=== PATIENT | female | born 1990 | race African-American/Black ===

== ENCOUNTER → 2020-02-02 | Outpatient (CLI) | payer MEDICAID, OTHER, SELFPAY | LOC: M LABSMTC 13:21 | PROVIDERS: ATTEND Family Medicine | DX: Z03.818 Encounter for observation for suspected exposure to other biological agents ruled out (principal); Z11.59 Encounter for screening for other viral diseases | CPT/HCPCS: C9803; U0003 ==

== ENCOUNTER → 2020-02-27 | Outpatient (CLI) | payer MEDICAID | LOC: M OUTALCOH 08:23 | PROVIDERS: ATTEND Psychiatry & Neurology Addiction Medicine | DX: Z03.89 Encounter for observation for other suspected diseases and conditions ruled out (principal) ==

== ENCOUNTER → 2020-04-11 | Outpatient (CLI) | payer MEDICAID, OTHER | LOC: M OUTALCOH 08:00 | PROVIDERS: ATTEND Psychiatry & Neurology Addiction Medicine | DX: F12.10 Cannabis abuse, uncomplicated (principal) ==

== ENCOUNTER 2020-04-24 10:00 | Outpatient (RCR) | payer MEDICAID, OTHER | END 2020-05-06 | LOC: M OUTALCOH 10:00 | PROVIDERS: ATTEND Psychiatry & Neurology Addiction Medicine | DX: Z03.89 Encounter for observation for other suspected diseases and conditions ruled out (principal); Z72.0 Tobacco use ==

== ENCOUNTER → 2020-07-03 | Outpatient (CLI) | payer OTHER | LOC: M OUTALCOH 10:29 | PROVIDERS: ATTEND Psychiatry & Neurology Addiction Medicine | DX: F10.20 Alcohol dependence, uncomplicated (principal); F12.10 Cannabis abuse, uncomplicated ==

== ENCOUNTER → 2020-08-05 | Outpatient (RCR) | payer OTHER | LOC: M OUTALCOH 07-09 13:20 | PROVIDERS: ATTEND Psychiatry & Neurology Addiction Medicine | DX: F10.20 Alcohol dependence, uncomplicated (principal); F12.10 Cannabis abuse, uncomplicated; Z72.0 Tobacco use ==

== ENCOUNTER 2020-09-03 14:00 | Outpatient (RCR) | payer OTHER | END 2020-09-05 | LOC: M OUTALCOH 14:00 | PROVIDERS: ATTEND Psychiatry & Neurology Addiction Medicine | DX: F10.20 Alcohol dependence, uncomplicated (principal); F12.10 Cannabis abuse, uncomplicated; Z72.0 Tobacco use ==

== ENCOUNTER 2020-10-04 11:00 | Outpatient (RCR) | payer OTHER | END 2020-10-06 | LOC: M OUTALCOH 11:00 | PROVIDERS: ATTEND Psychiatry & Neurology Addiction Medicine | DX: F10.20 Alcohol dependence, uncomplicated (principal); F12.10 Cannabis abuse, uncomplicated; Z72.0 Tobacco use ==

== ENCOUNTER → 2020-10-18 | Outpatient (CLI) | payer OTHER ==
--- NOTE | 2020-10-18 14:12 | REP ---
INDICATION: PAIN. COMPARISON: None. TECHNIQUE: Four views of the right ankle are provided. FINDINGS: Four views of the right ankle demonstrate an obliquely oriented nondisplaced fracture through the distal fibula. Ankle mortise is intact. No distal tibial fracture is appreciated. There is associated anterolateral swelling. The visualized hindfoot bones are intact. IMPRESSION: Obliquely oriented nondisplaced fracture through the distal fibular metaphysis. Associated swelling. <Electronically signed by Santiago Aceves > 10/18/20 [id number]
--- NOTE | 2020-10-18 14:13 | REP ---
INDICATION: PAIN. COMPARISON: None. TECHNIQUE: Four views of the right foot are provided. FINDINGS: Four views of the right foot demonstrate overall normal mineralization.. There is an obliquely oriented fracture through the distal fibula as seen on the ankle radiographs. There is associated swelling. No hindfoot, midfoot, or forefoot fracture is appreciated. There is Achilles calcaneal spurring.. No opaque foreign body noted. IMPRESSION: Obliquely oriented nondisplaced fracture through the distal fibular metaphysis. No additional fracture seen. Small heel spur.. <Electronically signed by Santiago Aceves > 10/18/20 [id number]
== END ==
LOC: M WUC 13:46
PROVIDERS: ATTEND Physician Assistant
DX: S82.431A Displaced oblique fracture of shaft of right fibula, initial encounter for closed fracture (principal); X58.XXXA Exposure to other specified factors, initial encounter; Y92.89 Other specified places as the place of occurrence of the external cause; Y93.89 Activity, other specified; Y99.8 Other external cause status; M77.31 Calcaneal spur, right foot

== ENCOUNTER 2020-10-30 12:00 | Outpatient (RCR) | payer OTHER | END 2020-11-03 | LOC: M OUTALCOH 12:00 | PROVIDERS: ATTEND Psychiatry & Neurology Psychiatry | DX: F10.20 Alcohol dependence, uncomplicated (principal); F12.10 Cannabis abuse, uncomplicated; Z72.0 Tobacco use ==

== ENCOUNTER 2020-11-07 14:20 | Outpatient (RCR) | payer OTHER | END 2020-12-04 | LOC: M OUTALCOH 14:20 | PROVIDERS: ATTEND Psychiatry & Neurology Psychiatry | DX: F10.20 Alcohol dependence, uncomplicated (principal); F12.10 Cannabis abuse, uncomplicated; Z72.0 Tobacco use ==

== ENCOUNTER 2021-01-25 20:13 | Emergency (ER) | payer OTHER ==
[~2021-01-25] VITALS: Ht 185.4 cm; Wt 111.6 kg
[2021-01-25] MEDS ORDERED: ONDANSETRON 4MG/2ML VIAL IV ONE (22:05)
[2021-01-25] MEDS ORDERED: NS 1,000 ML IV ONE (22:05)
[2021-01-25 22:38] LABS: BASO % 0.3 % (0.0-1.0); EOS % 0.5 % (0.0-3.0); HEMATOCRIT 37.7 % (36.0-47.0); HEMOGLOBIN 12.4 g/dl (12.0-15.5); LYMPH # 0.9 10^3/uL (1.5-5.0); LYMPH % 14.3 % (24.0-44.0); MEAN CORPUSCULAR HEMOGLOBIN 32.3 pg (27.0-33.0); MEAN CORPUSCULAR HGB CONC 32.9 g/dl (32.0-36.5); MEAN CORPUSCULAR VOLUME 98.2 fl (80.0-96.0); MONO # 0.5 10^3/uL (0.0-0.8); MONO % 7.4 % (2.0-8.0); NEUTROPHILS # 5.1 10^3/uL (1.5-8.5); NEUTROPHILS % 76.9 % (36.0-66.0); PLATELET COUNT, AUTOMATED 218 10^3/uL (150-450); RED BLOOD COUNT 3.84 10^6/uL (4.00-5.40); WHITE BLOOD COUNT 6.6 10^3/uL (4.0-10.0)
[2021-01-25 23:08] LABS: ALBUMIN 3.7 GM/DL (3.2-5.2); ALT/SGPT 134 U/L (12-78); BILIRUBIN,TOTAL 0.5 MG/DL (0.2-1.0); BLOOD UREA NITROGEN 5 MG/DL (7-18); CALCIUM LEVEL 8.7 MG/DL (8.5-10.1); CARBON DIOXIDE LEVEL 29 MEQ/L (21-32); CHLORIDE LEVEL 102 MEQ/L (98-107); CREATININE FOR GFR 0.88 MG/DL (0.55-1.30); GLOMERULAR FILTRATION RATE > 60.0 (>60); GLUCOSE, FASTING 79 MG/DL (70-100); POTASSIUM SERUM 3.4 MEQ/L (3.5-5.1); SODIUM LEVEL 136 MEQ/L (136-145)
--- NOTE | 2021-01-25 23:57 | REPVR ---
PROCEDURE INFORMATION: Exam: XR Chest Exam date and time: 01/25/2021 10:48 PM Age: 30 years old Clinical indication: Other: Cough TECHNIQUE: Imaging protocol: XR of the chest. Views: 2 views. COMPARISON: No relevant prior studies available. FINDINGS: Lungs: There is an area of density at the right perihilar portion of the lung. This may be the result of overlapping shadows. However, to exclude any possibility of right parahilar mass or pathology recommend CT scan with contrast for further evaluation. Pleural spaces: There is no evidence of pneumothorax or pleural effusion. Heart/Mediastinum: The heart is normal in size. Bones/joints: Unremarkable. IMPRESSION: 10 cm x 6 cm area of density in the right para hilar region. To exclude any possibility of this being a mass or area of consolidated lung recommend CT scan with contrast for further evaluation. It is possible that this is superimposition of shadows or related to residual thymus. Electronically signed by: Dk Winter On 01/25/2021 23:57:02 PM
[2021-01-26] MEDS ORDERED: ISOVUE-370 76% 100ML VIAL As Ordered ONE (00:18)
--- NOTE | 2021-01-26 00:56 | REPVR ---
PROCEDURE INFORMATION: Exam: CT Chest With Contrast; Diagnostic Exam date and time: 01/26/2021 12:30 AM Age: 30 years old Clinical indication: Abnormal findings; Abnormal radiologic exam of lung or chest; Additional info: Right perihilar consolidation on x-ray TECHNIQUE: Imaging protocol: Diagnostic computed tomography of the chest with contrast. 3D rendering (Not supervised by radiologist): MIP and/or 3D reconstructed images were created by the technologist. Radiation optimization: All CT scans at this facility use at least one of these dose optimization techniques: automated exposure control; mA and/or kV adjustment per patient size (includes targeted exams where dose is matched to clinical indication); or iterative reconstruction. Contrast material: ISOVUE 370; Contrast volume: 75 ml; Contrast route: INTRAVENOUS (IV); COMPARISON: CR Chest, 2 view PA, Lat 01/25/2021 10:37 PM FINDINGS: Thyroid: Normal thyroid. Lungs: The lungs appear clear. Pleural spaces: Unremarkable. No pneumothorax. No pleural effusion. Heart: The heart is normal in size and there is no pericardial effusion. Mediastinal space: There is no evidence of anterior mediastinal mass. Pulmonary arteries: There is opacification of the pulmonary arteries with no evidence of pulmonary embolus. Aorta: There is opacification of the aorta which appears intact. Lymph nodes: Unremarkable. No enlarged lymph nodes. Liver: There is severe fatty infiltration of the liver. The heart is normal in size and there is no pericardial effusion. There is a 5 cm area of extreme low density at the left lobe of the liver and falciform ligament probably focal fatty infiltration. However, to exclude any possibility of pathology recommend follow-up CT scan of the liver in 6 months for re-evaluation and to document stability. Stomach and bowel: Surgical clips are noted at this stomach. Bones/joints: Unremarkable. No acute fracture. Soft tissues: There is no evidence of soft tissue abnormality. The density in the right parahilar region on the chest radiograph is consistent with superimposition of shadows and related to the soft tissues. IMPRESSION: 1. The lungs are clear. 2. The density seen on the chest radiograph of the right parahilar region is related to soft tissues and overlapping shadows. 3. There is severe fatty infiltration of the liver. 4. 5 cm area of extreme low density at the junction of the false form ligament in left lobe of the liver is probably focal fatty infiltration. However to exclude pathology recommend follow-up CT scan in 6 months to document stability. Electronically signed by: Dk Winter On 01/26/2021 00:55:32 AM
--- NOTE | 2021-01-26 01:02 | REPVR ---
PROCEDURE INFORMATION: Exam: US Abdomen, Limited; Right Upper Quadrant Exam date and time: 01/26/2021 12:47 AM Age: 30 years old Clinical indication: Abnormal findings; Abnormal lab test; Elevated liver enzymes; Additional info: Vomiting/elevated lfts TECHNIQUE: Imaging protocol: US abdomen. Real time ultrasound with image documentation. Limited exam focused on the right upper quadrant. COMPARISON: No relevant prior studies available. FINDINGS: Liver: There is severe fatty infiltration through the liver. There is moderate hepatomegaly. The area of focal low density at the left lobe of the liver seen on CT is difficult to identify. Gallbladder: Normal gallbladder. Common bile duct: Normal size common bile duct. Pancreas: Pancreas is partially obscured by bowel gas but does not appear enlarged. Right kidney: Normal right kidney measuring 11.4 cm in length by 3.6 cm in thickness. IMPRESSION: Hepatomegaly and severe fatty infiltration of the liver. Electronically signed by: Dk Winter On 01/26/2021 01:02:17 AM
[2021-01-26] MEDS ORDERED: ONDA4TAB6 PO (01:24)
[2021-01-26 01:41] VITALS: BP 135/82
--- NOTE | 2021-01-27 11:03 | ED PDOC ---
Post-Departure Follow-Up ct chest faxed to [facility] for fu Mary Castellon MD January 27, 2021 11:03
== END 2021-01-26 01:42 | disposition home or self-care (01) ==
LOC: M ED 20:13
DX: B34.9 Viral infection, unspecified (principal); K76.0 Fatty (change of) liver, not elsewhere classified; R94.5 Abnormal results of liver function studies; R51.9 Headache, unspecified; J02.9 Acute pharyngitis, unspecified; M79.10 Myalgia, unspecified site; R11.2 Nausea with vomiting, unspecified; R19.7 Diarrhea, unspecified; I10 Essential (primary) hypertension; J45.909 Unspecified asthma, uncomplicated; Z86.73 Personal history of transient ischemic attack (TIA), and cerebral infarction without residual deficits; Z98.84 Bariatric surgery status
CPT/HCPCS: 71046; 71260; 76705; 80053; 84702; 85025; 87798; 87880; 96361; 96374; 99284; J2405; Q9967

== ENCOUNTER 2021-02-21 20:45 | Observation (INO) | payer OTHER ==
[~2021-02-21] VITALS: Ht 185.4 cm; Wt 119.0 kg
[~2021-02-21 20:45] MED LIST: ONDA4TAB6 PO
[2021-02-21 22:21] LABS: BASO % 0.4 % (0.0-1.0); EOS % 0.1 % (0.0-3.0); HEMATOCRIT 38.4 % (36.0-47.0); HEMOGLOBIN 12.7 g/dl (12.0-15.5); LYMPH % 12.2 % (24.0-44.0); MEAN CORPUSCULAR HEMOGLOBIN 32.4 pg (27.0-33.0); MEAN CORPUSCULAR HGB CONC 33.1 g/dl (32.0-36.5); MONO # 1.2 10^3/uL (0.0-0.8); MONO % 14.5 % (2.0-8.0); NEUTROPHILS # 5.8 10^3/uL (1.5-8.5); NEUTROPHILS % 72.3 % (36.0-66.0); PLATELET COUNT, AUTOMATED 188 10^3/uL (150-450); RED BLOOD COUNT 3.92 10^6/uL (4.00-5.40)
[2021-02-21] MEDS ORDERED: ACETAMINOPHEN 500 MG TAB PO ONE (22:25)
[2021-02-21 22:47] LABS: ALBUMIN 3.6 GM/DL (3.2-5.2); BILIRUBIN,DIRECT 0.2 MG/DL (0.0-0.2); BILIRUBIN,TOTAL 0.9 MG/DL (0.2-1.0); TOTAL PROTEIN 8.2 GM/DL (6.4-8.2)
[2021-02-21] MEDS ORDERED: NS 1,000 ML IV ONE (23:00)
[2021-02-22] MEDS ORDERED: ONDANSETRON 4MG/2ML VIAL IV ONE (00:10)
[2021-02-22] MEDS ORDERED: MORPHINE 2 MG/ML 1ML VIAL (J2270) IV ONE ×2 (00:10→03:15)
[2021-02-22] MEDS ORDERED: GASTROGRAFIN SOLUTION 30ML (Q9963) As Ordered ONE (00:22)
[2021-02-22] MEDS: GASTROGRAFIN SOLUTION 30ML (Q9963) PO SCH ×2 (00:34→01:05)
--- NOTE | 2021-02-22 02:07 | REPVR ---
PROCEDURE INFORMATION: Exam: CT Abdomen And Pelvis With Contrast Exam date and time: 02/22/2021 12:09 AM Age: 30 years old Clinical indication: Abdominal pain; Localized; Left upper quadrant (luq); Additional info: Luq pain/ diarrhea/ fever TECHNIQUE: Imaging protocol: Computed tomography of the abdomen and pelvis with contrast. Axial, coronal and sagittal reformatted images were created and reviewed. Radiation optimization: All CT scans at this facility use at least one of these dose optimization techniques: automated exposure control; mA and/or kV adjustment per patient size (includes targeted exams where dose is matched to clinical indication); or iterative reconstruction. Contrast material: ISO; Contrast volume: 100 ml; Contrast route: INTRAVENOUS (IV); Other contrast: Oral, ggraphin, 600; COMPARISON: LIVER US 01/26/2021 12:36 AM FINDINGS: Liver: Mild hepatomegaly. Diffuse hepatic steatosis. Gallbladder and bile ducts: No radiodense gallstones. No biliary ductal dilatation. Pancreas: Unremarkable. Spleen: Unremarkable. Adrenal glands: Normal. No mass. Kidneys and ureters: Left renal cortical mottling/striation with associated perinephric edema. No radiodense calculi. No hydronephrosis. Stomach and bowel: No bowel wall thickening. No obstruction. No pneumatosis. Appendix: Normal. Intraperitoneal space: Small nonspecific free pelvic fluid, likely physiologic. No organized fluid collection. No free air. Vasculature: Unremarkable. No aneurysm. Lymph nodes: No pathologically enlarged lymph nodes. Urinary bladder: Mild circumferential urinary bladder wall thickening. Reproductive: Unremarkable. Bones/joints: No acute osseous abnormality. Soft tissues: Unremarkable. IMPRESSION: 1. Acute left-sided pyelonephritis, as described above. 2. Additional findings, as above. Electronically signed by: Kenroy Hayward On 02/22/2021 02:06:32 AM
[2021-02-22] MEDS ORDERED: METAL LOCK LOOP XX ONE (03:10)
[2021-02-22] MEDS ORDERED: cefTRIAXone SOD 2 GM in D5W MINI-BAG PLUS 50 ML IV ONE (03:45)
[2021-02-22] MEDS ORDERED: MOM 30ML SUSPENSION UDC PO PRN (05:15)
[2021-02-22] MEDS ORDERED: MAALOX 30 ML SUSP *UDC PO PRN (05:15)
--- NOTE | 2021-02-22 05:34 | HPEPDOC ---
[facility] Medical History & Physical Date of Admission Feb 22, 2021 Date of Service: Feb 22, 2021 Attending Physician: HAYDER BEAL MD History and Physical CHIEF COMPLAINT: Left upper quadrant and left flank pain with intractable nausea and vomiting HISTORY OF PRESENT ILLNESS Ms. Jain is a 30-year-old 4, para 2, AB 2 female who presented to the ER with complaints of 2 days of intractable abdominal pain which started in the left upper quadrant and radiated around left flank to left CVA. LMP was 1-2 weeks ago. HCG is negative. She states she has been unable to eat or drink anything without immediately throwing it back up. So complained of a feeling of urinary urgency but was only able to urinate very small amounts. She had a fever, which she states ranged between 101-103 over the last 2 days. She initially stated that eating made the abdominal pain worse. She also complained of some diarrhea which seems to have improved. She related that initially the diarrhea seemed to make the abdominal pain better. The patient has a history of gastric sleeve and had multiple complications after the surgery. She initially lost 200 pounds but states she has gained at least 60 pounds back. On initial evaluation, patient was found to be febrile with a fever of 102, per the ER provider. Lactic acid was normal. White blood cell count was also normal. Assessment elevation of LFTs, which is mild with a history of hepatic steatosis. BUN/creatinine were 6 and 0.8. Labs were otherwise unremarkable. Patient was noted to be hypertensive with blood pressure 179/88. She has a history of hypertension but was taken off blood pressure medicines after her gastric sleeve. She currently does not have a primary care provider but states that she has noticed that her blood pressure has been elevated the last 2 times she presented in the ER. CT scan of the abdomen and pelvis showed left renal cortical remodeling and striation with associated perinephric edema. There were no obvious calculi and no hydronephrosis. Radiology commented this illness, acute left-sided pyelonephritis. UA showed positive blood, positive leukocyte Estrace and 1+ bacteria. Patient was given IV fluids, Zofran, morphine and Rocephin in the ER. PAST MEDICAL HISTORY: 1. Major depressive disorder. 2. Anxiety. 3. Hepatic steatosis. 4. Hypertension, currently on no medications. 5. Asthma as a child. 6. TIA PAST SURGICAL HISTORY: 1. Gastric sleeve. 2. EGD. 3. Tubal 2. 4. 2 SOCIAL HISTORY: Tobacco use:. Patient admits to smoking 1 black and delgado daily. ETOH: She has a history of alcohol abuse but states that now she only drinks socially. Illicit drug use: She does smoke marijuana on occasion. Patient lives with: With family FAMILY HISTORY: . Family history was thoroughly reviewed and found to be noncontributory REVIEW OF SYSTEMS: Complete 10 point review systems is negative except as noted above PHYSICAL EXAMINATION: Patient is seen in the ER, lying on stretcher.. She is alert and oriented x 3. HEENT is WNL. Neck is supple. Lungs are clear to auscultation. Heart regular rate and rhythm without murmur. Abdomen is obese, soft, tender to palpation in the left upper quadrant, left flank with CVA tenderness also noted. Bowel sounds positive. Extremities with good ROM and strength equal bilaterally. No lower extremity edema. Pedal pulses are positive. Skin is warm and dry with no obvious rash or lesion. Neuro: grossly intact. Psych: She is pleasant and cooperative ASSESSMENT AND PLAN: 1. Left pyelonephritis. We'll continue the patient on Rocephin. We'll also continue IV fluids. Will continue when necessary pain medications including morphine until patient is tolerating by mouth. Will also add Pyridium for use as needed. Will adjust antibiotics as needed based on cultures. 2. Intractable nausea and vomiting. Will limit patient's by mouth intake to sips of clear liquids only for now. Will advance diet as nausea and vomiting improves. Add when necessary antiemetics. Continue gentle IV fluids. 3. Hypertension, essential. She is not currently treated with any medications. Will start lisinopril and monitor with routine vital signs. Will adjust medications as needed based on trends. 4. Elevated LFTs secondary to nausea and vomiting. Recheck labs in the morning. 5. DVT prophylaxis. Will add Lovenox. CODE STATUS: CODE STATUS was discussed with the patient desires to be considered full code. She states her mother would act as her surrogate if she were unable to make her decisions. Patient is considered high risk of further deterioration including possible sepsis or septic shock. She is admitted for close observation and further evaluation. Expected to remain at least one midnight. Vital Signs Vital Signs Date Time Temp Pulse Resp B/P (MAP) Pulse Ox O2 Delivery O2 Flow Rate FiO2 02/22/21 04:01 92 20 165/97 (119) 100 Room Air 02/22/21 00:01 98.9 Laboratory Data Labs 24H Laboratory Tests 2 02/21/21 22:10: Immature Granulocyte % (Auto) 0.5, Neutrophils (%) (Auto) 72.3H, Lymphocytes (%) (Auto) 12.2L, Monocytes (%) (Auto) 14.5H, Eosinophils (%) (Auto) 0.1, Basophils (%) (Auto) 0.4, Neutrophils # (Auto) 5.8, Lymphocytes # (Auto) 1.0L, Monocytes # (Auto) 1.2H, Eosinophils # (Auto) 0.0, Basophils # (Auto) 0.0, Nucleated Red Blood Cells % (auto) 0.0, Lactic Acid Level 1.4, Total Bilirubin 0.9, Direct Bilirubin 0.2, Aspartate Amino Transf (AST/SGOT) 56H, Alanine Aminotransferase (ALT/SGPT) 84H, Alkaline Phosphatase 96, Total Protein 8.2, Albumin 3.6, Albumin/Globulin Ratio 0.8L, Lipase 60L 02/21/21 22:18: POC Glucose (Misc Panel) 105, POC Sodium (Misc Panel) 134L, POC Potassium (Misc Panel) 3.7, POC Chloride (Misc Panel) 93L, POC Total CO2 (Misc Panel) 27.0, POC Blood Urea Nitrogen (Misc Panel 6L, POC Ionized Calcium (Misc Panel) 4.1L, POC Creatinine (Misc Panel) 0.8, POC Hematocrit (Misc Panel) 42.0 02/21/21 22:19: POC Beta HCG, Quantitative < 5.0 02/22/21 01:13: Urine Color YELLOW, Urine Appearance CLEAR, Urine pH 7.0, Urine Specific [place] 1.005, Urine Protein NEGATIVE, Urine Glucose (UA) NEGATIVE, Urine Ketones TRACEH, Urine Blood 2+H, Urine Nitrite NEGATIVE, Urine Bilirubin NEGATIVE, Urine Urobilinogen 0.2, Urine Leukocyte Esterase 2+H, Urine WBC (Auto) 4H, Urine RBC (Auto) 1, Urine Hyaline Casts (Auto) 0, Urine Bacteria (Auto) 1+H, Urine Squamous Epithelial Cells 1, Urine Sperm (Auto) CBC/BMP Laboratory Tests 02/21/21 22:10 Microbiology Microbiology 02/22/21 Urine Culture, Received Pending Home Medications No Active Prescriptions or Reported Meds Allergies Coded Allergies: No Known Allergies (Unverified , 01/25/21) A-FIB/CHADSVASC A-FIB History Current/History of A-Fib/PAF?: No MAUDE SOOD Feb 22, 2021 05:34
[2021-02-22] MEDS: NS 1,000 ML IV SCH ×3 (05:36→22:22)
[2021-02-22] MEDS: ONDANSETRON 4MG/2ML VIAL IV PRN ×3 (05:37→20:13)
[2021-02-22] MEDS: PHENAZOPYRIDINE 100 MG TAB PO PRN ×2 (05:38→20:13)
[2021-02-22] MEDS: MORPHINE 2 MG/ML 1ML VIAL (J2270) IV PRN ×5 (05:43→22:20)
[2021-02-22 06:08] LABS: RSV AMPLIFICATION NEGATIVE (NEGATIVE)
[2021-02-22 06:46] VITALS: BP 139/89
[2021-02-22 07:34] LABS: BASO % 0.2 % (0.0-1.0); EOS % 0.4 % (0.0-3.0); HEMOGLOBIN 11.6 g/dl (12.0-15.5); LYMPH # 1.3 10^3/uL (1.5-5.0); LYMPH % 16.5 % (24.0-44.0); MEAN CORPUSCULAR HEMOGLOBIN 32.6 pg (27.0-33.0); MEAN CORPUSCULAR HGB CONC 33.1 g/dl (32.0-36.5); MEAN CORPUSCULAR VOLUME 98.3 fl (80.0-96.0); MONO # 1.2 10^3/uL (0.0-0.8); MONO % 14.7 % (2.0-8.0); NEUTROPHILS # 5.5 10^3/uL (1.5-8.5); NEUTROPHILS % 67.8 % (36.0-66.0); PLATELET COUNT, AUTOMATED 191 10^3/uL (150-450); RED BLOOD COUNT 3.56 10^6/uL (4.00-5.40); WHITE BLOOD COUNT 8.1 10^3/uL (4.0-10.0)
[2021-02-22 08:00] LABS: BLOOD UREA NITROGEN 6 MG/DL (7-18); CALCIUM LEVEL 7.8 MG/DL (8.5-10.1); CARBON DIOXIDE LEVEL 28 MEQ/L (21-32); CHLORIDE LEVEL 100 MEQ/L (98-107); CREATININE FOR GFR 0.77 MG/DL (0.55-1.30); GLOMERULAR FILTRATION RATE > 60.0 (>60); GLUCOSE, FASTING 90 MG/DL (70-100); MAGNESIUM LEVEL 1.3 MG/DL (1.8-2.4); POTASSIUM SERUM 3.2 MEQ/L (3.5-5.1); SODIUM LEVEL 134 MEQ/L (136-145)
[2021-02-22] MEDS: ENOXAPARIN 40MG/0.4ML SYRINGE (J1650 PER 10MG) SC SCH (08:17)
[2021-02-22] MEDS: lisinopriL 5 MG TAB PO SCH (08:18)
[2021-02-22] MEDS ORDERED: POTASSIUM CHLORIDE 10 MEQ SR TABLET PO ONE (09:00)
[2021-02-22] MEDS: MAG SULF 1GM/100ML (MAG RUN) 1 GM in IV 1 EA IV SCH ×3 (09:23→11:51)
--- NOTE | 2021-02-22 10:10 | IPNPDOC ---
Text Note Date of Service The patient was seen on 02/22/21. NOTE Subjective: Patient is a 30-year-old female with a PMHx of HTN, Childhood asthma, Hx of TIA, Hepatic steatosis, Depression / Anxiety, who was presented to the emergency room with 2 day history of intractable abdominal pain occurring in her left upper abdomen/left flank associated with nausea and vomiting. Upon arrival to emergency room, patient is CT scan completed that revealed evidence of left- sided pyelonephritis. Patient was admitted to the hospitalist service for further evaluation and treatment. Patient was seen and examined at the bedside. Currently patient reports that she still experiencing some left upper abdominal pain/left flank pain that has had improvement. Her nausea has subsided. She has not expressed any further episodes of vomiting. Denies any chest pain, shortness of breath or palpitations. Denies any diarrhea. Objective: Vitals (See below) General: Lying in bed, appears comfortable, AAOx3 HEENT: NC, AT CVS: RRR, +S1S2 Lungs: Fair air entry b/l, no wheezing, rales or rhonchi Abdomen: Soft, ND, tenderness noted at the left upper quadrant and left flank Extremities: - Edema, - Calf tenderness Imaging: CT abdomen / pelvis 02/22: 1. Acute left-sided pyelonephritis, as described above. 2. Additional findings, as above. Assessment and plan: Left flank pain - likely 2/2 acute pyelonephritis - A she presented to the ER with complaints of left flank pain associated with nausea and vomiting for the last 2 days - Patient remains hemodynamically stable and afebrile - Physical with left flank tenderness - No leukocytosis, no lactic acidosis - UA abnormal; urine culture pending - c/w Ceftriaxone (Day #1) and gentle IV fluid hydration - c/w symptomatic control with Zofran / Morphine Tractable nausea and vomiting - Will start clear liquid diet; will advance as tolerated Hyponatremia - likely 2/2 hypotonic hypovolemic etiology 2/2 nausea and vomiting - c/w IV fluid hydration Hypokalemia - Will supplement Hypomagnesemia - Will supplement HTN - BP well controlled - c/w Lisinopril; will hold parameters Childhood asthma Hx of TIA Hepatic steatosis - Mild elevation of AST and ALT - Will continue to trend Depression / Anxiety - Currently not on any medications DVT prophylaxis - c/w Lovenox Disposition: - Awaiting clinical improvement VSLeyla I+O VS, Leyla, I+O Laboratory Tests 02/21/21 22:10 02/22/21 07:25 Vital Signs Date Time Temp Pulse Resp B/P (MAP) Pulse Ox O2 Delivery O2 Flow Rate FiO2 02/22/21 08:18 140/91 02/22/21 08:17 17 Room Air 02/22/21 06:46 100.0 108 100 I&O- Last 24 Hours up to 6 AM 02/22/21 06:00 Intake Total 1050 ml Balance 1050 ml BRITTA JOHNSON MD Feb 22, 2021 10:10
[2021-02-22 14:00] VITALS: BP 114/70
[2021-02-22] MEDS ORDERED: MORPHINE 2 MG/ML 1ML VIAL (J2270) IV PRN (14:00)
[2021-02-22] MEDS: ACETAMINOPHEN TAB 650MG DOSE (2X325MG) PO PRN (20:13)
[2021-02-22 22:00] VITALS: BP 110/69
[2021-02-23] MEDS: MORPHINE 2 MG/ML 1ML VIAL (J2270) IV PRN ×2 (02:50→13:22)
[2021-02-23] MEDS: cefTRIAXone SOD 1 GM in D5W MINI-BAG PLUS 50 ML IV SCH (05:10)
[2021-02-23 06:00] VITALS: BP 140/78
[2021-02-23 06:48] LABS: BASO % 0.4 % (0.0-1.0); EOS # 0.1 10^3/uL (0.0-0.5); EOS % 1.6 % (0.0-3.0); HEMATOCRIT 35.7 % (36.0-47.0); HEMOGLOBIN 11.6 g/dl (12.0-15.5); LYMPH # 1.8 10^3/uL (1.5-5.0); MEAN CORPUSCULAR HEMOGLOBIN 32.4 pg (27.0-33.0); MEAN CORPUSCULAR HGB CONC 32.5 g/dl (32.0-36.5); MEAN CORPUSCULAR VOLUME 99.7 fl (80.0-96.0); MONO # 1.3 10^3/uL (0.0-0.8); MONO % 17.3 % (2.0-8.0); NEUTROPHILS # 4.2 10^3/uL (1.5-8.5); NEUTROPHILS % 56.3 % (36.0-66.0); PLATELET COUNT, AUTOMATED 210 10^3/uL (150-450); RED BLOOD COUNT 3.58 10^6/uL (4.00-5.40); WHITE BLOOD COUNT 7.4 10^3/uL (4.0-10.0)
[2021-02-23 07:13] LABS: BLOOD UREA NITROGEN 3 MG/DL (7-18); CALCIUM LEVEL 8.3 MG/DL (8.5-10.1); CARBON DIOXIDE LEVEL 27 MEQ/L (21-32); CHLORIDE LEVEL 105 MEQ/L (98-107); CREATININE FOR GFR 0.71 MG/DL (0.55-1.30); GLOMERULAR FILTRATION RATE > 60.0 (>60); GLUCOSE, FASTING 80 MG/DL (70-100); MAGNESIUM LEVEL 2.2 MG/DL (1.8-2.4); POTASSIUM SERUM 3.5 MEQ/L (3.5-5.1); SODIUM LEVEL 136 MEQ/L (136-145)
[2021-02-23] MEDS: PHENAZOPYRIDINE 100 MG TAB PO PRN ×2 (08:01→17:49)
[2021-02-23] MEDS: ONDANSETRON 4MG/2ML VIAL IV PRN (08:01)
[2021-02-23 08:02] VITALS: BP 128/77
[2021-02-23] MEDS: ENOXAPARIN 40MG/0.4ML SYRINGE (J1650 PER 10MG) SC SCH (08:02)
[2021-02-23] MEDS: lisinopriL 5 MG TAB PO SCH (08:02)
[2021-02-23] MEDS: ACETAMINOPHEN TAB 650MG DOSE (2X325MG) PO PRN ×2 (08:02→20:38)
--- NOTE | 2021-02-23 09:26 | IPNPDOC ---
Text Note Date of Service The patient was seen on 02/23/21. NOTE Subjective: Patient is a 30-year-old female with a PMHx of HTN, Childhood asthma, Hx of TIA, Hepatic steatosis, Depression / Anxiety, who was presented to the emergency room with 2 day history of intractable abdominal pain occurring in her left upper abdomen/left flank associated with nausea and vomiting. Upon arrival to emergency room, patient is CT scan completed that revealed evidence of left- sided pyelonephritis. Patient was admitted to the hospitalist service for further evaluation and treatment. Patient was seen and examined at the bedside. Currently patient notes that their nausea / vomiting has resolved. Denies any CP, SOB, or palpitations. Still reports some left flank pain. Denies any urinary discomfort. Reports some diarrhea yesterday. Objective: Vitals (See below) General: Patient is laying in bed watching a show on her phone, appears comfortable, not in any acute distress, awake and alert, oriented 3 HEENT: Normocephalic, Atraumatic CVS: +S1S2 Lungs: Air entry is fair bilaterally without evidence of wheezing, crackles or rhonchi Abdomen: Remains soft without distention, tenderness in the left flank Extremities: No edema, - Calf tenderness Imaging: CT abdomen / pelvis 02/22: 1. Acute left-sided pyelonephritis, as described above. 2. Additional findings, as above. Assessment and plan: Left flank pain - likely 2/2 acute pyelonephritis - Had presented to the ER with complaints of left flank pain associated with nausea and vomiting for the last 2 days - Hemodynamically stable and afebrile - Physical still reveals left flank tenderness - No leukocytosis, no lactic acidosis - UA abnormal; urine culture remains pending - Will trend CRP - c/w Ceftriaxone (Day #2) and gentle IV fluid hydration - c/w symptomatic control with Zofran / Morphine s/p Intractable nausea and vomiting - c/w Regular diet s/p Hyponatremia - likely 2/2 hypotonic hypovolemic etiology 2/2 nausea and vomiting - c/w IV fluid hydration s/p Hypokalemia s/p Hypomagnesemia HTN - BP well controlled - c/w Lisinopril; will hold parameters Childhood asthma Hx of TIA Hepatic steatosis - Mild elevation of AST and ALT - Will continue to trend; liver profile pending this morning Depression / Anxiety - Currently not on any medications DVT prophylaxis - c/w Lovenox Disposition: - Awaiting clinical improvement VS,Leyla, I+O VS, Leyla, I+O Laboratory Tests 02/23/21 06:38 Vital Signs Date Time Temp Pulse Resp B/P (MAP) Pulse Ox O2 Delivery O2 Flow Rate FiO2 02/23/21 08:02 128/77 02/23/21 06:00 98.5 84 20 97 Room Air I&O- Last 24 Hours up to 6 AM 02/23/21 06:00 Intake Total 3310 ml Output Total 4300 ml Balance -990 ml BRITTA JOHNSON MD Feb 23, 2021 09:25
[2021-02-23 09:42] LABS: ALBUMIN 3.2 GM/DL (3.2-5.2); ALT/SGPT 52 U/L (12-78); BILIRUBIN,DIRECT 0.2 MG/DL (0.0-0.2); BILIRUBIN,TOTAL 0.5 MG/DL (0.2-1.0); TOTAL PROTEIN 7.8 GM/DL (6.4-8.2)
[2021-02-23 09:49] LABS: C REACTIVE PROTEIN QUANTITATIV 17.8 MG/DL (0.00-0.30)
[2021-02-23] MEDS: NS 1,000 ML IV SCH (12:31)
[2021-02-23] MEDS ORDERED: RAMELTEON 8 MG TAB (ROZEREM) PO PRN (17:40)
[2021-02-23] MEDS: PERCOCET 5MG/325MG TAB PO PRN (17:49)
[2021-02-23 21:00] VITALS: BP 106/61
[2021-02-24] MEDS: PERCOCET 5MG/325MG TAB PO PRN ×2 (01:00→08:57)
[2021-02-24] MEDS: PHENAZOPYRIDINE 100 MG TAB PO PRN (05:36)
[2021-02-24] MEDS: cefTRIAXone SOD 1 GM in D5W MINI-BAG PLUS 50 ML IV SCH (05:36)
[2021-02-24] MEDS: ACETAMINOPHEN TAB 650MG DOSE (2X325MG) PO PRN (05:37)
[2021-02-24 06:00] VITALS: BP 113/63
[2021-02-24 06:34] LABS: HEMOGLOBIN 10.9 g/dl (12.0-15.5); MEAN CORPUSCULAR HEMOGLOBIN 32.2 pg (27.0-33.0); MEAN CORPUSCULAR HGB CONC 32.1 g/dl (32.0-36.5); MEAN CORPUSCULAR VOLUME 100.6 fl (80.0-96.0); PLATELET COUNT, AUTOMATED 349 10^3/uL (150-450); RED BLOOD COUNT 3.38 10^6/uL (4.00-5.40)
[2021-02-24 07:02] LABS: BLOOD UREA NITROGEN 5 MG/DL (7-18); CALCIUM LEVEL 8.2 MG/DL (8.5-10.1); CARBON DIOXIDE LEVEL 27 MEQ/L (21-32); CHLORIDE LEVEL 107 MEQ/L (98-107); CREATININE FOR GFR 0.72 MG/DL (0.55-1.30); GLOMERULAR FILTRATION RATE > 60.0 (>60); GLUCOSE, FASTING 85 MG/DL (70-100); MAGNESIUM LEVEL 2.1 MG/DL (1.8-2.4); POTASSIUM SERUM 5.2 MEQ/L (3.5-5.1); SODIUM LEVEL 138 MEQ/L (136-145)
[2021-02-24 07:30] LABS: ATYPICAL LYMPH 6 % (0-5); EOSINOPHILS 4 % (0-3); LYMPHOCYTES 41 % (16-44); MONOCYTES 14 % (0-5); NEUTROPHILS 35 % (28-66)
[2021-02-24 07:32] LABS: PLATELET ESTIMATE NORMAL (NORMAL)
[2021-02-24] MEDS: ENOXAPARIN 40MG/0.4ML SYRINGE (J1650 PER 10MG) SC SCH (08:00)
[2021-02-24 08:14] LABS: BLOOD UREA NITROGEN 4 MG/DL (7-18); CALCIUM LEVEL 8.6 MG/DL (8.5-10.1); CARBON DIOXIDE LEVEL 28 MEQ/L (21-32); CHLORIDE LEVEL 107 MEQ/L (98-107); CREATININE FOR GFR 0.76 MG/DL (0.55-1.30); GLOMERULAR FILTRATION RATE > 60.0 (>60); GLUCOSE, FASTING 98 MG/DL (70-100); POTASSIUM SERUM 4.3 MEQ/L (3.5-5.1); SODIUM LEVEL 140 MEQ/L (136-145)
[2021-02-24] MEDS ORDERED: LEVO750T14 PO (09:47)
[2021-02-24] MEDS ORDERED: OXYC1TAB23 PO (09:47)
--- NOTE | 2021-02-24 11:08 | DS.PDOC ---
Discharge Summary General Date of Admission Feb 21, 2021 at 20:46 Date of Discharge 02/24/2021 Discharge Summary PROCEDURES PERFORMED DURING STAY: [None]. ADMITTING DIAGNOSES / DISCHARGE DIAGNOSES: Left flank pain - likely 2/2 acute pyelonephritis s/p Intractable nausea and vomiting s/p Hyponatremia - likely 2/2 hypotonic hypovolemic etiology 2/2 nausea and vomiting s/p Hypokalemia s/p Hypomagnesemia HTN Childhood asthma Hx of TIA Hepatic steatosis Depression / Anxiety DVT prophylaxis COMPLICATIONS/CHIEF COMPLAINT: Left flank pain / Nausea / Vomiting HISTORY OF PRESENT ILLNESS: Patient is a 30-year-old female with a PMHx of HTN, Childhood asthma, Hx of TIA, Hepatic steatosis, Depression / Anxiety, who was presented to the emergency room with 2 day history of intractable abdominal pain occurring in her left upper abdomen/left flank associated with nausea and vomiting. Upon arrival to emergency room, patient is CT scan completed that revealed evidence of left- sided pyelonephritis. Patient was admitted to the hospitalist service for further evaluation and treatment. Patient was seen and examined at the bedside. Currently, she denies any nausea or vomiting. Has been able to tolerated a full diet. Denies any chest pain, shortness of breath or palpitations. Reports regular bowel movements. Denies any urinary discomfort. Reports some left-sided flank pain, however, has had improvement from admission. HOSPITAL COURSE: Left flank pain - likely 2/2 acute pyelonephritis - Had presented to the ER with complaints of left flank pain associated with nausea and vomiting for the last 2 days - No further fevers noted - No leukocytosis, no lactic acidosis - UA abnormal; Urine culture 02/22: Escherichia coli - CRP improving - Will start Levofloxacin PO for completion of antibiotic course on discharge ; Will discontinue Ceftriaxone (Day #3) - s/p Morphine; will continue with Percocet on discharge - Will have outpatient follow-up with primary care provider within the next 7 days s/p Intractable nausea and vomiting - c/w Regular diet s/p Hyponatremia - likely 2/2 hypotonic hypovolemic etiology 2/2 nausea and vomiting - s/p IV fluid hydration s/p Hypokalemia s/p Hypomagnesemia HTN - BP well controlled; currently not on any medications as an outpatient - Will discontinue Lisinopril Childhood asthma Hx of TIA Hepatic steatosis - AST and ALT have normalized Depression / Anxiety - Currently not on any medications DVT prophylaxis - c/w Lovenox DISCHARGE MEDICATIONS: Please see below. ALLERGIES: Please see below. PHYSICAL EXAMINATION ON DISCHARGE: Vitals (See below) General: Patient is laying in bed, appears comfortable, not in any acute distress, is awake and alert, oriented 3 HEENT: Normocephalic, Atraumatic CVS: +S1S2 Lungs: There appears to be fair air entry bilaterally without evidence of wheezing, crackles or rhonchi Abdomen: Remains soft, nondistended, there still is some left flank tenderness Extremities: Lower extremities without any edema LABORATORY DATA: Please see below. IMAGING: CT abdomen / pelvis 02/22: 1. Acute left-sided pyelonephritis, as described above. 2. Additional findings, as above. ACTIVITY: [As tolerated]. DISCHARGE PLAN: Follow-up with primary care provider within the next 7 days Remain compliant with treatment plan and medications Return to the ER if you experience any problems DISPOSITION: Home DISCHARGE CONDITION: [Stable]. TIME SPENT ON DISCHARGE: 35 minutes. Vital Signs/I&Os Vital Signs Date Time Temp Pulse Resp B/P (MAP) Pulse Ox O2 Delivery O2 Flow Rate FiO2 02/24/21 09:27 17 02/24/21 06:00 98.1 74 113/63 (80) 99 Room Air I&O- Last 24 Hours up to 6 AM 02/24/21 06:00 Intake Total 720 ml Output Total 2000 ml Balance -1280 ml Laboratory Data Labs 24H Laboratory Tests 2 02/24/21 05:47: Neutrophils (%) (Auto) , Nucleated Red Blood Cells % (auto) 0.0, Neutrophils 35, Lymphocytes (Manual) 41, Monocytes (Manual) 14H, Eosinophils (Manual) 4H, Atypical Lymphocytes 6H, Red Blood Cell Morphology NORMAL, Platelet Estimate NORMAL, Anion Gap 4L, Glomerular Filtration Rate > 60.0, Calcium Level 8.2L, Magnesium Level 2.1, C-Reactive Protein, Quantitative 10.60H 02/24/21 07:42: Anion Gap 5L, Glomerular Filtration Rate > 60.0, Calcium Level 8.6 CBC/BMP Laboratory Tests 02/24/21 05:47 02/24/21 07:42 Microbiology Microbiology 02/22/21 Urine Culture - Final, Complete Escherichia Coli Discharge Medications Scheduled levoFLOXacin (levoFLOXacin) 750 Mg Tablet, 750 MG PO DAILY Scheduled PRN Oxycodone HCl/Acetaminophen (Oxycodone-Acetaminophen 5-325) 1 Each Tablet, 1 TAB PO Q8HP PRN for pain Allergies Coded Allergies: No Known Allergies (Unverified , 01/25/21) BRITTA JOHNSON MD Feb 24, 2021 11:08
== END 2021-02-24 13:25 | disposition home or self-care (01) ==
LOC: M ED 20:45 → M ED INP 20:46 → ENRESERV 02-22 06:21 → M MS5PR 02-22 06:46
PROVIDERS: ADMIT Internal Medicine; ATTEND Internal Medicine
DX: N10 Acute pyelonephritis (principal); R82.998 Other abnormal findings in urine; B96.20 Unspecified Escherichia coli [E. coli] as the cause of diseases classified elsewhere; R11.2 Nausea with vomiting, unspecified; R10.9 Unspecified abdominal pain; E87.1 Hypo-osmolality and hyponatremia; E87.6 Hypokalemia; E83.42 Hypomagnesemia; I10 Essential (primary) hypertension; K76.0 Fatty (change of) liver, not elsewhere classified; F32.9 Major depressive disorder, single episode, unspecified; F41.9 Anxiety disorder, unspecified; Z86.73 Personal history of transient ischemic attack (TIA), and cerebral infarction without residual deficits; Z86.718 Personal history of other venous thrombosis and embolism; Z79.2 Long term (current) use of antibiotics; F17.210 Nicotine dependence, cigarettes, uncomplicated
CPT/HCPCS: 36415; 74177; 80047; 80048; 80076; 81001; 83605; 83690; 83735; 84702; 85025; 86140; 87088; 87186; 87631; 96361; 96365; 96366; 96372; 96375; 96376; 99285; J0696; J1650; J2270; J2405; J3475

== ENCOUNTER 2021-06-05 21:13 | Emergency (ER) | payer OTHER ==
[~2021-06-05] VITALS: Ht 185.4 cm; Wt 99.7 kg
[2021-06-05 21:13] VITALS: BP 126/95
[~2021-06-05 21:13] MED LIST changes: +LEVO750T14 PO; +OXYC1TAB23 PO
== END 2021-06-05 21:22 | disposition left against medical advice (07) ==
LOC: M ED 21:13
DX: Z53.21 Procedure and treatment not carried out due to patient leaving prior to being seen by health care provider (principal)

== ENCOUNTER 2021-06-17 13:47 | Observation (INO) | payer OTHER ==
[~2021-06-17] VITALS: Ht 185.4 cm; Wt 27.2 kg
[2021-06-17] MEDS ORDERED: NS 1,000 ML IV ONE (21:20)
[2021-06-17] MEDS ORDERED: ONDANSETRON 4MG/2ML VIAL IV ONE (21:20)
[2021-06-17] MEDS ORDERED: MORPHINE 4 MG/ML 1ML VIAL/SYRINGE (J2270) IV ONE (21:20)
[2021-06-17] MEDS: GASTROGRAFIN SOLUTION 30ML PO SCH ×2 (22:00→22:30)
[2021-06-17] MEDS ORDERED: ONDANSETRON 4 MG ORAL DISINTEGRATING TAB PO ONE (23:10)
[2021-06-17] MEDS ORDERED: ISOVUE-370 76% 100ML VIAL As Ordered ONE (23:16)
[2021-06-17 23:23] LABS: BASO # 0.1 10^3/uL (0.0-0.2); BASO % 1.1 % (0.0-1.0); EOS # 0.1 10^3/uL (0.0-0.5); EOS % 1.1 % (0.0-3.0); HEMATOCRIT 41.5 % (36.0-47.0); HEMOGLOBIN 14.1 g/dl (12.0-15.5); LYMPH # 1.6 10^3/uL (1.5-5.0); LYMPH % 35.3 % (24.0-44.0); MEAN CORPUSCULAR HEMOGLOBIN 34.6 pg (27.0-33.0); MONO # 0.4 10^3/uL (0.0-0.8); NEUTROPHILS # 2.4 10^3/uL (1.5-8.5); NEUTROPHILS % 53.3 % (36.0-66.0); PLATELET COUNT, AUTOMATED 328 10^3/uL (150-450); RED BLOOD COUNT 4.07 10^6/uL (4.00-5.40); WHITE BLOOD COUNT 4.6 10^3/uL (4.0-10.0)
[2021-06-17 23:42] LABS: HCG, SERUM QUALITATIVE NEGATIVE (NEGATIVE)
[2021-06-18 00:21] LABS: ALBUMIN 4.1 GM/DL (3.2-5.2); ALT/SGPT 112 U/L (12-78); BILIRUBIN,DIRECT 0.4 MG/DL (0.0-0.2); BILIRUBIN,TOTAL 1.4 MG/DL (0.2-1.0); BLOOD UREA NITROGEN 8 MG/DL (7-18); CALCIUM LEVEL 9.9 MG/DL (8.5-10.1); CARBON DIOXIDE LEVEL 23 MEQ/L (21-32); CHLORIDE LEVEL 103 MEQ/L (98-107); CREATININE FOR GFR 0.89 MG/DL (0.55-1.30); GLOMERULAR FILTRATION RATE > 60.0 (>60); GLUCOSE, FASTING 85 MG/DL (70-100); LIPASE 89 U/L (73-393); POTASSIUM SERUM 4.2 MEQ/L (3.5-5.1); SODIUM LEVEL 137 MEQ/L (136-145); TOTAL PROTEIN 8.5 GM/DL (6.4-8.2)
[2021-06-18] MEDS ORDERED: MORPHINE 4 MG/ML 1ML VIAL/SYRINGE (J2270) IV ONE (00:40)
[2021-06-18] MEDS ORDERED: ONDANSETRON 4MG/2ML VIAL As Ordered ONE (01:45)
[2021-06-18] MEDS ORDERED: ONDANSETRON 4MG/2ML VIAL IV ONE (01:45)
--- NOTE | 2021-06-18 02:18 | REPVR ---
PROCEDURE INFORMATION: Exam: US Duplex Lower Extremity Veins, Bilateral Exam date and time: 06/18/2021 12:43 AM Age: 30 years old Clinical indication: Pain; Leg, upper and leg, lower; Bilateral; Additional info: Bilat leg pain R/O dvt TECHNIQUE: Imaging protocol: Real-time duplex ultrasound of the extremities with 2-D lr scale, color Doppler flow and spectral waveform analysis with image documentation. Complete exam focused on the bilateral lower extremity veins. COMPARISON: No relevant prior studies available. FINDINGS: Right deep veins: Unremarkable. The common femoral, femoral, and popliteal veins are patent without thrombus. Normal compressibility, augmentation response and Doppler waveforms. The right calf veins were poorly visualized. Right superficial veins: Saphenofemoral junction is patent without thrombus. Left deep veins: Unremarkable. The common femoral, femoral, and popliteal veins are patent without thrombus. Normal compressibility, augmentation response and Doppler waveforms. The left calf veins were poorly visualized. Left superficial veins: Saphenofemoral junction is patent without thrombus. Soft tissues: Unremarkable. IMPRESSION: No deep vein thrombosis in the veins imaged in both lower extremities. Electronically signed by: Boy Hernandez On 06/18/2021 02:17:40 AM
--- NOTE | 2021-06-18 02:18 | REPVR ---
PROCEDURE INFORMATION: Exam: CT Abdomen And Pelvis With Contrast Exam date and time: 06/17/2021 9:17 PM Age: 30 years old Clinical indication: Abdominal pain; Localized; Left upper quadrant (luq); Additional info: Pain greatest in left upper quadrant and left flank. TECHNIQUE: Imaging protocol: Computed tomography of the abdomen and pelvis with contrast. Radiation optimization: All CT scans at this facility use at least one of these dose optimization techniques: automated exposure control; mA and/or kV adjustment per patient size (includes targeted exams where dose is matched to clinical indication); or iterative reconstruction. Contrast material: ISO; Contrast volume: 100 ml; Contrast route: INTRAVENOUS (IV); Other contrast: Oral Gastrografin 600 COMPARISON: CT ABD/PEL W/IV ORAL CONTRAST 02/22/2021 1:24 AM FINDINGS: Lungs: The imaged portions of the lung bases are clear. The lungs were not fully imaged. Heart: No cardiomegaly or pericardial effusion. Liver: There is extensive fatty infiltration of the liver, with increased fatty liver deposition in the left hepatic lobe adjacent to the falciform ligament that is similar in appearance compared to the CT abdomen and pelvis on 02/22/2021. There is a 12 mm focal region of fatty sparing in segment 7 of the right hepatic lobe that is stable compared to the CT abdomen and pelvis on 02/22/2021 (image 20 of the axial series 201). The contour of the liver is smooth. The liver is enlarged and in craniocaudal dimension and at the level of the right midclavicular line, the liver measures 20 cm. Gallbladder and bile ducts: No calcified gallstones are noted. No gallbladder wall thickening, pericholecystic fluid, or pericholecystic inflammatory changes are identified. No dilation of the bile ducts is noted. No calcified stones are seen in the common bile duct. Pancreas: Normal. No dilation of the main pancreatic duct is noted. Spleen: Normal. No splenomegaly is noted. There are punctate calcifications along the capsule of the spleen, which are unchanged compared to the CT abdomen and pelvis on 02/22/2021. Adrenal glands: Normal. No adrenal mass is noted. Kidneys and ureters: The kidneys are normal in appearance. No renal lesion is noted. No stones are noted in the kidneys or ureters. There is no hydronephrosis or hydroureter. There are no wedge-shaped areas of low attenuation in the kidneys to suggest pyelonephritis. There is no renal abscess or perinephric fluid collection. Stomach and bowel: Postoperative changes are noted from a gastric sleeve surgery. The small bowel is unremarkable. There is no evidence for a bowel obstruction, diverticulosis, diverticulitis, perforated viscus, pneumatosis intestinalis, intussusception, or volvulus. The majority of the colon is decompressed, limiting its optimal evaluation. No pericolonic inflammatory fat stranding is noted. Ingested contrast material is present in the stomach, small bowel, and ascending colon. Appendix: Normal. There is no evidence for appendicitis. Intraperitoneal space: No free air. No ascites. No abscess. Retroperitoneal space: Unremarkable. Vasculature: The abdominal aorta is patent, normal in caliber, and there is no dissection. The iliac arteries, common femoral arteries, renal arteries, celiac artery, superior mesenteric artery, and inferior mesenteric artery are patent. The hepatic veins, portal veins, splenic vein, superior mesenteric vein, inferior mesenteric vein, and renal veins are patent. Lymph nodes: No enlarged lymph nodes. Urinary bladder: The distended urinary bladder is normal in appearance. No stones or masses are seen in the bladder. Reproductive: The uterus is retroverted. There is a 1.9 cm dominant follicular cyst in the left ovary. No further imaging is recommended. (Reference: Sae). The right ovary is unremarkable. Bones/joints: There is no fracture or dislocation. No suspicious osteolytic or osteoblastic lesion. There are degenerative changes involving the lower lumbar spine. Soft tissues: There is a tiny fat containing umbilical hernia, which is similar in appearance compared to the prior CT abdomen and pelvis on 02/22/2021. IMPRESSION: 1. No acute findings in the abdomen or pelvis. 2. Enlarged, fatty liver. REFERENCES: Sae et al. Management of Incidental Adnexal Findings on CT and MRI: A White Paper of the ACR Incidental Findings Committee, J Am [employer] Radiol. 2020 Oct;17(2):248-254. Electronically signed by: Boy Hernandez On 06/18/2021 02:17:33 AM
[2021-06-18] MEDS ORDERED: MORPHINE 2 MG/ML 1ML VIAL (J2270) IV ONE (02:50)
--- NOTE | 2021-06-18 04:48 | HPEPDOC ---
[facility] Medical History & Physical Date of Admission Jun 18, 2021 Date of Service: Jun 18, 2021 Other Provider none Attending Physician: HAYDER BEAL MD History and Physical TIME OF SERVICE: 505AM CHIEF COMPLAINT: vomiting HISTORY OF PRESENT ILLNESS: has a hx of frequent UTIs. She was recently started on Levofloxacin for a UTI but was only able to take 2 pills be cause she kept on vomiting; over the last 24H she has vomited so much that she cant keep track of the number of times she vomited. She last urinated about 2 days ago. She also has left upper and mid abdominal pain that are worse w vomiting. REVIEW OF SYSTEMS: 10-point review of systems negative except as listed in HPI PAST MEDICAL/ SURGICAL HISTORY: She has hx of HTN and TIA that occurred prior to her gastric sleeve procedure, childhood Asthma, Fatty liver, C section x 2 for ectopic FAMILY HISTORY: DM, HTN SOCIAL HISTORY: She smokes tobacco, THC ALLERGIES: Please see below. HOME MEDICATIONS: Please see below. PHYSICAL EXAMINATION: Vital Signs Date Time Temp Pulse Resp B/P (MAP) Pulse Ox O2 Delivery O2 Flow Rate FiO2 06/17/21 13:47 97.2 114 17 178/95 (122) 99 Room Air GENERAL APPEARANCE: well-nourished and developed/ NAD HEENT: EOMI / MMM&P / she has an IJ at the left neck CARDIOVASCULAR: RRR/NMRG LUNGS: CTAB on RA ABDOMEN: contour flat INTEGUMENT: + tattoo MUSCULOSKELETAL: NCAT / ARTURO x 4 extremities NEUROLOGICAL: CN 2-12 grossly intact / speech not dysarthric PSYCHIATRIC: A&O x 3 / able to understand and follow all commands LABORATORY DATA: IMAGING: CT abd/pelvis IMPRESSION: 1. No acute findings in the abdomen or pelvis. 2. Enlarged, fatty liver. Vascular US IMPRESSION: No deep vein thrombosis in the veins imaged in both lower extremities. MICROBIOLOGY: Respiratory panel pending ASSESSMENT: is a 30 yr old w a hx of HTN and TIA that occurred prior to her gastric sleeve procedure & Fatty liver who is admitted for management of intractable n/v. PLAN: 1 Intractable nausea & vomiting Plan: admit to medical floor / IV Zofran (f/u EKG to check QTc) / IVF / CLD and advance diet as tolerated 2 UTI Plan: switch to Ceftriaxone IV ( hold levofloxacin can also prolong her QTc) 3 Hx of TIA Plan: resume ASA/ check lipid panel / she will need a PCP referral prior to discharge 4 Uncontrolled HTN Plan: start amlodipine 2.5mg daily 5 Tobacco abuse Plan: smoking cessation education DVT Px w Teds & SCDs Dispo: home after less than 2 midnights stay Home Medications Scheduled Amlodipine Besylate (Amlodipine Besylate) 10 Mg Tablet, 10 MG PO DAILY Aspirin (Aspirin EC) 81 Mg Tablet.dr, 81 MG PO DAILY Scheduled PRN Ondansetron HCl (Ondansetron HCl) 4 Mg Tablet, 1 TAB PO Q4HP PRN for nausea/vomiting Tramadol HCl (Tramadol HCl) 50 Mg Tablet, 1 TAB PO Q6HP PRN for pain Allergies Coded Allergies: No Known Allergies (Unverified , 01/25/21) A-FIB/CHADSVASC A-FIB History Current/History of A-Fib/PAF?: No Current PO Anticoag Therapy: No HAYDER BEAL MD Jun 18, 2021 04:48
[2021-06-18] MEDS ORDERED: ONDANSETRON 4 MG ORAL DISINTEGRATING TAB PO PRN (04:50)
[2021-06-18] MEDS ORDERED: cefTRIAXone SOD 2 GM VIAL (J0696 PER 250MG) IM SCH (05:45)
[2021-06-18] MEDS ORDERED: IBUP1TAB6 PO (06:05)
[2021-06-18] MEDS ORDERED: HOME MED LIST COMPLETE! XX SCH (06:05)
[2021-06-18] MEDS ORDERED: ZOFR4TAB16 PO (06:05)
[2021-06-18] MEDS: cefTRIAXone SOD 2 GM in D5W MINI-BAG PLUS 50 ML IV SCH (06:52)
[2021-06-18 07:22] LABS: HEMATOCRIT 38.3 % (36.0-47.0); HEMOGLOBIN 12.9 g/dl (12.0-15.5); MEAN CORPUSCULAR HEMOGLOBIN 34.5 pg (27.0-33.0); MEAN CORPUSCULAR HGB CONC 33.7 g/dl (32.0-36.5); MEAN CORPUSCULAR VOLUME 102.4 fl (80.0-96.0); PLATELET COUNT, AUTOMATED 309 10^3/uL (150-450); RED BLOOD COUNT 3.74 10^6/uL (4.00-5.40); WHITE BLOOD COUNT 4.9 10^3/uL (4.0-10.0)
[2021-06-18 07:24] LABS: RSV AMPLIFICATION NEGATIVE (NEGATIVE)
[2021-06-18 07:55] LABS: ALBUMIN 3.5 GM/DL (3.2-5.2); ALT/SGPT 96 U/L (12-78); BILIRUBIN,TOTAL 1.1 MG/DL (0.2-1.0); BLOOD UREA NITROGEN 6 MG/DL (7-18); CALCIUM LEVEL 8.6 MG/DL (8.5-10.1); CARBON DIOXIDE LEVEL 27 MEQ/L (21-32); CHLORIDE LEVEL 105 MEQ/L (98-107); GLOMERULAR FILTRATION RATE > 60.0 (>60); GLUCOSE, FASTING 85 MG/DL (70-100); POTASSIUM SERUM 3.7 MEQ/L (3.5-5.1); SODIUM LEVEL 140 MEQ/L (136-145); TOTAL PROTEIN 7.4 GM/DL (6.4-8.2)
[2021-06-18] MEDS: ONDANSETRON 4MG/2ML VIAL IV PRN ×3 (08:07→21:45)
[2021-06-18] MEDS: NS 1,000 ML IV SCH ×2 (08:07→18:23)
[2021-06-18 10:30] VITALS: BP 142/97
[2021-06-18] MEDS: KETOROLAC 30 MG/ML 1ML VIAL IV PRN ×2 (11:14→18:23)
[2021-06-18 14:00] VITALS: BP 146/101
[2021-06-18] MEDS: HEPARIN SOD (PORCINE) 5000UNITS/ML 1ML VIAL/SYRINGE SQ SCH ×2 (14:00→22:00)
[2021-06-18 14:05] VITALS: BP 152/102
[2021-06-18] MEDS ORDERED: amLODIPine 5 MG TAB PO ONE (14:35)
[2021-06-18] MEDS: ASPIRIN 81MG ENTERIC TABLET PO SCH (14:42)
--- NOTE | 2021-06-18 15:03 | ECGEPIP ---
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
--- NOTE | 2021-06-18 16:26 | IPNPDOC ---
Text Note Date of Service The patient was seen on 06/18/21. NOTE SUBJECTIVE: -Complaining of diffuse abdominal pain this morning -Nausea and emesis has improved OBJECTIVE: VITALS: see below GENERAL APPEARANCE: well-nourished and developed/ NAD HEENT: EOMI, MMM CARDIOVASCULAR: RRR, no m/r/g LUNGS: CTAB on RA ABDOMEN: contour flat INTEGUMENT: has tattoos, no erythema, lesions or rashes MUSCULOSKELETAL: NCAT, ARTURO x 4 extremities NEUROLOGICAL: CN 3-12 grossly intact, speech not dysarthric, full strength and tone in all 4 extremities PSYCHIATRIC: A&O x 3 LABORATORY DATA: Reviewed IMAGING: CT abd/pelvis IMPRESSION: 1. No acute findings in the abdomen or pelvis. 2. Enlarged, fatty liver. Vascular US IMPRESSION: No deep vein thrombosis in the veins imaged in both lower extremities. MICROBIOLOGY: Respiratory panel pending ASSESSMENT: 30 yr old W a hx of HTN and TIA that occurred prior to her gastric sleeve procedure & Fatty liver who is admitted for management of intractable n/v i/s/o quinolone abx for recurrent UTI. PLAN: 1 Intractable nausea & vomiting: possibly secondary to PO quinolone therapy for UTI -PRN Zofran -IVF -advance diet as tolerated -CT A/P was without pathology -PRN toradol for severe pain 2 UTI -continue Ceftriaxone IV -held levofloxacin 3 Hx of TIA -resume ASA -f/u lipid panel -She will need a PCP referral prior to discharge 4 Uncontrolled HTN -Increase amlodipine 2.5mg to 5mg 5 Tobacco abuse -smoking cessation education DVT Px w Teds & SCDs, heparin Dispo: home after less than 2 midnights stay VS,Leyla, I+O VS, Leyla, I+O Laboratory Tests 06/17/21 21:26 06/18/21 07:04 Vital Signs Date Time Temp Pulse Resp B/P (MAP) Pulse Ox O2 Delivery O2 Flow Rate FiO2 06/18/21 10:01 70 166/95 (118) 100 Room Air 06/18/21 08:00 18 06/17/21 20:09 98.1 I&O- Last 24 Hours up to 6 AM 06/18/21 06:00 Intake Total 1000 ml Balance 1000 ml SANDEEP DURAN MD Jun 18, 2021 10:50
[2021-06-18 18:00] VITALS: BP 158/104
[2021-06-18] MEDS ORDERED: RAMELTEON 8 MG TAB (ROZEREM) PO PRN (22:00)
[2021-06-18 22:26] VITALS: BP 136/91
[2021-06-19] MEDS: KETOROLAC 30 MG/ML 1ML VIAL IV PRN ×2 (02:26→10:40)
[2021-06-19] MEDS: NS 1,000 ML IV SCH ×2 (02:26→10:40)
[2021-06-19] MEDS: HEPARIN SOD (PORCINE) 5000UNITS/ML 1ML VIAL/SYRINGE SQ SCH (05:15)
[2021-06-19] MEDS: cefTRIAXone SOD 2 GM in D5W MINI-BAG PLUS 50 ML IV SCH (05:41)
[2021-06-19 06:52] VITALS: BP 142/113
[2021-06-19] MEDS ORDERED: ASPI-551 PO (08:35)
[2021-06-19] MEDS ORDERED: ONDA-83 PO (08:35)
[2021-06-19] MEDS ORDERED: AMLO1TAB25 PO (08:35)
[2021-06-19] MEDS: ASPIRIN 81MG ENTERIC TABLET PO SCH (08:53)
[2021-06-19] MEDS: ONDANSETRON 4MG/2ML VIAL IV PRN (08:53)
[2021-06-19 09:00] VITALS: BP 138/90
[2021-06-19] MEDS ORDERED: amLODIPine 5 MG TAB PO SCH (09:00)
[2021-06-19] MEDS ORDERED: TRAM50TA2 PO (12:12)
--- NOTE | 2021-06-19 12:13 | DS.PDOC ---
Discharge Summary General Date of Admission Jun 18, 2021 at 04:41 Date of Discharge 06/19/2021 Attending Physician: SANDEEP DURAN MD Discharge Summary PROCEDURES PERFORMED DURING STAY: None ADMITTING DIAGNOSES: N/V DISCHARGE DIAGNOSES: Abdominal pain with N/V 2/2 PO levaquin intolerance, that she was taking for a recent UTI Completed empiric treatment for outpatient diagnosed UTI Untreated hypertension History of a TIA that occurred prior to her gastric sleeve procedure Childhood Asthma Fatty liver C section x 2 for ectopic Frequent UTIs COMPLICATIONS/CHIEF COMPLAINT: Nausea And Vomiting. HISTORY OF PRESENT ILLNESS: 30 yo W with a history of HTN, untreated, a history of a TIA that occurred prior to her gastric sleeve procedure, childhood Asthma, Fatty liver, C section x 2 for ectopic and frequent UTIs who was recently diagnosed with a UTI in the outpatient setting and prescribed PO Levaquin that she took for 3d and on day 3 she developed profuse N/V and eventual abdominal pain and came into the ED. HOSPITAL COURSE: In the ED, she was noted to be hypertensive, reported to have stopped taking her secondary prevention ASA 81 and did not have a PCP. She was admitted for dehydration, completion of UTI treatment and GI evaluation. CT A/P was unremarkable, UA was bland, though it should be noted that this was day 3 into antibiotic therapy and she was admitted to medicine for management of nausea, dehydration and completed UTI treatment with 2 more days of IV ceftriaxone to complete a 5 day course altogether. Her course was c/b persistent nausea and fear of PO, and she was placed on clears, and later advance to full liquid and eventually regular diet. She is now being discharged home with some PRN odt ondansetron for nausea, new PCP appointment in the resident clinic, and I have strongly counselled her to take the newly prescribed antihypertensive 10mg amlodipine daily and ASA 81 daily. She will need to establish care given her early predispositions with history of TIA in her 20s and consider quitting smoking as well. We discussed her history of estrogen implant contraceptive that she reported to have had removed in 2019, and I recommended that she discuss it with her new PCP consider non-systemic hormonal therapies such as copper IUD instead. DISCHARGE MEDICATIONS: Please see below. ALLERGIES: Please see below. PHYSICAL EXAMINATION ON DISCHARGE: VITAL SIGNS: Please see below. GENERAL APPEARANCE: well-nourished and developed/ NAD HEENT: EOMI, MMM CARDIOVASCULAR: RRR, no m/r/g LUNGS: CTAB on RA ABDOMEN: contour flat, nontender on examination, complaints that her abdominal wall muscles are sore from the recent dry heaving INTEGUMENT: has tattoos, no erythema, lesions or rashes MUSCULOSKELETAL: NCAT, ARTURO x 4 extremities NEUROLOGICAL: CN 3-12 grossly intact, speech not dysarthric, full strength and tone in all 4 extremities PSYCHIATRIC: A&O x 3 LABORATORY DATA: Please see below. IMAGING: CT abd/pelvis IMPRESSION: 1. No acute findings in the abdomen or pelvis. 2. Enlarged, fatty liver. Vascular US IMPRESSION: No deep vein thrombosis in the veins imaged in both lower extremities. PROGNOSIS: Good ACTIVITY: As tolerated DIET: regular DISCHARGE PLAN: Home with amlodipine 10 QD, new PCP appt within 7d, zofran odt PRN for nausea and resumption of ASA 81. DISPOSITION: home DISCHARGE INSTRUCTIONS: Home with amlodipine 10 QD, new PCP appt within 7d, zofran odt PRN for nausea. ITEMS TO FOLLOWUP ON ON OUTPATIENT: PCP follow up DISCHARGE CONDITION: Stable TIME SPENT ON DISCHARGE: 35 minutes. Vital Signs/I&Os Vital Signs Date Time Temp Pulse Resp B/P (MAP) Pulse Ox O2 Delivery O2 Flow Rate FiO2 06/19/21 06:52 97.8 72 18 142/113 (123) 93 Room Air I&O- Last 24 Hours up to 6 AM 06/19/21 06:00 Intake Total 2799 ml Balance 2799 ml Discharge Medications Scheduled Amlodipine Besylate (Amlodipine Besylate) 10 Mg Tablet, 10 MG PO DAILY Aspirin (Aspirin EC) 81 Mg Tablet.dr, 81 MG PO DAILY Scheduled PRN Ondansetron HCl (Ondansetron HCl) 4 Mg Tablet, 1 TAB PO Q4HP PRN for nausea/vomiting Tramadol HCl (Tramadol HCl) 50 Mg Tablet, 1 TAB PO Q6HP PRN for pain Allergies Coded Allergies: No Known Allergies (Unverified , 01/25/21) SANDEEP DURAN MD Jun 19, 2021 08:33
== END 2021-06-19 12:55 | disposition home or self-care (01) ==
LOC: M ED 13:47 → M ED INP 06-18 04:41 → ENRESERV 06-18 09:18 → M MS5PR 06-18 10:25
PROVIDERS: ADMIT Internal Medicine; ATTEND Internal Medicine
DX: R11.2 Nausea with vomiting, unspecified (principal); R10.9 Unspecified abdominal pain; T36.8X5A Adverse effect of other systemic antibiotics, initial encounter; N39.0 Urinary tract infection, site not specified; I10 Essential (primary) hypertension; J45.909 Unspecified asthma, uncomplicated; K76.0 Fatty (change of) liver, not elsewhere classified; Z86.73 Personal history of transient ischemic attack (TIA), and cerebral infarction without residual deficits; Z98.84 Bariatric surgery status; Z87.440 Personal history of urinary (tract) infections; M79.669 Pain in unspecified lower leg; F17.210 Nicotine dependence, cigarettes, uncomplicated; Z79.899 Other long term (current) drug therapy; Z79.82 Long term (current) use of aspirin
CPT/HCPCS: 36415; 74177; 80048; 80053; 80076; 81001; 83690; 84703; 85025; 85027; 87631; 93005; 93041; 93970; 96361; 96365; 96375; 96376; 99285; J0696; J1885; J2270; J2405; Q0162; Q9963; Q9967

== ENCOUNTER → 2021-07-14 | Outpatient (CLI) | payer OTHER ==
[~2021-07-14] MED LIST changes: +AMLO1TAB25 PO; +ASPI-551 PO; +IBUP1TAB6 PO; +ONDA-83 PO; +TRAM50TA2 PO; +ZOFR4TAB16 PO
[2021-07-14 16:59] LABS: RHEUMATOID FACTOR QUANT < 10.0 IU/ML (<15.0)
[2021-07-14 17:09] LABS: TOTAL 25(OH) VITAMIN D 20.2 NG/ML (30.0-100.0)
[2021-07-14 17:10] LABS: FOLATE > 24.0 NG/ML (>5.4); VITAMIN B12 LEVEL 1421 PG/ML (247-911)
== END ==
LOC: M LAB 14:16
PROVIDERS: ATTEND Psychiatry & Neurology Neurology
DX: G62.9 Polyneuropathy, unspecified (principal)

== ENCOUNTER 2021-07-18 16:01 | Inpatient (IN) | payer OTHER ==
[~2021-07-18] VITALS: Ht 185.4 cm; Wt 99.4 kg
--- OUTSIDE RECORDS SUMMARY | 2021-07-18 16:15 | CCD | Continuity of Care Document ---
Author Author Radha FREED Organization Unknown Address [address] [facility] [address] [place] [address] Phone [phone] Care Team Providers Care Alumni Relations Officer Name Role Phone MITUL FREED AUTM [phone] Problems Active Problems Provider Date Essential hypertension JASMIN Serna Onset: 06/07 Abdominal pain JASMIN Serna Onset: 021 Transient cerebral ischemia JASMIN Serna Onset: 06/26/2021 Chronic liver disease JASMIN Serna Onset: 06/26 Chronic urinary tract infection JASMIN Serna On set: 06/26/2021 Social History Type Date Description Comments Sex Unknown ETOH Use Occasionally consumes alcohol Tobacco Use Start: Unknown Light tobacco smoker (10 or fewe r cigarettes/day) Recreational Drug Use Denies Drug Use Smoking Status Reviewed: 06/26/21 Light tobacco smoker (10 or fewer cigarettes/day) Allergies and adverse reactions Description No Known Drug Allergies Medications Active Medications SIG Qnty Indications Ordering Provide r Date Amlodipine Besylate 10mg Tablets 1 by mouth every day 90tafritz Hartman M.D.,[facility] 06/26/[address] 1 by mouth every day 90angely Hartman M.D.,P.C[facility] 06/26/20 Ondansetron HCL 4mg Tablets take one tablet every 4 hours as needed for nausea and vomiting Jim Hartman M.D[facility] 06/26/2021 Tramadol HCL 50mg Tablets take 1 tablet by mouth every 6 hours as needed for pain . do not exceed 4 per 24 hours 120tabs Jim Hartman M.D[facility] 06/26/[address] 1 tabs by mouth every day 30 before meals and 1 at night for the next 30 days 60caps K21.9 Jim Hartman M.D[facility] 06/26/2021 Promethazine HCL 12.5mg Tablets 1 tab by mouth every 6 hours as needed 30tabs R11.2 Jim Hartman M.D. ,P.C[facility] 06/26/2021 Vital Signs Date Vital Result Comment 06/30/2021 11:16am Height 73 inches 6'1" Weight 207.00 lb BMI (Body Mass Index) 27.3 kg/m2 Body Temperature 97.0 F BP Systolic 132 mmHg BP Diastolic 98 mmHg Heart Rate 90 /min O2 % BldC Oximetry 139 % Respiratory Rate 20 /min 06/26/2021 9:55am Height 73 inches 6'1" Weight 200.00 lb BMI (Body Mass Index) 26.4 kg/m2 Body Temperature 98.3 F BP Systolic 144 mmHg BP Diastolic 122 mmHg Heart Rate 110 /min O2 % BldC Oximetry 92 % Respiratory Rate 18 /min Procedures Date Code Description Status 06/30/2021 82485 Office/Outpatient Established Mo d MDM 30-39 Min Completed 06/26/2021 28107 Office/Outpatient New Moderate M DM 45-59 Minutes Completed Encounters Type Date Location Provider Dx Diagnosis Office Visit 06/30/2021 10:00a [facility] JASMIN Kapadia E86.0 Dehydration K21.9 Gastro-esophageal reflux dis ease without esophagitis Z98.84 Bariatric surgery status Office Visit 06/26/2021 9:30a [facility] JASMIN Kapadia I10 Essential (primary) hypertension K21.9 Gastro-esophageal reflux dis ease without esophagitis Z86.73 Prsnl hx of TIA (TIA), and c ereb infrc w/o resid deficits Z98.84 Bariatric surgery status F17.293 Nicotine dependence, other t obacco product, with withdrawal R11.2 Nausea with vomiting, unspec ified K76.0 Fatty (change of) liver, not elsewhere classified Assessments Date Code Description Provider 06/30/2021 E86.0 Dehydration JASMIN Cooper 06/30/2021 K21.9 Gastro-esophageal reflux disease without esophagitis JASMIN Cooper 06/30/2021 Z98.84 Gastric bypass status for obesit y JASMIN Cooper 06/26/2021 I10 Essential (primary) hypertension JASMIN Cooper 06/26/2021 K21.9 Gastro-esophageal reflux disease without esophagitis JASMIN Cooper 06/26/2021 Z86.73 Personal history of transient ischemic attack (TIA), and cerebral infarction without residual deficits JASMIN Cooper 06/26/2021 Z98.84 Gastric bypass status for obesit y JASMIN Cooper 06/26/2021 F17.293 Nicotine dependence, other tobac co product, with withdrawal JASMIN Cooper 06/26/2021 R11.2 Nausea with vomiting, unspecifie d JASMIN Cooper 06/26/2021 K76.0 Fatty (change of) liver, not els ewhere classified JASMIN Cooper Plan of Treatment Future Appointment(s):* 07/07/2021 11:30 am - JASMIN Cooper at [facility] 06/30/2021 - JASMIN Cooper* E86.0 Dehydration* Comments:* Advised that urination once a day indicates she is not hydrating enough. Advised she needs to drink 80 oz of fluid per day. Dehydration is what is leading to her fatigue, Headaches, muscle cramps, and loss of balance. I did educate sister-i n-law that brought her to this visit of this amount of fluid as well. * K21.9 Gastro-esophageal reflux disease without esophagitis* Comments:* Continue PPI * Z98.84 Gastric bypass status for obesity* Comments:* S/P gastric sleeve in 2017. Reviewed that she CANNOT take NSAIDs since this surgery. Recommended multivitamin due to surgery. Next visit may need to do CMP
--- OUTSIDE RECORDS SUMMARY | 2021-07-18 16:15 | CCD | Continuity of Care Document ---
Author Author Radha SILVA PA Organization Unknown Address [address] [place] [address] Phone [phone] Care Team Providers Care Network Operations Analyst Name Role Phone Eileen Dos Santos DANI AUTM [phone] Problems Description No Information Available Social History Type Date Description Comments Sex Unknown Allergies and adverse reactions Description No Information Available Medications Active Medications SIG Qnty Indications Ordering Provide r Date Tramadol HCL 50mg Tablets 1 every 8 hours as needed pain 30tabs Angus Linton MD 021 Immunizations Description No Information Available Vital Signs Date Vital Result Comment 07/09/2021 1:13pm Body Temperature 96.8 F Height 73 inches 6'1" Weight 190.00 lb BMI (Body Mass Index) 25.1 kg/m2 10/21/2020 1:44pm Height 73 inches 6'1" Weight 230.00 lb BMI (Body Mass Index) 30.3 kg/m2 Results Description No Information Available Procedures Date Code Description Status 07/09/2021 42486 Office/Outpatient New Moderate M DM 45-59 Minutes Completed Medical Devices Description No Information Available Encounters Type Date Location Provider Dx Diagnosis Office Visit 07/09/2021 1:00p [place] JASMIN Cramer S82.61xA Disp fx of lateral malleolus of right fibula, init Assessments Date Code Description Provider 07/09/2021 S82.61xA Displaced fracture o f lateral malleolus of right fibula, initial encounter for closed fracture JASMIN Cramer Plan of Treatment Future Appointment(s):* 07/23/2021 9:15 am - JASMIN Cramer at [place] 07/09/2021 - JASMIN Cramer* S82.61xA Displaced fracture of lateral malleolus of right fibula, initial encounter for closed fracture* New Orders: * Walker, Ordered: 07/09/21 * Follow up:* in 2 weeks for right ankle recheck with IID, xrays needed of rt ankle w/gravity stress views Functional Status Description No Information Available Mental Status Description No Information Available Referrals Description No Information Available
--- OUTSIDE RECORDS SUMMARY | 2021-07-18 16:15 | CCD | Continuity of Care Document ---
Author Author Radha FREED Organization Unknown Address [address] [facility] [address] [place] [address] Phone [phone] Care Team Providers Care Hydrocrane Operator Name Role Phone MITUL FREED AUTM [phone] Problems Active Problems Provider Date Essential hypertension [...] /min Procedures Date Code Description Status 06/30/2021 78238 Office/Outpatient Established Mo d MDM 30-39 Min Completed 06/26/2021 99962 Office/Outpatient Established Mo d MDM 30-39 Min Completed 06/26/2021 55816 Office/Outpatient New Moderate M DM 45-59 Minutes Completed Encounters Type Date Location Provider Dx Diagnosis Office Visit 06/30/2021 10:00a [facility] JASMIN Kapadia E86.0 Dehydration K21.9 Gastro-esophageal reflux dis ease without esophagitis Z98.84 Bariatric surgery status Office Visit 06/26/2021 9:30a [facility] JASMIN Kapadia I10 Essential (primary) hypertension K21.9 [...] Cooper 06/26/2021 I10 Essential (primary) hypertension JASMIN Serna 06/26/2021 I10 Essential (primary) hypertension JASMIN Cooper 06/26/2021 K21.9 Gastro-esophageal reflux disease without esophagitis JASMIN Serna 06/26/2021 K21.9 Gastro-esophageal reflux disease without esophagitis JASMIN Cooper 06/26/2021 Z86.73 Personal history of transient ischemic attack (TIA), and cerebral infarction without residual deficits JASMIN Serna 06/26/2021 Z86.73 Personal history of transient ischemic attack (TIA), and cerebral infarction without residual deficits JASMIN Cooper 06/26/2021 Z98.84 Bariatric surgery status JASMIN Manuel 06/26/2021 Z98.84 Gastric bypass status for obesit y JASMIN Cooper 06/26/2021 F17.293 Nicotine dependence, other tobac co product, with withdrawal JASMIN Cooper 06/26/2021 R11.2 Nausea with vomiting, unspecifie d JASMIN Cooper 06/26/2021 K76.0 Fatty (change of) liver, not els ewhere classified JASMIN Cooper Plan of Treatment Future Appointment(s):* 07/07/2021 11:30 am - JASMIN Cooper at [facility] 06/30/2021 - JASMIN Cooper* E86.0 Dehydration* Comments:* [...]
--- OUTSIDE RECORDS SUMMARY | 2021-07-18 16:15 | CCD | Continuity of Care Document ---
Author Radha Cabezas M.D. Organization Unknown Address [address] [place] [address] Phone [phone] Care Team Providers Care Compugraph Operator Name Role Phone Vivien Peacock AUTM [phone] Problems Active Problems Provider Date Malaise and fatigue Gladys Sosa M.D. Onset: 07/14/2021 Skin sensation disturbance Gladys Sosa M.D. Onset: 2020 Abnormal gait Gladys Sosa M.D. Onset: 07/14/2021 Idiopathic progressive polyneuropathy Gladys Sosa M.D. On set: 07/14/2021 Acute transverse myelitis Gladys Sosa M.D. Onset: 021 Social History Type Date Description Comments Sex Unknown Tobacco Use Start: Unknown Patient has never smoked Allergies and adverse reactions Description No Known Drug Allergies Medications Active Medications SIG Qnty Indications Ordering Provide r Date Alprazolam 0.5mg Tablets 1 tab by mouth half an hour before mri scan. may repeat once if needed. 2tabs Gladys Sosa M.D. 07/14/2021 Immunizations Description No Information Available Vital Signs Date Vital Result Comment 07/14/2021 12:42pm BP Systolic 140 mmHg BP Diastolic 100 mmHg Heart Rate 110 /min Respiratory Rate 14 /min Height 73 inches 6'1" Weight 220.00 lb BMI (Body Mass Index) 29.0 kg/m2 [place] Body Weight 184 lb Results Description No Information Available Procedures Date Code Description Status 07/14/2021 94313 Office/Outpatient New High MDM 6 0-74 Minutes Completed 07/14/2021 50666 Nerve Conduction 11-12 Studies C ompleted 07/14/2021 17027 Needle Electromyography Complete , Five Or More Muscles Studied Completed 07/14/2021 00510 Needle Electromyography Complete , Five Or More Muscles Studied Completed Medical Devices Description No Information Available Encounters Type Date Location Provider Dx Diagnosis Office Visit 07/14/2021 12:10p [facility] office [facility] Miguel Franco R53.1 Weakness R20.0 Anesthesia of skin R26.81 Unsteadiness on feet G60.3 Idiopathic progressive neuro clara G37.3 Acute transverse myelitis in demyelinating disease of COSMETICIAN Assessments Date Code Description Provider 07/14/2021 R20.2 Paresthesia of skin Gladys Sosa M.D. 07/14/2021 R53.1 Weakness Gladys Sosa M.D. 07/14/2021 M62.9 Disorder of muscle, unspecified Gladys Sosa M.D. 07/14/2021 R20.0 Anesthesia of skin Celia Franco 07/14/2021 R26.81 Unsteadiness on feet Gladys Sosa M.D. 07/14/2021 G60.3 Idiopathic progressive neuropath y Gladys Sosa M.D. 07/14/2021 G37.3 Acute transverse mye litis in demyelinating disease of central nervous system Gladys Sosa M.D. Plan of Treatment Future Appointment(s):* 07/30/2021 3:45 pm - Gladys Sosa M.D. at [facility] Functional Status Description No Information Available Mental Status Description No Information Available Referrals Description No Information Available
--- OUTSIDE RECORDS SUMMARY | 2021-07-18 16:15 | CCD | Continuity of Care Document ---
Author Author Radha FREED Organization Unknown Address [address] [facility] [address] [place] [address] Phone [phone] Care Team Providers Care Director Clinical Applications Name Role Phone MITUL FREED AUTM [phone] Problems Active Problems Provider Date Essential hypertension [...] /min Procedures Date Code Description Status 06/30/2021 80676 Office/Outpatient Established Mo d MDM 30-39 Min Completed 06/26/2021 48183 Office/Outpatient Established Mo d MDM 30-39 Min Completed 06/26/2021 32224 Office/Outpatient New Moderate M DM 45-59 Minutes Completed Encounters Type Date Location Provider Dx Diagnosis Office Visit 06/30/2021 10:00a [facility] JASMIN Kapadia E86.0 Dehydration K21.9 Gastro-esophageal reflux dis ease without esophagitis Z98.84 Bariatric surgery status Office Visit 06/26/2021 9:30a [facility] JASMIN Kapadia I10 Essential (primary) hypertension K21.9 [...]
--- OUTSIDE RECORDS SUMMARY | 2021-07-18 16:15 | CCD | Continuity of Care Document ---
Author Author Radha SILVA PA Organization Unknown Address [address] [place] [address] Phone [phone] Care Team Providers Care Store Detective Name Role Phone Eileen Dos Santos DANI AUTM [phone] Problems Description No Information Available Social History [...] Available Procedures Date Code Description Status 07/09/2021 78731 Office/Outpatient New Moderate M DM 45-59 Minutes Completed Medical Devices Description No Information Available Encounters Type Date Location Provider Dx Diagnosis Office Visit 07/09/2021 1:00p [place] JASMIN Cramer S82.61xA Disp fx of lateral malleolus of right fibula, init Assessments Date Code Description Provider 07/09/2021 S82.61xA Displaced fracture o f lateral malleolus of right fibula, initial encounter for closed fracture JASMIN Cramer Plan of Treatment Future Appointment(s):* 07/23/2021 9:15 am - JASMIN Cramer at [place] 07/09/2021 - JASMIN Cramer* S82.61xA Displaced fracture [...]
--- OUTSIDE RECORDS SUMMARY | 2021-07-18 16:15 | CCD | Continuity of Care Document ---
Author Radha Cabezas M.D. Organization Unknown Address [address] [place] [address] Phone [phone] Care Team Providers Care Clinic [facility] Name Role Phone Vivien Peacock AUTM [phone] Problems Active Problems Provider Date Malaise and fatigue Gladys Sosa M.D. Onset: 07/14/2021 Skin sensation disturbance Gladys Sosa M.D. Onset: 2020 Abnormal gait Gladys Sosa M.D. Onset: 07/14/2021 Idiopathic progressive polyneuropathy Gladys Sosa M.D. On set: 07/14/2021 Acute transverse myelitis Gladys Sosa M.D. Onset: Social History Type Date Description Comments Sex Unknown Tobacco Use Start: Unknown Patient has never smoked Allergies and adverse reactions Description No Known Drug Allergies Medications Description No Information Available Immunizations Description No Information Available Vital Signs Date Vital Result Comment 07/14/2021 12:42pm BP Systolic 140 mmHg BP Diastolic 100 mmHg Heart Rate 110 /min Respiratory Rate 14 /min Height 73 inches 6'1" Weight 220.00 lb BMI (Body Mass Index) 29.0 kg/m2 [place] Body Weight 184 lb Results Description No Information Available Procedures Date Code Description Status 07/14/2021 53358 Office/Outpatient New High [facility] 6 0-74 Minutes Completed Medical Devices Description No Information Available Encounters Type Date Location Provider Dx Diagnosis Office Visit 07/14/2021 12:10p Main office - [place] Miguel Franco R53.1 Weakness R20.0 Anesthesia of skin R26.81 Unsteadiness on feet G60.3 Idiopathic progressive neuro clara G37.3 Acute transverse myelitis in demyelinating disease of SCABBLER Assessments Date Code Description Provider 07/14/2021 R53.1 Weakness Gladys Sosa M.D. 07/14/2021 R20.0 Anesthesia of skin Celia Franco 07/14/2021 R26.81 Unsteadiness on feet Gladys Sosa M.D. 07/14/2021 G60.3 Idiopathic progressive neuropath y Gladys Sosa M.D. 07/14/2021 G37.3 Acute transverse mye litis in demyelinating disease of central nervous system Gladys Sosa M.D. Plan of Treatment No Information Available Functional Status Description No Information Available Mental Status Description No Information Available Referrals Description No Information Available
--- OUTSIDE RECORDS SUMMARY | 2021-07-18 16:15 | CCD | Continuity of Care Document ---
Author Author Radha FREED Organization Unknown Address [address] [facility] [address] [place] [address] Phone [phone] Care Team Providers Care Manager Field Service Name Role Phone STEVE OMER AUTM Problems Active Problems Provider Date Essential hypertension JASMIN Serna Onset: 06/07 Abdominal pain JASMIN Serna Onset: 021 Transient cerebral ischemia JASMIN Serna Onset: 06/26/2021 Chronic liver disease JASMIN Serna Onset: 06/26 Chronic urinary tract infection JAMSIN Serna On set: 06/26/2021 Social History Type [...] 10mg Tablets 1 by mouth every day 90tabs Jim Hartman M.D.,P.C. 06/26/[address] 1 by mouth every day 90tabs Jim Hartman M.D.,P.C. 06/26/20 Ondansetron HCL 4mg Tablets [...] 06/26/2021 Vital Signs Date Vital Result Comment 06/26/2021 9:55am Height 73 inches 6'1" Weight 200.00 lb BMI (Body Mass Index) 26.4 kg/m2 Body Temperature 98.3 F BP Systolic 144 mmHg BP Diastolic 122 mmHg Heart Rate 110 /min O2 % BldC Oximetry 92 % Respiratory Rate 18 /min Procedures Date Code Description Status 06/26/2021 50496 Office/Outpatient New Moderate M DM 45-59 Minutes Completed Encounters Type Date Location Provider Dx Diagnosis Office Visit 06/26/2021 9:30a [facility] JASMIN Kapadia I10 Essential (primary) hypertension K21.9 Gastro-esophageal reflux dis ease without esophagitis Z86.73 Prsnl hx of TIA (TIA), and c ereb infrc w/o resid deficits Z98.84 Bariatric surgery status F17.293 Nicotine dependence, other t obacco product, with withdrawal R11.2 Nausea with vomiting, unspec ified K76.0 Fatty (change of) liver, not elsewhere classified Assessments Date Code Description Provider 06/26/2021 I10 Essential (primary) hypertension JASMIN Cooper [...] ewhere classified JASMIN Cooper Plan of Treatment 06/26/2021 - JASMIN Cooper* I10 Essential (primary) hypertension* Comments:* Started on amlodipine while admitted. Pt is vomiting while in the office which is suspect is causing elevated BP today. Continue Amlodipine for now and we will revisit HTN next visit. * K21.9 Gastro-esophageal reflux disease without esophagitis* New Medication:* Omeprazole 40 mg - 1 tabs by mouth every day 30 before meals and 1 at night for the next 30 days * Comments:* Reviewed the anatomy of upper GI tract and pathology of disease.Lifestyle recommendations: weight loss, elevate the head of the bed, avoid food 2-3 hrs before bedtimePPI Complications of osteoporosis, C. Diff reviewed.Prolonged GERD will need EGD * Z86.73 Personal history of transient ischemic attack (TIA), and cerebral infarction without residual deficits* Comments:* 2017 vague history of numbness in right leg. Poor historian. States she woke up in the hospital and all that she remembers is that she needed PT regain ambulatory function. Has not taken ASA in greater than 2 years. In the future will need to get established with neurologist. ASA QD continue * Z98.84 Gastric bypass status for obesity* Comments:* S/P gastric sleeve in 2017. No F/U since surgery. States that initially she weight 370 pounds with HTN. Reviewed that she CANNOT take NSAIDs since this surgery. Recommended multivitamin due to surgery. * F17.293 Nicotine dependence, other tobacco product, with withdrawal* Comments: * Has not smoked tobacco since N/V. Advised to continue to abstain from tobacco abuse. Reviewed increased risk of strokes especially with her history of TIA. * R11.2 Nausea with vomiting, unspecified* New Medication:* Promethazine HCL 12.5 mg - 1 tab by mouth every 6 hours as needed * Comments:* Inially presented to [facility] with this complaint. Was admitted for dehydration. Dehydration was So sever Pt needed an IJ placed. Has had limited success with Zofran. Says she has been unable to keep food or fluids down. At this time will trial phenergan. reviewed potential sedative side effects. At this time patient appears to be dehydrated. She has not been able to keep fluids or food down. I have started on antiemetic as well as PPI to help GI upset. Counseled pt as well as sister in law the importance of fluid intake and to monitor urination. Advised to get Gatorade and start clear liquid diet as tolerated. Told not to use NSAIDs as this will exacerbate symptoms, especially S/P gastric bypass. If pt has oliguria advised to go straight to ED. F/U appt on Moday at 10:00 to assess hydration status. Advised to call clinic tomorrow if N/V do not improve with medications. * K76.0 Fatty (change of) liver, not elsewhere classified* Comments:* From CT scan done on 06/17
--- OUTSIDE RECORDS SUMMARY | 2021-07-18 16:15 | CCD | Continuity of Care Document ---
Author Author Radha FREED Organization Unknown Address [address] [facility] [address] [place] [address] Phone [phone] Care Team Providers Care Metal Weather Stripper Name Role Phone MITUL FREED AUTM [phone] Problems Active Problems Provider Date Essential hypertension [...] /min Procedures Date Code Description Status 06/26/2021 91299 Office/Outpatient New Moderate M DM 45-59 Minutes Completed Encounters Type Date Location Provider Dx Diagnosis Office Visit 06/26/2021 9:30a [facility] JASMIN Kapadia I10 Essential (primary) [...] Gastric bypass status for obesit y JASMIN Coopre 06/26/2021 F17.293 Nicotine dependence, other tobac co product, with withdrawal JASMIN Cooper 06/26/2021 R11.2 Nausea with vomiting, unspecifie d JASMIN Cooper 06/26/2021 K76.0 Fatty (change of) liver, not els ewhere classified JASMIN Cooper Plan of Treatment Future Appointment(s):* 07/07/2021 11:30 am - JASMIN Cooper at [facility] 06/26/2021 - JASMIN Cooper* I10 Essential (primary) [...] as needed * Comments:* Inially presented to [facility] with this complaint. Was admitted for dehydration. [...]
--- OUTSIDE RECORDS SUMMARY | 2021-07-18 16:16 | CCD ---
Author Author [facility] Organization [facility] Address Unknown Phone Unavailable Care Team Providers Care Automatic Vulcanizing Operator Name Role Phone NO, PCP Unavailable Unavailable Mustizer, E Vivien PA Unavailable Unavailable Mustizer, E Vivien PA Unavailable Unavailable Mustizer, E Vivien PA Unavailable Unavailable Mustizer, E Vivien PA Unavailable Unavailable Mustizer, E Vivien PA Unavailable Unavailable Mustizer, E Vivien PA Unavailable Unavailable Mustizer, E Vivien PA Unavailable Unavailable Gladys Sosa MD Unavailable Unavailable Gladys Sosa MD Unavailable Unavailable Gladys Sosa MD Unavailable Unavailable Gladys Sosa MD Unavailable Unavailable Gladys Sosa MD Unavailable Unavailable Gladys Sosa MD Unavailable Unavailable Gladys Sosa MD Unavailable Unavailable Gladys Sosa MD Unavailable Unavailable Gladys Sosa MD Unavailable Unavailable Gladys Sosa MD Unavailable Unavailable Gladys Sosa MD Unavailable Unavailable Gladys Sosa MD Unavailable Unavailable Gladys Sosa MD Unavailable Unavailable Gladys Sosa MD Unavailable Unavailable Gladys Sosa MD Unavailable Unavailable Gladys Sosa MD Unavailable Unavailable Gladys Sosa MD Unavailable Unavailable Gladys Sosa MD Unavailable Unavailable Gladys Sosa MD Unavailable Unavailable Gladys Sosa MD Unavailable Unavailable Gladys Ssoa MD Unavailable Unavailable Gladys Sosa MD Unavailable Unavailable Gladys Sosa MD Unavailable Unavailable Gladys Sosa MD Unavailable Unavailable Gladys Sosa MD Unavailable Unavailable Gladys Sosa MD Unavailable Unavailable Gladys Sosa MD Unavailable Unavailable Gladys Sosa MD Unavailable Unavailable Gladys Sosa MD Unavailable Unavailable Gladys Sosa MD Unavailable Unavailable Gladys Sosa MD Unavailable Unavailable Gladys Sosa MD Unavailable Unavailable Gladys Sosa MD Unavailable Unavailable Gladys Sosa MD Unavailable Unavailable Gladys Sosa MD Unavailable Unavailable Gladys Sosa MD Unavailable Unavailable Gladys Sosa MD Unavailable Unavailable Gladys Sosa MD Unavailable Unavailable Gladys Sosa MD Unavailable Unavailable Gladys Sosa MD Unavailable Unavailable Gladys Sosa MD Unavailable Unavailable Gladys Sosa MD Unavailable Unavailable Gladys Sosa MD Unavailable Unavailable Gladys Sosa MD Unavailable Unavailable Gladys Sosa MD Unavailable Unavailable Gladys Sosa MD Unavailable Unavailable Gladys Sosa MD Unavailable Unavailable Gladys Sosa MD Unavailable Unavailable Gladys Sosa MD Unavailable Unavailable Gladys Sosa MD Unavailable Unavailable Gladys Sosa MD Unavailable Unavailable Bolden, Akua Lesia PA Unavailable Unavailable Bolden, Akua Lesia PA Unavailable Unavailable Bolden, Akua Lesia PA Unavailable Unavailable Bolden, Akua Lesia PA Unavailable Unavailable Bolden, Akua Lesia PA Unavailable Unavailable Bolden, Akua Lesia PA Unavailable Unavailable Bolden, Akua Lesia PA Unavailable Unavailable Bolden, Akua Lesia PA Unavailable Unavailable Bolden, Akua Lesia PA Unavailable Unavailable Bolden, Akua Lesia PA Unavailable Unavailable TURRIN, EDGARDO Unavailable Unavailable TURRIN, EDGARDO Unavailable Unavailable TURRIN, EDGARDO Unavailable Unavailable TURRIN, EDGARDO Unavailable Unavailable Rice, M Barratt PA Unavailable Unavailable Rice, M Barratt PA Unavailable Unavailable Rice, M Barratt PA Unavailable Unavailable Rice, M Barratt PA Unavailable Unavailable Rice, M Barratt PA Unavailable Unavailable Rice, M Barratt PA Unavailable Unavailable Rice, M Barratt PA Unavailable Unavailable Rice, M Barratt PA Unavailable Unavailable Rice, M Barratt PA Unavailable Unavailable Rice, M Barratt PA Unavailable Unavailable Rice, M Barratt PA Unavailable Unavailable Rice, M Barratt PA Unavailable Unavailable Rice, M Barratt PA Unavailable Unavailable Rice, M Barratt PA Unavailable Unavailable Rice, M Barratt PA Unavailable Unavailable Rice, M Barratt PA Unavailable Unavailable Rice, M Barratt PA Unavailable Unavailable Rice, M Barratt PA Unavailable Unavailable Rice, M Barratt PA Unavailable Unavailable Rice, M Barratt PA Unavailable Unavailable Rice, M Barratt PA Unavailable Unavailable Rice, M Barratt PA Unavailable Unavailable Rice, M Barratt PA Unavailable Unavailable Rice, M Barratt PA Unavailable Unavailable Rice, M Barratt PA Unavailable Unavailable Rice, M Barratt PA Unavailable Unavailable Rice, M Barratt PA Unavailable Unavailable Rice, M Barratt PA Unavailable Unavailable Rice, M Barratt PA Unavailable Unavailable DRAZEK, I LABMERT PA Unavailable Unavailable DRAZEK, I LAMBERT PA Unavailable Unavailable DRAZEK, I LAMBERT PA Unavailable Unavailable DRAZEK, I LAMBERT PA Unavailable Unavailable DRAZEK, I LAMBERT PA Unavailable Unavailable DRAZEK, I LAMBERT PA Unavailable Unavailable DRAZEK, I LAMBERT PA Unavailable Unavailable DRAZEK, I LAMBERT PA Unavailable Unavailable DRAZEK, I LAMBERT PA Unavailable Unavailable DRAZEK, I LAMBERT PA Unavailable Unavailable DRAZEK, I LAMBERT PA Unavailable Unavailable DRAZEK, I LAMBERT PA Unavailable Unavailable DRAZEK, I LAMBERT PA Unavailable Unavailable DRAZEK, I LAMBERT PA Unavailable Unavailable DRAZEK, I LAMBERT PA Unavailable Unavailable DRAZEK, I LAMBERT PA Unavailable Unavailable DRAZEK, I LAMBERT PA Unavailable Unavailable DRAZEK, I LAMBERT PA Unavailable Unavailable DRAZEK, I LAMBERT PA Unavailable Unavailable DRAZEK, I LAMBERT PA Unavailable Unavailable DRAZEK, I LAMBERT PA Unavailable Unavailable DRAZEK, I LAMBERT PA Unavailable Unavailable DRAZEK, I LAMBERT PA Unavailable Unavailable DRAZEK, I LAMBERT PA Unavailable Unavailable DRAZEK, I LAMBERT PA Unavailable Unavailable DRAZEK, I LAMBERT PA Unavailable Unavailable DRAZEK, I LAMBERT PA Unavailable Unavailable DRAZEK, I LAMBERT PA Unavailable Unavailable DRAZEK, I LAMBERT PA Unavailable Unavailable DRAZEK, I LAMBERT PA Unavailable Unavailable Re-disclosure Warning The records that you are about to access may contain information from federally-assisted alcohol or drug abuse programs. If such information is present, then the following federally mandated warning applies: This information has been disclosed to you from records protected by federal confidentiality rules (42 CFR part 2). The federal rules prohibit you from making any further disclosure of this information unless further disclosure is expressly permitted by the written consent of the person to whom it pertains or as otherwise permitted by 42 CFR part 2. A general authorization for the release of medical or other information is NOT sufficient for this purpose. The Federal rules restrict any use of the information to criminally investigate or prosecute any alcohol or drug abuse patient.The records that you are about to access may contain highly sensitive health information, the redisclosure of which is protected by Article 27-F of the [facility] Public Health law. If you continue you may have access to information: Regarding HIV / AIDS; Provided by facilities licensed or operated by the [facility] Office of Mental Health; or Provided by the [facility] Office for People With Developmental Disabilities. If such information is present, then the following [facility] mandated warning applies: This information has been disclosed to you from confidential records which are protected by state law. State law prohibits you from making any further disclosure of this information without the specific written consent of the person to whom it pertains, or as otherwise permitted by law. Any unauthorized further disclosure in violation of state law may result in a fine or snf sentence or both. A general authorization for the release of medical or other information is NOT sufficient authorization for further disc losure. Encounters Encounter Providers Location Date Indications Data Source(s ) Outpatient Attender: Gladys Sosa MD Main office [facility] 07/18/2021 01:30:00 PM EST [facility] ([facility] ) Outpatient Attender: Gladys Sosa MD Main office - [facility] 07/14/2021 11:10:00 AM EST [facility] ([facility] ) Outpatient Attender: LAMBERT CASTELLANOS Physical Therapy 07/09/2021 0 1:00:00 PM EDT [facility] ([facility] ) Emergency Attender: EDGARDO Torres: PCP NO 07/07/2021 01:22:00 PM EDT - 07/07/2021 05:15:00 PM EDT [facility] Patient discharged. Outpatient Attender: Vivien CASTELLANOS [facility] 10:00:00 AM EDT [facility] ([facility]) Outpatient Attender: Vivien CASTELLANOS [facility] 09:30:00 AM EDT [facility] ([facility]) Emergency Attender: EDGARDO Torres: PCP NO 06/10/2021 02:25:00 AM EDT - 06/10/2021 07:11:00 AM EDT [facility] Patient discharged. Outpatient Attender: Bob CASTELLANOS Physical Therapy 12:00:00 PM EST [facility] ([facility]) Outpatient Attender: Lesia CASTELLANOS Ivon Joe andrew 10/18/2020 12:10:00 PM EST [facility] ([facility]) Medications Medication Brand Name Start Date Product Form Dose Route Admi nistrative Instructions Pharmacy Instructions Status Indications Reaction Description Data Source(s) Alprazolam 0.5 MG Oral Tablet Alprazolam 07/14/2021 12:00:00 AM EST ORAL active [facility] ([facility], ) 50 mg 07/09/2021 12:00:00 AM EDT tablet 30 TAKE ONE TABLET BY MOUTH EVERY 8 HOURS NEEDED FOR PAIN MAXIMUM DAILY DOSE = THREE TABLETS TAKE ONE TABLET BY MOUTH EVERY 8 HOURS NEEDED FOR PAIN MAXIMUM DAILY DOSE = THREE TABLETS SOLD: 07/09/2021 [facility] Omeprazole 40 MG Delayed Release Oral Capsule Omeprazole 06/26/2021 12:00:00 AM EDT ORAL active [facility] ([facility]) Promethazine Hydrochloride 12.5 MG Oral Tablet Promethazine HCL 06/26/2021 12:00:00 AM EDT ORAL active [facility] ([facility]) 12.5 mg 06/26/2021 12:00:00 AM EDT tablet 30 TAKE ONE TABLET BY MOUTH EVERY 6 HOURS NEEDED MAXIMUM DAILY DOSE = 4 TAKE ONE TABLET BY MOUTH EVERY 6 HOURS NEEDED MAXIMUM DAILY DOSE = 4 SOLD: 06/26/2021 [facility] 40 mg 06/26/2021 12:00:00 AM EDT capsule,delayed release (DR/EC) 60 TAKE ONE CAPSULE BY MOUTH TWICE A DAY 30 MINUTES BEFORE BREAKFAST AND AT BEDTIME TAKE ONE CAPSULE BY MOUTH TWICE A DAY 30 MINUTES BEFORE BREAKFAST AND AT BEDTIME SOLD: 06/26/2021 [facility] tramadol hydrochloride 50 MG Oral Tablet Tramadol HCL 06/26/2021 12:00:00 AM EDT ORAL active [facility] ([facility]) Ondansetron 4 MG Oral Tablet Ondansetron HCL 06/26/2021 12:00:00 AM EDT active [facility] ([facility]) Aspirin 81 MG Delayed Release Oral Tablet Aspirin 06/26/2021 1 2:00:00 AM EDT ORAL active [facility] ([facility]) Amlodipine 10 MG Oral Tablet Amlodipine Besylate 06/26/2021 12:00:00 AM EDT ORAL active [facility] ([facility]) 50 mg 06/19/2021 12:00:00 AM EDT tablet 30 TAKE ONE TABLET BY MOUTH EVERY 6 HOURS NEEDED FOR PAIN MAXIMUM DAILY DOSE = 4 TABLETS TAKE ONE TABLET BY MOUTH EVERY 6 HOURS NEEDED FOR PAIN MAXIMUM DAILY DOSE = 4 TABLETS SOLD: 06/19/2021 [facility] 81 mg 06/19/2021 12:00:00 AM EDT tablet,delayed release (DR/EC) 30 TAKE ONE TABLET BY MOUTH EVERY DAY TAKE ONE TABLET BY MOUTH EVERY DAY SOLD: 06/19/2021 [facility] 10 mg 06/19/2021 12:00:00 AM EDT tablet 30 TAKE ONE TABLET BY MOUTH EVERY DAY TAKE ONE TABLET BY MOUTH EVERY DAY SOLD: 06/19/2021 [facility] 100 mg 06/10/2021 12:00:00 AM EDT tablet 15 TAKE ONE TABLET BY MOUTH THREE TIMES A DAY TAKE ONE TABLET BY MOUTH THREE TIMES A DAY SOLD: 06/10/2021 [facility] 500 mg 06/10/2021 12:00:00 AM EDT tablet 20 TAKE ONE TABLET BY MOUTH TWICE A DAY TAKE ONE TABLET BY MOUTH TWICE A DAY SOLD: 06/10/2021 [facility] 600 mg 06/10/2021 12:00:00 AM EDT tablet 28 TAKE ONE TABLET BY MOUTH FOUR TIMES A DAY NEEDED FOR PAIN TAKE ONE TABLET BY MOUTH FOUR TIMES A DA Y NEEDED FOR PAIN SOLD: 06/10/2021 [facility] 4 mg 06/10/2021 12:00:00 AM EDT tablet 16 TAKE ONE TABLET BY MOUTH FOUR TIMES A DAY NEEDED TAKE ONE TABLET BY MOUTH FOUR TIMES A DAY NEEDED SO LD: 06/10/2021 [facility] 5-325 mg 02/24/2021 12:00:00 AM EDT tablet 15 TAKE ONE TABLET BY MOUTH EVERY 8 HOURS NEEDED FOR PAIN MAXIMUM DAILY DOSE = 3 TAKE ONE TABLET BY MOUTH EVERY 8 HOURS NEEDED FOR PAIN MAXIMUM DAILY DOSE = 3 SOLD: 02/24/2021 [facility] 750 mg 02/24/2021 12:00:00 AM EDT tablet 10 TAKE ONE TABLET BY MOUTH EVERY DAY TAKE ONE TABLET BY MOUTH EVERY DAY SOLD: 02/24/2021 [facility] Ondansetron 4 MG Disintegrating Oral Tablet ONDANSETRON 01/26/2021 12:00:00 AM EDT tablet,disintegrating 8 PLACE ONE TABLET BY MOUTH EVERY 6 TO 8 HOURS NEEDED FOR NAUSEA AND VOMITING PLACE ONE TABLET BY MOUTH EVERY 6 TO 8 H OURS NEEDED FOR NAUSEA AND VOMITING SOLD: 02/04/2021 [facility] Trazodone Hydrochloride 100 MG Oral Tablet TRAZODONE HCL 11/19/2020 12:00:00 AM EDT tablet 45 TAKE ONE AND 1/2 HALF TABLETS BY MOUTH IN THE EVENING NEEDED FOR SLEEP TAKE ONE AND 1/2 HALF TABLETS BY MOUTH I N THE EVENING NEEDED FOR SLEEP SOLD: 11/25/2020 [facility] Citalopram 40 MG Oral Tablet CITALOPRAM HYDROBROMIDE 11/19/2020 12:00:00 AM EDT tablet 30 TAKE ONE TABLET BY MOUTH AT BEDT JUAN NEEDED FOR INSOMNIA TAKE ONE TABLET BY MOUTH AT BEDTIME NEEDED FOR INSOMNIA SOLD: 11/25/2020 [facility] Citalopram 20 MG Oral Tablet CITALOPRAM HYDROBROMIDE 10/22/2020 12:00:00 AM EST tablet 30 TAKE ONE TABLET BY MOUTH EVERY D AY TAKE ONE TABLET BY MOUTH EVERY DAY SOLD: 10/24/2020 [facility] 50 mg 10/22/2020 12:00:00 AM EST tablet 30 TAKE ONE TABLET BY MOUTH AT BEDTIME NEEDED FOR SLEEP MAY INCREASE TO 2 TABLETS IF NEEDED TAKE ONE TABLET BY MOUTH AT BEDTIME NEEDED FOR SLEEP MAY INCREASE TO 2 TABLETS IF NEEDED SOLD: 10/24/2020 [facility] 50 mg 10/21/2020 12:00:00 AM EST tablet 21 TAKE ONE TABLET BY MOUTH EVERY 8 HOURS NEEDED FOR PAIN MAXIMUM DAILY DOSE = THREE TABLETS TAKE ONE TABLET BY MOUTH EVERY 8 HOURS NEEDED FOR PAIN MAXIMUM DAILY DOSE = THREE TABLETS SOLD: 10/21/2020 [facility] tramadol hydrochloride 50 MG Oral Tablet Tramadol HCL 10/21/2020 12:00:00 AM EST active [facility] ([facility]) 25 mg 10/18/2020 12:00:00 AM EST tablet extended release 24 hr 30 TAKE ONE TABLET BY MOUTH EVERY DAY TAKE ONE TABLET BY MOUTH EVERY DAY SOLD: 10/18/2020 [facility] 24 HR metoprolol succinate 25 MG Extended Release Oral Tablet Metoprolol Succinate ER 10/18/2020 12:00:00 AM EST ORAL active [facility] ([facility]) No Active Medications 10/18/2020 12:00:00 AM EST completed [facility] ([facility]) Insurance Providers Payer name Policy type / Coverage type Policy ID Covered democrat ID Covered democrat's relationship to pineda Policy Pineda Plan Information [employer] [id number] SP [id number] [facility] ADV - OP [id number] [facility] ADV - OP UNAVAILABLE U NAVAILABLE MEDICAID -O/P EMERGENCY ROOM [id number] [facility] O [id number] [employer] [id number] SP [id number] [place] [id number] SP [id number] SELF PAY ONLY [id number] SP [id number] [facility] UN[facility] SP Problems, Conditions, and Diagnoses Code Display Name Description Problem Type Effective Dates Data Source(s) [id number] Unspecified [address] in unspeci fied non-institutional (private) residence as the place of occurrence of the external cause Unspecified place in unspecified non-institutional (private) residence as the place of occurrence of the external cause Diagnosis 07/07/2021 01:22:00 PM EDT [facility] [id number] Overexertion from prolonged static or awkward postures, initial encounter Overexertion from prolonged static or aw kward postures, initial encounter Diagnosis 07/07/2021 01:22:00 PM EDT [facility] [id number] Nondisplaced fracture of lat eral malleolus of right fibula, initial encounter for closed fracture Nondisplaced fracture of lateral malleol us of right fibula, initial encounter for closed fracture Diagnosis 01:22:00 PM EDT [facility] [id number] Unspecified injury of right ankle, initi al encounter Unspecified injury of right ankle, initial encounter Diagnosis 07/07/2021 01:22:00 PM EDT [facility] Z8673 Personal history of transien t ischemic attack (TIA), and cerebral infarction without residual deficits Personal history of transient ischemic attack (TIA), and cerebral infarction without residual deficits Diagnosis 06/10/2021 02:25:00 AM EDT [facility] D08368 Nicotine dependence, cigarettes, uncompl icated Nicotine dependence, cigarettes, uncomplicated Diagnosis 06/10/2021 02:25:00 AM EDT [facility] I10 Essential (primary) hypertension Essential (primary) h ypertension Diagnosis 06/10/2021 02:25:00 AM EDT [facility] R160 Hepatomegaly, not elsewhere classified H epatomegaly, not elsewhere classified Diagnosis 06/10/2021 02:25:00 AM EDT [facility] K760 Fatty (change of) liver, not elsewhere c lassified Fatty (change of) liver, not elsewhere classified Diagnosis 06/10/2021 02:25:00 AM EDT [facility] N10 Acute pyelonephritis Acute pyelonephritis Diagnosis 06/10/2021 02:25:00 AM EDT [facility] A0811 Acute gastroenteropathy due to [place] a gent Acute gastroenteropathy due to [place] agent Diagnosis 06/10/2021 02:25:00 AM EDT [facility] R197 Diarrhea, unspecified Diarrhea, unspecified Diagnosis 06/10/2021 02:25:00 AM EDT [facility] G61.0 Acute infective polyneuritis Acute infective polyneuri tis Problem 07/18/2021 12:00:00 AM EST [facility] ([facility]) G37.3 Acute transverse myelitis Acute transverse myelitis Pr oblem 07/14/2021 12:00:00 AM EST [facility] ([facility]) 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 Id iopathic progressive polyneuropathy Problem 07/14/2021 12:00:00 AM EST [facility] ([facility]) R26.81 Abnormal gait Abnormal gait Problem 07/14/2021 12:00:00 AM EST [facility] ([facility]) R20.0 Skin sensation disturbance Skin sensation disturbance Problem 07/14/2021 12:00:00 AM EST [facility] ([facility]) R53.1 Malaise and fatigue Malaise and fatigue Problem 1 09/13/2020 12:00:00 AM EST [facility] ([facility] ) [id number] Chronic urinary tract infection Chronic urinary tract infection Problem 06/26/2021 12:00:00 AM EDT [facility] ([facility]) [id number] Chronic liver disease Chronic liver disease Problem 06/26/2021 12:00:00 AM EDT [facility] ([facility]) [id number] Transient cerebral ischemia Transient cerebral ischemi a Problem 06/26/2021 12:00:00 AM EDT [facility] ([facility]) [id number] Abdominal pain Abdominal pain Problem 06/26/2021 12:00: 00 AM EDT [facility] ([facility]) [id number] Essential hypertension Essential hypertension Problem 06/26/2021 12:00:00 AM EDT [facility] ([facility]) Surgeries/Procedures Procedure Description Date Indications Data Source(s) OFFICE OUTPATIENT VISIT 40 MINUTES 07/18/2021 12:00:00 AM EST [facility] ([facility] ) MRI Spine Cervical W/O Contrast, Followed By Contrast 07/17/2021 12:00:00 AM EST [facility] ([facility] ) MRI Spine Cervical W/O Contrast, Followed By Contrast 07/17/2021 12:00:00 AM EST [facility] ([facility] ) MRI Spine Thoracic W/O Contrast, Followed By Contrast 07/17/2021 12:00:00 AM EST [facility] ([facility] ) MRI Spine Thoracic W/O Contrast, Followed By Contrast 07/17/2021 12:00:00 AM EST [facility] ([facility] ) MRI SPINAL CANAL LUMBAR W/O CONTRAST MATERIAL 07/16/20 12:00:00 AM EST [facility] ([facility], ) Needle electromyography, each extremity, with related paraspinal areas, when performed, done with nerve conduction, amplitude and latency/velocity study; complete, five or more muscles studied, innervated by three or more nerves or four or more spinal levels (list separately in addition to the code for primary procedure). 07/14/2021 12:00:00 AM EST [facility] ([facility], ) Needle electromyography, each extremity, with related paraspinal areas, when performed, done with nerve conduction, amplitude and latency/velocity study; complete, five or more muscles studied, innervated by three or more nerves or four or more spinal levels (list separately in addition to the code for primary procedure). 07/14/2021 12:00:00 AM EST [facility] ([facility], ) Nerve Conduction 11-12 Studies 07/14/2021 12:00:00 AM EST [facility] ([facility] ) OFFICE OUTPATIENT NEW 60 MINUTES 07/14/2021 12:00:00 A M EST [facility] ([facility] ) OFFICE OUTPATIENT NEW 45 MINUTES 07/09/2021 12:00:00 A M EDT [facility] ([facility] ) OFFICE OUTPATIENT VISIT 25 MINUTES 06/30/2021 12:00:00 AM EDT [facility] ([facility]) OFFICE OUTPATIENT NEW 45 MINUTES 06/26/2021 12:00:00 A M EDT [facility] ([facility]) OFFICE OUTPATIENT VISIT 25 MINUTES 06/26/2021 12:00:00 AM EDT [facility] ([facility]) FX Lateral Malleolus (Distal Fibula) W/O Manipulation 10/21/2020 12:00:00 AM EST [facility] ([facility] ) RADEX ANKLE COMPLETE MINIMUM 3 VIEWS 10/21/2020 12:00: 00 AM EST [facility] ([facility] ) Results ID Date Data Source [id number] 07/14/2021 02:54:00 PM EST [facility] ([facility] ) Name Value Range Interpretation Code Description Data Juju rce(s) Supporting Document(s) Cobalamin (Vitamin B12) [Mass/volume] in Serum or Plasma 1421 pg/mL 2 47-[address] [facility] ) VITAMIN B12 NORMAL RANGE NORMAL 247 - 911 PG/ML INDETERMINATE 211 - 246 PG/ML DEFICIENT LESS THAN 211 PG/ML Calcidiol [Mass/volume] in Serum or Plasma 20.2 ng/mL 30.0-100.[address] [facility] ([facility] ) Folate [Mass/volume] in Serum or Plasma Laboratory test result [facility] ([facility] ) FOLATE NORMAL RANGE NORMAL GREATER THAN 5.4 NG/ML INDETERMINATE 3.4-5.4 NG/ML DEFICIENT LESS THAN 3.4 NG/ML Erythrocyte sedimentation rate by 2H Westergren method 48 mm/hr 0-2 0 [facility] ([facility] ) Rheumatoid factor [Units/volume] in Serum or Plasma Laboratory test result [facility] ([facility], ) ID Date Data Source [id number] 07/07/2021 01:22:00 PM EDT [facility] 1 OrderSheet [facility] Emergency Department [address] [place] [address] Phone #: ext- [phone] 07/07/2021 13:20 Patient: RADHA MONTALVO Sex: F : 1990 Age: 30yWEIGHT:86.1 kg (S) HEIGHT:73 inches (S) BMI:25.0ALLERGIES: No Known Drug AllergyCHIEF COMPLAINT: Rt, ankle, Rt, footDIAGNOSIS: Fracture of fibulaLAB ORDERSOrder Description Priority Entered Acknowledged InitialedDIAGNOSTIC STUDY ORDERSOrder Description Priority Entered Acknowledged InitialedAnkle Complete STAT 14:21 07/07/2021 Ack'd: 14:21 15:13 Right Cris Lynch Jennifer Putnam, Jennifer Jennifer R.N.(Oxygen?(No)) R.N.; Verbal order R.N. per; David CASTELLANOS Reason for Study: Trauma/InjuryFoot Complete STAT 14:21 07/07/2021 Ack'd: 14:21 15:13 Right Cris Lynch Jennifer Putnam, Jennifer Jennifer R.N.(Oxygen?(No)) R.N.; Verbal order R.N. per; David CASTELLANOS Reason for Study: Foot/Heel InjuryMEDICATION/IV/DRIP/FLUID ORDERSOrder Description Priority Entered Acknowledged InitialedGENERAL ORDERSOrder Description Priority Entered Acknowledged InitialedCrutches 16:54 07/07/2021 17:11 Racheal Anguiano R.N.;Splint (LE) (Right) 16:54 07/07/2021 17:11 Racheal Anguiano(ORTHO BOOT) David CASTELLANOS;[Electronically signed by Racheal Anguiano R.N. (17:15 07/07/2021)][Electronically signed by David Dubois (20:31 07/08/2021)][Electronically locked by Racheal Anguiano R.N. (17:15 07/07/2021)] 2 OrderSheet [facility] Emergency Department [address] [place] [address] Phone #: ext- [phone] 07/07/2021 13:20 Patient: RADHA MONTALVO Sex: F : 1990 Age: 30y Name Value Range Interpretation Code Description Data Juju rce(s) Supporting Document(s) ID Date Data Source [id number] 07/07/2021 01:22:00 PM EDT [facility] 1 Medication Reconciliation Report [facility] Emergency Department [address] [place] [address] Phone #: ext- [phone] 07/07/2021 13:20 Patient: RADHA MONTALVO Sex: F : 1990 Age: 30yWeight: 86.1 kgHeight/Length: 73 in.BMI: 25.0ALLERGIES: No Known Drug AllergyThe patient's Home Medications are listed below:CONTINUE TAKING THE FOLLOWING MEDICATIONS: amLODIPine Besylate Oral 10 mg, daily Aspirin 81 Oral, daily Phenazopyridine HCl Oral 100 mg, 3x a day Promethazine HCl Oral 12.5 mg, q6h, prn Vitamins/Minerals OralThe source(s) of the original Home Medication information:patientThe following Medications were given to the patient in the Emergency Department:None.The following Medications were prescribed to the patient:ibuprofen 800 mg tablet Take 1 tablet three times a day as needed for pain for 15 days -- Dispense 45tablet. Refills: 0. Substitution permitted.Pharmacy - [id number] - [address] [facility] ; [place], [place] [id number]. . -- JASMIN Ventura Name Value Range Interpretation Code Description Data [facility]ju [facility](s) Supporting Document(s) ID Date Data Source [id number] 07/07/2021 01:22:00 PM EDT [place] [address] Medication Administration Record [facility] Emergency Department [address] [place] [address] Phone #: ext- [phone] 07/07/2021 13:20 Patient: RADHA MONTALVO Sex: F : 1990 Age: 30yWeight: 86.1 kgHeight/Length: 73 inBMI: 25ALLERGIES: No Known Drug AllergyDate/Time Medication Administered Medication Ordered Name Value Range Interpretation Code Description Data Juju rce(s) Supporting Document(s) ID Date Data Source [id number] 07/07/2021 01:22:00 PM EDT [place] [address] General Instructions [facility] Emergency Department [address] [place] [address] Phone #: ext- [phone] 07/07/2021 13:20 Patient: RADHA MONTALVO Sex: F : 1990 Age: 30yClosed nondisplaced oblique fracture of the lateral malleolus of the right fibula. No angulated fracture of thefibula.INSTRUCTIONSUse crutches until released. Wear boot orthosis until released. No weight bearing on right leg untilreleased.Warnings: GENERAL WARNINGS: Return or contact your physician immediately if your conditionworsens or changes unexpectedly, if not improving as expected, or if other problems arise. Specificallyreturn if pain.Your Current Medications: Your current home medications have been reviewed.CONTINUE TAKING THE FOLLOWING MEDICATIONS:amLODIPine Besylate Oral : 10 mg daily.Aspirin 81 Oral : daily.Phenazopyridine HCl Oral : 100 mg 3x a day.Promethazine HCl Oral : 12.5 mg q6h, prn.Vitamins/Minerals Oral.Prescription Medications:ibuprofen 800 mg tablet Take 1 tablet three times a day as needed for pain for 15 days -- Dispense 45tablet. Refills: 0. Substitution permitted.Pharmacy - [id number] - [address] [place], [place] [id number]. .Understanding of the discharge instructions verbalized by patient.Follow-up with: [facility], , , [address] [place] [address], ,[place], [address] Follow up tomorrow. Call for an appointment. Reason for referral: evaluation and treatment. Summary ofcare provided to patient. ADDITIONAL INFORMATIONAnkle Fracture, Distal Fibula 2 General Instructions [facility] Emergency Department [address] [place] [address] Phone #: ext- [phone] 07/07/2021 13:20 Patient: RADHA MONTALVO Sex: F : 1990 Age: 30yYou have a fracture, or broken bone, of the end of the fibula bone. The fibula is one of two bones thatsupport the ankle joint.Home care You will be given a splint, cast, or special boot to prevent movement at the injury site. Do not put weight on a splint. It will break. Follow your healthcare provider's advice about when to begin bearing weight on a cast or boot. Keep your leg raised when sitting or lying down. When sleeping, place a pillow under the injured leg. When sitting, support the injured leg so it is above heart level. This is very important during the first 48 hours. Keep the cast or splint completely dry at all times. When bathing, protect the cast or splint with [address] 1 bag outside of the other. Tape each bag with duct tape at the top end or use rubber bands. Water can still leak in even when the foot is covered. So it's best to keep the cast, splint, or boot away from water. If a fiberglass cast or splint gets wet, dry it with a chair and couch maker on a cool setting. Place an ice pack over the injured area for no more than 15 to 20 minutes. Do this every 3 to 6 hours for the first 24 to 48 hours. Continue this 3 to 4 times a day as needed. To make an ice 3 General Instructions [facility] Emergency Department [address] [place] [address] Phone #: ext- [phone] 07/07/2021 13:20 Patient: RADHA MONTALVO Sex: F : 1990 Age: 30y pack, put ice cubes in a plastic bag that seals at the top. Wrap the bag in a clean, thin towel or cloth. Never put ice or an ice pack directly on the skin. The ice pack can be put right on the cast or splint. As the ice melts, be careful that the cast or splint doesn't get wet. You may use [id number] pain medicine to control pain, unless another pain medicine was prescribed. If you have chronic liver or kidney disease or ever had a stomach ulcer or GI bleeding, talk with your provider before using these medicines.Follow-up careFollow up with your healthcare provider in 1 week, or as advised. This is to be sure the bone ishealing properly. If you were given a splint, it may be changed to a cast or boot after the swellinggoes down.If X-rays were taken, you will be told of any new findings that may affect your care.When to seek medical adviceCall your healthcare provider right away if any of these occur: The plaster cast or splint becomes wet or soft The fiberglass cast or splint stays wet for more than 24 hours There is increased tightness or pain under the cast or splint Your toes become swollen, cold, blue, numb, or tingly The cast or splint becomes loose The cast or splint has a bad smell Sore areas develop under the cast or splint The cast or splint develops cracks or breaks [id number] [employer]. [address] [place] [address]. All rights reserved. This information is not intended as asubstitute for professional medical care. Always follow your healthcare professional's instructions.Crutch WalkingCrutch adjustment 4 General Instructions [facility] Emergency Department [address] [place] [address] Phone #: ext- [phone] 07/07/2021 13:20 Patient: RADHA MONTALVO Sex: F : 1990 Age: 30y Make sure the crutches you use are adjusted to fit you. When you stand,there should be room to fit 2 to 3 fingers between the top of the crutch and your armpit. Your elbowshould be slightly bent when holding the hand table inspector. When your arms hang down, the crutch handleshould be at the top of your hip.Crutch walkingPlace the crutches forward about 1 foot in front of you. The crutches should be a little farther apartthan your body. Lean your weight forward as you push down on the hand table inspector. Make sure yourweight is on your hands and your strong leg, not your armpits. Let your body swing forward, landingon the strong leg. Move the crutches forward again. The crutch and your injured leg should movetogether.Going up steps with no handrails(Up with the good leg) With both crutches (under each armpit) on the same step as your feet, push down on the hand table inspector. 5 General Instructions [facility] Emergency Department [address] [place] [address] Phone #: ext- [phone] 07/07/2021 13:20 Patient: RADHA MONTALVO Sex: F : 1990 Age: 30y Balancing with very light pressure on the weak leg, let your hands support your weight. Raise your strong leg onto the next higher step. Transfer all your weight to your strong leg (still bent). Move the crutches up to the next step, next to your strong leg. Keep your weight evenly balanced on the two crutches and your strong leg. Straighten your strong knee as you raise your weak leg up to the next step.Going down steps with no handrails(Down with the bad leg) With both crutches (under each armpit) on the same step as your feet, push down on the hand table inspector. Keep your weight evenly balanced on the two crutches and your strong leg. Bend your strong knee as you lower your wea k leg down to the next step. Let your strong leg support you (still bent) as you move the crutches down next to the weak leg. Transfer your weight to your hands. Balance with very light pressure on your weak leg as you lower your strong leg next to your weak legGoing up steps with handrails(Up with the good leg) Face the stairs, holding the handrail with one hand. Place both crutches under your armpit on the opposite side. Push down on the hand table inspector. Balancing with very light pressure on the weak leg, let your hands support your weight. Raise your strong leg onto the next higher step. Transfer all your weight to your strong leg (still bent) as you move the crutches up (while holding on to the handrail) to the next step next to the strong leg. Keep your weight evenly balanced on the handrail, the crutches (still under the same armpit opposite the handrail), and your strong leg. Straighten your strong knee as you raise the weak leg up to the next step.Going down steps with handrails(Down with the bad leg) Face the stairs, holding the handrail with one hand. Place both crutches under your armpit on 6 General [facility] Emergency Department [address] [place] [address] Phone #: ext- [phone] 07/07/2021 13:20 Patient: RADHA MONTALVO Sex: F : 1990 Age: 30y the opposite side. Push down on the hand table inspector. Balance your weight evenly on the crutches, handrail, and your strong leg. Then bend your strong knee as you lower the weak leg down to the next step. Let the handrail and your strong leg support you (still bent) as you move the crutches down alongside the weak leg. While holding on to the handrail and crutches (under the same armpit on the other side), transfer your weight to your hands, balancing with very light pressure on the weak leg as you lower your strong leg alongside your weak legTip: If you are worried about falling or you feel unsteady, try sitting when going [facility] or [facility]. Sit on the bottom step and keep your injured leg out in front of you. Hold your crutches flatagainst the stairs. Then slide up to the next step on your bottom. Use your free hand and good leg forsupport. Face the same way when going down stairs. [id number] [employer] [address] [place] [address]. All rights reserved. This information is not intended as asubstitute for professional medical care. Always follow your healthcare professional's instructions.[employer] Sp-Walker Boot 7 General Instructions [facility] Emergency Department [address] [place] [address] Phone #: ext- [phone] 07/07/2021 13:20 Patient: RADHA MONTALVO Sex: F : 1990 Age: 30yTraditional splints and casts for the foot and ankle protect the injury by preventing movement at thejoints. However, many injuries heal better and faster if the injured joint can be moved, but beprotected at the same time. This is the reason for using an [employer] Walker boot.This is a short boot that supports and protects to the foot and ankle while allowing you to walk. It haspadded air cells that provide compression and help circulation. It is used for both foot and ankleinjuries--both sprains and minor fractures.Ankle and foot sprains can take 4 to 6 weeks or longer to heal. People with severe injuries or thoseover age 60 may need more time to heal. During that time, you are prone to re-injury by suddenlytwisting your foot or ankle again while the ligaments are still weak.When treating a sprain, the [employer] Walker boot should be worn whenever walking for at least 4weeks, or as long as you continue to have ankle pain.Talk to your healthcare provider for specific advice about the treatment of your condition.Air-Stirrup and SP-Walker are trademarks of [employer]. 8 General Instructions [facility] Emergency Department [address] [place] [address] Phone #: [phone] iqd- [phone] 07/07/2021 13:20 --- Patient: RADHA MONTALVO Sex: F : 1990 Age: 30yFor more information about their products, see www.[employer]. [employer]. [address] [place] [address], [place] [address]. All rights reserved. This information is not intended as asubstitute for professional medical care. Always follow your healthcare professional's instructions. You have been given the following additional information: Ankle Fracture, Distal Fibula Crutch Walking Walker Boot No weight bearing on right leg until released.(Electronically signed by JASMIN Ventura 07/08/2021 20:31) Name Value Range Interpretation Code Description Data Juju rce(s) Supporting Document(s) ID Date Data Source [id number] 07/07/2021 01:22:00 PM EDT [facility] 1 Clinical Report - Nurses [facility] Emergency Department [address] [place] [address] Phone #: ext- [phone] 07/07/2021 13:20 Patient: RADHA MONTALVO Sex: F : 1990 Age: 30yTRIAGEArrived by private vehicle. Historian: patient. Accompanied by (Dropped off by friend).Triage time: late entry - 14:00 07/07/2021. Acuity: LEVEL 4.Chief Complaint: FALL.Alert.Location of injuries: right ankle. Occurred at home. Occurred late entry - 17:00 07/06/2021. ( Pt hasbeen seeing a neurologist in [place] for numbness to BLE; Pt is still going through testing but hasfrequent falls due to the numbness. Pt broke right ankle a few months ago and has had trouble eversince; Pt states yesterday she was putting laundry in the dryer and her leg gave out and twisted her rightankle.). 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 SEPSIS SCREEN NEGATIVE.No suspected or confirmed signs of infection present. --14:22 07/07/21 Lady Lynch R.N.14:08 07/07/21. BP: 147/94. MAP: 111. HR: 123. HR. ED physician notified. RR: 18. O2 saturation: 99%on room air. Temp: 97.6 F (oral). Pain level now: 04/15. --14:22 07/07/21 Lady Lynch R.N.Weight: 86.1 kg stated. Height/Length: 73 inches Per Patient. BMI: 25. --13:59 07/07/21 Lady Lynch R.N.MedicationsVitamins/Minerals Oral. --14:12 07/07/21 Lady Lynch R.N. amLODIPine Besylate Oral 10 mg, daily. --14:13 07/07/21 Lady Lynch R.N. Phenazopyridine HCl Oral 100 mg, 3x a day. --14:13 07/07/21 Lady Lynch R.N. Promethazine HCl Oral 12.5 mg, q6h as needed. --14:13 07/07/21 Lady Lynch R.N. Aspirin 81 Oral, daily. --14:15 07/07/21 Lady Lynch R.N.AllergiesNo Known Drug Allergy. --14:12 07/07/21 Lady Lynch R.N.PROBLEMS:Hypertension.Pyelonephritis.TIA - Transient Ischemic Attack. --14:15 07/07/21 Lady Lynch R.N. 2 Clinical Report - Nurses [facility] Emergency Department [address] [place] [address] Phone #: ext- [phone] 07/07/2021 13:20 Patient: RADHA MONTALVO Sex: F : 1990 Age: 30 yMedication/allergy information source: the patient. --14:22 07/07/21 Lady Lynch R.N.ADDITIONAL SURGERIES:.Dilatation Curettage.Gastric sleeve. --14:15 07/07/21 Lady Lynch R.N.HistoryPAST MEDICAL HX: Tetanus status: up-to-date. Immunizations: up-to-date and (Pt has not hadCOVID-19 vaccine). Last normal menstrual period was 1 week ago.SOCIAL HX: Current every day light tobacco smoker (cigarette)- less than 1/2 a pack per day. Occasionalalcohol use. No drug use. She was offered HIV testing but declined. Patient education was provided.She was offered hepatitis C testing but declined. Patient education was provided. ( COVID screennegative). She has not traveled outside the [place]Infectious disease exposure: No infectious disease exposure. The patient was not exposed to Coronavirus.Patient is not a known carrier of tuberculosis, hepatitis, HIV, MRSA or VRE. Patient is not a known carrierof CRE.SELF HARM ASSESSMENT: Self harm assessment was performed. The patient answered "no" to thequestion(s) "Do you have thoughts of harming or killing yourself?" and "Do you have a plan for harming orkilling yourself?".ABUSE ASSESSMENT: Abuse assessment. The patient had positive responses to the question(s) "Do youfeel safe in your home?". Abuse denied. No suspicion of abuse. No report of abuse.NUTRITIONAL RISK ASSESSMENT: The nutritional risk assessment revealed no deficiencies.FUNCTIONAL ASSESSMENT: Functional assessment: no impairments noted.LEARNING NEEDS ASSESSMENT: The learning needs assessment revealed no barriers.FALL RISK ASSESSMENT: Fall risk assessment completed. Risk factors identified include patient historyof fall. Fall interventions initiated. Patient placed on stretcher. Side rails up x2. Bed in low position. [place]. Patient visible from nurses' station and identified as a fall risk. Call light in reach of patient. Instructednot to get up without assistance. Instructions given to patient including fall prevention information.Verbalizes understanding.SKIN INTEGRITY ASSESSMENT: Skin integrity risk assessment completed. No skin integrity riskidentified. --14:07/07/21 Lady Lynch R.N.InterventionsIdentification band on patient. --14:07/07/21 Lady Lynch R.N.PHYSICAL ASSESSMENT 3 Clinical Report - Nurses [facility] Emergency Department [address] [place] [address] Phone #: ext- [phone] 07/07/2021 13:20 Patient: RADHA MONTALVO Sex: F : 1990 Age: 30y G ENERAL / NEURO / PSYCH: Alert. Oriented X 4. RESPIRATORY: Respirations not labored. Chest nontender. Breath sounds within normal limits. CVS: Normal heart rate and rhythm. Pulses within normal limits. Capillary refill less than 2 seconds. GI / : Abdomen soft and nontender. EXTREMITIES: Right ankle: tenderness and swelling. SKIN: Skin is warm and dry. --15:49 07/07/21 Racheal Anguiano R.N.NURSING PROGRESS NOTESlate entry - 15:03 07/07/21. Patient transported to radiology by wheelchair with mask and director of radiology.--15:13 07/07/21 Lady Lynch R.N. Patient returned from radiology by wheelchair with mask and director of radiology. --15:14 07/07/21 Lady Lynch R.N. Reassessment acuity: LEVEL 4. Rounding: Pain: assessed pain level. Proximity of possessions / care items: call light within easy reach. Set expectations: advised patient of rounding protocol timing and asked if they needed anything else at this time. The patient reports no complaints and she is calm and resting quietly. Overall patient status is the same- she states feels the same. --15:14 07/07/21 Lady Lynch R.N. Reassurance given. Two patient identifiers checked. Call light placed in reach. Side rails up x 2. Bed placed in lowest position. Brakes of bed on. Patient ready for evaluation. --15:50 07/07/21 Racheal Anguiano R.N. 16:30 07/07/21. BP: 139/105. HR: 128. RR: 18. O2 saturation: 100%. --16:31 07/07/21 [facility] [employer] Gayle Immobilizer applied by nurse; (ankle). Patient fit with new crutches. Crutch training performed. --17:12 07/07/21 Racheal Anguiano R.N.DISPOSITION / DISCHARGE 16:56 07/07/21. BP: 137/102. HR: 125. RR: 17. O2 saturation: 100%. Temp: 98.2 F. Pain level now 04/15. --16:57 07/07/21 [facility] [employer] Gayle Condition at departure: improved. No learning barriers present. Discharge instructions provided and reviewed with the patient. Reviewed crutch walking, splint care and rest, ice, compression and elevation instructions. Reviewed referral to an orthopedic surgeon. Patient verbalized understanding. Written instructions provided in Lao. The patient was discharged home and accompanied by family. She left in a wheelchair on crutches and via private vehicle. Patient driving. --17:14 07/07/21 Racheal Anguiano R.N. Departure time: 17:14 07/07/2021. --17:14 07/07/21 Racheal Anguiano R.N. 4 Clinical Report - Nurses [facility] Emergency Department [address] [place] [address] Phone #: ext- [phone] 07/07/2021 13:20 Patient: RADHA MONTALVO Sex: F : 1990 Age: 30yLocked/Released at 07/07/2021 17:15 by Racheal Anguiano R.N. Name Value Range Interpretation Code Description Data Juju rce(s) Supporting Document(s) ID Date Data Source [id number] 07/07/2021 01:22:00 PM EDT [facility] 1 Clinical Report - Physicians/Mid Levels [facility] Emergency Department [address] [place] [address] Phone #: ext- [phone] 07/07/2021 13:20 Patient: RADHA MONTALVO Sex: F : 1990 Age: 30y Time Seen: 15:51 07/07/2021. Arrived- By private vehicle. Historian- patient.HISTORY OF PRESENT ILLNESS Chief Complaint: Injury to the right foot and right ankle. The injury happened yesterday. Occurred at home. ( Pt has been seeing a neurologist in [place] for numbness to BLE; Pt is still going through testing but has frequent falls due to the numbness. Pt broke right ankle a few months ago and has had trouble ever since; Pt states yesterday she was putting laundry in the dryer and her leg gave out and twisted her right ankle.). ( Pt was recently admitted to [facility] for UTI with dehydration).). The patient sustained a twisting injury. Patient is experiencing mild pain. No injury to the head or neck or other injury.REVIEW OF SYSTEMSThe patient complains of pain on weight bearing. She has had swelling,, tingling, and numbness. Nosuspected foreign body or skin laceration.SOCIAL HISTORYLight tobacco smoker (cigarette)- less than 1/2 a pack per day. Occasional alcohol use. No drug use.PHYSICAL EXAMVital Signs: 07/07/2021 14:08 BP: 147/94. MAP: 111. HR: 123. RR: 18. O2 saturation: 99% on room air.Temp: 97.6 F. Pain level now: 04/15. Have been reviewed as abnormal. Hypertensive. Oxygensaturation normal.Appearance: Alert. Oriented X3. No acute distress.Head: Head atraumatic.Eyes: Pupils equal, round and reactive to light. Eyes normal inspection.ENT: Ears normal. Nose normal. Pharynx normal.Neck: Normal inspection.CVS: Normal heart rate and rhythm.Respiratory: No respiratory distress.Abdomen: No visible injury.Back: Normal inspection. No tenderness. ROM normal.Skin: Skin intact. Skin warm and dry.Extremities: Right lateral ankle: mild swelling of the lateral malleolus. Limited ROM secondary to pain.Small joint effusion present. Neurovascular intact distally. No ligamentous laxity present. Extremitiesotherwise negative.Neuro, Vascular and Tendons: Vascular status intact. Sensation intact. Motor intact. Tendon functionintact.Gait: Limping gait. 2 Clinical Report - Physicians/Mid Levels [facility] Emergency Department [address] [place] [address] Phone #: ext- [phone] 07/07/2021 13:20 [id number] Sex[facility] F : 1990 Age: 30y Neuro: Oriented X 3. No motor deficit. No sensory deficit.LABS, X-RAYS, AND EKGRt Ankle X-ray: (subacute vs acute distal fib fx). Views: AP, lateral, mortise and oblique. The X-rayswere interpreted by the radiologist and contemporaneously by me. Interpretation time: 16:46 07/07/2021.PROGRESS AND PROCEDURESCourse of Care: 16:47 Jul 07 2021. Evaluation after observation. (Discussed risks, benefits, options andpt is agreeable with dx and tx plan.). Patient counseled in person regarding the patient's stable condition, test results, diagnosis and need for follow-up. Patient agrees with plan of care. 16:47 Jul 07 2021. Disposition: Discharged home in good and improved condition (16:47 Jul 07 2021).CLINICAL IMPRESSION Closed nondisplaced oblique fracture of the lateral malleolus of the right fibula. No angulated fracture of the fibula.INSTRUCTIONS Use crutches until released. Wear boot orthosis until released. No weight bearing on right leg until released. Warnings: GENERAL WARNINGS: Return or contact your physician immediately if your condition worsens or changes unexpectedly, if not improving as expected, or if other problems arise. Specifically return if pain. Your Current Medications: Your current home medications have been reviewed. CONTINUE TAKING THE FOLLOWING MEDICATIONS: amLODIPine Besylate Oral : 10 mg daily. Aspirin 81 Oral : daily. Phenazopyridine HCl Oral : 100 mg 3x a day. Promethazine HCl Oral : 12.5 mg q6h, prn. Vitamins/Minerals Oral. Prescription Medications: ibuprofen 800 mg tablet Take 1 tablet three times a day as needed for pain for 15 days -- Dispense 45 tablet. Refills: 0. Substitution permitted. Pharmacy - [facility] - [address] [place] [address] [phone]. FaxNumber: [phone]. 3 Clinical Report - Physicians/Mid Levels [facility] Emergency Department [address] [place] [address] Phone #: ext- [phone] 07/07/2021 13:20 Patient: RADHA MONTALVO Sex: F : 1990 Age: 30y Understanding of the discharge instructions verbalized by patient. Follow-up with: [facility], , , [address] [place] [address], [place], [address] Follow up tomorrow. Call for an appointment. Reason for referral: evaluation and treatment. Summary of care provided to patient.(Electronically signed by JASMIN Ventura 07/08/2021 20:31) Name Value Range Interpretation Code Description Data Juju rce(s) Supporting Document(s) ID Date Data Source [id number] 07/08/2021 12:11:00 AM EDT [facility] [address] [place] [address] PHONE: [phone] FAX: [phone] Name .................. : KATIA MALLORY Acct Number.................. : [id number] ROOM. ................. : VT-26 Number ................... : [id number] Stay type ............. : E/R Discharge Date......... ... : 07/07/21 Admit Date ....... .. : 07/07/21 Admit Phys .................... : ROSALBA ANDERSON Date of ....... : 1990 Family Phys ................... : NO PCP Phone .................. : [phone] Age ................................ : 30 Film# .................. .:[id number] Sex ................................. : F Unsigned transcriptions are preliminary reports and do not represent a medical or legal document [place]OT COM[place]TE-3 [place] [id number] COMPLETE:07/07/21 14:21 [id number] Reason(s): Foot/Heel Injury RADIOGRAPHS OF THE RIGHT FOOT 4 VIEWS INDICATION: Foot/heel injury. Fell. No feeling in leg 2 weeks COMPARISON: None. FINDINGS: No acute fracture or dislocation. No focal bone lesion. Visible joint spaces are well preserved. No marginal osteophytes or erosions. No significant soft tissue abnormality. IMPRESSION: Negative study. Separately reported abnormal ankle distal fibular fr acture which may be subacute. Electronically Reviewed and Signed By Nick Nix MD , 07/08/21 00:11, SCB Transcribe Initials: SHANNON , Transcribe Date: 07/07/21 18:06, Dictation Date: Copy for: JATIN GODWIN via fax Copy for: EMERGENCY DEPT via modem Copy for: 710 MED REC DISCHARGED Page 1 of 1 Name Value Range Interpretation Code Description Data Juju rce(s) Supporting Document(s) ID Date Data Source [id number] 07/08/2021 12:11:00 [place] [address] PHONE: [phone] FAX: [phone] Name .................. : KATIA MALLORY Acct Number.................. : [id number] ROOM. ................. : VT-26 Number ................... : [id number] Stay type ............. : E/R Discharge Date......... ... : 07/07/21 Admit Date ... ...... : 07/07/21 Admit Phys .................... : ROSALBA ANDERSON Date of ....... : 1990 Family Phys ................... : NO PCP Phone .................. : [phone] Age ................................ : 30 Film# .................. .:[id number] Sex ................................. : F Unsigned transcriptions are preliminary reports and do not represent a medical or legal document [place] COMPLETE [place] [id number] COMPLETE:07/07/21 14:21 [id number] Reason(s): Trauma/Injury RADIOGRAPHS OF THE RIGHT ANKLE 4 VIEWS INDICATION: Injury/trauma. Per technologist no feeling in leg 2 weeks ago COMPARISON: None. FINDINGS: Lateral soft tissue swelling. Distal fibular fracture. Fracture plane not well delineated. This may be subacute to chronic. No ankle mortise widening. Talar dome intact. IMPRESSION: Lateral soft tissue swelling with dist al fibular fracture of indeterminate acuity probably subacute or chronic. Correlate for injury history and timing. Electronically Reviewed and Signed By Nick Nix MD , 07/08/21 00:11, SCB Transcribe Initials: DZ , Transcribe Date: 07/07/21 18:05, Dictation Date: Copy for: JATIN GODWIN via fax Copy for: EMERGENCY DEPT via [facility] Copy for: 710 MED REC DISCHARGED Page 1 of 1 Name Value Range Interpretation Code Description Data Juju rce(s) Supporting Document(s) ID Date Data Source [id number] 06/18/2021 05:23:00 AM EDT [facility] Name Value Range Interpretation Code Description Data Juju rce(s) Supporting Document(s) SARS coronavirus 2 RNA [Presence] in Res piratory specimen by NORA with probe detection NEGATIVE [facility] This lab was ordered by [facility] a nd reported by [facility]. ID Date Data Source [id number] 06/12/2021 11:06:00 AM EDT [facility] [address] [place] [address] PHONE: [phone] FAX: [phone] Name .................. : KATIA MALLORY Acct Number.................. : [id number] [facility]... : [id number] Stay type ............. : E/R Discharge Date......... ... : 06/10/21 Admit Date ......... : 06/10/21 Admit Phys .................... : ROSALBA ANDERSON Date of ....... : 1990 Family Phys ................... : NO PCP Phone .................. : [phone] Age ................................ : 30 Film# .................. .:[id number] Sex ................................. : F Unsigned transcriptions are preliminary reports and do not represent a medical or legal document CT ABD & PELV W/O ORAL W/O [place] [id number] COMPLETE:06/10/21 04:19 [id number] Reason(s): left flank pain, UA abnormal c/w UTI CT ABDOMEN AND PELVIS WITHOUT IV CONTRAST INDICATION: Left flank pain. Ultrasound consistent with UTI. Hypertension, , gastric sleeve COMPARISON: None IV CONTRAST: None One or more of the following dose reduction techniques were utilized in effectively lowering the radiation dose for this examination: Automated Exposure Control, Adjustment of the mA and/or kV according to patient size, or Iterative reconstruction. FINDINGS: LUNG BASES: No pulmonary nodules or masses. No pleural effusions. LIVER/BILIARY: Hepatomegaly. Craniocaudal liver dimension approximately 25 cm. Severe steatosis. 14 mm lesion in the right dome of the liver. Higher attenuation than steatotic parenchyma not representing simple cyst. Indeterminate etiology. No acute gallbladder abnormality. SPLEEN: Normal. PANCREAS: Normal. ADRENALS: Normal bilaterally. KIDNEYS/: No urolithiasis or hydronephrosis. Collapsed bladder grossly normal. No abnormally enlarged uterine or adnexal structures. BOWEL/GI: No appendicitis, diverticulitis, colitis. No bowel obstruction. No free air. Page 1 of 2 [facility] [address] [place] [address] PHONE: [phone] FAX: [phone] Name .................. : KATIA MALLORY Acct Number.................. : [id number] ROOM. ................. : TR-06 MR Number ................... : [id number] Stay type ............. : E/R Discharge Date......... ... : 06/10/21 Admit Date ......... : 06/10/21 Admit Phys .................... : ROSALBA ANDERSON Date of ....... : 1990 Family Phys ................... : NO PCP Phone .................. : [phone] Age ................................ : 30 Film# .................. .:[id number] Sex ................................. : F Unsigned transcriptions are preliminary reports and do not represent a medical or legal document CT ABD & PELV W/O ORAL W/O [place] [id number] COMPLETE:06/10/21 04:19 [id number] Reason(s): left flank pain, UA abnormal c/w UTI There may be a trace of free pelvic fluid probably physiologic. Gastric sleeve. No abnormal distention. No extraluminal fluid or gas collection along the surgical margin. NODES/RETROPERITONEUM: No adenopathy. No AAA. No retroperitoneal mass or hematoma. SKELETAL: Within normal limits. IMPRESSION: Gastric sleeve surgery. No indication of surgical complication. No acute GI process. No urolithiasis, hydronephrosis, or acute urinary tract process. Mild cystitis might not be detectable on this exam. Small amount of free pelvic fluid probably physiologic. No abnormally enlarged uterine or adnexal structures. Hepatomegaly and severe hepatic steatosis. Indeterminate liver lesion probably solid possibly complex cystic. When clinically appropriate consider ultrasound. This is unlikely to be directly related to patient's symptoms. Electronically Reviewed and Signed By Nick Nix MD , 06/12/21 11:06, SCB Transcribe Initials: SHANNON , Transcribe Date: 06/10/21 09:25, Dictation Date: Copy for: EMERGENCY DEPT via [facility] Copy for: 710 MED REC DISCHARGED Page 2 of 2 Name Value Range Interpretation Code Description Data Juju rce(s) Supporting Document(s) ID Date Data Source [id number] 06/10/2021 02:25:00 AM EDT [facility] 1 OrderSheet [facility] Emergency Department [address] [place] [address] Phone #: ext- [phone] 06/10/2021 02:22 Patient: RADHA MONTALVO Sex: F : 1990 Age: 30yWEIGHT:97.0 kg (M) HEIGHT:73 inches (S) BMI:28.2ALLERGIES: No Known Drug AllergyCHIEF COMPLAINT: vomiting, diarrheaDIAGNOSIS: Pyelonephritis, GastroenteritisLAB ORDERSOrder Description Priority Entered Acknowledged InitialedCBC w Diff STAT 02:48 06/10/2021 03:08 Torchia, Turrin, Edgardo Juhi R.N. M.D.;CMP STAT 02:48 06/10/2021 03:08 Torchia, Turrin, Edgardo Juhi R.N. M.D.;Lipase STAT 02:48 06/10/2021 03:08 Torchia, Turrin, Edgardo Juhi R.N. M.D.;UA Reflex to UA 02:48 06/10/2021 Ack'd: 03:08 03:59 Torchia,Culture Nazariorin, Edgardo Torchia, Juhi R.N. Juhi R.N. M.D.;Lactic Acid STAT 02:48 06/10/2021 03:08 Torchia, Turrin, Edgardo Juhi R.N. M.D.;HCG Serum Qual STAT 02:48 06/10/2021 03:08 Torchia, Nazariorin, Edgardo Juhi R.N. M.D.;Culture, Urine STAT 02:48 06/10/2021 Ack'd: 03:08 03:59 Torchia,(Urine, Clean Turrin, Edgardo Torchia, Juhi R.N. Juhi R.N.Catch) M.Angus;DIAGNOSTIC STUDY ORDERSOrder Description Priority Entered Acknowledged InitialedCT ABD PEL W/O STAT 04:19 06/10/2021 04:20 Natalya,Oral W/O IV Edgardo Flores M.D.;(Oxygen?(No))(IV?(Yes)) Reason for Study: left flank pain, UA abnormal c/w UTI 2 OrderSheet [facility] Emergency Department [address] [place] [address] Phone #: ext- [phone] 06/10/2021 02:22 Patient: RADHA MONTALVO Sex: F : 1990 Age: 30yMEDICATION/IV/DRIP/FLUID ORDERSOrder Description Priority Entered Acknowledged InitialedNS IV 1000 mL 02:49 06/10/2021 03:10 Torchia,Bolus: : Bolus 1000 Turrin, Edgardo Juhi R.N.mL, then 150 mL/hr M.D.;(X1)Zofran 4 mg IVP X 1 02:49 06/10/2021 03:08 Torchia,dose: 4 mg (NOW Turrin, Edgardo Juhi R.N.x1) M.D.;Protonix IV Push 40 02:49 06/10/2021 03:09 Torchia,mg (in 10 mL NS, Turrin, Edgardo Juhi R.N.administer over at M.D.;least 2 minutes,NOW x1)cefTRIAXone 04:18 06/10/2021 04:26 Torchia,(1gm/50ml) IVPB Turrin, Edgardo Juhi R.N.1000 mg with M.D.;Dextrose 50 mlspike bag (D5W) Reason for ordering with alerts: Clinical consideration given -- 04:18 06/10/2021 Rosalba, Edgardo M.D.levoFLOXacin PO 04:18 06/10/2021 04:26 Torchia,500 mg Turrin, Edgardo Juhi R.N. M.D.; Reason for ordering with alerts: Clinical consideration given -- 04:18 06/10/2021 Rosalba Edgardo MiguelD.Toradol 15 mg IVP 05:53 06/10/2021 06:04 Torchia,X1 dose: 15 mg Turrin, Edgardo Juhi R.N.(NOW x1) M.D.;Ofirmev IV 1000 mg 05:53 06/10/2021 Ack'd: 06:05 06:20 Natalya,(NOW x1, Infuse Edgardo Flores Laura R.N. Katelynover 15 minutes) [place];Pyridium PO 200 06:25 06/10/2021 Ack'd: 06:26 06:30 Natalya,mg Rosalba, Anh Mullen M.D.;GENERAL ORDERSOrder Description Priority Entered Acknowledged InitialedNPO 02:48 06/10/2021 03:08 Rosalba Shay Riccardo Laura R.N. M.D.;Saline Lock 02:48 06/10/2021 03:08 Rosalba Shay Riccardo Laura R.N. 3 OrderSheet [facility] Emergency Department [address] [place] [address] Phone #: ext- [phone] 06/10/2021 02:22 Patient: RADHA MONTALVO Sex: F : 1990 Age: 30y M.D.;[Electronically signed by Juhi Shay R.N. (07:11 06/10/2021)][Electronically signed by Edgardo Flores M.D. (09:12 06/11/2021)][Electronically locked by Juhi Shay R.N. (07:11 06/10/2021)] Name Value Range Interpretation Code Description Data Juju rce(s) Supporting Document(s) ID Date Data Source [id number] 06/10/2021 02:25:00 AM EDT [facility] 1 Medication Reconciliation Report [facility] Emergency Department [address] [place] [address] Phone #: ext- [phone] 06/10/2021 02:22 Patient: RADHA MONTALVO Sex: F : 1990 Age: 30yWeight: 97.0 kgHeight/Length: 73 in.BMI: 28.2ALLERGIES: No Known Drug AllergyThe patient's Home Medications are listed below:CONTINUE TAKING THE FOLLOWING MEDICATIONS: Vitamins/Minerals OralThe source(s) of the original Home Medication information:Not obtained.The following Medications were given to the patient in the Emergency Department:Zofran [IVP] IVP 4 mg, administered: 03:08 06/10/2021ROTONIX [IVP] IVP 40 mg, administered: 03:06/10/2021odium Chloride [IV] IV Fluids bolus 0, then 1000 mL/hr, administered: 03:09 06/10/2021evofloxacin [PO] PO 500 mg, administered: 04:26 06/10/2021EFTRIAXONE (1GM/50ML) [IVPB] IVPB bolus 0, then 1 gm 100 mL/hr, administered: 04:26 06/10/2021Toradol [IVP] IVP 15 mg, administered: 06:04 06/10/2021Ofirmev IVPB bolus 0, then 1 gm, administered: 06:20 1Pyridium [PO] PO 200 mg, administered: 06:30 06/10/2021The following Medications were prescribed to the patient:ibuprofen 600 mg tablet Take 1 tablet four times a day as needed for pain for 7 days -- Dispense 28tablet. Refills: 0. Substitution permitted.Pharmacy - [facility] - [address] [facility] ; [place] [address]. . 2 Medication Reconciliation Report [facility] Emergency Department [address] [place] [address] Phone #: ext- [phone] 06/10/2021 02:22 Patient: RADHA MONTALVO Sex: Jeaneth : 1990 Age: 30yCipro 500 mg tablet Take 1 tablet twice a day for 10 days -- Dispense 20 tablet. Refills: 0. Substitutionpermitted.[facility] - [address] [facility] ; [place] [address]. .Pyridium 100 mg tablet Take 1 tablet three times a day for 5 days -- Dispense 15 tablet. Refills: 0.Substitution permitted.[facility] - [address] [facility] ; [place] [address]. FaxNumber: [phone].Zofran 4 mg tablet Take 1 tablet four times a day as needed for 4 days -- Dispense 16 tablet. Refills: 0.Substitution permitted.[facility] - [address] [place] [address]. . -- Edgardo Flores M.D. Name Value Range Interpretation Code Description Data Juju rce(s) Supporting Document(s) ID Date Data Source [id number] 06/10/2021 02:25:00 AM EDT [facility] 1 Medication Administration Record [facility] Emergency Department [address] [place] [address] Phone #: ext- [phone] 06/10/2021 02:22 Patient: RADHA MONTALVO Sex: F : 1990 Age: 30yWeight: 97.0 kgHeight/Length: 73 inBMI: 28.2ALLERGIES: No Known Drug Allergy Date/Time Medication Administered Medication OrderedStart SODIUM CHLORIDE [IV] NS IV 1000 mL Bolus: : Bolus 564306:09 06/10/2021 Dose: IV Fluids mL, then 150 mL/hr (X1)Juhi Shay R.NVirginie Rate: 1000 mL/hr over 1 hour(s)---- Dispensed: 1000 mL bagStop Site: #1 right AC07:02 06/10/2021Juhi Shay R.NVirginieGiven ZOFRAN [IVP] (ONDANSETRON HCL) Zofran 4 mg IVP X 1 dose: 4 mg03:08 06/10/2021 Dose: 4 mg IVP (NOW x1)Juhi Shay R.N. Site: #1 right ACGiven PROTONIX [IVP] (PANTOPRAZOLE Protonix IV Push 40 mg (in 10 mL03:09 06/10/2021 SODIUM) NS, administer over at least 2Juhi Shay, R.N. Dose: 40 mg IVP minutes, NOW x1) Site: #1 right ACStart CEFTRIAXONE (1GM/50ML) [IVPB] cefTRIAXone (1gm/50ml) IVPB04:26 06/10/2021 Dose: 1 gm IVPB 1000 mg with Dextrose 50 ml spikeJuhi Shay R.NVirginie Rate: 100 mL/hr over 30 minute(s) bag (D5W)---- Dispensed: 50 mL bagStop Site: #1 right AC05:00 06/10/2021Anh fowler,Given LEVOFLOXACIN [PO] levoFLOXacin PO 500 mg04:26 06/10/2021 Dose: 500 mg POTorJuhi dahl, R.NVirginieGiven TORADOL [IVP] (KETOROLAC Toradol 15 mg IVP X1 dose: 15 mg06:04 06/10/2021 TROMETHAMINE) (NOW x1)Juhi Shay R.N. Dose: 15 mg IVP Site: #1 right ACStart Ofirmev * Ofirmev IV 1000 mg (NOW x1,06:20 06/10/2021 Dose: 1 gm * IVPB Infuse over 15 minutes)Akiko Hoangn,----Stop06:47 06/10/2021eyshereeAkikon,Given PYRIDIUM [PO] (PHENAZOPYRIDINE Pyridium PO 200 mg06:30 06/10/2021 HCL)Anh Hoang, Dose: 200 mg PO Name Value Range Interpretation Code Description Data Juju rce(s) Supporting Document(s) ID Date Data Source [id number] 06/10/2021 02:25:00 AM EDT [facility] 1 General Instructions [facility] Emergency Department [address] [place] [address] Phone #: ext- [phone] 06/10/2021 02:22 Patient: RADHA MONTALVO Sex: F : 1990 Age: 30y Acute pyelonephritis Subacute norovirus gastroenteritis.INSTRUCTIONS Alternate Tylenol (Acetaminophen) or Motrin (Ibuprofen) for fever, temperature greater than 102 degrees orally. Take according to label instructions. Drink plenty of fluids. Avoid alcohol and NSAIDS. NSAIDS include aspirin, ibuprofen (Advil) and naproxen (Aleve). Avoid fatty, fried/greasy, lactose-containing (such as milk, cheese and ice cream), salty and spicy foods. No alcohol. Do not smoke. (PLEASE GET A LIVER ULTRASOUND IN NEAR FUTURE TO EVALUATE LIVER CYST SEEN ON TODAY'S CAT SCAN). Warnings: Further evaluation is necessary in order to conduct further tests. It is very important to follow up with a healthcare provider. GENERAL WARNINGS: Return or contact your physician immediately if your condition worsens or changes unexpectedly, if not improving as expected, or if other problems arise. SPECIFICALLY, return if you develop pain in the abdomen, pelvis, back or shoulder, fever, vomiting, the inability to keep fluids down, blood in vomitus, blood in diarrhea, fainting or lightheadedness. Your Current Medications: Your current home medications have been reviewed. CONTINUE TAKING THE FOLLOWING MEDICATIONS: Vitamins/Minerals Oral. Prescription Medications: ibuprofen 600 mg tablet Take 1 tablet four times a day as needed for pain for 7 days -- Dispense 28 tablet. Refills: 0. Substitution permitted. [facility] - [address] [facility] ; [place] [address]. . Cipro 500 mg tablet Take 1 tablet twice a day for 10 days -- Dispense 20 tablet. Refills: 0. Substitution permitted. [facility] - [address] [facility] ; [place] [address]. . Pyridium 100 mg tablet Take 1 tablet three times a day for 5 days -- Dispense 15 tablet. Refills: 0. Substitution permitted. [facility] - [address] [place] [address]. Phone: [phone] General Instructions [facility] Emergency Department [address] [place] [address] Phone #: ext- [phone] 06/10/2021 02:22 ------ Patient: RADHA MONTALVO Sex: F : 1990 Age: [id number] .Zofran 4 mg tablet Take 1 tablet four times a day as needed for 4 days -- Dispense 16 tablet. Refills: 0.Substitution permitted.[facility] - [address] [facility] ; [place] [address]. .Follow-up:Return to the emergency department as needed. Follow up with your healthcare provider in three dayseven if well. Call for an appointment. Reason for referral: evaluation and treatment. Summary of careprovided to patient via paper.Understanding of the discharge instructions verbalized by patient. Expected course of illness, dischargeinstructions, activity level, diet, prescriptions x2, follow-up appointment and risks and benefits of treatmentreviewed with patient and understanding verbalized. Agrees to plan of care.Follow-up with: [facility], , , [address], [place], [address] Follow up in three days even if well. Call for an appointment. Reason for referral: evaluation andtreatment. Summary of care provided to patient via paper. ADDITIONAL INFORMATIONViral Gastroenteritis (Adult) 3 General Instructions [facility] Emergency Department [address] [place] [address] Phone #: ext- [phone] 06/10/2021 02:22 Patient: RADHA MONTALVO Sex: F : 1990 Age: 30yGastroenteritis is commonly called the "stomach flu," although it has nothing to do with influenza. It ismost often caused by a virus that affects the stomach and intestinal tract and usually lasts from 2 to 7days. Common viruses causing gastroenteritis include norovirus, rotavirus, and hepatitis A. Non- viralcauses of gastroenteritis include bacteria, parasites, and toxins.The danger from repeated vomiting or diarrhea is dehydration. This is the loss of to o much fluid fromthe body. When this occurs, body fluids must be replaced. Antibiotics don't help with this illnessbecause it is usually viral. Simple home treatment will be helpful.Symptoms of viral gastroenteritis may include: Watery, loose stools Stomach pain or abdominal cramps Fever and chills Nausea and vomiting Loss of bowel control HeadacheHome care 4 General Instructions [facility] Emergency Department [address] [place] [address] Phone #: snz- [phone] 06/10/2021 02:22 Patient: RADHA MONTALVO Sex: F : 1990 Age: 30yGastroenteritis is transmitted by contact with the stool or vomit of an infected person. This can occurfrom person to person or from contact with a contaminated surface.Follow these guidelines when caring for yourself at home: If symptoms are severe, rest at home for the next 24 hours or until you are feeling better. Wash your hands with soap and water or use alcohol- based soft shoe dancer to prevent the spread of infection. Wash your hands after touching anyone who is sick. Wash your hands or use alcohol-based soft shoe dancer after using the toilet and before meals. Clean the toilet after each use.Remember these tips when preparing food: People with diarrhea should not prepare or serve food to others. When preparing foods, wash your hands before and after. Wash your hands after using cutting boards, countertops, knives, or utensils that have been in contact with raw food. Dry your hands with a single use towel. Keep uncooked meats away from cooked and [id number]-mh-[id number] foods.MedicineYou may use acetaminophen or NSAID medicines like ibuprofen or naproxen to control fever unlessanother medicine was given. If you have chronic liver or kidney disease, talk with your healthcareprovider before using these medicines. Also talk with your provider if you've had a stomach ulceror gastrointestinal bleeding. Don't give aspirin to anyone under 18 years of age who is ill with a fever.It may cause severe liver damage. Don't use NSAIDS is you are already taking one for anothercondition (like arthritis) or are on aspirin (such as for heart disease or after a stroke).If medicine for vomiting or diarrhea are prescribed, take these only as directed. Nausea and diarrheamedicines are generally OK unless you have bleeding, fever, or severe abdominal pain.DietFollow these guidelines for food: Water and liquids are important so you don't get dehydrated. Drink a small amount at a time or suck on ice chips if you are vomiting. If you eat, avoid fatty, greasy, spicy, or fried foods. Don't eat dairy if you have diarrhea. This can make diarrhea worse. 5 General Instructions [facility] Emergency Department [address] [place] [address] Phone #: ext- [phone] 06/10/2021 02:22 Patient: RADHA MONTALVO Sex: F : 1990 Age: 30y Avoid tobacco, alcohol, and caffeine which may worsen symptoms.During t he first 24 hours (the first full day), follow the diet below: Beverages. Sports drinks, soft drinks without caffeine, [employer], mineral water (plain or flavored), decaffeinated tea and coffee. If you are very dehydrated, sports drinks aren't a good choice. They have too much sugar and not enough electrolytes. In this case, commercially available products called oral rehydration solutions, are best. Soups. Eat clear broth, consomm, and bouillon. Desserts. Eat gelatin, ice pops, and fruit juice bars.During the next 24 hours (the second day), you may add the following to the above: Hot cereal, plain toast, bread, rolls, and crackers Plain noodles, rice, mashed potatoes, chicken noodle or rice soup Unsweetened canned fruit (avoid pineapple), bananas Limit fat intake to less than 15 grams per day. Do this by avoiding margarine, butter, oils, mayonnaise, sauces, gravies, fried foods, peanut butter, meat, poultry, and fish. Limit fiber and avoid raw or cooked vegetables, fresh fruits (except bananas), and bran cereals. Limit caffeine and chocolate. Don't use spices or seasonings other than salt. Limit dairy products. Avoid alcohol.During the next 24 hours: Gradually resume a normal diet as you feel better and your symptoms improve. If at any time it starts getting worse again, go back to clear liquids until you feel better.Follow-up careFollow up with your healthcare provider, or as advised. Call your provider if you don't get better cfygwk97 hours or if diarrhea lasts more than a week. Also follow up if you are unable to keep down liquidsand get dehydrated. If a stool (diarrhea) sample was taken, call as directed for the results.Call [phone] if any of these occur: 6 General Instructions [facility] Emergency Department [address] [place] [address] Phone #: [phone] 06/10/2021 02:22 Patient: RADHA MONTALVO Sex: F : 1990 Age: 30y Trouble breathing Chest pain Confused Severe drowsiness or trouble awakening Fainting or loss of consciousness Rapid heart rate Seizure Stiff neckWhen to seek medical adviceCall your healthcare provider right away if any of these occur: Abdominal pain that gets worse Continued vomiting (unable to keep liquids down) Frequent diarrhea (more than 5 times a day) Blood in vomit or stool (black or red color) Dark urine, reduced urine output, or extreme thirst Weakness or dizziness Drowsiness Fever of 100.4F (38C) or higher, or as directed by your healthcare provider Raza renae [id number] [employer]. [address] [place] [address]. All rights reserved. This information is not intended as asubstitute for professional medical care. Always follow your healthcare professional's instructions.Kidney Infection (Adult Female) 7 General Instructions [facility] Emergency Department [address] [place], [place] [id number] Phone #: ext- [phone] 06/10/2021 02:22 Patient: RADHA MONTALVO Sex: F : 1990 Age: 30yAn infection in one or both kidneys is called pyelonephritis. It usually happens when bacteria ) get intothe kidney. Rarely it is caused when other germs such as viruses, fungi, or other disease-causingorganisms get into the kidney. The bacteria or other disease-causing organisms can enter thekidneys from the bl adder or blood traveling from other parts of the body. A kidney infection canbecome serious. It can cause severe illness, scarring of the kidneys, or kidney failure if not treatedcorrectly.Common causes for this problem include: Not keeping the genital area clean and dry, which promotes the growth of bacteria Wiping back to front. This drags bacteria from the rectum toward the urinary opening (urethra). Wearing tight pants or underwear. This lets moisture build up in the genital area, which helps bacteria grow. Holding urine in for long periods of time Dehydration Urinary tract infections Blockages of urine draining from the kidney, such as a kidney stoneKidney infections can cause symptoms similar to a bladder infection. Symptoms include: 8 General Instructions [facility] Emergency Department [address] [place] [address] Phone #: ext- [phone] 06/10/2021 02:22 Patient: RADHA MONTALVO Sex: F : 1990 Age: 30y Pain (or burning) when urinating Having to urinate more often than usual Blood in the urine (pink or red) Belly (abdominal) pain or discomfort, usually in the lower abdomen Pain in the side or back Pain above the pubic bone Fever or chills Vomiting Loss of appetiteTreatment is oral antibiotics. More severe cases are treated with intramuscular or IV (intravenous)antibiotics. These are started right away and may be changed once urine culture results show theinfecting organisms. Treatment helps prevent a more serious kidney infection. Symptoms of kidneyinfections can vary based on your age.MedicinesMedicines can help in the treatment of a b ladder infection: Take antibiotics exactly as prescribed and until they are used up, even if you feel better. It's important to finish them to make sure the infection is gone. Unless another medicine was prescribed, you can use [id number] medicines for pain, fever, or discomfort. If you have chronic liver of kidney disease, talk with your healthcare provider before using these medicines. Also talk with your provider if you've ever had a stomach ulcer or digestive bleeding, or are taking blood thinners.Home careThe following are general care guidelines: Stay home from work or school. Rest in bed until your fever breaks and you are feeling better, or as advised by your healthcare provider. Drink lots of fluid unless you must restrict fluids for other medical reasons. This will force the medicine into your urinary system and flush the bacteria out of your body. Ask your healthcare provider how much you should drink. Don't have sex until you have finished all of your medicine and your symptoms are gone. 9 General Instructions [facility] Emergency Department [address] [place] [address] Phone #: ext- [phone] 06/10/2021 02:22 Patient: RADHA MONTALVO Sex: F : 1990 Age: 30y Don't have caffeine, alcohol, or spicy foods. These foods may irritate the kidneys and bladder. Don't take bubble baths. Sensitivity to the chemicals in bubble baths can irritate the urethra. Make sure you wipe from front to back after using the toilet. Wear loose cloths and cotton underwear.PreventionThese self-care steps can help prevent future infections: Drink plenty of fluids to prevent dehydration and flush out the bladder. Do this unless you must restrict fluids for other health reasons, or your healthcare provider told you not to. Correct cleaning after going to the bathroom in important. Make sure you wipe from front to back after using the toilet. Urinate more often. Don't try to hold urine in for a long time. Don't wear tight-fitting pants and underwear. Improve your diet to prevent constipation. Eat more fruits, vegetables, and fiber. Eat less junk and fatty foods. Constipation can make a urinary tract infection more likely. Talk with your healthcare provider if you have trouble with bowel movements. Urinate right after sex to flush out the bladder.Follow-up careFollow up with your healthcare provider, or as advised. Additional testing may be needed to makesure the infection has cleared. Close follow-up and further testing is very important to find the causeand to prevent future infections.If a urine culture was done, you will be contacted if your treatment needs to be changed. If directed,you may call to find out the results.If you had an X-ray, CT scan, or other diagnostic test, you will be notified of any new findings thatmay affect your care.Call [phone] if any of the following occur: Trouble breathing Fainting or loss of consciousness 10 General Instructions [facility] Emergency Department [address] [place] [address] Phone #: ext- [phone] 06/10/2021 02:22 Patient: RADHA MONTALVO Sex: F : 1990 Age: 30y Rapid or very slow heart rate Weakness, dizziness, or fainting Trouble arousing or confusionWhen to seek medical adviceCall your healthcare provider right away if any of these occur: Fever 100.4F (38C) or higher, or as directed by your healthcare provider Not feeling better or symptoms get worse within 1 to 2 days after starting antibiotics Any symptom that continues after 3 days of treatment Increasing pain in the stomach, back, side, or groin area Repeated vomiting Not able to take prescribed medicine due to nausea or another reason Bloody, dark-colored, or foul smelling urine Trouble urinating or decreased urine output No urine for 8 hours, no tears when crying, confusion, sunken eyes, or dry mouth [employer]. [address] [place] [id number]. All rights reserved. This information is not intended as asubstitute for professional medical care. Always follow your healthcare professional's instructions.Fever Control (Adult)A fever is a normal reaction of your body to an illness. The temperature itself usually isn't harmful. Itactually helps your body fight infections. You don't need to treat a fever unless you feel veryuncomfortable.Home careFollow these tips to take care of yourself at home: If you feel warm, check your temperature. Dress in light clothing. This will help you lose extra body heat through your skin. The fever will go up if you wear extra layers or wrap in blankets. Fever causes your body to lose water through evaporation. Drink plenty of fluids. These include water, juice, clear sodas, estrada maxwell, or lemonade. 11 General Instructions [facility] Emergency Department [address] [place] [address] Phone #: ext- [phone] 06/10/2021 02:22 Patient: RADHA MONTALVO Sex: F : 1990 Age: 30yFever medicinesYou can take acetaminophen every 4 to 6 hours if: You feel very uncomfortable Your oral temperature is 100.4F (38C) or higherIf you can't take or keep down oral medicine, ask your pharmacist for acetaminophen suppositories.You don't need a prescription for these.If the fever doesn't get better within 1 hour after you take acetaminophen, take ibuprofen. If thisworks, keep taking the ibuprofen every 6 to 8 hours.If you have chronic liver or kidney disease, talk with your healthcare provider before taking thesemedicines. Also talk with your provider if you ever had a stomach ulcer or GI (gastroi ntestinal)bleeding.If either medicine alone doesn't keep the fever down, you may switch off between the 2 medicinesevery 3 to 4 hours. But do this only if your healthcare provider has told you to. For example, takeibuprofen. Wait 3 hours. Then take acetaminophen. Wait 3 hours. Take ibuprofen, and so on. Followyour provider's instructions exactly.Don't give aspirin to anyone younger than age 19 who is ill with a fever. Aspirin can cause seriousside effects such as liver damage and Jarocho syndrome. Although rare, Jarocho syndrome is a veryserious illness usually found in children younger than age 15. The syndrome is closely linked to theuse of aspirin or aspirin-containing medicine during viral infection.Follow- up careFollow up with your healthcare provider if you don't get better after 48 hours.When to seek medical adviceCall your healthcare provider right away if any of these occur: Fever, as directed by your healthcare provider, or: o Fever of 100.4F (38C) or above lasting for 24 to 48 hours o Fever lasting more than 3 days, even without other symptoms o Fever that happens after visiting a foreign country o Fever that happens within a month after visiting a country with malaria. Malaria is a serious illness. A fever can still be malaria even if you took medicine to prevent it. The medicine does not work in all cases 12 General Instructions [facility] Emergency Department [address] [place] [address] Phone #: ext- [phone] 06/10/2021 02:22 Patient: RADHA MONTALVO Sex: F : 1990 Age: 30y o If you experience unexplained fever and your immune system is compromised such as by immune suppressing drugs, stem cell or organ transplant, HIV/AIDS, or cancer Confusion or trouble thinking Headache or stiff neck Flat, small, purplish red spots on your skin Low blood pressure Fast heart rate Fast (rapid) breathing You are You just had surgery, another medical procedure, or were just discharged from the hospital Use of medicines that suppress the immune system (immunosuppressants). These include steroids like prednisone, cancer medicines, and organ transplant rejection medicines. If you are not sure about whether your medicines suppress your immune system, ask your healthcare provider.Call 911Someone should call 911 if you: Are having trouble breathing or shortness of breath Are unresponsiveImportant reminderCa ll your healthcare provider if you get a fever after visiting a place where infectious diseases arecommon. Many people continuous pickling line pickler helper a cold or other virus while traveling. This usually goes away without aproblem. But, some places have more serious diseases. Fever with certain other symptoms maymean you have a serious illness. Symptoms to watch for include diarrhea, skin rashes, insect bites,and skin boils, or infections. Your provider may ask you: What you did on your trip How long you were there Where you travelled and where you stayed (hotel, [place], tent) What you ate and drank If you were bitten by insects or other bugs 13 General Instructions [facility] Emergency Department [address] [place] [address] Phone #: ext- [phone] 06/10/2021 02:22 Patient: RADHA MONTALVO Sex: F : 1990 Age: 30y If you swam in freshwater If you had sex or got a tattoo or piercing while you were thereCheck the [facility] to get more information about specific infectious diseases in the areas you havetraveled. [phone] [employer] [address] [place] [address]. All rights reserved. This information is not intended as asubstitute for professional medical care. Always follow your healthcare professional's instructions. You have been given the following additional information: Gastroenteritis, Viral (Adult) Pyelonephritis, Female (Adult) Fever Control (Adult)(Electronically signed by Edgardo Flores M.D. 06/11/2021 09:12) Name Value Range Interpretation Code Description Data Juju rce(s) Supporting Document(s) ID Date Data Source [id number] 06/10/2021 02:25:00 AM EDT [facility] 1 Clinical Report - Nurses [facility] Emergency Department [address] [place] [address] Phone #: ext- [phone] 06/10/2021 02:22 Patient: RADHA MONTALVO Sex: F : 1990 Age: 30yTRIAGEArrived by private vehicle. Historian: patient. Accompanied by friend.Acuity: LEVEL 3.Chief Complaint: (LEG and ABD PAIN).Alert. No acute distress.Onset. (3 days). ( Patient arrives c/o leg pain and abdominal pain. Pt states she started to experiencenumbness/tinglying in her bilateral thighs x3 days. Pt reports 2 days ago she started having abdominal painwith n/v/d. Pt reports she had a kidney infection 3 weeks ago and it feels similar to that now. Pt reports shewas put on abx and has finished coarse. Pt reports fever earlier this am, she did not take anything and hasnot checked her temp again today. 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 --02:06/10/21 Juhi Shay R.N.02:06/10/21. BP: 137/109. MAP: 118. HR: 91. RR: 17. O2 saturation: 100% on room air. Temp: 98 F(temporal). Pain level now: 02/13. --02:06/10/21 Juhi Shay R.N.Weight: 97 kg measured. Height/Length: 73 inches Per Patient. BMI: 28.2. --02:06/10/21 Juhi Shay R.N.MedicationsVitamins/Minerals Oral. --02:06/10/21 Juhi Shay R.N.AllergiesNo Known Drug Allergy. --02:06/10/21 Juhi Shay R.N.PROBLEMS:Hypertension. --0206/10/21 Juhi Shay R.N.ADDITIONAL SURGERIES:.Dilatation Curettage.Gastric sleeve. --06/10/21 Juhi Shay R.N.HistoryPAST MEDICAL HX: Immunizations: up-to-date. Last normal menstrual period- May 21 2021.SOCIAL HX: Current every day light tobacco smoker (cigarette)- less than 1/2 a pack per day. Occasionalalcohol use. No drug use. She has not traveled outside the [place] 2 Clinical Report - Nurses [facility] Emergency Department [address] [place] [address] Phone #: ext- [phone] 06/10/2021 02:22 Patient: RADHA MONTALVO Sex: F : 1990 Age: 30y Infectious disease exposure: No infectious disease exposure. The patient was not exposed to Coronavirus. Patient is not a known carrier of tuberculosis, hepatitis, HIV, MRSA or VRE. Patient is not a known carrier of CRE. SELF HARM ASSESSMENT: Self harm assessment was performed. The patient answered "no" to the question(s) "Have you recently felt down, depressed, or hopeless?", "Do you have thoughts of harming or killing yourself?", "Do you have a plan for harming or killing yourself?", "Have you recently had thoughts about harming or killing others?", "Do you have any dangerous items in your possession?", "Have you noticed less interest or pleasure in doing things?", "Are you here because you tried to hurt yourself?" and "Have you ever tried to hurt yourself before today?". ABUSE ASSESSMENT: Abuse assessment. The patient had positive responses to the question(s) "Do you feel safe in your home?", "Are you afraid to go home?", "Has anyone hurt you or threatened to hurt you?", "Are you afraid of your partner?" and "Have children witnessed violence in the home?". Abuse denied. No suspicion of abuse. NUTRITIONAL RISK ASSESSMENT: The nutritional risk assessment revealed no deficiencies. FUNCTIONAL ASSESSMENT: Functional assessment: no impairments noted. LEARNING NEEDS ASSESSMENT: The learning needs assessment revealed no barriers. FALL RISK ASSESSMENT: Fall risk assessment completed. No risk factors identified. SKIN INTEGRITY ASSESSMENT: Skin integrity risk assessment completed. No skin integrity risk identified. --06/10/21 Juhi Shay R.N. Interventions Identification band on patient. To treatment room. --06/10/21 Juhi Shay R.N.PHYSICAL ASSESSMENTAmbulatory to room. Patient gowned.GENERAL / NEURO / PSYCH: Alert. Oriented X 4. Appears in no acute distress.HEENT: Pupils equal, round and reactive to light. No facial asymmetry noted. Mucous membranes arepink.RESPIRATORY: Respirations not labored. Chest nontender. Breath sounds within normal limits.CVS: Normal sinus rhythm noted. Capillary refill less than 2 seconds. Pulses within normal limits.GI / : ( Abdominal pain x2 days with n/v/d.). Abdomen soft and normal bowel sounds. Abdominaltenderness.EXTREMITIES: Limping gait. She has numbness. ( tingling and numbness to bilateral thighs.). She hastingling.SKIN: Skin intact. Skin is warm and dry. Normal skin turgor. --02:34 06/10/21 Juhi Shay R.N.NURSING PROGRESS NOTES 3 Clinical Report - Nurses [facility] Emergency Department [address] [place] [address] Phone #: ext- [phone] 06/10/2021 02:22 Patient: RADHA MONTALVO Sex: F : 1990 Age: 30yPatient gowned. Head of bed elevated. Reassurance given. Two patient identifiers checked. Call lightplaced in reach. Side rails up x 2. Bed placed in lowest position. Brakes of bed on. --02:31 06/10/21Juhi Shay R.N.03:08 06/10/2021 Site #1 started via IV in the right antecubital space with an 22g angiocath, with aseptictechnique; two attempts. Blood drawn: rainbow set. Labeled in the presence of the patient and sent to thelab. Saline lock flushed with 10 mL saline. --03:08 06/10/21 Juhi Shay R.N.03:08 06/10/2021 Zofran (Ondansetron HCl) IVP 4 mg given via site #1. Allergies verified and confirmed 5rights. IV patency established. IV site checked: no pain, redness, or swelling. IV flushed thoroughly pre-and post-medication administration. IVP given by RN. Information reviewed with patient. Verbalizesunderstanding. --03:06/10/21 Juhi Shay R.N.03:09 06/10/2021 PROTONIX (Pantoprazole Sodium) IVP 40 mg given over 2 minute(s) via site #1.Allergies verified and confirmed 5 rights. IV patency established. IV site checked: no pain, redness, orswelling. IV flushed thoroughly pre- and post-medication administration. IVP given by RN. Informationreviewed with patient. Verbalizes understanding. --03:06/10/21 Juhi Shay R.N.03:09 06/10/2021 Started bag #1 1000 mL IV Fluids Sodium Chloride; at 1000 mL/hr over 1 hour(s) via site#1 via IV pump. Allergies verified and confirmed 5 rights. IV patency established. IV site checked: no pain,redness, or swelling. IV flushed thoroughly pre- and post-medication administration. Information reviewedwith patient. Verbalizes understanding. --03:06/10/21 Juhi Shay R.N.04:26 06/10/2021 Levofloxacin PO 500 mg given. Allergies verified and confirmed 5 rights. Informationreviewed with patient. Verbalizes understanding. --04:26 06/10/21 Juhi Shay R.N.04:26 06/10/2021 Started 1 gm of CEFTRIAXONE (1GM/50ML) IVPB in bag #1 50 mL; at 100 mL/hr over30 minute(s) via site #1. via IV pump. Allergies verified and confirmed 5 rights. IV patency established. IVsite checked: no pain, redness, or swelling. IV flushed thoroughly pre- and post-medication administrati on.Information reviewed with patient. Verbalizes understanding. --04:06/10/21 Juhi Shay R.N.Rounding: Pain: assessed pain level. Position: repositioned. Personal care / toileting: denies toiletingneeds. Proximity of possessions / care items: call light within easy reach. Plug ins: assured IV pumpplugged in; checked status of equipment in use; located all cords, tubes, and lines to prevent fall hazard.Set expectations: advised patient of rounding protocol timing and asked if they needed anything else at thistime. The patient is calm, resting quietly and sleeping. Overall patient status- she states feels the same.--05:27 06/10/21 Jhui Shay R.N.05:00 06/10/2021 CEFTRIAXONE (1GM/50ML) IVPB via IV site #1 Discontinued: completed. Total amountinfused: 50 mL. IV patency established. IV site checked: no pain, redness, or swelling. IV flushedthoroughly. --06:30 06/10/21 Anh Hoang06:04 06/10/2021 Toradol (Ketorolac Tromethamine) IVP 15 mg given via site #1. Allergies verified andconfirmed 5 rights. IV patency established. IV site checked: no pain, redness, or swelling. IV flushed 4 Clinical Report - Nurses [facility] Emergency Department [address] [place] [address] Phone #: ext- [phone] 06/10/2021 02:22 Patient: RADHA MONTALVO Sex: F : 1990 Age: 30y thoroughly pre- and post-medication administration. IVP given by RN. Information reviewed with patient. Verbalizes understanding. --06:04 06/10/21 Juhi Shay R.N. ( Patient requesting pain medicine at this time, MD Flores aware. Pt medicated per NOV.). --06:05 06/10/21 Juhi Shay R.N. ( Pt's IV is positional and unable to tolerate IV Ofirmev at this time, attempted for another IV access.). --06:06 06/10/21 Juhi Shay R.N. 06:20 06/10/2021 Ofirmev * IVPB 1 gm --06:20 06/10/21 Anh Hoang 06:21 06/10/2021 Site #2 started via IV in the left antecubital space with an 22g angiocath, with aseptic technique and good blood return; two attempts. Saline lock flushed with saline. --06:21 06/10/21 Anh Hoang 06:28 06/10/21. BP: 128/91. HR: 68. RR: 15. O2 saturation: 99%. Pain level now 6/10. --06:29 06/10/21 Anh Hoang 06:30 06/10/2021 Pyridium (Phenazopyridine HCl) PO 200 mg given. Allergies verified and confirmed 5 rights. Information reviewed with patient including reason for taking this medication, signs of allergic reaction and precautions. Verbalizes understanding. --06:30 06/10/21 Anh Hoang 06:47 06/10/2021 Ofirmev IVPB Discontinued: completed. Total amount infused: 100 mL. IV patency established. IV site checked: no pain, redness, or swelling. IV flushed thoroughly. --06:47 06/10/21 Anh Hoang 07:02 06/10/2021 IV Fluids Sodium Chloride via IV site #1 Discontinued: completed. Total amount infused: 1200 mL. IV patency established. IV site checked: no pain, redness, or swelling. IV flushed thoroughly. --07:02 06/10/21 Juhi Shay R.N.DISPOSITION / DISCHARGE 07:02 06/10/2021 Site #1 removed upon discharge. Bandage applied. --07:02 06/10/21 Juhi Shay R.N. 07:02 06/10/2021 Site #2 removed upon discharge. Bandage applied. --07:02 06/10/21 Juhi Shay R.N. 07:02 06/10/21. BP: 124/87. HR: 69. RR: 16. O2 saturation: 100%. Temp: 98.3 F. Pain level now 11/13. --07:04 06/10/21 Juhi Shay R.N. Condition at departure: stable. No learning barriers present. Discharge instructions provided and reviewed with the patient. Reviewed warnings. Reviewed medication(s) side effects, precautions, dosing and course information. Prescription(s) given to the patient and sent electronically to pharmacy. Medication(s) for home use given to the patient per protocol. Treatments reviewed. Reviewed referral to 5 Clinical Report - Nurses [facility] Emergency Department [address] [place] [address] Phone #: ext- [phone] 06/10/2021 02:22 Patient: RADHA MONTALVO Sex: F : 1990 Age: 30y a primary care physician for followup. Patient verbalized understanding. Written instructions provided in Lao. The patient was discharged by the physician. She was discharged home and accompanied by manager performance. She left ambulatory and via private vehicle. Bonding Supervisor driving. --07:10 06/10/21 Juhi Shay R.N.Locked/Released at 06/10/2021 07:11 by Juhi Shay R.N. Name Value Range Interpretation Code Description Data [facility] Supporting Document(s) ID Date Data Source [id number] 06/10/2021 02:25:00 AM EDT [facility] 1 Clinical Report - Physicians/Mid Levels [facility] Emergency Department [address] [place] [address] Phone #: ext- [phone] 06/10/2021 02:22 Patient: RADHA MONTALVO Sex: F : 1990 Age: 30y Time Seen: 02:36 06/10/2021; initial patient contact. Arrived- By private vehicle. Historian- patient. Disposition decision: 06:58 06/10/2021.HISTORY OF PRESENT ILLNESS Chief Complaint: VOMITING and DIARRHEA. The patient has had moderate, dull left-sided flank pain with nausea and vomiting. No recent travel. She has had severe nausea and moderate, intermittent abdominal pain. The pain is described as located in the LUQ and left side of the abdomen and associated with nausea, vomiting and diarrhea. She has had severe vomiting. The vomiting has occurred several times. No blood-tinged emesis or frankly bloody emesis. She has had mild diarrhea. This has occurred twice. No bloody diarrhea. No black stools, bloody stools, constipation, history of possible bad food exposure or known contact with a sick individual. No change in routine. Has not recently been camping or on antibiotics. This started yesterday and is still present. It has been intermittent. The illness is described as moderate. (also complains of b/l leg pain w above Sx's, c numbness and tingling; pt had pyelonephritis 3 weeks ago and was admitted at [facility], then took AB's; pt reports subjective fever once during the day; pt waited 5 hrs at [facility] WR then went home then came here). Similar symptoms previously. Patient has had similar symptoms once. Recent medical care: The patient was seen recently at another facility in the emergency department. ( 3 weeks ago).REVIEW OF SYSTEMSThe patient has had a subjective fever and mild muscle aches. She has had mild difficulty with urination,with burning and pain during urination, along with frequency. No dark urine, headache, dizziness, sorethroat or cough. No chest pain, difficulty breathing, excessive urination, skin rash or jaundice. No faintingepisodes or blurred vision. She has had mild mid back pain. It has been associated with symptomsrelated to bladder and bowel dysfunction. No sensory loss or motor weakness. All other systems reviewedand are negative.PAST HISTORYSee nurses notes. Problems: TIA - Transient Ischemic Attack. Hyperte nsion. Additional Surgeries: 2 Clinical Report - Physicians/Mid Levels [facility] Emergency Department [address] [place] [address] Phone #: ext- [phone] 06/10/2021 02:22 Patient: RADHA MONTALVO Sex: F : 1990 Age: 30y . Dilatation Curettage. Gastric sleeve. Medications: Vitamins/Minerals Oral. Allergies: No Known Drug Allergy.SOCIAL HISTORYLight tobacco smoker- less than 1/2 a pack per day. Occasional alcohol use. No drug use. No recenttravel.ADDITIONAL NOTESThe nursing notes have been reviewed with agreement regarding the chief complaint, HPI, ROS, PMH andpatient medications and allergies.PHYSICAL EXAMVital Signs: 06/10/2021 02:23 BP: 137/109. MAP: 118. HR: 91. RR: 17. O2 saturation: 100% on room air.Temp: 98 F. Pain level now: 02/13. Have been reviewed. Oxygen saturation normal.Appearance: Alert. Oriented X3. No acute distress.Eyes: Pupils equal, round and reactive to light. Eyes normal inspection.ENT: Nose normal. Pharynx normal.Neck: Normal inspection. Neck supple.CVS: Normal heart rate and rhythm. Heart sounds normal. Pulses normal.Respiratory: No respiratory distress. Painless inspiration. Breath sounds normal.Abdomen: Soft. Moderate tenderness in the left side of the abdomen with guarding present. No reboundtenderness. Bowel sounds normal. No organomegaly. No mass. Femoral pulses equal.Back: Normal inspection. Moderate CVA tenderness on the left.Skin: Skin warm and dry. Normal skin color. No rash. Normal skin turgor.Extremities: Extremities exhibit normal ROM. No lower extremity edema.Neuro: Oriented X 3. No motor deficit. No weakness. No sensory deficit. No sensory deficit.Reflexes normal. Reflex exam: DTRs otherwise normal.LABS, X- RAYS, AND EKGAbdominal CT: see report; basically NAD except for hepatomegaly, severe hepatic steatosis, cystic liverlesion. Study type: abdomen and pelvis. Abdominal CT performed without contrast. The study wasinterpreted by the radiologist. Interpretation time: 06:45 06/10/2021.Laboratory Tests: Laboratory tests have been ordered, with results reviewed and considered in themedical decision making process. CBC w Diff: (LILO: 06/10/2021 03:04) ( MsgRcvd 06/10/2021 03:15) Final results Test Result Flag Units (Reference) CBC W/AUTOMATED DIFF COMPLETE BLOOD COUNT 3 Clinical Report - Physicians/Mid Levels [facility] Emergency Department [address] [place] [address] Phone #: ext- [phone] 06/10/2021 02:22 Patient: RADHA MONTALVO Sex: F : 1990 Age: 30y WBC 3.7 L 10/uL (4.2 - 11.0) RBC 3.66 L 10/uL (4.20 - 5.40) HEMOGLOBIN 13.0 g/dL (12.0 - 16.0) HEMATOCRIT 37.9 % (37.0 - 47.0) MCV 103.6 H fL (81.0 - 101) MCH 35.5 H pg (27.0 - 34.0) MCHC 34.3 g/dL (31.0 - 36.0) RDW 15.7 H % (11.5 - 14.5) PLATELETS 258 10/uL (150 - 450) MPV 10.2 fL (7.4 - 10.4) NEUT 52.5 % (37.0 - 80.0) LYMPH 32.8 % (25.0 - 40.0) MONO 9.1 H % (3.0 - 8.0) EOS 4.0 % (0.0 - 7.0) BASO 1.3 % (0.0 - 2.5) %IG 0.3 H % (0.0 - 0.0) %NRBC 0.0 % (0.0 - 0.0) #NEUT 1.95 L 10/uL (2.00 - 6.90) #LYMPH 1.22 10/uL (0.60 - 3.40) #MONO 0.34 10/uL (0.00 - 0.90) #EOS 0.15 10/uL (0.00 - 0.70) #BASO 0.05 10/uL (0.00 - 0.20) #IG 0.01 10/uL (0.00 - 0.10) #NRBC 0.00 10/uL (0.00 - 0.00) MANUAL DIFF NOT INDICATED RBC MORPH NOT INDICATEDCMP: (LILO: 06/10/2021 03:04) ( MsgRcvd 06/10/2021 03:35) Final results Test Result Flag Units (Reference) COMPREHENSIVE METABOLIC PANEL COMPREHENSIVE METABOLIC PANEL SODIUM 138 mEq/L (134 - 153) POTASSIUM 4.6 mEq/L (3.6 - 5.0) CHLORIDE 97 L mEq/L (98 - 107) CO2 21 L MEQ/L (22 - 30) GLUCOSE 87 MG/DL (70 - 99) BUN 7 MG/DL (7 - 21) CREATININE 0.6 L MG/DL (0.7 - 1.5) BUN/CREAT 12 (8 - 27) TOTAL PROTEIN 8.0 G/DL (6.3 - 8.2) ALBUMIN 4.7 G/DL (3.9 - 5.0) GLOBULIN 3.3 H GM/DL (2.4 - 3.2) A/G RATIO 1.4 (0.8 - 2.0) CALCIUM 9.4 MG/DL (8.4 - 10.2) TOTAL BILI 1.0 MG/DL (0.2 - 1.3) ALKALINE PHOS 66 U/L (38 - 126) SGOT/AST 107 H U/L (5 - 40) SGPT/ALT 67 H U/L (7 - 56) ANION GAP 20.0 H mmol/L (8.0 - 16.0) AGE 30 yrs NON-AA GFR >60 mL/min AFR AMER GFR >60 mL/min Male GFR Interprentation 20-49 yrs >60 mL/min Xzptws37-83 yrs >56 mL/min Normal 60-69 yrs >49 mL/min Normal 70-79yrs>42 mL/min Normal 80 and above >35 mL/min Normal Female GFRInterpretation 20-39 yrs >60 mL/min Normal 40-49 yrs >58 mL/minNormal 50-59 yrs >51 mL/min Normal 60-69 yrs >45 mL/min Qbfgxq78-23 yrs >39 mL/min Normal 80 and above >32 mL/min Normal 4 Clinical Report - Physicians/Mid Levels [facility] Emergency Department [address] [place] [address] Phone #: ext- [phone] 06/10/2021 02:22 Patient: RADHA MONTALVO Sex: F : 1990 Age: 30y Lipase: (LILO: 06/10/2021 03:04) ( MsgRcvd 06/10/2021 03:36) Final results Test Result Flag Units (Reference) LIPASE 22 U/L (13 - 60) UA REFLEX TO UA CULTURE: (LILO: 06/10/2021 03:47) ( MsgRcvd 06/10/2021 04:13) Final results Test Result Flag Units (Reference) UA REFLEX TO UA CULTURE URINALYSIS SOURCE R COLOR Dk Yellow (NORMAL: Yello CLARITY hazy (NORMAL: Clear SPEC GRAVITY 1.015 (1.001 - 1.030 pH 6.5 (5 - 9) GLUCOSE NORM (NORMAL: Negat BILIRUBIN 3 (NORMAL: Negat KETONE 150 A (NORMAL: Negat PROTEIN 30 (NORMAL: Negat NITRITE NEG (NORMAL: Negat BLOOD 25 A (NORMAL: Negat LEUK EST 25 (NORMAL: Negat UROBILINOGEN 8 (less than 1.0 MICROSCOPIC See Below WBC 3 - 5 (NORMAL: NONE RBC 3 - 5 (NORMAL: NONE EPITHELIAL MODERATE A (NORMAL: NONE BACTERIA 1+ SMALL (NORMAL: NONE MUCOUS 2+ A (NORMAL: NONE Lactic Acid: (LILO: 06/10/2021 03:04) ( [facility] Final results Test Result Flag Units (Reference) LACTIC ACID 1.6 MMOL/L (0.2 - 2.2) Beta-HCG, Qual Serum: (LILO: 06/10/2021 03:04) ( [facility] 06/10/2021 03:24) Final results Test Result Flag Units (Reference) HCG SERUM QUAL NEGATIVE (NORMAL: NEGAT HCG SERUM QL REENTER NEGATIVE (NORMAL: NEGAT { KIT LOT # [id number] ){ KIT EXP DATE 09.05.22 ){ PROCEDURAL CONTROL VALID ).PROGRESS AND PROCEDURESCourse of Care: 04:19 06/10/21. workup all in and reviewed; WBC 3700, no shift, AST/ALT 107/67 (pt hasknown fatty liver, no ETOH), lipase lactate nml, UA c/w UTI; will do urine culture, treat UTI w Ceftriaxoneand Levofloxacin, and do CTAP w/o; pt doing much better 06:56 06/10/21. CTAP w/o results in and reviewed, basically NAD except for severe hepatic steatosis and hepatomegaly w complex cystic liver lesion; pt feeling much better, will d/c home w instructions for pyelonephritis and to get outpatient liver US in the future; pt understands and agrees. 5 Clinical Report - Physicians/Mid Levels [facility] Emergency Department [address] [place] [address] Phone #: ext- [phone] 06/10/2021 02:22 Patient: RADHA MONTALVO Sex: F : 1990 Age: 30y Patient counseled in person regarding the patient's stable condition, test results, diagnosis and need for follow-up. Patient agrees with plan of care. Disposition: Condition: good and stable. Discharge decision based on the following: patient's condition is stable; patient's condition is improved; patient is ambulatory; patient is active; patient drinking fluids; patient eating; patient's pain is controlled; patient's exam is improved; minimally abnormal test results; improving condition on repeat evaluation; social support is good; transportation is available; follow-up is available; clinical impression is consistent with outpatient treatment.CLINICAL IMPRESSION Acute pyelonephritis Subacute norovirus gastroenteritis. Hepatic Steatosis/Hepatomegaly, rule out Liver Cyst.INSTRUCTIONS Alternate Tylenol (Acetaminophen) or Motrin (Ibuprofen) for fever, temperature greater than 102 degrees orally. Take according to label instructions. Drink plenty of fluids. Avoid alcohol and NSAIDS. NSAIDS include aspirin, ibuprofen (Advil) and naproxen (Aleve). Avoid fatty, fried/greasy, lactose-containing (such as milk, cheese and ice cream), salty and spicy foods. No alcohol. Do not smoke. (PLEASE GET A LIVER ULTRASOUND IN NEAR FUTURE TO EVALUATE LIVER CYST SEEN ON TODAY'S CAT SCAN). Warnings: Further evaluation is necessary in order to conduct further tests. It is very important to follow up with a healthcare provider. GENERAL WARNINGS: Return or contact your physician immediately if your condition worsens or changes unexpectedly, if not improving as expected, or if other problems arise. SPECIFICALLY, return if you develop pain in the abdomen, pelvis, back or shoulder, fever, vomiting, the inability to keep fluids down, blood in vomitus, blood in diarrhea, fainting or lightheadedness. Your Current Medications: Your current home medications have been reviewed. CONTINUE TAKING THE FOLLOWING MEDICATIONS: Vitamins/Minerals Oral. Prescription Medications: ibuprofen 600 mg tablet Take 1 tablet four times a day as needed for pain for 7 days -- Dispense 28 tablet. Refills: 0. Substitution permitted. [facility]LO[facility] outdoors [address] [facility] ; [place] [address]. . 6 Clinical Report - Physicians/Mid Levels [facility] Emergency Department [address] [place] [address] Phone #: ext- [phone] 06/10/2021 02:22 Patient: RADHA MONTALVO Sex: F : 1990 Age: 30y Cipro 500 mg tablet Take 1 tablet twice a day for 10 days -- Dispense 20 tablet. Refills: 0. Substitution permitted. [facility] outdoors [address] [facility] ; [place] [address]. . Pyridium 100 mg tablet Take 1 tablet three times a day for 5 days -- Dispense 15 tablet. Refills: 0. Substitution permitted. [facility] outdoors [address] [facility] ; [place] [address]. . Zofran 4 mg tablet Take 1 tablet four times a day as needed for 4 days -- Dispense 16 tablet. Refills: 0. Substitution permitted. [facility] M360LO[facility] outdoors [address] [facility] ; [place] [address]. . Follow-up: Return to the emergency department as needed. Follow up with your healthcare provider in three days even if well. Call for an appointment. Reason for referral: evaluation and treatment. Summary of care provided to patient via paper. Understanding of the discharge instructions verbalized by patient. Expected course of illness, discharge instructions, activity level, diet, prescriptions x2, follow-up appointment and risks and benefits of treatment reviewed with patient and understanding verbalized. Agrees to plan of care. Follow-up with: [facility], , , [address] [place] [address], [address] Follow up in three days even if well. Call for an appointment. Reason for referral: evaluation and treatment. Summary of care provided to patient via paper.(Electronically signed by Edgardo Flores M.D. 06/11/2021 09:12) Name Value Range Interpretation Code Description Data Juju rce(s) Supporting Document(s) ID Date Data Source [id number] 06/14/2021 07:15:00 PM EDT [facility] Name Value Range Interpretation Code Description Data Juju rce(s) Supporting Document(s) CULTURE URINE [facility] _CULTURE URINE_$$[id number]$$[id number]$$[id number]$$[id number]$$[id number]$$[id number]$$[id number]$$936694$$[id number]$$ 241672$$068647$$110594$$869425$$751372$$367250$$497809$$212627$$901605$$363164$$ 935068$$971953$$867568$$797717$$489791$$[id number]$$269763$$[id number] -- Continued on next page --Patient: KATIA MALLORY Order: [id number] Page 2Culture: CULTURE URINE Status: Final ==== -- Continued on next page --Patient: KATIA MALLORY Order: [id number] Page 2Culture: CULTURE URINE Status: Prelim =====$$[id number] DATE/TIME: 06/14/2021 11:06Culture: CULTURE URINE Status: FinalUrine Culture,Comprehensive: P1No growth in 36 - 48 hours. Previous result entered on 06/12/2021 12:41 ET No growth after 18-24 hours.P1 Test performed by: [facility] #: [id number] [address] [place] [address] [id number] [facility] [address]Medical Director : Rene Choi MD NPI #:Lab Di maria luz : 06/12/21.1321.XMT.SENT REF 06/14/21.1915.XMT.SENT REF ID Date Data Source [id number] 06/10/2021 04:13:00 AM EDT [facility] Name Value Range Interpretation Code Description Data Juju rce(s) Supporting Document(s) UA REFLEX TO UA CULTURE [facility] URINALYSIS SOURCE R [facility] COLOR Dk Yellow NORMAL: Yellow [facility] CLARITY hazy NORMAL: Clear [facility] Specific gravity of Urine by Test strip 1.015 1.001 - 1.030 [facility] pH 6.5 5 - 9 [facility] Glucose [Mass/volume] in Urine by Test strip NORM NORMAL: Negat [facility] Bilirubin.total [Presence] in Urine by Test strip 3 NORMAL: Negative [facility] Ketones [Presence] in Urine by Test strip 150 NORMAL: Negative A [facility] Protein [Mass/volume] in Urine by Test strip 30 NORMAL: Negat [facility] Nitrite [Presence] in Urine by Test strip NEG NORMAL: Negative [facility] BLOOD 25 NORMAL: Negative A [facility] Leukocyte esterase [Presence] in Urine by Test strip 25 KERRI L: Negative [facility] Urobilinogen [Mass/volume] in Urine by Test strip 8 less nnamdi n 1.0 mg/dL [facility] MICROSCOPIC See Below [facility] ital WBC 3 - 5 NORMAL: NONE SEEN [facility] Erythrocytes [#/volume] in Urine by Test strip 3 - 5 NORMAL: NON E SEEN [facility] EPITHELIAL MODERATE NORMAL: NONE SEEN A [facility] Bacteria [Presence] in Urine sediment by Light microscopy 1+ SMALL NORMAL: NONE SEEN [facility] Mucus [Presence] in Urine sediment by Light microscopy 2+ NOR MAL: NONE SEEN A [facility] ID Date Data Source [id number] 06/10/2021 03:35:00 AM EDT [facility] Name Value Range Interpretation Code Description Data Juju rce(s) Supporting Document(s) Lipase [Enzymatic activity/volume] in Serum or Plasma 22 U/L 13 - 60 [facility] ID Date Data Source [id number] 06/10/2021 03:35:00 AM EDT [facility] Name Value Range Interpretation Code Description Data Juju rce(s) Supporting Document(s) COMPREHENSIVE METABOLIC PANEL [facility] COMPREHENSIVE METABOLIC PANEL Sodium [Moles/volume] in Serum or Plasma 138 mEq/L 134 - 153 [facility] Potassium [Moles/volume] in Serum or Plasma 4.6 mEq/L 3.6 - 5.0 [facility] Chloride [Moles/volume] in Serum or Plasma 97 mEq/L 98 - 107 L [facility] Carbon dioxide, total [Moles/volume] in Serum or Plasma 21 MEQ/L 22 - 30 L [facility] Glucose [Mass/volume] in Serum or Plasma 87 MG/DL 70 - 99 [facility] BUN 7 MG/DL 7 - 21 [facility] Creatinine [Mass/volume] in Serum or Plasma 0.6 MG/DL 0.7 - 1.5 L [facility] BUN/CREAT 12 8 - 27 [facility] Protein [Mass/volume] in Serum or Plasma 8.0 G/DL 6.3 - 8.2 [facility] Albumin [Mass/volume] in Serum or Plasma 4.7 G/DL 3.9 - 5.0 [facility] Globulin [Mass/volume] in Serum by calculation 3.3 GM/DL 2.4 - 3.2 H [facility] A/G RATIO 1.4 0.8 - 2.0 [facility] Calcium [Mass/volume] in Serum or Plasma 9.4 MG/DL 8.4 - 10.2 [facility] Bilirubin.total [Mass/volume] in Serum or Plasma 1.0 MG/DL 0.2 - 1.3 [facility] Alkaline phosphatase [Enzymatic activity/volume] in Serum or Plasma 66 U/L 38 - 126 [facility] Aspartate aminotransferase [Enzymatic activity/volume] in Serum or Plasma 107 U/L 5 - 40 H [facility] Alanine aminotransferase [Enzymatic activity/volume] in Seru m or Plasma 67 U/L 7 - 56 H [facility] Anion gap 3 in Serum or Plasma 20.0 mmol/L 8.0 - 16.0 H [facility] AGE 30 yrs [facility] al NON-AA GFR >60 mL/min [facility] ital AFR AMER GFR >60 mL/min [facility] Male GFR In terprentation 20-49 yrs >60 mL/min Normal 50-59 yrs >56 mL/min Normal 60-69 yrs >49 mL/min Normal 70-79yrs >42 mL/min Normal 80 and above >35 mL/min Normal Female GFR Interpretation 20-39 yrs >60 mL/min Normal 40-49 yrs >58 mL/min Normal 50-59 yrs >51 mL/min Normal 60-69 yrs >45 mL/min Normal 70-79 yrs >39 mL/min Normal 80 and above >32 mL/min Normal ID Date Data Source [id number] 06/10/2021 03:23:00 AM EDT [facility] Name Value Range Interpretation Code Description Data Juju rce(s) Supporting Document(s) HCG SERUM QUAL NEGATIVE NORMAL: NEGATIVE [facility] HCG SERUM QL REENTER NEGATIVE NORMAL: NEGATIVE [facility] { KIT LOT # [id number] ){ KIT EXP DATE 09.05.22 ){ PROCEDURAL CONTROL VALID ) ID Date Data Source [id number] 06/10/2021 03:15:00 AM EDT [facility] Name Value Range Interpretation Code Description Data Juju rce(s) Supporting Document(s) CBC W/AUTOMATED DIFF [facility] COMPLETE BLOOD COUNT Leukocytes [#/volume] in Blood by Automated count 3.7 10^3/uL 4.2 - 1 1.0 L [facility] Erythrocytes [#/volume] in Blood by Automated count 3.66 10^6/uL 4. 20 - 5.40 L [facility] Hemoglobin [Mass/volume] in Blood 13.0 g/dL 12.0 - 16.0 [facility] Hematocrit [Volume Fraction] of Blood by Automated count 37.9 % 3 7.0 - 47.0 [facility] Erythrocyte mean corpuscular volume [Entitic volume] b y Automated count 103.6 fL 81.0 - 101 H [facility] Erythrocyte mean corpuscular hemoglobin [Entitic mass] by Automated count 35.5 pg 27.0 - 34.0 H [facility] Erythrocyte mean corpuscular hemoglobin concentration [Mass/volume] by Automated count 34.3 g/dL 31.0 - 36.0 [facility] Erythrocyte distribution width [Ratio] by Automated count 15.7 % 11.5 - 14.5 H [facility] Platelets [#/volume] in Blood by Automated count 258 10^3/uL 150 - 45 0 [facility] Platelet mean volume [Entitic volume] in Blood by Automated count 10.2 fL 7.4 - 10.4 [facility] Neutrophils/100 leukocytes in Blood by Automated count 52.5 % 37. 0 - 80.0 [facility] Lymphocytes/100 leukocytes in Blood by Manual count 32.8 % 25.0 - 40.0 [facility] Monocytes/100 leukocytes in Blood by Automated count 9.1 % 3.0 - 8.0 H [facility] Eosinophils/100 leukocytes in Blood by Automated count 4.0 % 0.0 - 7.0 [facility] Basophils/100 leukocytes in Blood by Automated count 1.3 % 0.0 - 2.5 [facility] %IG 0.3 % 0.0 - 0.0 H [facility] %NRBC 0.0 % 0.0 - 0.0 [facility] al Neutrophils [#/volume] in Blood by Automated count 1.95 10^3/uL 2.00 - 6.90 L [facility] Lymphocytes [#/volume] in Blood by Automated count 1.22 10^3/uL 0.60 - 3.40 [facility] Monocytes [#/volume] in Blood by Automated count 0.34 10^3/uL 0.00 - 0.90 [facility] Eosinophils [#/volume] in Blood by Automated count 0.15 10^3/uL 0.00 - 0.70 [facility] Basophils [#/volume] in Blood by Automated count 0.05 10^3/uL 0.00 - 0.20 [facility] #IG 0.01 10^3/uL 0.00 - 0.10 [facility] #NRBC 0.00 10^3/uL 0.00 - 0.00 [facility] MANUAL DIFF NOT INDICATED [facility] RBC MORPH NOT INDICATED [facility] spital ID Date Data Source [id number] 06/10/2021 03:15:00 AM EDT [facility] Name Value Range Interpretation Code Description Data Juju rce(s) Supporting Document(s) Lactate [Moles/volume] in Serum or Plasma 1.6 MMOL/L 0.2 - 2.2 [facility] ID Date Data Source [id number] 02/22/2021 05:22:00 AM EDT [facility] Name Value Range Interpretation Code Description Data Juju rce(s) Supporting Document(s) SARS coronavirus 2 RNA [Presence] in Res piratory specimen by NORA with probe detection NEGATIVE [facility] This lab was ordered by [facility] a nd reported by [facility]. ID Date Data Source [id number] 01/25/2021 08:46:00 PM EDT [facility] Name Value Range Interpretation Code Description Data Juju rce(s) Supporting Document(s) SARS-CoV-2 (COVID 19) NEGATIVE - SARS-CoV-2 (COVID19) [facility] This lab was ordered by [facility] a nd reported by [facility]. Procedure Social History No Information Vital Signs ID Date Data Source UNK Name Value Range Interpretation Code Description Data Source(s) Systolic blood pressure 140 mm[Hg] 140 mm[Hg] M EDENT ([facility], ) Body height 73 [in_i] 73 [in_i] MEDENT ([facility], ) 6'1" Body weight 220.00 [lb_av] 220.00 [lb_av] MEDEN T ([facility], ) Respiratory rate 14 /min 14 /min MEDENT ( [facility]) [place] body weight 184 [lb_av] 184 [lb_av] MEDEN T ([facility], ) Body mass index (BMI) [Ratio] 29.0 kg/m2 29.0 k g/m2 [facility] ([facility]) Diastolic blood pressure 100 mm[Hg] 100 mm[Hg] [facility] ([facility]) Heart rate 110 /min 110 /min [facility] ([facility]) Body height 73 [in_i] 73 [in_i] [facility] ([facility] ) 6'1" Body temperature 96.8 [degF] 96.8 [degF] [facility] ([facility] ) Body weight 190.00 [lb_av] 190.00 [lb_av] [facility] T ([facility] ) Body mass index (BMI) [Ratio] 25.1 kg/m2 25.1 k g/m2 [facility] ([facility] ) Body weight 207.00 [lb_av] 207.00 [lb_av] [facility] T ([facility]) Body height 73 [in_i] 73 [in_i] [facility] ([facility]) 6'1" Heart rate 90 /min 90 /min [facility] ([facility]) Oxygen saturation in Arterial blood by Pulse oximetry 139 % 139 % [facility] ([facility]) Body mass index (BMI) [Ratio] 27.3 kg/m2 27.3 k g/m2 [facility] ([facility]) Body temperature 97.0 [degF] 97.0 [degF] [facility] ([facility]) Systolic blood pressure 132 mm[Hg] 132 mm[Hg] M [facility] ([facility]) Diastolic blood pressure 98 mm[Hg] 98 mm[Hg] [facility] ([facility]) Respiratory rate 20 /min 20 /min [facility] ( [facility]) Oxygen saturation in Arterial blood by Pulse oximetry 92 % 92 % [facility] ([facility]) Diastolic blood pressure 122 mm[Hg] 122 mm[Hg] [facility] ([facility]) Heart rate 110 /min 110 /min [facility] ([facility]) Body height 73 [in_i] 73 [in_i] [facility] ([facility]) 6'1" Body weight 200.00 [lb_av] 200.00 [lb_av] [facility] T ([facility]) Body mass index (BMI) [Ratio] 26.4 kg/m2 26.4 k g/m2 [facility] ([facility]) Body temperature 98.3 [degF] 98.3 [degF] [facility] ([facility]) Systolic blood pressure 144 mm[Hg] 144 mm[Hg] M [facility] ([facility]) Respiratory rate 18 /min 18 /min [facility] ( [facility]) Body weight 230.00 [lb_av] 230.00 [lb_av] [facility] T ([facility]) Body height 73 [in_i] 73 [in_i] [facility] ([facility]) 6'1" Body mass index (BMI) [Ratio] 30.3 kg/m2 30.3 k g/m2 [facility] ([facility] ) Oxygen saturation in Arterial blood by Pulse oximetry 98 % 98 % [facility] ([facility]3]) Body temperature 97.8 [degF] 97.8 [degF] [facility] ([facility]) Body weight 215.00 [lb_av] 215.00 [lb_av] [facility] T ([facility]) Body height 73 [in_i] 73 [in_i] [facility] ([facility]) 6'1" Body mass index (BMI) [Ratio] 28.4 kg/m2 28.4 k g/m2 [facility] ([facility]) Systolic blood pressure 150 mm[Hg] 150 mm[Hg] M [facility] ([facility], [facility]) Diastolic blood pressure 109 mm[Hg] 109 mm[Hg] [facility] ([facility]) Heart rate 110 /min 110 /min [facility] ([facility], [facility]) Respiratory rate 16 /min 16 /min [facility] ( [facility])
[2021-07-18] MEDS ORDERED: ALPR0.5T3 (16:49)
[2021-07-18] MEDS ORDERED: PROM12.56 (16:49)
[2021-07-18 18:33] LABS: BASO % 0.6 % (0.0-1.0); EOS # 0.1 10^3/uL (0.0-0.5); EOS % 1.5 % (0.0-3.0); HEMATOCRIT 41.2 % (36.0-47.0); HEMOGLOBIN 13.6 g/dl (12.0-15.5); LYMPH # 2.8 10^3/uL (1.5-5.0); LYMPH % 40.1 % (24.0-44.0); MEAN CORPUSCULAR HEMOGLOBIN 33.6 pg (27.0-33.0); MEAN CORPUSCULAR VOLUME 101.7 fl (80.0-96.0); MONO # 0.5 10^3/uL (0.0-0.8); MONO % 6.6 % (2.0-8.0); NEUTROPHILS # 3.5 10^3/uL (1.5-8.5); NEUTROPHILS % 50.9 % (36.0-66.0); PLATELET COUNT, AUTOMATED 531 10^3/uL (150-450); RED BLOOD COUNT 4.05 10^6/uL (4.00-5.40); WHITE BLOOD COUNT 6.9 10^3/uL (4.0-10.0)
[2021-07-18] MEDS ORDERED: GABAPENTIN 300 MG CAP PO ONE (18:40)
--- OUTSIDE RECORDS SUMMARY | 2021-07-18 18:47 | CCD ---
Author Author [facility] Organization [facility] Address Unknown Phone Unavailable Care Team Providers Care Carpenter'S Helper Name Role Phone NO, PCP Unavailable Unavailable [...] M Barratt PA Unavailable Unavailable DRAZEK, I LAMBERT PA [...] is protected by Article 27-F of the [facility] Public Health law. If you continue you may have access to information: Regarding HIV / AIDS; Provided by facilities licensed or operated by the [facility] Office of Mental Health; or Provided by the [facility] Office for People With Developmental Disabilities. If such information is present, then the following [facility] mandated warning applies: This information has been [...] law may result in a fine or usp sentence or both. A general authorization for the release of medical or other information is NOT sufficient authorization for further disc losure. Encounters Encounter Providers Location Date Indications Data Source(s ) Outpatient Attender: Gladys Sosa MD Main office [facility] 07/18/2021 01:30:00 PM EST [facility] ([facility], ) Outpatient Attender: Gladys Sosa MD Main office - [place] 07/14/2021 11:10:00 AM EST [facility] ([facility], ) Outpatient Attender: LAMBERT CASTELLANOS Physical Therapy 07/09/2021 0 1:00:00 PM EDT [facility] ([facility] ) Emergency Attender: EDGARDO Torres: PCP NO 07/07/2021 01:22:00 PM EDT - 07/07/2021 05:15:00 PM EDT [facility] Patient discharged. Outpatient Attender: Vivien CASTELLANOS [facility] 10:00:00 AM EDT [facility] (Jim Hartman MD) Outpatient Attender: Vivien CASTELLANOS [facility] 09:30:00 AM EDT [facility] (Jim Hartman MD) Emergency Attender: EDGARDO Torres: PCP NO 06/10/2021 02:25:00 AM EDT - 06/10/2021 07:11:00 AM EDT [facility] Patient discharged. Outpatient Attender: Bob CASTELLANOS Physical Therapy 12:00:00 PM EST [facility] ([facility]) Outpatient Attender: Lesia CASTELLANOS Ivon Joe andrew 10/18/2020 12:10:00 PM EST [facility] ([facility]) Medications Medication Brand Name Start Date Product Form Dose Route Admi nistrative Instructions Pharmacy Instructions Status Indications Reaction Description Data Source(s) Alprazolam 0.5 MG Oral Tablet Alprazolam 07/14/2021 12:00:00 AM EST ORAL active [facility] ([facility], ) 50 mg 07/09/2021 12:00:00 AM [...] DOSE = THREE TABLETS SOLD: 10/21/2020 [facility] tramadol hydrochloride 50 MG Oral Tablet Tramadol HCL 10/21/2020 12:00:00 AM EST active [facility] ([facility]) 25 mg 10/18/2020 12:00:00 AM EST tablet extended release 24 hr 30 TAKE ONE TABLET BY MOUTH EVERY DAY TAKE ONE TABLET BY MOUTH EVERY DAY SOLD: 10/18/2020 [facility] 24 HR metoprolol succinate 25 MG Extended Release Oral Tablet Metoprolol Succinate ER 10/18/2020 12:00:00 AM EST ORAL active [facility] ([facility], [facility]) No Active Medications 10/18/2020 12:00:00 AM EST completed [facility] ([facility], [facility]) Insurance Providers Payer name Policy type / Coverage type Policy ID Covered alliance party ID Covered alliance party's relationship to pineda Policy Pineda Plan Information [facility] [id number] SP [id number] [facility] ADV - OP [id number] 18 [id number] [facility] ADV - OP UNAVAILABLE U NAVAILABLE MEDICAID -O/P EMERGENCY ROOM [id number] [facility] O [id number] S [id number] [facility] [id number] SP [id number] [place] [id number] SP [id number] SELF PAY ONLY [id number] SP [id number] Problems, Conditions, and Diagnoses Code Display Name Description Problem Type Effective Dates Data Source(s) N92077 [address] in unspeci fied non-institutional (private) residence as the place of occurrence of the external cause Unspecified place in unspecified non-institutional (private) residence as the place of occurrence of the external cause Diagnosis 07/07/2021 01:22:00 PM EDT [facility] A453PUD Overexertion from prolonged static or awkward postures, initial encounter Overexertion from prolonged static or aw kward postures, initial encounter Diagnosis 07/07/2021 01:22:00 PM EDT [facility] [id number] Nondisplaced fracture of lat eral malleolus of right fibula, initial encounter for closed fracture Nondisplaced fracture of lateral malleol us of right fibula, initial encounter for closed fracture Diagnosis 01:22:00 PM EDT [facility] [id number] Unspecified injury of right ankle, initi al encounter Unspecified injury of right ankle, initial encounter Diagnosis 07/07/2021 01:22:00 PM EDT [facility] Z8673 Personal history of transien t ischemic attack (TIA), and cerebral infarction without residual deficits Personal history of transient ischemic attack (TIA), and cerebral infarction without residual deficits Diagnosis 06/10/2021 02:25:00 AM EDT [facility] R57903 Nicotine dependence, cigarettes, uncompl icated Nicotine dependence, cigarettes, uncomplicated Diagnosis 06/10/2021 02:25:[address] [facility] I10 Essential (primary) hypertension Essential (primary) h ypertension Diagnosis 06/10/2021 02:25:00 AM EDT [facility] R160 Hepatomegaly, not elsewhere classified H epatomegaly, not elsewhere classified Diagnosis 06/10/2021 02:25:00 AM EDT [facility] K760 Fatty (change of) liver, not elsewhere c lassified Fatty (change of) liver, not elsewhere classified Diagnosis 06/10/2021 02:25:00 AM EDT [facility] N10 Acute pyelonephritis Acute pyelonephritis Diagnosis 06/10/2021 02:25:00 AM EDT [facility] A0811 Acute gastroenteropathy due to Mesa a gent Acute gastroenteropathy due to Mesa agent Diagnosis 06/10/2021 02:25:00 AM EDT [facility] R197 Diarrhea, unspecified Diarrhea, unspecified Diagnosis 06/10/2021 02:25:00 AM EDT [facility] G61.0 Acute infective polyneuritis Acute infective polyneuri tis Problem 07/18/2021 12:00:00 AM EST [facility] ([facility]) G37.3 Acute transverse myelitis Acute transverse myelitis Pr oblem 07/14/2021 12:00:00 AM EST [facility] ([facility]) 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 Id iopathic progressive polyneuropathy Problem 07/14/2021 12:00:00 AM EST [facility] ([facility]) R26.81 Abnormal gait Abnormal gait Problem 07/14/2021 12:00:00 AM EST [facility] ([facility]) R20.0 Skin sensation disturbance Skin sensation disturbance Problem 07/14/2021 12:00:00 AM EST [facility] ([facility]) R53.1 Malaise and fatigue Malaise and fatigue Problem 1 09/13/2020 12:00:00 AM EST [facility] ([facility] ) [id number] Chronic urinary tract infection Chronic urinary tract infection Problem 06/26/2021 12:00:00 AM EDT [facility] (Jim Hartman MD) [id number] Chronic liver disease Chronic liver disease Problem 06/26/2021 12:00:00 AM EDT [facility] (Jim Hartman MD) [id number] Transient cerebral ischemia Transient cerebral ischemi a Problem 06/26/2021 12:00:00 AM EDT [facility] (Jim Hartman MD) [id number] Abdominal pain Abdominal pain Problem 06/26/2021 12:00: 00 AM EDT [facility] (Jim Hartman MD) [id number] Essential hypertension Essential hypertension Problem 06/26/2021 12:00:00 AM EDT [facility] (Jim Hartman MD) Surgeries/Procedures Procedure Description Date Indications Data Source(s) OFFICE OUTPATIENT VISIT 40 MINUTES 07/18/2021 12:00:00 AM EST [facility] ([facility] ) MRI Spine Cervical W/O Contrast, Followed By Contrast 07/17/2021 12:00:00 AM EST [facility] ([facility] ) MRI Spine Cervical W/O Contrast, Followed By Contrast 07/17/2021 12:00:00 AM EST [facility] ([facility] ) MRI Spine Thoracic W/O Contrast, Followed By Contrast 07/17/2021 12:00:00 AM EST [facility] ([facility] ) MRI Spine Thoracic W/O Contrast, Followed By Contrast 07/17/2021 12:00:00 AM EST [facility] ([facility] ) MRI SPINAL CANAL LUMBAR W/O CONTRAST MATERIAL 07/16/20 12:00:00 AM EST [facility] ([facility], ) Needle electromyography, each extremity, with related paraspinal areas, when performed, done with nerve conduction, amplitude and latency/velocity study; complete, five or more muscles studied, innervated by three or more nerves or four or more spinal levels (list separately in addition to the code for primary procedure). 07/14/2021 12:00:00 AM EST [facility] ([facility], ) Needle electromyography, each extremity, with related paraspinal areas, when performed, done with nerve conduction, amplitude and latency/velocity study; complete, five or more muscles studied, innervated by three or more nerves or four or more spinal levels (list separately in addition to the code for primary procedure). 07/14/2021 12:00:00 AM EST [facility] ([facility], ) Nerve Conduction 11-12 Studies 07/14/2021 12:00:00 AM EST [facility] ([facility] ) OFFICE OUTPATIENT NEW 60 MINUTES 07/14/2021 12:00:00 A M EST [facility] ([facility] ) OFFICE OUTPATIENT NEW 45 MINUTES 07/09/2021 12:00:00 A M EDT [facility] ([facility] ) OFFICE OUTPATIENT VISIT 25 MINUTES 06/30/2021 12:00:00 AM EDT [facility] (Jim Hartman MD) OFFICE OUTPATIENT NEW 45 MINUTES 06/26/2021 12:00:00 A M EDT [facility] ([facility] MD) OFFICE OUTPATIENT VISIT 25 MINUTES 06/26/2021 12:00:00 AM EDT [facility] ([facility] MD) FX Lateral Malleolus (Distal Fibula) W/O Manipulation 10/21/2020 12:00:00 AM EST [facility] ([facility] ) RADEX ANKLE COMPLETE MINIMUM 3 VIEWS 10/21/2020 12:00: 00 AM EST [facility] ([facility] ) Results ID Date Data Source [id number] 07/14/2021 02:54:00 PM EST [facility] ([facility] ) Name Value Range Interpretation Code Description Data Juju rce(s) Supporting Document(s) Cobalamin (Vitamin B12) [Mass/volume] in Serum or Plasma 1421 pg/mL 2 47-911 [facility] ([facility], ) VITAMIN B12 NORMAL RANGE NORMAL 247 - 911 PG/ML INDETERMINATE 211 - 246 PG/ML DEFICIENT LESS THAN 211 PG/ML Calcidiol [Mass/volume] in Serum or Plasma 20.2 ng/mL 30.0-100.0 [facility] ([facility], ) Folate [Mass/volume] in Serum or Plasma Laboratory test result [facility] ([facility], ) FOLATE NORMAL RANGE NORMAL GREATER THAN 5.4 NG/ML INDETERMINATE 3.4-5.4 NG/ML DEFICIENT LESS THAN 3.4 NG/ML Erythrocyte sedimentation rate by 2H Westergren method 48 mm/hr 0-2 0 [facility] ([facility], ) Rheumatoid factor [Units/volume] in Serum or Plasma Laboratory test result [facility] ([facility], ) ID Date Data Source [id number] 07/07/2021 01:22:00 PM EDT [facility] 1 OrderSheet [facility] Emergency Department [address] [place] [address] Phone #: ext- [phone] 07/07/2021 13:20 Patient: [...] Racheal Anguiano R.N. (17:15 07/07/2021)] 2 OrderSheet [facility] Emergency Department [address] [place] [address] Phone #: ext- [phone] 07/07/2021 13:20 Patient: RADHA MONTALVO Sex: F : 1990 Age: 30y Name Value Range Interpretation Code Description Data Juju rce(s) Supporting Document(s) ID Date Data Source [id number] 07/07/2021 01:22:00 PM EDT [facility] 1 Medication Reconciliation Report [facility] Emergency Department [address] [place] [address] Phone #: ext- [phone] 07/07/2021 13:20 Patient: [...] Dispense 45tablet. Refills: 0. Substitution permitted.Pharmacy - [facility] - [address] [facility] ; [place], [place] [id number]. . -- JASMIN Ventura Name Value Range Interpretation Code Description Data Juju [facility](s) Supporting Document(s) ID Date Data Source [id number] 07/07/2021 01:22:00 PM EDT [place] [address] Medication Administration Record [facility] Emergency Department [address] [place] [address] Phone #: ext- [phone] 07/07/2021 13:20 Patient: RADHA MONTALVO Sex: F : 1990 Age: 30yWeight: 86.1 kgHeight/Length: 73 inBMI: 25ALLERGIES: No Known Drug AllergyDate/Time Medication Administered Medication Ordered Name Value Range Interpretation Code Description Data Juju rce(s) Supporting Document(s) ID Date Data Source [id number] 07/07/2021 01:22:00 PM EDT [place] [address] General Instructions [facility] Emergency Department [address] [place] [address] Phone #: ext- [phone] 07/07/2021 13:20 Patient: RADHA MONTALVO Sex: F [...] Dispense 45tablet. Refills: 0. Substitution permitted.Pharmacy - [id number] - [address] [place], [place] [id number]. .Understanding of the discharge instructions verbalized by patient.Follow-up with: [facility], , , [address] [place] [address], ,[place], [address] Follow up tomorrow. Call for an appointment. Reason for referral: evaluation and treatment. Summary ofcare provided to patient. ADDITIONAL INFORMATIONAnkle Fracture, Distal Fibula 2 General Instructions [facility] Emergency Department [address] [place] [address] Phone #: ext- [phone] 07/07/2021 13:20 Patient: RADHA MONTALVO Sex: F [...] splint gets wet, dry it with a department of sociology chair on a cool setting. Place an ice pack over the injured area for no more than 15 to 20 minutes. Do this every 3 to 6 hours for the first 24 to 48 hours. Continue this 3 to 4 times a day as needed. To make an ice 3 General Instructions [facility] Emergency Department [address] [place] [address] Phone #: ext- [phone] 07/07/2021 13:20 Patient: [...] splint doesn't get wet. You may use [id number]-nwn-[id number] pain medicine to control pain, unless another [...] cast or splint develops cracks or breaks 1725-2040 [employer]. [address] [place] [address]. All rights reserved. This information is not intended as asubstitute for professional medical care. Always follow your healthcare professional's instructions.Crutch WalkingCrutch adjustment 4 General Instructions [facility] Emergency Department [address] [place] [address] Phone #: ext- [phone] 07/07/2021 13:20 Patient: RADHA MONTALVO Sex: F : 1990 Age: 30y Make sure the crutches you use are adjusted to fit you. When you stand,there should be room to fit 2 to 3 fingers between the top of the crutch and your armpit. Your elbowshould be slightly bent when holding the hand glue specialty supervisor. When your arms hang down, the crutch handleshould be at the top of your hip.Crutch walkingPlace the crutches forward about 1 foot in front of you. The crutches should be a little farther apartthan your body. Lean your weight forward as you push down on the hand glue specialty supervisor. Make sure yourweight is on your hands and your strong leg, not your armpits. Let your body swing forward, landingon the strong leg. Move the crutches forward again. The crutch and your injured leg should movetogether.Going up steps with no handrails(Up with the good leg) With both crutches (under each armpit) on the same step as your feet, push down on the hand glue specialty supervisor. 5 General Instructions [facility] Emergency Department [address] [place] [address] Phone #: ext- [phone] 07/07/2021 13:20 Patient: [...] your feet, push down on the hand glue specialty supervisor. Keep your weight evenly balanced on the [...] opposite side. Push down on the hand glue specialty supervisor. Balancing with very light pressure on the [...] crutches under your armpit on 6 General [facility] Emergency Department [address] [place] [address] Phone #: ext- [phone] 07/07/2021 13:20 Patient: RADHA MONTALVO Sex: F : 1990 Age: 30y the opposite side. Push down on the hand glue specialty supervisor. Balance your weight evenly on the crutches, [...] try sitting when going up or [facility]. Sit on the bottom step and keep your injured leg out in front of you. Hold your crutches flatagainst the stairs. Then slide up to the next step on your bottom. Use your free hand and good leg forsupport. Face the same way when going down stairs. 6231-5834 [employer]. [address] [place] [address]. All rights reserved. This information is not intended as asubstitute for professional medical care. Always follow your healthcare professional's instructions.[employer] Sp-Walker Boot 7 General Instructions [facility] Emergency Department [address] [place] [address] Phone #: ext- [phone] 07/07/2021 13:20 Patient: RADHA MONTALVO Sex: F : 1990 Age: 30yTraditional splints and casts for the foot and ankle protect the injury by preventing movement at thejoints. However, many injuries heal better and faster if the injured joint can be moved, but beprotected at the same time. This is the reason for using an [employer] Walker boot.This is a short boot that [...] are still weak.When treating a sprain, the [employer] Walker boot should be worn whenever walking for at least 4weeks, or as long as you continue to have ankle pain.Talk to your healthcare provider for specific advice about the treatment of your condition.Air-Stirrup and SP-Walker are trademarks of [employer]. 8 General Instructions [facility] Emergency Department [address] [place] [address] Phone #: oeq- [phone] 07/07/2021 13:20 --- Patient: RADHA MONTALVO Sex: F : 1990 Age: 30yFor more information about their products, see www.[employer]round. [employer]. [address] [place] [address], [place] [address]. All rights reserved. This information is not [...] rce(s) Supporting Document(s) ID Date Data Source [id number] 07/07/2021 01:22:00 PM EDT [facility] 1 Clinical Report - Nurses [facility] Emergency Department [address] [place] [address] Phone #: ext- [phone] 07/07/2021 13:20 Patient: RADHA MONTALVO Sex: F : 1990 Age: 30yTRIAGEArrived by private vehicle. Historian: patient. Accompanied by (Dropped off by friend).Triage time: late entry - 14:00 07/07/2021. Acuity: LEVEL 4.Chief Complaint: FALL.Alert.Location of injuries: right ankle. Occurred at home. Occurred late entry - 17:00 07/06/2021. ( Pt hasbeen seeing a neurologist in [place] for numbness to BLE; Pt is still going through testing but hasfrequent falls due to the numbness. Pt broke right ankle a few months ago and has had trouble eversince; Pt states yesterday she was putting laundry in the dryer and her leg gave out and twisted her rightankle.). ( Pt was recently admitted to 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 2 Clinical Report - Nurses [facility] Emergency Department [address] [place] [address] Phone #: ext- [phone] 07/07/2021 13:20 Patient: [...] R.N.PHYSICAL ASSESSMENT 3 Clinical Report - Nurses [facility] Emergency Department [address] [place] [address] Phone #: ext- [phone] 07/07/2021 13:20 Patient: [...] to radiology by wheelchair with mask and diet technician registered.--15:13 07/07/21 Lady Lynch R.N. Patient returned from radiology by wheelchair with mask and diet technician registered. --15:14 07/07/21 Lady Lynch R.N. Reassessment acuity: [...] RR: 18. O2 saturation: 100%. --16:31 07/07/21 [facility] [employer] Immobilizer applied by nurse; (ankle). Patient fit with new crutches. Crutch training performed. --17:12 07/07/21 Racheal Anguiano R.N.DISPOSITION / DISCHARGE 16:56 07/07/21. BP: 137/102. HR: 125. RR: 17. O2 saturation: 100%. Temp: 98.2 F. Pain level now 04/15. --16:57 07/07/21 [facility] [employer] Condition at departure: improved. No learning barriers present. Discharge instructions provided and reviewed with the patient. Reviewed crutch walking, splint care and rest, ice, compression and elevation instructions. Reviewed referral to an orthopedic surgeon. Patient verbalized understanding. Written instructions provided in [place]. The patient was discharged home and accompanied by family. She left in a wheelchair on crutches and via private vehicle. Patient driving. --17:14 07/07/21 Racheal Anguiano R.N. Departure time: 17:14 07/07/2021. --17:14 07/07/21 Racheal Anguiano R.N. 4 Clinical Report - Nurses [facility] Emergency Department [address] [place] [address] Phone #: ext- [phone] 07/07/2021 13:20 Patient: RADHA MONTALVO Sex: F : 1990 Age: 30yLocked/Released at 07/07/2021 17:15 by Racheal Anguiano R.N. Name Value Range Interpretation Code Description Data Juju rce(s) Supporting Document(s) ID Date Data Source [id number] 07/07/2021 01:22:00 PM EDT [facility] 1 Clinical Report - Physicians/Mid Levels [facility] Emergency Department [address] [place] [address] Phone #: ext- [phone] 07/07/2021 13:20 Patient: RADHA MONTALVO Sex: F : 1990 Age: 30y Time Seen: 15:51 07/07/2021. Arrived- By private vehicle. Historian- patient.HISTORY OF PRESENT ILLNESS Chief Complaint: Injury to the right foot and right ankle. The injury happened yesterday. Occurred at home. ( Pt has been seeing a neurologist in [place] for numbness to BLE; Pt is still going through testing but has frequent falls due to the numbness. Pt broke right ankle a few months ago and has had trouble ever since; Pt states yesterday she was putting laundry in the dryer and her leg gave out and twisted her right ankle.). ( Pt was recently admitted to [facility] for UTI with dehydration).). The patient [...] gait. 2 Clinical Report - Physicians/Mid Levels [facility] Emergency Department [address] [place] [address] Phone #: ext- [phone] 07/07/2021 13:20 [id number] Sex: F : 1990 Age: 30y Neuro: [...] tablet. Refills: 0. Substitution permitted. Pharmacy - [facility] - [address] [place] [phone]. FaxNumber: [phone]. 3 Clinical Report - Physicians/Mid Levels [facility] Emergency Department [address] [place] [address] Phone #: ext- [phone] 07/07/2021 13:20 Patient: RADHA MONTALVO Sex: F : 1990 Age: 30y Understanding of the discharge instructions verbalized by patient. Follow-up with: [facility], , , [address] [place] [address], [place], [address] Follow up tomorrow. Call for an appointment. Reason for referral: evaluation and treatment. Summary of care provided to patient.(Electronically signed by JASMIN Ventura 07/08/2021 20:31) Name Value Range Interpretation Code Description Data Juju rce(s) Supporting Document(s) ID Date Data Source [id number] 07/08/2021 12:11:00 AM EDT [facility] [address] [place] [address] PHONE: [phone] FAX: [phone] Name .................. : KATIA MALLORY Acct Number.................. : [id number] ROOM. ................. : VT-26 Number ................... : [id number] Stay type ............. : E/R Discharge Date......... ... : 07/07/21 Admit Date ....... .. : 07/07/21 Admit Phys .................... : ROSALBA ANDERSON Date of ....... : 1990 Family Phys ................... : NO PCP Phone .................. : [phone] Age ................................ : 30 Film# .................. .:[id number] Sex ................................. : F Unsigned transcriptions are preliminary reports and do not represent a medical or legal document [place]OT COMPLETE-3 [place] [id number] COMPLETE:07/07/21 14:21 64789 Reason(s): Foot/Heel Injury RADIOGRAPHS OF THE RIGHT [...] rce(s) Supporting Document(s) ID Date Data Source [id number] 07/08/2021 12:11:00 [place] [address] PHONE: [phone] FAX: [phone] Name .................. : KATIA MALLORY Acct Number.................. : [id number] ROOM. ................. : VT-26 Number ................... : [id number] Stay type ............. : E/R Discharge Date......... ... : 07/07/21 Admit Date ... ...... : 07/07/21 Admit Phys .................... : ROSALBA ANDERSON Date of ....... : 1990 Family Phys ................... : NO PCP Phone .................. : [phone] Age ................................ : 30 Film# .................. .:[id number] Sex ................................. : F Unsigned transcriptions are preliminary reports and do not represent a medical or legal document ANKLE COMPLETE RT [id number] COMPLETE:07/07/21 14:21 20616 Reason(s): Trauma/Injury RADIOGRAPHS OF THE RIGHT ANKLE [...] via fax Copy for: [facility] [place]PT [facility] Copy for: 710 MED REC DISCHARGED Page 1 of 1 Name Value Range Interpretation Code Description Data Juju rce(s) Supporting Document(s) ID Date Data Source [id number] 06/18/2021 05:23:00 AM EDT [facility] Name Value Range Interpretation Code Description Data Juju rce(s) Supporting Document(s) SARS coronavirus 2 RNA [Presence] in Res piratory specimen by NORA with probe detection NEGATIVE [facility] This lab was ordered by [facility] a nd reported by [facility]. ID Date Data Source [id number] 06/12/2021 11:06:00 AM EDT [facility] [address] [place] [address] PHONE: [phone] FAX: [phone] Name .................. : KATIA MALLORY Acct Number.................. : [id number] [facility] ................. [facility] Number ................... : [id number] Stay type ............. : E/R Discharge Date......... ... : 06/10/21 Admit Date ......... : 06/10/21 Admit Phys .................... : ROSALBA ANDERSON Date of ....... : 1990 Family Phys ................... : NO PCP Phone .................. : [phone] Age ................................ : 30 Film# .................. .:[id number] Sex ................................. : F Unsigned transcriptions are preliminary reports and do not represent a medical or legal document CT ABD & PELV W/O ORAL W/O IV [id number] COMPLETE:06/10/21 04:19 14191 Reason(s): left flank pain, UA abnormal c/w [...] No free air. Page 1 of 2 [facility] [address] [place] [address] PHONE: [phone] FAX: [phone] Name .................. : KATIA MALLORY Acct Number.................. : [id number] ROOM. ................. : TR-06 MR Number ................... : [id number] Stay type ............. : E/R Discharge Date......... ... : 06/10/21 Admit Date ......... : 06/10/21 Admit Phys .................... : ROSALBA ANEDRSON Date of ....... : 1990 Family Phys ................... : NO PCP Phone .................. : [phone] Age ................................ : 30 Film# .................. .:[id number] Sex ................................. : F Unsigned transcriptions are preliminary reports and do not represent a medical or legal document CT ABD & PELV W/O ORAL W/O IV [id number] COMPLETE:06/10/21 04:19 33299 Reason(s): left flank pain, UA abnormal c/w [...] Dictation Date: Copy for: [facility] [place]PT [facility] Copy for: 710 MED REC DISCHARGED Page 2 of 2 Name Value Range Interpretation Code Description Data Juju rce(s) Supporting Document(s) ID Date Data Source [id number] 06/10/2021 02:25:00 AM EDT [facility] 1 OrderSheet [facility] Emergency Department [address] [place] [address] Phone #: ext- [phone] 06/10/2021 02:22 Patient: [...] pain, UA abnormal c/w UTI 2 OrderSheet [facility] Emergency Department [address] [place] [address] Phone #: ext- [phone] 06/10/2021 02:22 Patient: [...] 06:25 06/10/2021 Ack'd: 06:26 06:30 Natalya,mg Rosalba, Ahn Mullen M.D.;GENERAL ORDERSOrder Description Priority Entered Acknowledged InitialedNPO 02:48 06/10/2021 03:08 Rosalba Shay Riccardo Laura R.N. M.D.;Saline Lock 02:48 06/10/2021 03:08 Rosalba Shay Riccardo Laura R.N. 3 OrderSheet [facility] Emergency Department [address] [place] [address] Phone #: ext- [phone] 06/10/2021 02:22 Patient: RADHA MONTALVO Sex: F : 1990 Age: 30y M.D.;[Electronically signed by Juhi Shay R.N. (07:11 06/10/2021)][Electronically signed by Edgardo Flores M.D. (09:12 06/11/2021)][Electronically locked by Juhi Shay R.N. (07:11 06/10/2021)] Name Value Range Interpretation Code Description Data Juju rce(s) Supporting Document(s) ID Date Data Source [id number] 06/10/2021 02:25:00 AM EDT [facility] 1 Medication Reconciliation Report [facility] Emergency Department [address] [place] [address] Phone #: ext- [phone] 06/10/2021 02:22 Patient: [...] Dispense 28tablet. Refills: 0. Substitution permitted.Pharmacy - [facility] #33 - [address] ; [place] [address]. . 2 Medication Reconciliation Report [facility] Emergency Department [address] [place] [address] Phone #: ext- [phone] 06/10/2021 02:22 Patient: RADHA MONTALVO Sex: Jeaneth : 1990 Age: 30yCipro 500 mg tablet Take 1 tablet twice a day for 10 days -- Dispense 20 tablet. Refills: 0. Substitutionpermitted.[facility] #51 - [address] ; [place] [address]. .Pyridium 100 mg tablet Take 1 tablet three times a day for 5 days -- Dispense 15 tablet. Refills: 0.Substitution permitted.[facility] #57 - [address] ; [place] [address]. FaxNumber: .Zofran 4 mg tablet Take 1 tablet four times a day as needed for 4 days -- Dispense 16 tablet. Refills: 0.Substitution permitted.[facility] #59 - [address] [place] [address]. . -- Edgardo Flores M.D. Name Value Range Interpretation Code Description Data Juju rce(s) Supporting Document(s) ID Date Data Source [id number] 06/10/2021 02:25:00 AM EDT [facility] 1 Medication Administration Record [facility] Emergency Department [address] [place] [address] Phone #: ext- [phone] 06/10/2021 02:22 Patient: RADHA MONTALVO Sex: F : 1990 Age: 30yWeight: 97.0 kgHeight/Length: 73 inBMI: 28.2ALLERGIES: No Known Drug Allergy Date/Time Medication Administered Medication OrderedStart SODIUM CHLORIDE [IV] NS IV 1000 mL Bolus: : Bolus 804345:[id number] 06/10/2021 Dose: IV Fluids mL, then 150 [...] rce(s) Supporting Document(s) ID Date Data Source [id number] 06/10/2021 02:25:00 AM EDT [facility] 1 General Instructions [facility] Emergency Department [address] [place] [address] Phone #: ext- [phone] 06/10/2021 02:22 Patient: [...] Dispense 28 tablet. Refills: 0. Substitution permitted. [facility] #67 - [address] ; [place] [address]. . Cipro 500 mg tablet Take 1 tablet twice a day for 10 days -- Dispense 20 tablet. Refills: 0. Substitution permitted. [facility] #63 - [address] [facility] ; [place] [address]. . Pyridium 100 mg tablet Take 1 tablet three times a day for 5 days -- Dispense 15 tablet. Refills: 0. Substitution permitted. [facility] #03 - [address] [place] [address]. Phone: [phone] General Instructions [facility] Emergency Department [address] [place] [address] Phone #: ext- [phone] 06/10/2021 02:22 ------ Patient: RADHA MONTALVO Sex: F : 1990 Age: [id number] .Zofran 4 mg tablet Take 1 tablet four times a day as needed for 4 days -- Dispense 16 tablet. Refills: 0.Substitution permitted.[facility] #60 - [address] [facility] ; [place] [address]. .Follow-up:Return to the emergency department as needed. [...] Agrees to plan of care.Follow-up with: [facility], , , [address], [place], [address] Follow up in three days even if well. Call for an appointment. Reason for referral: evaluation andtreatment. Summary of care provided to patient via paper. ADDITIONAL INFORMATIONViral Gastroenteritis (Adult) 3 General Instructions [facility] Emergency Department [address] [place] [address] Phone #: ext- [phone] 06/10/2021 02:22 Patient: [...] bowel control HeadacheHome care 4 General Instructions [facility] Emergency Department [address] [place] [address] Phone #: [phone]- [phone] 06/10/2021 02:22 Patient: RADHA MONTALVO Sex: F [...] soap and water or use alcohol- based assembler arranger to prevent the spread of infection. Wash your hands after touching anyone who is sick. Wash your hands or use alcohol-based assembler arranger after using the toilet and before meals. [...] Keep uncooked meats away from cooked and zlgfh-gn-ska foods.MedicineYou may use acetaminophen or NSAID medicines [...] can make diarrhea worse. 5 General Instructions [facility] Emergency Department [address] [place] [address] Phone #: ext- [phone] 06/10/2021 02:22 Patient: [...] your provider if you don't get better btavou10 hours or if diarrhea lasts more than a week. Also follow up if you are unable to keep down liquidsand get dehydrated. If a stool (diarrhea) sample was taken, call as directed for the results.Call [phone] if any of these occur: 6 General Instructions [facility] Emergency Department [address] [place] [address] Phone #: [phone]- [phone] 06/10/2021 02:22 Patient: RADHA MONTALVO Sex: F [...] directed by your healthcare provider Raza renae [phone] [employer]. [address] [place] [address]. All rights reserved. This information is not intended as asubstitute for professional medical care. Always follow your healthcare professional's instructions.Kidney Infection (Adult Female) 7 General Instructions [facility] Emergency Department [address] [place], [place] [address] Phone #: ext- [phone] 06/10/2021 02:22 Patient: [...] bladder infection. Symptoms include: 8 General Instructions [facility] Emergency Department [address] [place] [address] Phone #: ext- [phone] 06/10/2021 02:22 Patient: [...] another medicine was prescribed, you can use zzxq-mzh-lbieyty medicines for pain, fever, or discomfort. If [...] your symptoms are gone. 9 General Instructions [facility] Emergency Department [address] [place] [address] Phone #: ext- [phone] 06/10/2021 02:22 Patient: [...] any new findings thatmay affect your care.Call [phone] if any of the following occur: Trouble breathing Fainting or loss of consciousness 10 General Instructions [facility] Emergency Department [address] [place] [address] Phone #: ext- [phone] 06/10/2021 02:22 Patient: [...] crying, confusion, sunken eyes, or dry mouth [employer]. [address] [place] [address]. All rights reserved. This information is not [...] estrada maxwell, or lemonade. 11 General Instructions [facility] Emergency Department [address] [place] [address] Phone #: ext- [phone] 06/10/2021 02:22 Patient: [...] work in all cases 12 General Instructions [facility] Emergency Department [address] [place] [address] Phone #: ext- [phone] 06/10/2021 02:22 Patient: [...] place where infectious diseases arecommon. Many people pick[employer] a cold or other virus while traveling. [...] you travelled and where you stayed (hotel, [place] [place] [facility], tent) What you ate and drank If you were bitten by insects or other bugs 13 General Instructions [facility] Emergency Department [address] [place] [address] Phone #: ext- [phone] 06/10/2021 02:22 Patient: RADHA MONTALVO Sex: F : 1990 Age: 30y If you swam in freshwater If you had sex or got a tattoo or piercing while you were thereCheck the [facility] to get more information about specific infectious diseases in the areas you havetraveled. [phone] [employer]. [address] [place] [address]. All rights reserved. This information is not intended as asubstitute for professional medical care. Always follow your healthcare professional's instructions. You have been given the following additional information: Gastroenteritis, Viral (Adult) Pyelonephritis, Female (Adult) Fever Control (Adult)(Electronically signed by Edgardo Flores M.D. 06/11/2021 09:12) Name Value Range Interpretation Code Description Data Juju rce(s) Supporting Document(s) ID Date Data Source [id number] 06/10/2021 02:25:00 AM EDT [facility] 1 Clinical Report - Nurses [facility] Emergency Department [address] [place] [address] Phone #: ext- [phone] 06/10/2021 02:22 Patient: [...] vomiting yesterday and 1 episode of diarrhea.).Treatment QUALITY CONTROL MICROBIOLOGIST:None. --02:06/10/21 Juhi Shay R.N.02:06/10/21. BP: 137/109. MAP: [...] the [place] 2 Clinical Report - Nurses [facility] Emergency Department [address] [place] [address] Phone #: ext- [phone] 06/10/2021 02:22 Patient: [...] PROGRESS NOTES 3 Clinical Report - Nurses [facility] Emergency Department [address] [place] [address] Phone #: ext- [phone] 06/10/2021 02:22 Patient: RADHA MONTALVO Sex: F [...] status- she states feels the same.--05:27 06/10/21 Juhi Shay R.N.05:00 06/10/2021 CEFTRIAXONE (1GM/50ML) IVPB via [...] IV flushed 4 Clinical Report - Nurses [facility] Emergency Department [address] [place] [address] Phone #: ext- [phone] 06/10/2021 02:22 Patient: RADHA MONTALVO Sex: F [...] referral to 5 Clinical Report - Nurses [facility] Emergency Department [address] [place] [address] Phone #: ext- [phone] 06/10/2021 02:22 Patient: RADHA MONTALVO Sex: F : 1990 Age: 30y a primary care physician for followup. Patient verbalized understanding. Written instructions provided in [employer] [place]. The patient was discharged by the physician. She was discharged home and accompanied by survey technologist. She left ambulatory and via private vehicle. [employer] driving. --07:10 06/10/21 Juhi Shay R.N.Locked/Released at 06/10/2021 07:11 by Juhi Shay R.N. Name Value Range Interpretation Code Description Data [facility] Supporting Document(s) ID Date Data Source [id number] 06/10/2021 02:25:00 AM EDT [facility] 1 Clinical Report - Physicians/Mid Levels [facility] Emergency Department [address] [place] [address] Phone #: ext- [phone] 06/10/2021 02:22 Patient: [...] 3 weeks ago and was admitted at [facility], then took AB's; pt reports subjective fever once during the day; pt waited 5 hrs at [facility] WR then went home then came [...] Surgeries: 2 Clinical Report - Physicians/Mid Levels [facility] Emergency Department [address] [place] [address] Phone #: ext- [phone] 06/10/2021 02:22 Patient: [...] COUNT 3 Clinical Report - Physicians/Mid Levels [facility] Emergency Department [address] [place] [address] Phone #: ext- [phone] 06/10/2021 02:22 Patient: [...] Male GFR Interprentation 20-49 yrs >60 mL/min Vizwsk96-87 yrs >56 mL/min Normal 60-69 yrs >49 mL/min Normal 70-79yrs>42 mL/min Normal 80 and above >35 mL/min Normal Female GFRInterpretation 20-39 yrs >60 mL/min Normal 40-49 yrs >58 mL/minNormal 50-59 yrs >51 mL/min Normal 60-69 yrs >45 mL/min Qktlsh16-58 yrs >39 mL/min Normal 80 and above >32 mL/min Normal 4 Clinical Report - Physicians/Mid Levels [facility] Emergency Department [address] [place] [address] Phone #: ext- [phone] 06/10/2021 02:22 Patient: [...] NONE Lactic Acid: (LILO: 06/10/2021 03:04) ( [facility] 06/10/2021 03:15) Final results Test Result Flag Units (Reference) LACTIC ACID 1.6 MMOL/L (0.2 - 2.2) Beta-HCG, Qual Serum: (LILO: 06/10/2021 03:04) ( [facility] 06/10/2021 03:24) Final results Test Result Flag Units (Reference) HCG SERUM QUAL NEGATIVE (NORMAL: NEGAT HCG SERUM QL REENTER NEGATIVE (NORMAL: NEGAT { KIT LOT # [id number] ){ KIT EXP DATE 09.05.22 ){ PROCEDURAL [...] agrees. 5 Clinical Report - Physicians/Mid Levels [facility] Emergency Department [address] [place] [address] Phone #: ext- [phone] 06/10/2021 02:22 Patient: [...] Dispense 28 tablet. Refills: 0. Substitution permitted. [facility] #44 - [address] ; [place] [address]. . 6 Clinical Report - Physicians/Mid Levels [facility] Emergency Department [address] [place] [address] Phone #: ext- [phone] 06/10/2021 02:22 Patient: RADHA MONTALVO Sex: F : 1990 Age: 30y Cipro 500 mg tablet Take 1 tablet twice a day for 10 days -- Dispense 20 tablet. Refills: 0. Substitution permitted. [facility] [employer] #14 - [address] ; [place] [address]. . Pyridium 100 mg tablet Take 1 tablet three times a day for 5 days -- Dispense 15 tablet. Refills: 0. Substitution permitted. [facility] [employer] #84 - [address] [facility] ; [place] [address]. . Zofran 4 mg tablet Take 1 tablet four times a day as needed for 4 days -- Dispense 16 tablet. Refills: 0. Substitution permitted. [facility] [employer] #80 - [address] [facility] ; [place] [address]. . Follow-up: Return to the emergency department [...] to plan of care. Follow-up with: [facility], , , [address] [place] [address], [address] Follow up in three days even if well. Call for an appointment. Reason for referral: evaluation and treatment. Summary of care provided to patient via paper.(Electronically signed by Edgardo Flores M.D. 06/11/2021 09:12) Name Value Range Interpretation Code Description Data Juju rce(s) Supporting Document(s) ID Date Data Source [id number] 06/14/2021 07:15:00 PM EDT [facility] Name Value Range Interpretation Code Description Data Juju rce(s) Supporting Document(s) CULTURE URINE [facility] _CULTURE URINE_$$[id number]$$[id number]$$[id number]$$[id number]$$[id number]$$[id number]$$555236$$216827$$153693$$ 791354$$522716$$648179$$920222$$091612$$392662$$648073$$656821$$117407$$629719$$ 951629$$104094$$235427$$165063$$426258$$669637$$[id number]$$[id number] -- Continued on next page --Patient: KATIA MALLORY Order: [id number] Page 2Culture: CULTURE URINE Status: Final ==== -- Continued on next page --Patient: KATIA MALLORY Order: [id number] Page 2Culture: CULTURE URINE Status: Prelim =====$$[id number]$$[id number] DATE/TIME: 06/14/2021 11:06Culture: CULTURE URINE Status: FinalUrine Culture,Comprehensive: P1No growth in 36 - 48 hours. Previous result entered on 06/12/2021 12:41 ET No growth after 18-24 hours.P1 Test performed by: [facility] #: [id number] [address] [place] [address] [id number] [facility] [address]Medical Director : Rene Choi MD NPI #:Lab Di maria luz : 06/12/21.1321.XMT.SENT REF 06/14/21.1915.XMT.SENT REF ID Date Data Source [id number] 06/10/2021 04:13:00 AM EDT [facility] Name Value Range Interpretation Code Description Data Juju rce(s) Supporting Document(s) UA REFLEX TO UA CULTURE [facility] URINALYSIS SOURCE R [facility] Hospit al COLOR Dk Yellow NORMAL: Yellow [facility] CLARITY hazy NORMAL: Clear [facility] Specific gravity of Urine by Test strip 1.015 1.001 - 1.030 [facility] pH 6.5 5 - 9 [facility] Glucose [Mass/volume] in Urine by Test strip NORM NORMAL: Negat [facility] Bilirubin.total [Presence] in Urine by Test strip 3 NORMAL: Negative [facility] Ketones [Presence] in Urine by Test strip 150 NORMAL: Negative A [facility] Protein [Mass/volume] in Urine by Test strip 30 NORMAL: Negat [facility] Nitrite [Presence] in Urine by Test strip NEG NORMAL: Negative [facility] BLOOD 25 NORMAL: Negative A [facility] Leukocyte esterase [Presence] in Urine by Test strip 25 KERRI L: Negative [facility] Urobilinogen [Mass/volume] in Urine by Test strip 8 less nnamdi n 1.0 mg/dL [facility] MICROSCOPIC See Below [facility] ital WBC 3 - 5 NORMAL: NONE SEEN [facility] Erythrocytes [#/volume] in Urine by Test strip 3 - 5 NORMAL: NON E SEEN [facility] EPITHELIAL MODERATE NORMAL: NONE SEEN A [facility] Bacteria [Presence] in Urine sediment by Light microscopy 1+ SMALL NORMAL: NONE SEEN [facility] Mucus [Presence] in Urine sediment by Light microscopy 2+ NOR MAL: NONE SEEN A [facility] ID Date Data Source [id number] 06/10/2021 03:35:00 AM EDT [facility] Name Value Range Interpretation Code Description Data Juju rce(s) Supporting Document(s) Lipase [Enzymatic activity/volume] in Serum or Plasma 22 U/L 13 - 60 [facility] ID Date Data Source [id number] 06/10/2021 03:35:00 AM EDT [facility] Name Value Range Interpretation Code Description Data Juju rce(s) Supporting Document(s) COMPREHENSIVE METABOLIC PANEL [facility] COMPREHENSIVE METABOLIC PANEL Sodium [Moles/volume] in Serum or Plasma 138 mEq/L 134 - 153 [facility] Potassium [Moles/volume] in Serum or Plasma 4.6 mEq/L 3.6 - 5.0 [facility] Chloride [Moles/volume] in Serum or Plasma 97 mEq/L 98 - 107 L [facility] Carbon dioxide, total [Moles/volume] in Serum or Plasma 21 MEQ/L 22 - 30 L [facility] Glucose [Mass/volume] in Serum or Plasma 87 MG/DL 70 - 99 [facility] BUN 7 MG/DL 7 - 21 [facility] Creatinine [Mass/volume] in Serum or Plasma 0.6 MG/DL 0.7 - 1.5 L [facility] BUN/CREAT 12 8 - 27 [facility] Protein [Mass/volume] in Serum or Plasma 8.0 G/DL 6.3 - 8.2 [facility] Albumin [Mass/volume] in Serum or Plasma 4.7 G/DL 3.9 - 5.0 [facility] Globulin [Mass/volume] in Serum by calculation 3.3 GM/DL 2.4 - 3.2 H [facility] A/G RATIO 1.4 0.8 - 2.0 [facility] al Calcium [Mass/volume] in Serum or Plasma 9.4 MG/DL 8.4 - 10.2 [facility] Bilirubin.total [Mass/volume] in Serum or Plasma 1.0 MG/DL 0.2 - 1.3 [facility] Alkaline phosphatase [Enzymatic activity/volume] in Serum or Plasma 66 U/L 38 - 126 [facility] Aspartate aminotransferase [Enzymatic activity/volume] in Serum or Plasma 107 U/L 5 - 40 H [facility] Alanine aminotransferase [Enzymatic activity/volume] in Seru m or Plasma 67 U/L 7 - 56 H [facility] Anion gap 3 in Serum or Plasma 20.0 mmol/L 8.0 - 16.0 H [facility] AGE 30 yrs [facility] al NON-AA GFR >60 mL/min [facility] ital AFR AMER GFR >60 mL/min [facility] sp[facility] Male GFR In terprentation 20-49 [...] >32 mL/min Normal ID Date Data Source [id number] 06/10/2021 03:23:00 AM EDT [facility] Name Value Range Interpretation Code Description Data Juju rce(s) Supporting Document(s) HCG SERUM QUAL NEGATIVE NORMAL: NEGATIVE [facility] HCG SERUM QL REENTER NEGATIVE NORMAL: NEGATIVE [facility] { KIT LOT # [id number] ){ KIT EXP DATE 09.05.22 ){ PROCEDURAL CONTROL VALID ) ID Date Data Source [id number] 06/10/2021 03:15:00 AM EDT [facility] Name Value Range Interpretation Code Description Data Juju rce(s) Supporting Document(s) CBC W/AUTOMATED DIFF [facility] COMPLETE BLOOD COUNT Leukocytes [#/volume] in Blood by Automated count 3.7 10^3/uL 4.2 - 1 1.0 L [facility] Erythrocytes [#/volume] in Blood by Automated count 3.66 10^6/uL 4. 20 - 5.40 L [facility] Hemoglobin [Mass/volume] in Blood 13.0 g/dL 12.0 - 16.0 [facility] Hematocrit [Volume Fraction] of Blood by Automated count 37.9 % 3 7.0 - 47.0 [facility] Erythrocyte mean corpuscular volume [Entitic volume] b y Automated count 103.6 fL 81.0 - 101 H [facility] Erythrocyte mean corpuscular hemoglobin [Entitic mass] by Automated count 35.5 pg 27.0 - 34.0 H [facility] Erythrocyte mean corpuscular hemoglobin concentration [Mass/volume] by Automated count 34.3 g/dL 31.0 - 36.0 [facility] Erythrocyte distribution width [Ratio] by Automated count 15.7 % 11.5 - 14.5 H [facility] Platelets [#/volume] in Blood by Automated count 258 10^3/uL 150 - 45 0 [facility] Platelet mean volume [Entitic volume] in Blood by Automated count 10.2 fL 7.4 - 10.4 [facility] Neutrophils/100 leukocytes in Blood by Automated count 52.5 % 37. 0 - 80.0 [facility] Lymphocytes/100 leukocytes in Blood by Manual count 32.8 % 25.0 - 40.0 [facility] Monocytes/100 leukocytes in Blood by Automated count 9.1 % 3.0 - 8.0 H [facility] Eosinophils/100 leukocytes in Blood by Automated count 4.0 % 0.0 - 7.0 [facility] Basophils/100 leukocytes in Blood by Automated count 1.3 % 0.0 - 2.5 [facility] %IG 0.3 % 0.0 - 0.0 [facility].0 % 0.0 - 0.0 [facility] al Neutrophils [#/volume] in Blood by Automated count 1.95 10^3/uL 2.00 - 6.90 L [facility] Lymphocytes [#/volume] in Blood by Automated count 1.22 10^3/uL 0.60 - 3.40 [facility] Monocytes [#/volume] in Blood by Automated count 0.34 10^3/uL 0.00 - 0.90 [facility] Eosinophils [#/volume] in Blood by Automated count 0.15 10^3/uL 0.00 - 0.70 [facility] Basophils [#/volume] in Blood by Automated count 0.05 10^3/uL 0.00 - 0.20 [facility] #IG 0.01 10^3/uL 0.00 - 0.10 [facility] H ospital #NRBC 0.00 10^3/uL 0.00 - 0.00 [facility] ospital MANUAL DIFF NOT INDICATED [facility] RBC MORPH NOT INDICATED [facility] spital ID Date Data Source [id number] 06/10/2021 03:15:00 AM EDT [facility] Name Value Range Interpretation Code Description Data Juju rce(s) Supporting Document(s) Lactate [Moles/volume] in Serum or Plasma 1.6 MMOL/L 0.2 - 2.2 [facility] ID Date Data Source [id number] 02/22/2021 05:22:00 AM EDT [facility] Name Value Range Interpretation Code Description Data Juju rce(s) Supporting Document(s) SARS coronavirus 2 RNA [Presence] in Res piratory specimen by NORA with probe detection NEGATIVE [facility] This lab was ordered by [facility] a nd reported by [facility]. ID Date Data Source [id number] 01/25/2021 08:46:00 PM EDT [facility] Name Value Range Interpretation Code Description Data Juju rce(s) Supporting Document(s) SARS-CoV-2 (COVID 19) NEGATIVE - SARS-CoV-2 (COVID19) [facility] This lab was ordered by [facility] a nd reported by [facility]. Procedure Social History No Information Vital Signs ID Date Data Source UNK Name Value Range Interpretation Code Description Data Source(s) Systolic blood pressure 140 mm[Hg] 140 mm[Hg] M EDENT ([facility], ) Diastolic blood pressure 100 mm[Hg] 100 mm[Hg] MEDENT ([facility], ) Respiratory rate 14 /min 14 /min [facility] ( [facility], ) Body height 73 [in_i] 73 [in_i] [facility] ([facility], ) 6'1" Body weight 220.00 [lb_av] 220.00 [lb_av] MEDEN T ([facility], ) Body mass index (BMI) [Ratio] 29.0 kg/m2 29.0 k g/m2 MED[facility] ([facility], ) [place] body weight 184 [lb_av] 184 [lb_av] MEDEN T ([facility], ) Heart rate 110 /min 110 /min [facility] ([facility], ) Body height 73 [in_i] 73 [in_i] MEDENT ([facility] ) 6'1" Body temperature 96.8 [degF] 96.8 [degF] [facility] ([facility] ) Body weight 190.00 [lb_av] 190.00 [lb_av] MEDEN T ([facility] ) Body mass index (BMI) [Ratio] 25.1 kg/m2 25.1 k g/m2 MED[facility] ([facility] ) Body weight 207.00 [lb_av] 207.00 [lb_av] MEDEN T (Jim Hartman MD) Body height 73 [in_i] 73 [in_i] MED[facility] (Jim Hartman MD) 6'1" Body mass index (BMI) [Ratio] 27.3 kg/m2 27.3 k g/m2 MED[facility] (Jim Hartman MD) Body temperature 97.0 [degF] 97.0 [degF] [facility] (Jim Hartman MD) Systolic blood pressure 132 mm[Hg] 132 mm[Hg] M EDENT (Jim Hartman MD) Heart rate 90 /min 90 /min MEDENT (Jim Hartman MD) Oxygen saturation in Arterial blood by Pulse oximetry 139 % 139 % [facility] (Jim Hartman MD) Respiratory rate 20 /min 20 /min MEDENT ( Jim Hartman MD) Diastolic blood pressure 98 mm[Hg] 98 mm[Hg] MED[facility] (Jim Hartman MD) Oxygen saturation in Arterial blood by Pulse oximetry 92 % 92 % MED[facility] (Jim Hartman MD) Respiratory rate 18 /min 18 /min MEDENT ( Jim Hartman MD) Body height 73 [in_i] 73 [in_i] MEDENT (Jim Hartman MD) 6'1" Body weight 200.00 [lb_av] 200.00 [lb_av] MEDEN T (Jim Hartman MD) Body mass index (BMI) [Ratio] 26.4 kg/m2 26.4 k g/m2 MEDENT (Jim Hartman MD) Body temperature 98.3 [degF] 98.3 [degF] [facility] (Jim Hartman MD) Systolic blood pressure 144 mm[Hg] 144 mm[Hg] M EDENT (Jim Hartman MD) Diastolic blood pressure 122 mm[Hg] 122 mm[Hg] MED[facility] (Jim Hartman MD) Heart rate 110 /min 110 /min [facility] (Jim Hartman MD) Body weight 230.00 [lb_av] 230.00 [lb_av] MEDEN T ([facility] ) Body height 73 [in_i] 73 [in_i] MEDENT ([facility] ) 6'1" Body mass index (BMI) [Ratio] 30.3 kg/m2 30.3 k g/m2 MEDENT ([facility] ) Systolic blood pressure 150 mm[Hg] 150 mm[Hg] M EDENT ([facility], [facility]) Diastolic blood pressure 109 mm[Hg] 109 mm[Hg] MEDENT ([facility], [facility]) Oxygen saturation in Arterial blood by Pulse oximetry 98 % 98 % MEDENT ([facility], [facility]) Body temperature 97.8 [degF] 97.8 [degF] MEDENT ([facility], [facility]) Heart rate 110 /min 110 /min MEDENT ([facility], [facility]) Body weight 215.00 [lb_av] 215.00 [lb_av] MEDEN T ([facility], [facility]) Body height 73 [in_i] 73 [in_i] MEDENT ([facility], [facility]) 6'1" Respiratory rate 16 /min 16 /min MEDENT ( [facility], [facility]) Body mass index (BMI) [Ratio] 28.4 kg/m2 28.4 k g/m2 MEDENT ([facility], [facility])
[2021-07-18 18:56] LABS: INR 0.88; PROTHROMBIN TIME 12.4 SECONDS (12.7-14.5)
[2021-07-18 18:57] LABS: PARTIAL THROMBOPLASTIN TIME 38.9 SECONDS (25.9-37.0)
--- NOTE | 2021-07-18 19:01 | REPVR ---
PROCEDURE INFORMATION: Exam: CT Head Without Contrast Exam date and time: 07/18/2021 4:58 PM Age: 30 years old Clinical indication: Weakness, extremity; Bilateral; Additional info: Neuro symptoms TECHNIQUE: Imaging protocol: Computed tomography of the head without contrast. Axial and coronal reformatted images were created and reviewed. Radiation optimization: All CT scans at this facility use at least one of these dose optimization techniques: automated exposure control; mA and/or kV adjustment per patient size (includes targeted exams where dose is matched to clinical indication); or iterative reconstruction. COMPARISON: No relevant prior studies available. FINDINGS: Brain: No CT evidence of acute intracranial hemorrhage or acute territorial infarction. No significant mass effect or midline shift. Basal cisterns patent. Cerebral ventricles: Normal in size and configuration. Paranasal sinuses: Unremarkable. No fluid levels. Mastoid air cells: Grossly unremarkable. Bones/joints: No acute osseous abnormality. Soft tissues: Grossly unremarkable. IMPRESSION: No CT evidence of acute intracranial pathology. Electronically signed by: Kenroy Hayward On 07/18/2021 19:01:19 PM
--- NOTE | 2021-07-18 19:01 | REP ---
INDICATION: CVA. COMPARISON: January 25, 2021. TECHNIQUE: Portable upright AP chest radiograph. FINDINGS: The lungs are well inflated and free of infiltrate. Pleural angles are sharp. Heart size is normal. Pulmonary vasculature is not increased. EKG monitoring electrodes overlie the chest. IMPRESSION: No active disease. <Electronically signed by Santiago Aceves > 07/18/21 [id number]
[2021-07-18 19:04] LABS: HCG, SERUM QUALITATIVE NEGATIVE (NEGATIVE)
[2021-07-18 19:08] LABS: BLOOD UREA NITROGEN 11 MG/DL (7-18); CALCIUM LEVEL 10.1 MG/DL (8.5-10.1); CARBON DIOXIDE LEVEL 27 MEQ/L (21-32); CHLORIDE LEVEL 105 MEQ/L (98-107); CREATININE FOR GFR 0.85 MG/DL (0.55-1.30); GLOMERULAR FILTRATION RATE > 60.0 (>60); GLUCOSE, FASTING 95 MG/DL (70-100); POTASSIUM SERUM 4.5 MEQ/L (3.5-5.1); SODIUM LEVEL 138 MEQ/L (136-145)
[2021-07-18 19:15] LABS: ERYTHROCYTE SEDIMENTATION RATE 57 mm/hr (0-20)
[2021-07-18 19:26] LABS: RSV AMPLIFICATION NEGATIVE (NEGATIVE)
[2021-07-18] MEDS: OMEPRAZOLE 20 MG CAP PO SCH (21:00)
[2021-07-18] MEDS ORDERED: AMLO1TAB25 PO (21:07)
[2021-07-18] MEDS ORDERED: ASPI81TA26 PO (21:07)
[2021-07-18] MEDS ORDERED: OMEP-221 PO (21:07)
[2021-07-18] MEDS ORDERED: HOME MED LIST COMPLETE! XX SCH (21:10)
--- NOTE | 2021-07-18 21:40 | HPEPDOC ---
[facility] Medical History & Physical Date of Admission Jul 18, 2021 Date of Service: Jul 18, 2021 Attending Physician: DMITRI FAJARDO MD History and Physical CHIEF COMPLAINT: Bilateral LE weakness HISTORY OF PRESENT ILLNESS: Radha is a 30-year-old female who presents to the ED at her neurologist's request due to worsening bilateral lower extremity weakness. Reports bilateral lower extremity weakness and sensation changes including numbness/tingling/burning is constant and has progressed to her abdomen and left upper extremity. She tells me her symptoms began 1 month ago when she had a kidney infection which required hospitalization, and her PCP attributed her lower extremity weakness to dehydration and deconditioning due to recent infection. Patient reports difficulty with ambulating and uses a walker at baseline. Reports 3 falls and recently breaking her right ankle 2/2 bilateral lower extremity weakness and numbness. Denies hitting her head, LOC. Reports nausea with associated vomiting, constipation, left-sided chest tightness, palpitations, difficulty with deep inhalation. Reports urinary retention, hesitancy, dysuria that she tells me is unresolved since her kidney infection 1 month ago. Denies recent URI, changes in diet, poor oral intake. Denies bleeding/bruises, lightheadedness, changes in vision. Of note, patient has been seen and evaluated by neurology (Dr. Sosa), who suspects Guillain-Cary syndrome. Dr. Sosa sent patient to ED for admission to complete further work-up for GBS. In the ED, patient was found to be tachycardic with HR 138. CBC, CMP, c oagulation WNL. CRP 0.30. EKG NSR with HR 117. CXR, head CT unremarkable, as noted below. Patient received 1 dose of gabapentin. PAST MEDICAL HISTORY: 1. HTN. 2. Fatty liver disease. 3. Asthma 4. History EtOH abuse 5. History TIA 6. Depression/anxiety 7. GERD 8. History of DVT PAST SURGICAL HISTORY: 1. Gastric sleeve surgery. 2. x2. SOCIAL HISTORY: Marital status: Single. Resides in: Home Children: 2 Employment: [employer], prior to weakness Tobacco use: Current smoker, 1 pack/week x5 years ETOH: Former drinker, quit "months ago" Illicit drug use: Denies FAMILY HISTORY: HTN, CAD ALLERGIES: Please see below. REVIEW OF SYSTEMS: CONSTITUTIONAL: Denies fever, chills, changes in appetite, poor oral intake. HEENT: Denies lightheadedness, dysphagia, changes in vision, sore throat, nasal congestion, rhinorrhea, ear pain. CARDIOVASCULAR: Reports left-sided chest tightness, palpitations. Denies (sharp) chest pain. RESPIRATORY: Reports difficulty with deep inhalation. Denies wheezing, cough, pleuritic chest pain. GASTROINTESTINAL: Reports nausea/vomiting, constipation. Denies abdominal pain, diarrhea, hematochezia. GENITOURINARY: Reports urinary retention/hesitancy, dysuria. Denies hematuria. SKIN: Denies bruising/bleeding. MUSCULOSKELETAL: Reports bilateral lower extremity weakness, left upper extremity weakness. Reports right broken ankle 2/2 recent fall. Denies right upper extremity weakness. NEUROLOGICAL: Reports bilateral lower extremity, abdominal, left upper extremity numbness/tingling/burning. Reports significant weakness bilateral lower extremities and left upper extremity. HOME MEDICATIONS: Please see below. PHYSICAL EXAMINATION: VITAL SIGNS: Temperature 98.3, pulse 138, respiratory rate 18, blood pressure 139/88, pulse oximetry 97% on room air. GENERAL APPEARANCE: Alert, awake, sitting up in stretcher, NAD. HEENT: NC/AT, EOMI, anicteric sclera, ears patent, moist mucous membranes, enlarged bilateral tonsils, has her own teeth. CARDIOVASCULAR: Regular rhythm, tachycardia, no MRG. LUNGS: CTA bilaterally, no WRR, no accessory muscles used. ABDOMEN: Soft, nontender, nondistended. No CVA tenderness bilaterally. MUSCULOSKELETAL: Limited ROM lateral lower extremities 2/2 weakness. 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 EXTREMITIES: No edema/cyanosis, 2+ DP/PT pulses palpated bilaterally. NEUROLOGICAL: CN III-XII intact with strength changes as noted in MSK exam. Sensation intact with decreased sensation left lower extremity compared to right lower extremity. PSYCHIATRIC: No depressed/anxious mood. LABORATORY DATA: See below. IMAGING: CXR (07/18) No active disease. Head CT (07/18) No CT evidence of acute intracranial pathology. MICROBIOLOGY: Please see below. 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 Sosa) he will be admitted for further work-up. #Bilateral lower extremity weakness and sensation changes, most likely 2/[address] unremarkable, as noted above MRI brain with and without contrast pending Start IVIG 70g/day x3 days Check folate, thiamine, vitamin B12, MMA, homocysteine Mg2+, vitaminD levels Order LP Patient is hesitant about LP and would like further discussion with her neurologist prior to consent for procedure. Day team may need to consult pickle solution maker (Dr. Dodd) for LP to be performed 07/19 if x-ray unavailable, pending further discussion with patient. PT/OT eval pending Neurology (Dr. Sosa) on consult, appreciate recommendations #Tachycardia, 2/2 possible PE vs anxiety In ED, HR 138. EKG NSR. Duplex ultrasound bilateral LE pending Order troponin If ultrasound positive for DVT, may consider CTA to be performed after brain MRI #Urinary hesitancy and dysuria Order U/A #HTN In ED, BP 139/88 Continue home amlodipine 10 mg daily #History EtOH abuse Patient tells me she quit drinking "months ago" and only drinks occasionally now Order thiamine, folate levels [facility] protocol as precaution #s/p gastric sleeve surgery Patient tells me she takes vitamins at home Order vitamin B12, MMA, homocysteine, vitamin D levels #History of TIA Continue home ASA 81 mg daily #GERD Continue home omeprazole 40 mg twice daily #Depression/anxiety, unmedicated #DVT prophylaxis On Lovenox DIET: Low-salt diet ACTIVITY: Assisted ambulation only, fall risk precautions DISPO: Pending further work-up, expect < 2 midnights CODE STATUS: Full code Vital Signs Vital Signs Date Time Temp Pulse Resp B/P (MAP) Pulse Ox O2 Delivery O2 Flow Rate FiO2 07/18/21 20:16 97.9 114 19 123/65 (84) 100 Room Air Laboratory Data Labs 24H Laboratory Tests 2 07/18/21 18:03: Immature Granulocyte % (Auto) 0.3, Neutrophils (%) (Auto) 50.9, Lymphocytes (%) (Auto) 40.1, Monocytes (%) (Auto) 6.6, Eosinophils (%) (Auto) 1.5, Basophils (%) (Auto) 0.6, Neutrophils # (Auto) 3.5, Lymphocytes # (Auto) 2.8, Monocytes # (Auto) 0.5, Eosinophils # (Auto) 0.1, Basophils # (Auto) 0.0, Nucleated Red Blood Cells % (auto) 0.0, Erythrocyte Sedimentation Rate 57H, Prothrombin Time 12.4, Prothromb Time International Ratio 0.88, Activated Partial Thromboplast Time 38.9H, Anion Gap 6L, Glomerular Filtration Rate > 60.0, Calcium Level 10.1, C-Reactive Protein, Quantitative 0.30, Human Chorionic Gonadotropin, Qual NEGATIVE, Coronavirus (COVID-19)(PCR) NEGATIVE, Influenza Type A (RT-PCR) NEGATIVE, Influenza Type B (RT-PCR) NEGATIVE, Respiratory Syncytial Virus (PCR) NEGATIVE 07/18/21 18:29: POC Beta HCG, Quantitative < 5.0 CBC/BMP Laboratory Tests 07/18/21 18:03 Home Medications Scheduled Amlodipine Besylate (Amlodipine Besylate) 10 Mg Tablet, 10 MG PO DAILY Aspirin (Aspirin EC) 81 Mg Tablet.dr, 81 MG PO DAILY Omeprazole (Omeprazole) 40 Mg Capsule.dr, 40 MG PO BID Allergies Coded Allergies: No Known Allergies (Unverified , 01/25/21) A-FIB/CHADSVASC A-FIB History Current/History of A-Fib/PAF?: No Lady Johnson DO Jul 18, 2021 21:40
[2021-07-18] MEDS ORDERED: traMADol 50 MG TAB PO ONE (21:45)
--- NOTE | 2021-07-18 22:10 | REPVR ---
PROCEDURE INFORMATION: Exam: US Duplex Lower Extremity Veins, Bilateral Exam date and time: 07/18/2021 9:48 PM Age: 30 years old Clinical indication: Pain; Leg, lower; Bilateral; Additional info: R/O dvt TECHNIQUE: Imaging protocol: Real-time duplex ultrasound of the extremities with 2-D lr scale, color Doppler flow and spectral waveform analysis with image documentation. Complete exam focused on the bilateral lower extremity veins. COMPARISON: US Duplex, Ext LOWER veins, bilat 06/18/2021 12:18 AM FINDINGS: Right deep veins: Unremarkable. The common femoral, femoral, popliteal, posterior tibial and peroneal veins are patent without thrombus. Normal Doppler waveforms. Normal compressibility and/or augmentation response. Right superficial veins: Saphenofemoral junction is patent without thrombus. Left deep veins: Unremarkable. The common femoral, femoral, popliteal, posterior tibial and peroneal veins are patent without thrombus. Normal Doppler waveforms. Normal compressibility and/or augmentation response. Left superficial veins: Saphenofemoral junction is patent without thrombus. Soft tissues: Unremarkable. IMPRESSION: No sonographic evidence of deep vein thrombosis. Electronically signed by: Kenroy Hayward On 07/18/2021 22:09:55 PM
--- OUTSIDE RECORDS SUMMARY | 2021-07-18 22:11 | CCD ---
Author Author [facility] Organization [facility] Address Unknown Phone Unavailable Care Team Providers Care Sales Service Executive Name Role Phone NO, PCP Unavailable Unavailable [...] is protected by Article 27-F of the [facility] Public Health law. If you continue you may have access to information: Regarding HIV / AIDS; Provided by facilities licensed or operated by the [facility] Office of Mental Health; or Provided by the [facility] Office for People With Developmental Disabilities. If such information is present, then the following [facility] mandated warning applies: This information has been [...] law may result in a fine or penitentiary sentence or both. A general authorization for the release of medical or other information is NOT sufficient authorization for further disc losure. Encounters Encounter Providers Location Date Indications Data Source(s ) Outpatient Attender: Gladys Sosa MD Main office [facility] 07/18/2021 01:30:00 PM EST [facility] ([facility], ) Outpatient Attender: Gladys Sosa MD Main office - [facility] 07/14/2021 11:10:00 AM EST [facility] ([facility], ) Outpatient Attender: LAMBERT CASTELLANOS Physical Therapy 07/09/2021 0 1:00:00 PM EDT [facility] ([facility] ) Emergency Attender: EDGARDO Torres: PCP NO 07/07/2021 01:22:00 PM EDT - 07/07/2021 05:15:00 PM EDT [facility] Patient discharged. Outpatient Attender: Vivien CASTELLANOS [facility] 10:00:00 AM EDT [facility] ([facility]man [facility]) Outpatient Attender: Vivien CASTELLANOS [facility] 09:30:00 AM EDT [facility] (Jim [facility] MD) Emergency Attender: EDGARDO Torres: PCP NO 06/10/2021 02:25:00 AM EDT - 06/10/2021 07:11:00 AM EDT [facility] Patient discharged. Outpatient Attender: Bob CASTELLANOS Physical Therapy 12:00:00 PM EST [facility] ([facility]) Outpatient Attender: Lesia CASTELLANOS Ivon Joe andrew 10/18/2020 12:10:00 PM EST [facility] ([facility]) Medications Medication Brand Name Start Date Product Form Dose Route Admi nistrative Instructions Pharmacy Instructions Status Indications Reaction Description Data Source(s) Alprazolam 0.5 MG Oral Tablet Alprazolam 07/14/2021 12:00:00 AM EST ORAL active [facility] ([facility], ) 50 mg 07/09/2021 12:00:00 [...] TIMES A DAY NEEDED SO LD: 06/10/2021 [facility] 5-325 mg 02/24/2021 12:00:00 AM EDT [...] DOSE = THREE TABLETS SOLD: 10/21/2020 Cle[facility] tramadol hydrochloride 50 MG Oral Tablet Tramadol HCL 10/21/2020 12:00:00 AM EST active [facility] ([facility]) 25 mg 10/18/2020 12:00:00 AM EST tablet extended release 24 hr 30 TAKE ONE TABLET BY MOUTH EVERY DAY TAKE ONE TABLET BY MOUTH EVERY DAY SOLD: 10/18/2020 [facility] 24 HR metoprolol succinate 25 MG Extended Release Oral Tablet Metoprolol Succinate ER 10/18/2020 12:00:00 AM EST ORAL active [facility] ([facility], [facility]) No Active Medications 10/18/2020 12:00:00 AM EST completed [facility] ([facility], [facility]) Insurance Providers Payer name Policy type / Coverage type Policy ID Covered alliance party ID Covered alliance party's relationship to pineda Policy Pineda Plan Information [facility] [id number] SP [id number] [facility] ADV - OP [id number] [facility] ADV - OP UNAVAILABLE U NAVAILABLE MEDICAID -O/P EMERGENCY ROOM [id number] [facility] O [id number] S [id number] [facility] [id number] SP [id number] EMEDNY [id number] SP [id number] SELF PAY ONLY [id number] SP [id number] [facility] UN[facility]URED FUND SP Problems, Conditions, and Diagnoses Code Display Name Description Problem Type Effective Dates Data Source(s) P82190 [address] in unspeci fied non-institutional (private) residence as the place of occurrence of the external cause Unspecified place in unspecified non-institutional (private) residence as the place of occurrence of the external cause Diagnosis 07/07/2021 01:22:00 PM EDT [facility] [id number] Overexertion from prolonged static or awkward postures, initial encounter Overexertion from prolonged static or aw kward postures, initial encounter Diagnosis 07/07/2021 01:22:00 PM EDT [facility] [id number] Nondisplaced fracture of lat eral malleolus of right fibula, initial encounter for closed fracture Nondisplaced fracture of lateral malleol us of right fibula, initial encounter for closed fracture Diagnosis 01:22:00 PM EDT [facility] [id number] Unspecified injury of right ankle, initi al encounter Unspecified injury of right ankle, initial encounter Diagnosis 07/07/2021 01:22:00 PM EDT [facility] Z8673 Personal history of transien t ischemic attack (TIA), and cerebral infarction without residual deficits Personal history of transient ischemic attack (TIA), and cerebral infarction without residual deficits Diagnosis 06/10/2021 02:25:00 AM EDT [facility] H60616 Nicotine dependence, cigarettes, uncompl icated Nicotine dependence, cigarettes, uncomplicated Diagnosis 06/10/2021 02:25:[address] [facility] I10 Essential (primary) hypertension Essential (primary) h ypertension Diagnosis 06/10/2021 02:25:00 AM EDT [facility] R160 Hepatomegaly, not elsewhere classified H epatomegaly, not elsewhere classified Diagnosis 06/10/2021 02:25:00 AM EDT [facility] K760 Fatty (change of) liver, not elsewhere c lassified Fatty (change of) liver, not elsewhere classified Diagnosis 06/10/2021 02:25:00 AM EDT [facility] N10 Acute pyelonephritis Acute pyelonephritis Diagnosis 06/10/2021 02:25:00 AM EDT [facility] A0811 Acute gastroenteropathy due to Jasper a gent Acute gastroenteropathy due to Jasper agent Diagnosis 06/10/2021 02:25:00 AM EDT [facility] R197 Diarrhea, unspecified Diarrhea, unspecified Diagnosis 06/10/2021 02:25:00 AM EDT [facility] G61.0 Acute infective polyneuritis Acute infective polyneuri tis Problem 07/18/2021 12:00:00 AM EST [facility] ([facility]) G37.3 Acute transverse myelitis Acute transverse myelitis Pr oblem 07/14/2021 12:00:00 AM EST [facility] ([facility]) 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 Id iopathic progressive polyneuropathy Problem 07/14/2021 12:00:00 AM EST [facility] ([facility]) R26.81 Abnormal gait Abnormal gait Problem 07/14/2021 12:00:00 AM EST [facility] ([facility]) R20.0 Skin sensation disturbance Skin sensation disturbance Problem 07/14/2021 12:00:00 AM EST [facility] ([facility]) R53.1 Malaise and fatigue Malaise and fatigue Problem 1 09/13/2020 12:00:00 AM EST [facility] ([facility], ) [id number] Chronic urinary tract infection Chronic urinary tract infection Problem 06/26/2021 12:00:00 AM EDT [facility] ([facility]) [id number] Chronic liver disease Chronic liver disease Problem 06/26/2021 12:00:00 AM EDT [facility] ([facility]) [id number] Transient cerebral ischemia Transient cerebral ischemi a Problem 06/26/2021 12:00:00 AM EDT [facility] ([facility]) [id number] Abdominal pain Abdominal pain Problem 06/26/2021 12:00: 00 AM EDT [facility] ([facility]) [id number] Essential hypertension Essential hypertension Problem 06/26/2021 12:00:00 AM EDT [facility] ([facility]) Surgeries/Procedures Procedure Description Date Indications Data Source(s) OFFICE OUTPATIENT VISIT 40 MINUTES 07/18/2021 12:00:00 AM EST [facility] ([facility] ) MRI Spine Cervical W/O Contrast, Followed By Contrast 07/17/2021 12:00:00 AM EST [facility] ([facility], ) MRI Spine Cervical W/O Contrast, Followed By Contrast 07/17/2021 12:00:00 AM EST [facility] ([facility], ) MRI Spine Thoracic W/O Contrast, Followed By Contrast 07/17/2021 12:00:00 AM EST [facility] ([facility], ) MRI Spine Thoracic W/O Contrast, Followed By Contrast 07/17/2021 12:00:00 AM EST [facility] ([facility] ) MRI SPINAL CANAL LUMBAR W/O CONTRAST MATERIAL 07/16/20 12:00:00 AM EST [facility] ([facility], ) Needle electromyography, each extremity, with related paraspinal areas, when performed, done with nerve conduction, amplitude and latency/velocity study; complete, five or more muscles studied, innervated by three or more nerves or four or more spinal levels (list separately in addition to the code for primary procedure). 07/14/2021 12:00:00 AM EST [facility] ([facility], ) Needle electromyography, each extremity, with related paraspinal areas, when performed, done with nerve conduction, amplitude and latency/velocity study; complete, five or more muscles studied, innervated by three or more nerves or four or more spinal levels (list separately in addition to the code for primary procedure). 07/14/2021 12:00:00 AM EST [facility] ([facility], ) Nerve Conduction 11-12 Studies 07/14/2021 12:00:00 AM EST [facility] ([facility] ) OFFICE OUTPATIENT NEW 60 MINUTES 07/14/2021 12:00:00 A M EST [facility] ([facility] ) OFFICE OUTPATIENT NEW 45 MINUTES 07/09/2021 12:00:00 A M EDT [facility] ([facility] ) OFFICE OUTPATIENT VISIT 25 MINUTES 06/30/2021 12:00:00 AM EDT [facility] ([facility]) OFFICE OUTPATIENT NEW 45 MINUTES 06/26/2021 12:00:00 A M EDT [facility] ([facility]) OFFICE OUTPATIENT VISIT 25 MINUTES 06/26/2021 12:00:00 AM EDT [facility] ([facility]) FX Lateral Malleolus (Distal Fibula) W/O Manipulation 10/21/2020 12:00:00 AM EST [facility] ([facility] ) RADEX ANKLE COMPLETE MINIMUM 3 VIEWS 10/21/2020 12:00: 00 AM EST [facility] ([facility] ) Results ID Date Data Source [id number] 07/14/2021 02:54:00 PM EST [facility] ([facility] ) Name Value Range Interpretation Code Description Data Ujju rce(s) Supporting Document(s) Cobalamin (Vitamin B12) [Mass/volume] in Serum or Plasma 1421 pg/mL 2 47-911 [facility] ([facility], ) VITAMIN B12 NORMAL RANGE NORMAL 247 - 911 PG/ML INDETERMINATE 211 - 246 PG/ML DEFICIENT LESS THAN 211 PG/ML Calcidiol [Mass/volume] in Serum or Plasma 20.2 ng/mL 30.0-100.0 [facility] ([facility], ) Folate [Mass/volume] in Serum or Plasma Laboratory test result [facility] ([facility], ) FOLATE NORMAL RANGE NORMAL GREATER THAN 5.4 NG/ML INDETERMINATE 3.4-5.4 NG/ML DEFICIENT LESS THAN 3.4 NG/ML Erythrocyte sedimentation rate by 2H Westergren method 48 mm/hr 0-2 0 [facility] ([facility], ) Rheumatoid factor [Units/volume] in Serum or Plasma Laboratory test result [facility] ([facility], ) ID Date Data Source [id number] 07/07/2021 01:22:00 PM EDT [facility] 1 OrderSheet [facility] Emergency Department [address] [place] [address] Phone #: ext- [phone] 07/07/2021 13:20 Patient: [...] Racheal Anguiano R.N. (17:15 07/07/2021)] 2 OrderSheet [facility] Emergency Department [address] [place] [address] Phone #: ext- [phone] 07/07/2021 13:20 Patient: RADHA MONTALVO Sex: F : 1990 Age: 30y Name Value Range Interpretation Code Description Data Juju rce(s) Supporting Document(s) ID Date Data Source [id number] 07/07/2021 01:22:00 PM EDT [facility] 1 Medication Reconciliation Report [facility] Emergency Department [address] [place] [address] Phone #: ext- [phone] 07/07/2021 13:20 Patient: [...] Dispense 45tablet. Refills: 0. Substitution permitted.Pharmacy - [facility] [address] [facility] ; [place], [place] [phone]. . -- JASMIN Ventura Name Value Range Interpretation Code Description Data Juju [facility](s) Supporting Document(s) ID Date Data Source [id number] 07/07/2021 01:22:00 PM EDT [place] [address] Medication Administration Record [facility] Emergency Department [address] [place] [address] Phone #: ext- [phone] 07/07/2021 13:20 Patient: RADHA MONTALVO Sex: F : 1990 Age: 30yWeight: 86.1 kgHeight/Length: 73 inBMI: 25ALLERGIES: No Known Drug AllergyDate/Time Medication Administered Medication Ordered Name Value Range Interpretation Code Description Data Juju rce(s) Supporting Document(s) ID Date Data Source [id number] 07/07/2021 01:22:00 PM EDT [place] [address] General Instructions [facility] Emergency Department [address] [place] [address] Phone #: ext- [phone] 07/07/2021 13:20 Patient: RADHA MONTALVO Sex: F [...] Dispense 45tablet. Refills: 0. Substitution permitted.Pharmacy - [facility] [address] [place], [place] [phone]. .Understanding of the discharge instructions verbalized by patient.Follow-up with: [facility], , , [address] [place] [address], ,[place], [address] Follow up tomorrow. Call for an appointment. Reason for referral: evaluation and treatment. Summary ofcare provided to patient. ADDITIONAL INFORMATIONAnkle Fracture, Distal Fibula 2 General Instructions [facility] Emergency Department [address] [place] [address] Phone #: ext- [phone] 07/07/2021 13:20 Patient: RADHA MONTALVO Sex: F [...] splint gets wet, dry it with a hair baler on a cool setting. Place an ice pack over the injured area for no more than 15 to 20 minutes. Do this every 3 to 6 hours for the first 24 to 48 hours. Continue this 3 to 4 times a day as needed. To make an ice 3 General Instructions [facility] Emergency Department [address] [place] [address] Phone #: ext- [phone] 07/07/2021 13:20 Patient: [...] splint doesn't get wet. You may use [id number] pain medicine to control pain, unless another [...] cast or splint develops cracks or breaks 5710-9068 [employer]. [address] [place] [address]. All rights reserved. This information is not intended as asubstitute for professional medical care. Always follow your healthcare professional's instructions.Crutch WalkingCrutch adjustment 4 General Instructions [facility] Emergency Department [address] [place] [address] Phone #: ext- [phone] 07/07/2021 13:20 Patient: RADHA MONTALVO Sex: F : 1990 Age: 30y Make sure the crutches you use are adjusted to fit you. When you stand,there should be room to fit 2 to 3 fingers between the top of the crutch and your armpit. Your elbowshould be slightly bent when holding the hand cinder pit crane operator. When your arms hang down, the crutch handleshould be at the top of your hip.Crutch walkingPlace the crutches forward about 1 foot in front of you. The crutches should be a little farther apartthan your body. Lean your weight forward as you push down on the hand cinder pit crane operator. Make sure yourweight is on your hands and your strong leg, not your armpits. Let your body swing forward, landingon the strong leg. Move the crutches forward again. The crutch and your injured leg should movetogether.Going up steps with no handrails(Up with the good leg) With both crutches (under each armpit) on the same step as your feet, push down on the hand cinder pit crane operator. 5 General Instructions [facility] Emergency Department [address] [place] [address] Phone #: ext- [phone] 07/07/2021 13:20 Patient: [...] your feet, push down on the hand cinder pit crane operator. Keep your weight evenly balanced on the [...] opposite side. Push down on the hand cinder pit crane operator. Balancing with very light pressure on the [...] crutches under your armpit on 6 General [facility] Emergency Department [address] [place] [address] Phone #: ext- [phone] 07/07/2021 13:20 Patient: RADHA MONTALVO Sex: F : 1990 Age: 30y the opposite side. Push down on the hand cinder pit crane operator. Balance your weight evenly on the crutches, [...] try sitting when going up or [facility]. Sit on the bottom step and keep your injured leg out in front of you. Hold your crutches flatagainst the stairs. Then slide up to the next step on your bottom. Use your free hand and good leg forsupport. Face the same way when going down stairs. 8730-1916 [employer]. [address] [place] [address]. All rights reserved. This information is not intended as asubstitute for professional medical care. Always follow your healthcare professional's instructions.A[employer] Sp-Walker Boot 7 General Instructions [facility] Emergency Department [address] [place] [address] Phone #: ext- [phone] 07/07/2021 13:20 Patient: RADHA MONTALVO Sex: F : 1990 Age: 30yTraditional splints and casts for the foot and ankle protect the injury by preventing movement at thejoints. However, many injuries heal better and faster if the injured joint can be moved, but beprotected at the same time. This is the reason for using an Douguocast Walker boot.This is a short boot that [...] are still weak.When treating a sprain, the Keepio Walker boot should be worn whenever walking for at least 4weeks, or as long as you continue to have ankle pain.Talk to your healthcare provider for specific advice about the treatment of your condition.Air-Stirrup and SP-Walker are trademarks of [employer]. 8 General Instructions [facility] Emergency Department [address] [place] [address] Phone #: [phone] ebu- [phone] 07/07/2021 13:20 --- Patient: RADHA MONTALVO Sex: F : 1990 Age: 30yFor more information about their products, see www.[facility]. [employer]. [address] [place] [address], [place] [address]. All rights reserved. This information is not [...] rce(s) Supporting Document(s) ID Date Data Source [id number] 07/07/2021 01:22:00 PM EDT [facility] 1 Clinical Report - Nurses [facility] Emergency Department [address] [place] [address] Phone #: ext- [phone] 07/07/2021 13:20 Patient: RADHA MONTALVO Sex: F : 1990 Age: 30yTRIAGEArrived by private vehicle. Historian: patient. Accompanied by (Dropped off by friend).Triage time: late entry - 14:00 07/07/2021. Acuity: LEVEL 4.Chief Complaint: FALL.Alert.Location of injuries: right ankle. Occurred at home. Occurred late entry - 17:00 07/06/2021. ( Pt hasbeen seeing a neurologist in [place] for numbness to BLE; Pt is still going through testing but hasfrequent falls due to the numbness. Pt broke right ankle a few months ago and has had trouble eversince; Pt states yesterday she was putting laundry in the dryer and her leg gave out and twisted her rightankle.). 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 2 Clinical Report - Nurses [facility] Emergency Department [address] [place] [address] Phone #: ext- [phone] 07/07/2021 13:20 Patient: [...] R.N.PHYSICAL ASSESSMENT 3 Clinical Report - Nurses [facility] Emergency Department [address] [place] [address] Phone #: ext- [phone] 07/07/2021 13:20 Patient: [...] to radiology by wheelchair with mask and medical transcription radiology.--15:13 07/07/21 Lady Lynch R.N. Patient returned from radiology by wheelchair with mask and medical transcription radiology. --15:14 07/07/21 Lady Lynch R.N. Reassessment [...] RR: 18. O2 saturation: 100%. --16:31 07/07/21 [facility] [employer] Gayle Immobilizer applied by nurse; (ankle). Patient fit with new crutches. Crutch training performed. --17:12 07/07/21 Racheal Anguiano R.N.DISPOSITION / DISCHARGE 16:56 07/07/21. BP: 137/102. HR: 125. RR: 17. O2 saturation: 100%. Temp: 98.2 F. Pain level now 04/15. --16:57 07/07/21 [facility] [employer]le Condition at departure: improved. No learning barriers present. Discharge instructions provided and reviewed with the patient. Reviewed crutch walking, splint care and rest, ice, compression and elevation instructions. Reviewed referral to an orthopedic surgeon. Patient verbalized understanding. Written instructions provided in Guyanese. The patient was discharged home and accompanied by family. She left in a wheelchair on crutches and via private vehicle. Patient driving. --17:14 07/07/21 Racheal Anguiano R.N. Departure time: 17:14 07/07/2021. --17:14 07/07/21 Racheal Anguiano R.N. 4 Clinical Report - Nurses [facility] Emergency Department [address] [place] [address] Phone #: ext- [phone] 07/07/2021 13:20 Patient: RADHA MONTALVO Sex: F : 1990 Age: 30yLocked/Released at 07/07/2021 17:15 by Racheal Anguiano R.N. Name Value Range Interpretation Code Description Data Juju rce(s) Supporting Document(s) ID Date Data Source [id number] 07/07/2021 01:22:00 PM EDT [facility] 1 Clinical Report - Physicians/Mid Levels [facility] Emergency Department [address] [place] [address] Phone #: ext- [phone] 07/07/2021 13:20 Patient: RADHA MONTALVO Sex: F : 1990 Age: 30y Time Seen: 15:51 07/07/2021. Arrived- By private vehicle. Historian- patient.HISTORY OF PRESENT ILLNESS Chief Complaint: Injury to the right foot and right ankle. The injury happened yesterday. Occurred at home. ( Pt has been seeing a neurologist in [place] for numbness to BLE; Pt is still going through testing but has frequent falls due to the numbness. Pt broke right ankle a few months ago and has had trouble ever since; Pt states yesterday she was putting laundry in the dryer and her leg gave out and twisted her right ankle.). ( Pt was recently admitted to [facility] for UTI with dehydration).). The patient [...] gait. 2 Clinical Report - Physicians/Mid Levels [facility] Emergency Department [address] [place] [address] Phone #: ext- [phone] 07/07/2021 13:20 [id number] Sex: F : 1990 Age: 30y Neuro: [...] tablet. Refills: 0. Substitution permitted. Pharmacy - [facility] - [address] [place] [phone]. FaxNumber: [phone]. 3 Clinical Report - Physicians/Mid Levels [facility] Emergency Department [address] [place] [address] Phone #: ext- [phone] 07/07/2021 13:20 Patient: RADHA MONTALVO Sex: F : 1990 Age: 30y Understanding of the discharge instructions verbalized by patient. Follow-up with: [facility], , , [address] [place] [address], [place], [address] Follow up tomorrow. Call for an appointment. Reason for referral: evaluation and treatment. Summary of care provided to patient.(Electronically signed by JASMIN Ventura 07/08/2021 20:31) Name Value Range Interpretation Code Description Data Juju rce(s) Supporting Document(s) ID Date Data Source [id number] 07/08/2021 12:11:00 AM EDT [facility] [facility] [address] [place] [address] PHONE: [phone] FAX: [phone] Name .................. : KATIA MALLORY Acct Number.................. : [id number] ROOM. ................. : VT-26 Number ................... : [id number] Stay type ............. : E/R Discharge Date......... ... : 07/07/21 Admit Date ....... .. : 07/07/21 Admit Phys .................... : ROSALBA ANDERSON Date of ....... : 1990 Family Phys ................... : NO PCP Phone .................. : [phone] Age ................................ : 30 Film# .................. .:[id number] Sex ................................. : F Unsigned transcriptions are preliminary reports and do not represent a medical or legal document FOOT COMPLETE-[address] [place] [id number] COMPLETE:07/07/21 14:21 33637 Reason(s): Foot/Heel Injury RADIOGRAPHS OF THE RIGHT [...] rce(s) Supporting Document(s) ID Date Data Source [id number] 07/08/2021 12:11:00 [place] [address] PHONE: [phone] FAX: [phone] Name .................. : KATIA MALLORY Acct Number.................. : [id number] ROOM. ................. : VT-26 Number ................... : [id number] Stay type ............. : E/R Discharge Date......... ... : 07/07/21 Admit Date ... ...... : 07/07/21 Admit Phys .................... : ROSALBA ANDERSON Date of ....... : 1990 Family Phys ................... : NO PCP Phone .................. : [phone] Age ................................ : 30 Film# .................. .:[id number] Sex ................................. : F Unsigned transcriptions are preliminary reports and do not represent a medical or legal document ANKLE COMPLETE RT [id number] COMPLETE:07/07/21 14:21 44042 Reason(s): Trauma/Injury RADIOGRAPHS OF THE RIGHT ANKLE [...] via fax Copy for: EMERGENC[place] DEPT [place] [facility] Copy for: 710 MED REC DISCHARGED Page 1 of 1 Name Value Range Interpretation Code Description Data Juju rce(s) Supporting Document(s) ID Date Data Source [id number] 06/18/2021 05:23:00 AM EDT [facility] Name Value Range Interpretation Code Description Data Juju rce(s) Supporting Document(s) SARS coronavirus 2 RNA [Presence] in Res piratory specimen by NORA with probe detection NEGATIVE [facility] This lab was ordered by [facility] a nd reported by [facility]. ID Date Data Source [id number] 06/12/2021 11:06:00 AM EDT [facility] [address] [address] PHONE: [phone] FAX: [phone] Name .................. : KATIA MALLORY Acct Number.................. : [id number] [facility] ................... : [id number] Stay type ............. : E/R Discharge Date......... ... : 06/10/21 Admit Date ......... : 06/10/21 Admit Phys .................... : ROSALBA ANDERSON Date of ....... : 1990 Family Phys ................... : NO PCP Phone .................. : [phone] Age ................................ : 30 Film# .................. .:[id number] Sex ................................. : F Unsigned transcriptions are preliminary reports and do not represent a medical or legal document CT ABD & PELV W/O ORAL W/O IV [id number] COMPLETE:06/10/21 04:19 55537 Reason(s): left flank pain, UA abnormal c/w [...] No free air. Page [address] [facility] [address] [place] [address] PHONE: [phone] FAX: [phone] Name .................. : KATIA MALLORY Acct Number.................. : [id number] ROOM. ................. : TR-06 MR Number ................... : [id number] Stay type ............. : E/R Discharge Date......... ... : 06/10/21 Admit Date ......... : 06/10/21 Admit Phys .................... : ROSALBA ANDERSON Date of ....... : 1990 Family Phys ................... : NO PCP Phone .................. : [phone] Age ................................ : 30 Film# .................. .:[id number] Sex ................................. : F Unsigned transcriptions are preliminary reports and do not represent a medical or legal document CT ABD & PELV W/O ORAL W/O IV [id number] COMPLETE:06/10/21 04:19 21952 Reason(s): left flank pain, UA abnormal c/w [...] Dictation Date: Copy for: EMERGENCY DEPT [place] [facility] Copy for: 710 MED REC DISCHARGED Page 2 of 2 Name Value Range Interpretation Code Description Data Juju rce(s) Supporting Document(s) ID Date Data Source [id number] 06/10/2021 02:25:00 AM EDT [facility] 1 OrderSheet [facility] Emergency Department [address] [place] [address] Phone #: ext- [phone] 06/10/2021 02:22 Patient: [...] pain, UA abnormal c/w UTI 2 OrderSheet [facility] Emergency Department [address] [place] [address] Phone #: ext- [phone] 06/10/2021 02:22 Patient: [...] Rosalba Shay Riccardo Laura R.N. 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 (07:11 06/10/2021)][Electronically signed by Edgardo Flores M.D. (09:12 06/11/2021)][Electronically locked by Juhi Shay R.N. (07:11 06/10/2021)] Name Value Range Interpretation Code Description Data Juju rce(s) Supporting Document(s) ID Date Data Source [id number] 06/10/2021 02:25:00 AM EDT [facility] 1 Medication Reconciliation Report [facility] Emergency Department [address] [place] [address] Phone #: ext- [phone] 06/10/2021 02:22 Patient: [...] Dispense 28tablet. Refills: 0. Substitution permitted.Pharmacy - [facility] - [address] [facility] ; [place] [address]. . 2 Medication Reconciliation Report [facility] Emergency Department [address] [place] [address] Phone #: ext- [phone] 06/10/2021 02:22 Patient: RADHA MONTALVO Sex: Jeaneth : 1990 Age: 30yCipro 500 mg tablet Take 1 tablet twice a day for 10 days -- Dispense 20 tablet. Refills: 0. Substitutionpermitted.[facility] #[facility] - [address] [facility] ; [place] [address]. .Pyridium 100 mg tablet Take 1 tablet three times a day for 5 days -- Dispense 15 tablet. Refills: 0.Substitution permitted.[facility] #92 - [address] [facility] ; [place] [address]. FaxNumber: [phone].Zofran 4 mg tablet Take 1 tablet four times a day as needed for 4 days -- Dispense 16 tablet. Refills: 0.Substitution permitted.[facility] #34 - [address] [place] [address]. . -- Edgardo Flores M.D. Name Value Range Interpretation Code Description Data Juju rce(s) Supporting Document(s) ID Date Data Source [id number] 06/10/2021 02:25:00 AM EDT [facility] 1 Medication Administration Record [facility] Emergency Department [address] [place] [address] Phone #: ext- [phone] 06/10/2021 02:22 Patient: RADHA MONTALVO Sex: F : 1990 Age: 30yWeight: 97.0 kgHeight/Length: 73 inBMI: 28.2ALLERGIES: No Known Drug Allergy Date/Time Medication Administered Medication OrderedStart SODIUM CHLORIDE [IV] NS IV 1000 mL Bolus: : Bolus 600825:09 06/10/2021 Dose: IV Fluids mL, then 150 [...] rce(s) Supporting Document(s) ID Date Data Source [id number] 06/10/2021 02:25:00 AM EDT [facility] 1 General Instructions [facility] Emergency Department [address] [place] [address] Phone #: ext- [phone] 06/10/2021 02:22 Patient: [...] Dispense 28 tablet. Refills: 0. Substitution permitted. [facility] - [address] [facility] ; [place] [address]. . Cipro 500 mg tablet Take 1 tablet twice a day for 10 days -- Dispense 20 tablet. Refills: 0. Substitution permitted. [facility]80 - [address] [facility] ; [place] [address]. . Pyridium 100 mg tablet Take 1 tablet three times a day for 5 days -- Dispense 15 tablet. Refills: 0. Substitution permitted. [facility]08 - [address] [place] [address]. Phone: [phone] General Instructions [facility] Emergency Department [address] [place] [address] Phone #: ext- [phone] 06/10/2021 02:22 ------ Patient: ARDHA MONTALVO Sex: F : 1990 Age: [id number] .Zofran 4 mg tablet Take 1 tablet four times a day as needed for 4 days -- Dispense 16 tablet. Refills: 0.Substitution permitted.[facility] #55 - [address] [facility] ; [place] [address]. .Follow-up:Return to the emergency department as needed. [...] verbalized. Agrees to plan of care.Follow-up with: [facility], , , [address], [place], [address] Follow up in three days even if well. Call for an appointment. Reason for referral: evaluation andtreatment. Summary of care provided to patient via paper. ADDITIONAL INFORMATIONViral Gastroenteritis (Adult) 3 General Instructions [facility] Emergency Department [address] [place] [address] Phone #: ext- [phone] 06/10/2021 02:22 Patient: [...] bowel control HeadacheHome care 4 General Instructions [facility] Emergency Department [address] [place] [address] Phone #: [phone] ycm- [phone] 06/10/2021 02:22 Patient: RADHA MONTALVO Sex: F [...] soap and water or use alcohol- based mobile application developer to prevent the spread of infection. Wash your hands after touching anyone who is sick. Wash your hands or use alcohol-based mobile application developer after using the toilet and before meals. [...] Keep uncooked meats away from cooked and epqma-fj-lja foods.MedicineYou may use acetaminophen or NSAID medicines [...] can make diarrhea worse. 5 General Instructions [facility] Emergency Department [address] [place] [address] Phone #: ext- [phone] 06/10/2021 02:22 Patient: [...] your provider if you don't get better tfwafh06 hours or if diarrhea lasts more than a week. Also follow up if you are unable to keep down liquidsand get dehydrated. If a stool (diarrhea) sample was taken, call as directed for the results.Call [phone] [phone] if any of these occur: 6 General Instructions [facility] Emergency Department [address] [place] [address] Phone #: rps- [phone] 06/10/2021 02:22 Patient: RADHA MONTALVO Sex: F [...] directed by your healthcare provider Raza renae [phone] [employer]. [address] [place] [address]. All rights reserved. This information is not intended as asubstitute for professional medical care. Always follow your healthcare professional's instructions.Kidney Infection (Adult Female) 7 General Instructions [facility] Emergency Department [address] [place], [place] [address] Phone #: ext- [phone] 06/10/2021 02:22 Patient: [...] bladder infection. Symptoms include: 8 General Instructions [facility] Emergency Department [address] [place] [address] Phone #: ext- [phone] 06/10/2021 02:22 Patient: [...] another medicine was prescribed, you can use cujv-tup-igtlwar medicines for pain, fever, or discomfort. If [...] your symptoms are gone. 9 General Instructions [facility] Emergency Department [address] [place] [address] Phone #: ext- [phone] 06/10/2021 02:22 Patient: [...] any new findings thatmay affect your care.Call [phone] [phone] if any of the following occur: Trouble breathing Fainting or loss of consciousness 10 General Instructions [facility] Emergency Department [address] [place] [address] Phone #: ext- [phone] 06/10/2021 02:22 Patient: [...] crying, confusion, sunken eyes, or dry mouth [employer]. [address] [place] [address]. All rights reserved. This information is not [...] estrada maxwell, or lemonade. 11 General Instructions [facility] Emergency Department [address] [place] [address] Phone #: ext- [phone] 06/10/2021 02:22 Patient: [...] work in all cases 12 General Instructions [facility] Emergency Department [address] [place] [address] Phone #: ext- [phone] 06/10/2021 02:22 Patient: [...] place where infectious diseases arecommon. Many people pick up and delivery driver a cold or other virus while traveling. [...] you travelled and where you stayed (hotel, lone pine house, tent) What you ate and drank If you were bitten by insects or other bugs 13 General Instructions [facility] Emergency Department [address] [place] [address] Phone #: ext- [phone] 06/10/2021 02:22 Patient: RADHA MONTALVO Sex: F : 1990 Age: 30y If you swam in freshwater If you had sex or got a tattoo or piercing while you were thereCheck the [facility] to get more information about specific infectious diseases in the areas you havetraveled. [phone] [employer]. [address] [place] [address]. All rights reserved. This information is not intended as asubstitute for professional medical care. Always follow your healthcare professional's instructions. You have been given the following additional information: Gastroenteritis, Viral (Adult) Pyelonephritis, Female (Adult) Fever Control (Adult)(Electronically signed by Edgardo Flores M.D. 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 --02:06/10/21 Juhi Shay R.N.02:06/10/21. BP: 137/109. MAP: [...] the [place] 2 Clinical Report - Nurses [facility] Emergency Department [address] [place] [address] Phone #: ext- [phone] 06/10/2021 02:22 Patient: [...] PROGRESS NOTES 3 Clinical Report - Nurses [facility] Emergency Department [address] [place] [address] Phone #: ext- [phone] 06/10/2021 02:22 Patient: RADHA MONTALVO Sex: F [...] IV flushed 4 Clinical Report - Nurses [facility] Emergency Department [address] [place] [address] Phone #: ext- [phone] 06/10/2021 02:22 Patient: RADHA MONTALVO Sex: F [...] referral to 5 Clinical Report - Nurses [facility] Emergency Department [address] [place] [address] Phone #: ext- [phone] 06/10/2021 02:22 Patient: RADHA MONTALVO Sex: F : 1990 Age: 30y a primary care physician for followup. Patient verbalized understanding. Written instructions provided in Guyanese. The patient was discharged by the physician. She was discharged home and accompanied by plastic production machine setter. She left ambulatory and via private vehicle. Planogrammer driving. --07:10 06/10/21 Juhi Shay R.N.Locked/Released at 06/10/2021 07:11 by Juhi Shay R.N. Name Value Range Interpretation Code Description Data [facility] Supporting Document(s) ID Date Data Source [id number] 06/10/2021 02:25:00 AM EDT [facility] 1 Clinical Report - Physicians/Mid Levels [facility] Emergency Department [address] [place] [address] Phone #: ext- [phone] 06/10/2021 02:22 Patient: [...] 3 weeks ago and was admitted at [facility], then took AB's; pt reports subjective fever once during the day; pt waited 5 hrs at [facility] WR then went home then came [...] Surgeries: 2 Clinical Report - Physicians/Mid Levels [facility] Emergency Department [address] [place] [address] Phone #: ext- [phone] 06/10/2021 02:22 Patient: [...] COUNT 3 Clinical Report - Physicians/Mid Levels [facility] Emergency Department [address] [place] [address] Phone #: ext- [phone] 06/10/2021 02:22 Patient: [...] Male GFR Interprentation 20-49 yrs >60 mL/min Aixqeb93-53 yrs >56 mL/min Normal 60-69 yrs >49 mL/min Normal 70-79yrs>42 mL/min Normal 80 and above >35 mL/min Normal Female GFRInterpretation 20-39 yrs >60 mL/min Normal 40-49 yrs >58 mL/minNormal 50-59 yrs >51 mL/min Normal 60-69 yrs >45 mL/min Zobcsq77-44 yrs >39 mL/min Normal 80 and above >32 mL/min Normal 4 Clinical Report - Physicians/Mid Levels [facility] Emergency Department [address] [place] [address] Phone #: ext- [phone] 06/10/2021 02:22 Patient: [...] NONE Lactic Acid: (LILO: 06/10/2021 03:04) ( [facility] 06/10/2021 03:15) Final results Test Result Flag Units (Reference) LACTIC ACID 1.6 MMOL/L (0.2 - 2.2) Beta-HCG, Qual Serum: (LILO: 06/10/2021 03:04) ( [facility] 06/10/2021 03:24) Final results Test Result Flag Units (Reference) HCG SERUM QUAL NEGATIVE (NORMAL: NEGAT HCG SERUM QL REENTER NEGATIVE (NORMAL: NEGAT { KIT LOT # [id number] ){ KIT EXP DATE 09.05.22 ){ PROCEDURAL [...] agrees. 5 Clinical Report - Physicians/Mid Levels [facility] Emergency Department [address] [place] [address] Phone #: ext- [phone] 06/10/2021 02:22 Patient: [...] Dispense 28 tablet. Refills: 0. Substitution permitted. [facility] [address] - [address] [facility] ; [place] [address]. . 6 Clinical Report - Physicians/Mid Levels [facility] Emergency Department [address] [place] [address] Phone #: ext- [phone] 06/10/2021 02:22 Patient: RADHA MONTALVO Sex: F : 1990 Age: 30y Cipro 500 mg tablet Take 1 tablet twice a day for 10 days -- Dispense 20 tablet. Refills: 0. Substitution permitted. [facility] #83 - [address] ; [place] [address]. . Pyridium 100 mg tablet Take 1 tablet three times a day for 5 days -- Dispense 15 tablet. Refills: 0. Substitution permitted. [facility] [facility] #79 - [address] [facility] ; [place] [address]. . Zofran 4 mg tablet Take 1 tablet four times a day as needed for 4 days -- Dispense 16 tablet. Refills: 0. Substitution permitted. [facility] #15 - [address] [facility] ; [place] [address]. . Follow-up: Return to the emergency department [...] Agrees to plan of care. Follow-up with: [facility], , , [address] [place] [address], [address] Follow up in three days even if well. Call for an appointment. Reason for referral: evaluation and treatment. Summary of care provided to patient via paper.(Electronically signed by Edgardo Flores M.D. 06/11/2021 09:12) Name Value Range Interpretation Code Description Data Juju rce(s) Supporting Document(s) ID Date Data Source [id number] 06/14/2021 07:15:00 PM EDT [facility] Name Value Range Interpretation Code Description Data Juju rce(s) Supporting Document(s) CULTURE URINE [facility] _CULTURE URINE_$$[id number]$$[id number]$$075855$$[id number]$$760795$$689292$$639828$$468292$$501876$$ 290765$$652194$$279515$$792167$$992576$$456633$$982154$$616308$$086082$$978704$$ 764127$$414375$$118980$$813767$$335803$$410696$$469214$$510258 -- Continued on next page --Patient: KATIA MALLORY Order: [id number] Page 2Culture: CULTURE URINE Status: Final ==== -- Continued on next page --Patient: KATIA MALLORY Order: [id number] Page 2Culture: CULTURE URINE Status: Prelim =====$$[id number]$$[id number] DATE/TIME: 06/14/2021 11:06Culture: CULTURE URINE Status: FinalUrine Culture,Comprehensive: P1No growth in 36 - 48 hours. Previous result entered on 06/12/2021 12:41 ET No growth after 18-24 hours.P1 Test performed by: [facility] #: [id number] [address] [place] [address] [id number] [facility] [address]Medical Director : Rene Choi MD NPI #:Lab Di maria luz : 06/12/21.1321.XMT.SENT REF 06/14/21.1915.XMT.SENT REF ID Date Data Source [id number] 06/10/2021 04:13:00 AM EDT [facility] Name Value Range Interpretation Code Description Data Juju rce(s) Supporting Document(s) UA REFLEX TO UA CULTURE [facility] URINALYSIS SOURCE R [facility] COLOR Dk Yellow NORMAL: Yellow [facility] CLARITY hazy NORMAL: Clear [facility] Specific gravity of Urine by Test strip 1.015 1.001 - 1.030 [facility] pH 6.5 5 [facility] Glucose [Mass/volume] in Urine by Test strip NORM NORMAL: Negat [facility] Bilirubin.total [Presence] in Urine by Test strip 3 NORMAL: Negative [facility] Ketones [Presence] in Urine by Test strip 150 NORMAL: Negative A [facility] Protein [Mass/volume] in Urine by Test strip 30 NORMAL: Negat [facility] Nitrite [Presence] in Urine by Test strip NEG NORMAL: Negative [facility] BLOOD 25 NORMAL: Negative A [facility] Leukocyte esterase [Presence] in Urine by Test strip 25 KERRI L: Negative [facility] Urobilinogen [Mass/volume] in Urine by Test strip 8 less nnamdi n 1.0 mg/dL [facility] MICROSCOPIC See Below [facility] ital WBC 3 - 5 NORMAL: NONE SEEN [facility] Erythrocytes [#/volume] in Urine by Test strip 3 - 5 NORMAL: NON E SEEN [facility] EPITHELIAL MODERATE NORMAL: NONE SEEN A [facility] Bacteria [Presence] in Urine sediment by Light microscopy 1+ SMALL NORMAL: NONE SEEN [facility] Mucus [Presence] in Urine sediment by Light microscopy 2+ NOR MAL: NONE SEEN A [facility] ID Date Data Source [id number] 06/10/2021 03:35:00 AM EDT [facility] Name Value Range Interpretation Code Description Data Juju rce(s) Supporting Document(s) Lipase [Enzymatic activity/volume] in Serum or Plasma 22 U/L 13 - 60 [facility] ID Date Data Source [id number] 06/10/2021 03:35:00 AM EDT [facility] Name Value Range Interpretation Code Description Data Juju rce(s) Supporting Document(s) COMPREHENSIVE METABOLIC PANEL [facility] COMPREHENSIVE METABOLIC PANEL Sodium [Moles/volume] in Serum or Plasma 138 mEq/L 134 - 153 [facility] Potassium [Moles/volume] in Serum or Plasma 4.6 mEq/L 3.6 - 5.0 [facility] Chloride [Moles/volume] in Serum or Plasma 97 mEq/L 98 - 107 L [facility] Carbon dioxide, total [Moles/volume] in Serum or Plasma 21 MEQ/L 22 - 30 L [facility] Glucose [Mass/volume] in Serum or Plasma 87 MG/DL 70 - 99 [facility] BUN 7 MG/DL 7 [facility] Creatinine [Mass/volume] in Serum or Plasma 0.6 MG/DL 0.7 - 1.5 L [facility] BUN/CREAT 12 8 - [facility] Protein [Mass/volume] in Serum or Plasma 8.0 G/DL 6.3 - 8.2 [facility] Albumin [Mass/volume] in Serum or Plasma 4.7 G/DL 3.9 - 5.0 [facility] Globulin [Mass/volume] in Serum by calculation 3.3 GM/DL 2.4 - 3.2 H [facility] A/G RATIO 1.4 0.8 - 2.0 [facility] Calcium [Mass/volume] in Serum or Plasma 9.4 MG/DL 8.4 - 10.2 [facility] Bilirubin.total [Mass/volume] in Serum or Plasma 1.0 MG/DL 0.2 - 1.3 [facility] Alkaline phosphatase [Enzymatic activity/volume] in Serum or Plasma 66 U/L 38 - 126 [facility] Aspartate aminotransferase [Enzymatic activity/volume] in Serum or Plasma 107 U/L 5 - 40 H [facility] Alanine aminotransferase [Enzymatic activity/volume] in Seru m or Plasma 67 U/L 7 - 56 [facility] [facility] Anion gap 3 in Serum or Plasma 20.0 mmol/L 8.0 - 16.0 H [facility] AGE 30 yrs [facility] al NON-AA GFR >60 mL/min [facility] ital AFR AMER GFR >60 mL/min [facility] Ho spital Male GFR In terprentation [...] >32 mL/min Normal ID Date Data Source [id number] 06/10/2021 03:23:00 AM EDT [facility] Name Value Range Interpretation Code Description Data Juju rce(s) Supporting Document(s) HCG SERUM QUAL NEGATIVE NORMAL: NEGATIVE [facility] HCG SERUM QL REENTER NEGATIVE NORMAL: NEGATIVE [facility] { KIT LOT # [id number] ){ KIT EXP DATE 09.05.22 ){ PROCEDURAL CONTROL VALID ) ID Date Data Source [id number] 06/10/2021 03:15:00 AM EDT [facility] Name Value Range Interpretation Code Description Data Juju rce(s) Supporting Document(s) CBC W/AUTOMATED DIFF [facility] COMPLETE BLOOD COUNT Leukocytes [#/volume] in Blood by Automated count 3.7 10^3/uL 4.2 - 1 1.0 L [facility] Erythrocytes [#/volume] in Blood by Automated count 3.66 10^6/uL 4. 20 - 5.40 L [facility] Hemoglobin [Mass/volume] in Blood 13.0 g/dL 12.0 - 16.0 [facility] Hematocrit [Volume Fraction] of Blood by Automated count 37.9 % 3 7.0 - 47.0 [facility] Erythrocyte mean corpuscular volume [Entitic volume] b y Automated count 103.6 fL 81.0 - 101 H [facility] Erythrocyte mean corpuscular hemoglobin [Entitic mass] by Automated count 35.5 pg 27.0 - 34.0 H [facility] Erythrocyte mean corpuscular hemoglobin concentration [Mass/volume] by Automated count 34.3 g/dL 31.0 - 36.0 [facility] Erythrocyte distribution width [Ratio] by Automated count 15.7 % 11.5 - 14.5 H [facility] Platelets [#/volume] in Blood by Automated count 258 10^3/uL 150 - 45 0 [facility] Platelet mean volume [Entitic volume] in Blood by Automated count 10.2 fL 7.4 - 10.4 [facility] Neutrophils/100 leukocytes in Blood by Automated count 52.5 % 37. 0 - 80.0 [facility] Lymphocytes/100 leukocytes in Blood by Manual count 32.8 % 25.0 - 40.0 [facility] Monocytes/100 leukocytes in Blood by Automated count 9.1 % 3.0 - 8.0 H [facility] Eosinophils/100 leukocytes in Blood by Automated count 4.0 % 0.0 - 7.0 [facility] Basophils/100 leukocytes in Blood by Automated count 1.3 % 0.0 - 2.5 [facility] %IG 0.3 % 0.0 - 0.[address] [facility] %NRBC 0.0 % 0.0 - 0.0 [facility] al Neutrophils [#/volume] in Blood by Automated count 1.95 10^3/uL 2.00 - 6.90 L [facility] Lymphocytes [#/volume] in Blood by Automated count 1.22 10^3/uL 0.60 - 3.40 [facility] Monocytes [#/volume] in Blood by Automated count 0.34 10^3/uL 0.00 - 0.90 [facility] Eosinophils [#/volume] in Blood by Automated count 0.15 10^3/uL 0.00 - 0.70 [facility] Basophils [#/volume] in Blood by Automated count 0.05 10^3/uL 0.00 - 0.20 [facility] #IG 0.01 10^3/uL 0.00 - 0.10 [facility] H ospital #NRBC 0.00 10^3/uL 0.00 - 0.00 [facility] ospital MANUAL DIFF NOT INDICATED [facility] RBC MORPH NOT INDICATED [facility] spital ID Date Data Source [id number] 06/10/2021 03:15:00 AM EDT [facility] Name Value Range Interpretation Code Description Data Juju rce(s) Supporting Document(s) Lactate [Moles/volume] in Serum or Plasma 1.6 MMOL/L 0.2 - 2.2 [facility] ID Date Data Source [id number] 02/22/2021 05:22:00 AM EDT [facility] Name Value Range Interpretation Code Description Data Juju rce(s) Supporting Document(s) SARS coronavirus 2 RNA [Presence] in Res piratory specimen by NORA with probe detection NEGATIVE [facility] This lab was ordered by [facility] a nd reported by [facility]. ID Date Data Source [id number] 01/25/2021 08:46:00 PM EDT [facility] Name Value Range Interpretation Code Description Data Juju rce(s) Supporting Document(s) SARS-CoV-2 (COVID 19) NEGATIVE - SARS-CoV-2 (COVID19) [facility] This lab was ordered by [facility] a nd reported by [facility]. Procedure Social History No Information Vital Signs ID Date Data Source UNK Name Value Range Interpretation Code Description Data Source(s) Systolic blood pressure 140 mm[Hg] 140 mm[Hg] M EDENT ([facility], ) Respiratory rate 14 /min 14 /min MEDENT ( [facility], ) Diastolic blood pressure 100 mm[Hg] 100 mm[Hg] [facility] ([facility], ) Body height 73 [in_i] 73 [in_i] MEDENT ([facility], ) 6'1" Body weight 220.00 [lb_av] 220.00 [lb_av] MEDEN T ([facility], ) Body mass index (BMI) [Ratio] 29.0 kg/m2 29.0 k g/m2 MEDENT ([facility]) [place] body weight 184 [lb_av] 184 [lb_av] MEDEN T ([facility]) Heart rate 110 /min 110 /min MEDENT ([facility], ) Body temperature 96.8 [degF] 96.8 [degF] MEDENT ([facility] ) Body height 73 [in_i] 73 [in_i] MEDENT ([facility] ) 6'1" Body weight 190.00 [lb_av] 190.00 [lb_av] MEDEN T ([facility] ) Body mass index (BMI) [Ratio] 25.1 kg/m2 25.1 k g/m2 MEDENT ([facility] ) Body height 73 [in_i] 73 [in_i] MEDENT (Jim Hartman MD) 6'1" Body weight 207.00 [lb_av] 207.00 [lb_av] MEDEN [...] rate 20 /min 20 /min MEDENT ( iJm Hartman MD) Heart rate 90 /min 90 /min MEDENT (Jim Hartman MD) Oxygen saturation in Arterial blood by Pulse oximetry 139 % 139 % MEDENT (Jim Hartman MD) Body height 73 [in_i] 73 [in_i] MEDENT (Jim Hartman MD) 6'1" Body weight 200.00 [lb_av] 200.00 [lb_av] MEDEN T (Jim Hartman MD) Body mass index (BMI) [Ratio] 26.4 kg/m2 26.4 k g/m2 MEDENT (Jim Hartman MD) Body temperature 98.3 [degF] 98.3 [degF] MEDENT (Jim Hartman MD) Systolic blood pressure 144 mm[Hg] 144 mm[Hg] M EDENT (Jim Hartman MD) Oxygen saturation in Arterial blood by Pulse oximetry 92 % 92 % MEDENT (Jim Hartman MD) Respiratory rate 18 /min 18 /min MEDENT ( Jim Hartman MD) Diastolic blood pressure 122 mm[Hg] 122 mm[Hg] MEDENT (Jim Hartman MD) Heart rate 110 /min 110 /min MEDENT (Jim Hartman MD) Body weight 230.00 [lb_av] 230.00 [lb_av] MEDEN T ([facility]) Body height 73 [in_i] 73 [in_i] MEDENT ([facility]) 6'1" Body mass index (BMI) [Ratio] 30.3 kg/m2 30.3 k g/m2 MEDENT ([facility] ) Systolic blood pressure 150 mm[Hg] 150 mm[Hg] M EDENT ([facility] [place], [facility]) Diastolic blood pressure 109 mm[Hg] 109 mm[Hg] MEDENT ([facility], [facility]) Heart rate 110 /min 110 /min MEDENT ([facility], [facility]) Respiratory rate 16 /min 16 /min MEDENT ( [facility] [place], [facility]) Oxygen saturation in Arterial blood by Pulse oximetry 98 % 98 % MEDENT ([facility], [facility]) Body temperature 97.8 [degF] 97.8 [degF] [facility] ([facility], [facility]) Body weight 215.00 [lb_av] 215.00 [lb_av] [facility] ([facility], [facility]) Body height 73 [in_i] 73 [in_i] [facility] ([facility], [facility]) 6'1" Body mass index (BMI) [Ratio] 28.4 kg/m2 28.4 k g/m2 [facility] ([facility])
[2021-07-18] MEDS ORDERED: LORazepam 2 MG/ML VIAL IV ONE (22:15)
[2021-07-18 22:28] LABS: MAGNESIUM LEVEL 2.2 MG/DL (1.8-2.4); TROPONIN I < 0.02 NG/ML (< 0.10)
[2021-07-18] MEDS ORDERED: LORazepam 2 MG/ML VIAL As Ordered ONE (22:30)
[2021-07-18] MEDS ORDERED: PROHANCE 279.3MG/ML 5ML VIAL As Ordered ONE (23:09)
[2021-07-18] MEDS ORDERED: PROHANCE 279.3MG/ML 15ML VIAL As Ordered ONE (23:09)
[2021-07-18 23:34] VITALS: BP 158/108
--- NOTE | 2021-07-18 23:53 | REPVR ---
PROCEDURE INFORMATION: Exam: MR Head Without and With Contrast Exam date and time: 07/18/2021 11:04 PM Age: 30 years old Clinical indication: Weakness, extremity; Bilateral; Additional info: B/l weakness 2/2 gbs TECHNIQUE: Imaging protocol: MR of the head without and with intravenous contrast. Contrast material: PROHANCE; Contrast volume: 18 ml; Contrast route: INTRAVENOUS (IV); COMPARISON: CT Head without contrast 07/18/2021 6:40 PM FINDINGS: Examination is motion limited. Major vascular flow voids at the skull base are preserved. No extra-axial fluid collection. No hydrocephalus. No midline shift or intracranial mass effect. No cerebral edema pathologic white-matter signal. No diffusion restriction. No pathologic intracranial enhancement. Visualized paranasal sinuses and mastoid air cells are clear. IMPRESSION: No acute intracranial abnormality. Electronically signed by: Seymour Holly On 07/18/2021 23:53:26 PM
[2021-07-19] VITALS (13 sets, daily range): BP systolic 135–166; BP diastolic 90–104; PULSE 118
[2021-07-19] MEDS ORDERED: MORPHINE 4 MG/ML 1ML VIAL/SYRINGE (J2270) IV PRN (00:15)
[2021-07-19] MEDS ORDERED: GABAPENTIN 300 MG CAP PO ONE (03:10)
[2021-07-19] MEDS: RAMELTEON 8 MG TAB (ROZEREM) PO PRN ×2 (03:38→20:12)
[2021-07-19 05:58] LABS: BASO % 0.6 % (0.0-1.0); EOS # 0.1 10^3/uL (0.0-0.5); EOS % 2.1 % (0.0-3.0); HEMATOCRIT 33.9 % (36.0-47.0); LYMPH # 2.8 10^3/uL (1.5-5.0); LYMPH % 43.3 % (24.0-44.0); MEAN CORPUSCULAR HEMOGLOBIN 32.8 pg (27.0-33.0); MEAN CORPUSCULAR VOLUME 99.4 fl (80.0-96.0); MONO # 0.6 10^3/uL (0.0-0.8); MONO % 9.5 % (2.0-8.0); NEUTROPHILS # 2.9 10^3/uL (1.5-8.5); NEUTROPHILS % 44.3 % (36.0-66.0); PLATELET COUNT, AUTOMATED 436 10^3/uL (150-450); RED BLOOD COUNT 3.41 10^6/uL (4.00-5.40); WHITE BLOOD COUNT 6.5 10^3/uL (4.0-10.0)
[2021-07-19 06:02] LABS: HEMOGLOBIN 11.2 g/dl (12.0-15.5)
[2021-07-19 06:12] LABS: BLOOD UREA NITROGEN 14 MG/DL (7-18); CALCIUM LEVEL 8.7 MG/DL (8.5-10.1); CARBON DIOXIDE LEVEL 26 MEQ/L (21-32); CHLORIDE LEVEL 109 MEQ/L (98-107); CREATININE FOR GFR 0.82 MG/DL (0.55-1.30); GLOMERULAR FILTRATION RATE > 60.0 (>60); GLUCOSE, FASTING 92 MG/DL (70-100); POTASSIUM SERUM 4.2 MEQ/L (3.5-5.1); SODIUM LEVEL 141 MEQ/L (136-145)
--- NOTE | 2021-07-19 07:11 | ECGEPIP ---
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
[2021-07-19 08:06] LABS: LDH LACTATE DEHYDROGENASE 166 U/L (84-246)
[2021-07-19] MEDS ORDERED: ENOXAPARIN 40MG/0.4ML SYRINGE (J1650 PER 10MG) SC SCH (09:00)
[2021-07-19] MEDS ORDERED: IMMUNE GLOBULIN 10% 0 GM in IV 1 EA IV SCH (09:00)
[2021-07-19] MEDS: ASPIRIN 81MG ENTERIC TABLET PO SCH (10:11)
[2021-07-19] MEDS: OMEPRAZOLE 20 MG CAP PO SCH ×2 (10:11→20:10)
[2021-07-19] MEDS: MORPHINE 2 MG/ML 1ML VIAL (J2270) IV PRN ×2 (10:17→15:37)
[2021-07-19] MEDS: IMMUNE GLOBULIN 10% 10 GM in IV 1 EA IV SCH (10:20)
[2021-07-19] MEDS: IMMUNE GLOBULIN 10% 20 GM in IV 1 EA IV SCH ×2 (10:27→12:10)
[2021-07-19] MEDS: GABAPENTIN 100 MG CAP PO SCH ×3 (11:27→20:10)
[2021-07-19] MEDS: traMADol 50 MG TAB PO PRN ×2 (11:28→18:00)
[2021-07-19] MEDS: IMMUNE GLOBULIN 10% 40 GM in IV 1 EA IV SCH (13:16)
[2021-07-19 14:05] LABS: APPEARANCE, URINE CLEAR (CLEAR); BACTERIA, URINE AUTO 1+ (NEGATIVE); BILIRUBIN, URINE AUTO NEGATIVE (NEGATIVE); BLOOD, URINE BLOOD NEGATIVE (NEGATIVE); COLOR, URINE AMBER (YELLOW); GLUCOSE, URINE (UA) AUTO NEGATIVE (NEGATIVE); KETONE, URINE AUTO NEGATIVE (NEGATIVE); LEUKOCYTE ESTERASE, URINE AUTO NEGATIVE (NEGATIVE); MUCUS, URINE SMALL (NEGATIVE); NITRITE, URINE AUTO POSITIVE (NEGATIVE); PROTEIN, URINE AUTO NEGATIVE (NEGATIVE); RBC, URINE AUTO 0 /HPF (0-3); SQUAMOUS EPITHELIAL CELL UR AU 1 /HPF (0-6); WBC, URINE AUTO 1 /HPF (0-3)
[2021-07-19] MEDS ORDERED: LORazepam 2 MG TAB PO PRN (14:50)
--- NOTE | 2021-07-19 14:54 | IPNPDOC ---
Text Note Date of Service The patient was seen on 07/19/21. NOTE Subjective: Patient continues to complain of tingling of both legs, she reported some chest heaviness. She told me that she has shortness of breath on exertion. I will transfer patient to PCU Objective: GENERAL APPEARANCE: NAD HEENT: no scleral icterus, no JVD, EOMI CARDIOVASCULAR: Tachycardic at rate 110 LUNGS: Diminished lung sounds bilaterally ABDOMEN: soft & not tender w palpation MUSCULOSKELETAL: no cyanosis, no swelling INTEGUMENT: no generalized pallor NEUROLOGICAL: cranial nerve function from 2-12 intact, follows commands, speech not dysarthric Assessment and plan Patient is a 30-year-old female PMH HTN, history of EtOH abuse, history of TIA, s/p gastric sleeve surgery who presents with worsening bilateral lower extremity weakness/numbness/tingling that has now spread to abdomen and left upper extremity, 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 Sosa) Bilateral lower extremity weakness Associated with tingling I talked to neurologist Dr. Sosa he recommended spinal tap on Wednesday Continue treatment with immunoglobulin IV Gabapentin 100 mg 3 times daily PT/OT Tachycardia There is concern for pulmonary emboli given previous history of provoked DVT CTA ordered I will start empiric anticoagulation Doppler ultrasound of lower extremities negative for PE Chest tightness I will repeat EKG and troponin Hypertension Blood pressure under control Continue home meds History of EtOH abuse Patient stated that now she drinks socially. She had in the past history of EtOH abuse CIWA Status post gastric sleeve surgery Follow-up with bariatric surgeon Continue taking multivitamins including iron Status post ankle fracture I will ask orthopedic team to give recommendation for physical therapy #History of TIA Continue home ASA 81 mg daily #GERD Continue home omeprazole 40 mg twice daily #Depression/anxiety, unmedicated #DVT prophylaxis On Lovenox VS,Fishbone, I+O VS, Fishbone, I+O Laboratory Tests 07/18/21 18:03 07/19/21 05:38 Vital Signs Date Time Temp Pulse Resp B/P (MAP) Pulse Ox O2 Delivery O2 Flow Rate FiO2 07/19/21 12:33 18 98 Room Air 07/19/21 10:27 97.1 120 158/90 (112) I&O- Last 24 Hours up to 6 AM 07/19/21 06:00 Intake Total 300 ml Output Total 0 ml Balance 300 ml GWENDOLYN SOFIA DO Jul 19, 2021 14:54
[2021-07-19] MEDS ORDERED: ISOVUE-370 76% 100ML VIAL As Ordered ONE (15:29)
[2021-07-19] MEDS: THIAMINE 100 MG TAB PO SCH ×2 (15:36→20:11)
[2021-07-19] MEDS: MULTIVITAMINS/MINERALS THERAP 1 TAB PO SCH (15:36)
[2021-07-19] MEDS: FOLIC ACID 1 MG TAB PO SCH (15:37)
--- NOTE | 2021-07-19 16:24 | REP ---
INDICATION: pe. COMPARISON: January 26, 2021. TECHNIQUE: Contrast dose: 75 ML of Isovue [address] technique: Helical scanning is acquired and overlapping 1.5 mm and contiguous 3 mm axial images are reformatted. In addition, maximum intensity projection and multiplanar re-formation images are generated in sagittal and coronal imaging projections. FINDINGS: There is good opacification in the pulmonary arterial tree. There is no evidence of vessel cut off or filling defect to suggest pulmonary embolus. Homogeneous opacity is seen in the thoracic aorta. There is no evidence of aneurysm or dissection. There is no evidence of pleural or pericardial effusion. No hilar or mediastinal mass or adenopathy is observed. Lung window settings demonstrate no evidence of infiltrate, atelectasis, or significant pulmonary nodule. Lung ortega are clear. In the upper abdomen, postoperative changes consistent with gastric sleeve the procedure. There is moderate generalized fatty infiltration of the liver. The previously noted low-density area in the left lobe of the liver is again seen unchanged and again felt to be consistent with fatty infiltration. No adrenal lesion is seen on either side. The visualized upper abdominal structures are otherwise unremarkable. On bone window settings, there is no significant bony abnormality. IMPRESSION: No CT evidence of pulmonary embolus. Moderate diffuse fatty infiltration of the liver again noted. Otherwise negative. <Electronically signed by Santiago Aceves > 07/19/21 [id number]
[2021-07-19] MEDS ORDERED: ENOXAPARIN 100MG/1ML SYRINGE (J1650 PER 10MG) SC SCH (18:00)
--- NOTE | 2021-07-19 20:10 | ECGEPIP ---
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
[2021-07-19] MEDS: METOPROLOL TART 25 MG TABLET PO SCH (20:11)
[2021-07-20] VITALS (26 sets, daily range): BP systolic 124–166; BP diastolic 72–100; PULSE 104–112
[2021-07-20] MEDS: traMADol 50 MG TAB PO PRN ×3 (01:03→21:16)
[2021-07-20] MEDS: METOPROLOL TART 25 MG TABLET PO SCH (05:44)
[2021-07-20 06:02] LABS: BASO % 0.5 % (0.0-1.0); EOS # 0.1 10^3/uL (0.0-0.5); EOS % 2.5 % (0.0-3.0); HEMOGLOBIN 11.4 g/dl (12.0-15.5); LYMPH # 1.1 10^3/uL (1.5-5.0); MEAN CORPUSCULAR HEMOGLOBIN 32.9 pg (27.0-33.0); MEAN CORPUSCULAR HGB CONC 32.6 g/dl (32.0-36.5); MEAN CORPUSCULAR VOLUME 100.9 fl (80.0-96.0); MONO # 0.2 10^3/uL (0.0-0.8); MONO % 6.3 % (2.0-8.0); NEUTROPHILS # 2.2 10^3/uL (1.5-8.5); NEUTROPHILS % 59.4 % (36.0-66.0); PLATELET COUNT, AUTOMATED 405 10^3/uL (150-450); RED BLOOD COUNT 3.47 10^6/uL (4.00-5.40); WHITE BLOOD COUNT 3.6 10^3/uL (4.0-10.0)
[2021-07-20 06:24] LABS: BLOOD UREA NITROGEN 11 MG/DL (7-18); CALCIUM LEVEL 8.8 MG/DL (8.5-10.1); CARBON DIOXIDE LEVEL 27 MEQ/L (21-32); CHLORIDE LEVEL 106 MEQ/L (98-107); CREATININE FOR GFR 0.61 MG/DL (0.55-1.30); GLOMERULAR FILTRATION RATE > 60.0 (>60); GLUCOSE, FASTING 88 MG/DL (70-100); POTASSIUM SERUM 4.2 MEQ/L (3.5-5.1); SODIUM LEVEL 138 MEQ/L (136-145)
[2021-07-20] MEDS: ASPIRIN 81MG ENTERIC TABLET PO SCH (09:44)
[2021-07-20] MEDS: OMEPRAZOLE 20 MG CAP PO SCH ×2 (09:44→20:23)
[2021-07-20] MEDS: THIAMINE 100 MG TAB PO SCH ×2 (09:45→20:23)
[2021-07-20] MEDS: MULTIVITAMINS/MINERALS THERAP 1 TAB PO SCH (09:46)
[2021-07-20] MEDS: GABAPENTIN 100 MG CAP PO SCH (09:46)
[2021-07-20] MEDS: FOLIC ACID 1 MG TAB PO SCH (09:46)
[2021-07-20] MEDS: ENOXAPARIN 40MG/0.4ML SYRINGE (J1650 PER 10MG) SC SCH (09:51)
[2021-07-20] MEDS: IMMUNE GLOBULIN 10% 10 GM in IV 1 EA IV SCH (10:05)
--- NOTE | 2021-07-20 10:43 | IPNPDOC ---
Text Note Date of Service The patient was seen on 07/20/21. NOTE Subjective: Patient continues to complain of tingling of both legs, she reported some chest heaviness. No chest pain Objective: GENERAL APPEARANCE: NAD HEENT: no scleral icterus, no JVD, EOMI CARDIOVASCULAR: Tachycardic at rate 110 LUNGS: Diminished lung sounds bilaterally ABDOMEN: soft & not tender w palpation MUSCULOSKELETAL: no cyanosis, no swelling INTEGUMENT: no generalized pallor NEUROLOGICAL: cranial nerve function from 2-12 intact, follows commands, speech not dysarthric Assessment and plan Patient is a 30-year-old female PMH HTN, history of EtOH abuse, history of TIA, s/p gastric sleeve surgery who presents with worsening bilateral lower extremity weakness/numbness/tingling that has now spread to abdomen and left upper extremity, 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 Sosa) Bilateral lower extremity weakness Associated with tingling I talked to neurologist Dr. Sosa he recommended spinal tap on Wednesday Continue treatment with immunoglobulin IV Gabapentin 100 mg 3 times daily PT/OT Tachycardia CTA negative for pulmonary emboli Doppler ultrasound of lower extremities negative for PE Metoprolol 50 mg every 8 hours Chest tightness EKG negative for acute ischemic changes, shows normal sinus rhythm Hypertension Blood pressure under control Continue home meds History of EtOH abuse Patient stated that now she drinks socially. She had in the past history of EtOH abuse CIWA Status post gastric sleeve surgery Follow-up with bariatric surgeon Continue taking multivitamins including iron Status post ankle fracture Patient told me that orthopedic team recommended nonweightbearing #History of TIA Continue home ASA 81 mg daily #GERD Continue home omeprazole 40 mg twice daily #Depression/anxiety, unmedicated #DVT prophylaxis On Lovenox VS,Fishbone, I+O VS, Fishbone, I+O Laboratory Tests 07/20/21 05:15 Vital Signs Date Time Temp Pulse Resp B/P (MAP) Pulse Ox O2 Delivery O2 Flow Rate FiO2 07/20/21 09:53 99.1 107 12 137/99 (112) 100 Room Air I&O- Last 24 Hours up to 6 AM 07/20/21 06:00 Intake Total 1840 ml Output Total 1500 ml Balance 340 ml GWENDOLYN SOFIA DO Jul 20, 2021 10:43
[2021-07-20] MEDS: IMMUNE GLOBULIN 10% 20 GM in IV 1 EA IV SCH (12:46)
[2021-07-20] MEDS: PERCOCET 5MG/325MG TAB PO PRN ×2 (14:26→20:23)
[2021-07-20] MEDS: METOPROLOL TART 50 MG TAB PO SCH ×2 (14:27→21:15)
[2021-07-20] MEDS: IMMUNE GLOBULIN 10% 40 GM in IV 1 EA IV SCH (15:24)
[2021-07-20] MEDS: GABAPENTIN 300 MG CAP PO SCH ×2 (16:30→20:24)
[2021-07-20] MEDS ORDERED: NICOTINE 21MG/24HR 1 EA TRANSDERMAL TD PRN (17:15)
--- NOTE | 2021-07-20 20:03 | CR ---
CONSULTATION DATE: 07/20/2021 REFERRING PHYSICIAN: Luis Alberto Hernandez MD REASON FOR CONSULTATION: Suspected Guillain-[place] syndrome. HISTORY OF PRESENT ILLNESS: Radha Jain is a 30-year-old woman who was admitted at [facility] due to worsening weakness of the legs and altered sensation. The patient stated that her problem started a month ago when she was admitted at [facility] due to urinary tract infection and gastroenteritis. Her weakness was attributed to dehydration and deconditioning at that time. She continued to have difficulty walking and started using a walker. She fell three times and one of her falls resulted in right ankle fracture. She has weakness, numbness of legs more than arms. There was concern for Guillain-[place] syndrome and transverse myelitis on outpatient basis. Her EMG nerve conduction studies revealed sonosensory and motor peripheral neuropathy with denervation in lumbar and sacral myotomes. MRI cervical, thoracic and lumbar spine showed mild degenerative disc disease without spinal cord lesions. She had MRI scan of brain at [facility] and CT scan of head which were unremarkable and were all reviewed. Her vitamin B12 level was normal. ESR was high in the 40s on outpatient basis. Further tests are pending. We sent her to the emergency department for admission for intravenous immunoglobulins, PT, OT and rehabilitation. She continues to wear a boot on the right leg and used a walker. In the hospital, she complains of more tingling in her hands and legs reaching up to her abdomen. She feels pain in her legs. She has been started on gabapentin. She states that she is unable to sleep because of tingling and pain in her legs at night. PAST MEDICAL HISTORY: Hypertension, asthma, history of alcohol abuse, TIA, depression, anxiety, acid reflux, history of travel DVT, gastric sleeve surgery, section. SOCIAL HISTORY: She is single. She has two children. She works at [employer]. She smoked one pack per day for five years. She is a former drinker and quit months ago. She denies illicit drugs. FAMILY HISTORY: Significant for hypertension and coronary artery disease. REVIEW OF SYSTEMS: All systems are reviewed and found to be noncontributory except as mentioned in history of present illness. HOME MEDICATIONS: 1. Aspirin 81 mg p.o. daily. 2. Omeprazole 40 mg p.o. b.i.d. 3. Amlodipine 10 mg p.o. daily. ALLERGIES: None. PHYSICAL EXAMINATION: VITAL SIGNS: Temperature 98.5, pulse 102, respiratory rate 15, blood pressure 134/97, 100% saturation on room air. HEART: Regular rate and rhythm. LUNGS: Clear to auscultation. ABDOMEN: Soft, nontender, nondistended. EXTREMITIES: No pedal edema. MUSCULOSKELETAL: No abnormalities. SKIN: No rash. NEUROLOGICAL: No signs of meningeal irritation. The patient is awake, alert, oriented to place, person and time. Normal speech, comprehension and repetition. Extraocular muscles are intact. No facial weakness. Tongue and uvula are midline. 5/5 strength in both arms except finger extensors where strength is 4+/5. Strength in her bilateral iliopsoas is 4-/5 and bilateral foot extensor is 3+/5 and quadriceps is 5-/5. Deep tendon reflexes are absent throughout. She has decreased cold, pinprick, vibration sensation in her feet. Gait is unsteady. DIAGNOSTIC STUDIES: As summarized above. CTA of chest was normal. Ultrasound of legs was unremarkable for DVT. CBC and metabolic profile were unremarkable except platelet count was 531. ASSESSMENT: 1. 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 2. Numbness, weakness of arms and legs related to above. 3. No evidence of cerebrovascular disease or demyelinating disease of brain or spinal cord. 4. Unsteady gait related to above. PLAN: 1. Intravenous immunoglobulin 70 gm daily for three days intravenously. 2. Neurontin 300 mg p.o. t.i.d. 3. Amitriptyline 100 mg p.o. q.h.s. for insomnia and neuropathic pain at night. 4. Physical, occupational therapy and rehabilitation. 5. Patient declined spinal tap. 6. Follow with our office in 2-4 weeks after hospital discharge. Several labs are pending on outpatient basis which were drawn before she came to [facility]. We should also check vitamin B1 level, serum copper if they were not drawn on outpatient basis earlier this past week.
[2021-07-20] MEDS: AMITRIPTYLINE 10MG TABLET PO SCH (20:24)
[2021-07-21] VITALS (12 sets, daily range): BP systolic 110–162; BP diastolic 65–88
[2021-07-21] MEDS: PERCOCET 5MG/325MG TAB PO PRN ×4 (01:58→22:30)
[2021-07-21] MEDS ORDERED: KETOROLAC 30 MG/ML 1ML VIAL IV ONE (02:50)
[2021-07-21] MEDS ORDERED: METOCLOPRAMIDE INJ 10MG/2ML VIAL (J2765 PER 1) IV ONE (02:50)
[2021-07-21] MEDS ORDERED: diphenhydrAMINE 50MG/ML VIAL (J1200) IV ONE (02:50)
[2021-07-21 05:14] LABS: BASO % 0.7 % (0.0-1.0); EOS % 0.5 % (0.0-3.0); HEMATOCRIT 36.6 % (36.0-47.0); HEMOGLOBIN 11.8 g/dl (12.0-15.5); LYMPH # 1.3 10^3/uL (1.5-5.0); LYMPH % 22.6 % (24.0-44.0); MEAN CORPUSCULAR HEMOGLOBIN 32.6 pg (27.0-33.0); MEAN CORPUSCULAR HGB CONC 32.2 g/dl (32.0-36.5); MEAN CORPUSCULAR VOLUME 101.1 fl (80.0-96.0); MONO # 0.4 10^3/uL (0.0-0.8); MONO % 6.1 % (2.0-8.0); NEUTROPHILS # 4.1 10^3/uL (1.5-8.5); NEUTROPHILS % 69.8 % (36.0-66.0); PLATELET COUNT, AUTOMATED 462 10^3/uL (150-450); RED BLOOD COUNT 3.62 10^6/uL (4.00-5.40); WHITE BLOOD COUNT 5.9 10^3/uL (4.0-10.0)
[2021-07-21 05:25] LABS: BLOOD UREA NITROGEN 11 MG/DL (7-18); CALCIUM LEVEL 9.1 MG/DL (8.5-10.1); CARBON DIOXIDE LEVEL 28 MEQ/L (21-32); CHLORIDE LEVEL 105 MEQ/L (98-107); CREATININE FOR GFR 0.81 MG/DL (0.55-1.30); GLOMERULAR FILTRATION RATE > 60.0 (>60); GLUCOSE, FASTING 103 MG/DL (70-100); POTASSIUM SERUM 4.3 MEQ/L (3.5-5.1); SODIUM LEVEL 136 MEQ/L (136-145)
[2021-07-21] MEDS: METOPROLOL TART 50 MG TAB PO SCH ×3 (05:47→21:20)
--- NOTE | 2021-07-21 08:59 | IPNPDOC ---
Text Note Date of Service The patient was seen on 07/21/21. NOTE Subjective: Patient continues to complain of tingling of both legs, she stated that paresthesia over her legs not getting better. No any shortness of breath or difficulties in swallowing Objective: GENERAL APPEARANCE: NAD HEENT: no scleral icterus, no JVD, EOMI CARDIOVASCULAR: Tachycardic at rate 110 LUNGS: Diminished lung sounds bilaterally ABDOMEN: soft & not tender w palpation MUSCULOSKELETAL: no cyanosis, no swelling INTEGUMENT: no generalized pallor NEUROLOGICAL: cranial nerve function from 2-12 intact, follows commands, speech not dysarthric Assessment and plan Patient is a 30-year-old female PMH HTN, history of EtOH abuse, history of TIA, s/p gastric sleeve surgery who presents with worsening bilateral lower extremity weakness/numbness/tingling that has now spread to abdomen and left upper extremity, 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 Sosa) Bilateral lower extremity weakness/Guillain-Cary syndrome Associated with tingling I talked to neurologist Dr. Sosa he recommended spinal tap on Wednesday. Patient d eclined Continue treatment with immunoglobulin IV for 3 days in total Gabapentin 300 mg 3 times daily PT/OT Tachycardia CTA negative for pulmonary emboli Doppler ultrasound of lower extremities negative for PE Metoprolol 50 mg every 8 hours Improved Chest tightness EKG negative for acute ischemic changes, shows normal sinus rhythm Hypertension I increased the dose of lisinopril to 20 mg daily Continue home meds History of EtOH abuse Patient stated that now she drinks socially. She had in the past history of EtOH abuse CIWA Status post gastric sleeve surgery Follow-up with bariatric surgeon Continue taking multivitamins including iron Status post ankle fracture Patient told me that orthopedic team recommended nonweightbearing #History of TIA Continue home ASA 81 mg daily #GERD Continue home omeprazole 40 mg twice daily #Depression/anxiety, unmedicated #DVT prophylaxis On Lovenox VS,Fishbone, I+O VS, Fishbone, I+O Laboratory Tests 07/21/21 04:39 Vital Signs Date Time Temp Pulse Resp B/P (MAP) Pulse Ox O2 Delivery O2 Flow Rate FiO2 07/21/21 08:00 99.0 100 18 139/74 (95) 99 Room Air I&O- Last 24 Hours up to 6 AM 11/15/21 05:59 Intake Total 1750 ml Output Total 150 ml Balance 1600 ml GWENDOLYN SOFIA DO Jul 21, 2021 08:59
[2021-07-21] MEDS: IMMUNE GLOBULIN 10% 10 GM in IV 1 EA IV SCH (09:14)
[2021-07-21] MEDS: OMEPRAZOLE 20 MG CAP PO SCH ×2 (09:20→21:17)
[2021-07-21] MEDS: ENOXAPARIN 40MG/0.4ML SYRINGE (J1650 PER 10MG) SC SCH (09:20)
[2021-07-21] MEDS: MULTIVITAMINS/MINERALS THERAP 1 TAB PO SCH (09:21)
[2021-07-21] MEDS: FOLIC ACID 1 MG TAB PO SCH (09:21)
[2021-07-21] MEDS: THIAMINE 100 MG TAB PO SCH ×2 (09:21→21:17)
[2021-07-21] MEDS: GABAPENTIN 300 MG CAP PO SCH ×3 (09:21→21:16)
[2021-07-21] MEDS: ASPIRIN 81MG ENTERIC TABLET PO SCH (09:21)
[2021-07-21 11:09] LABS: TOTAL 25(OH) VITAMIN D 19.4 NG/ML (30.0-100.0); VITAMIN B12 LEVEL 1818 PG/ML
[2021-07-21 11:11] LABS: FOLATE > 24.0 NG/ML
[2021-07-21] MEDS: IMMUNE GLOBULIN 10% 20 GM in IV 1 EA IV SCH (11:42)
[2021-07-21] MEDS: traMADol 50 MG TAB PO PRN ×2 (12:59→18:48)
[2021-07-21] MEDS: IMMUNE GLOBULIN 10% 40 GM in IV 1 EA IV SCH (14:15)
[2021-07-21] MEDS: AMITRIPTYLINE 10MG TABLET PO SCH (21:16)
[2021-07-21] MEDS: RAMELTEON 8 MG TAB (ROZEREM) PO PRN (21:17)
[2021-07-22] MEDS: traMADol 50 MG TAB PO PRN ×3 (01:50→15:04)
[2021-07-22 04:00] VITALS: BP 131/78
[2021-07-22] MEDS: PERCOCET 5MG/325MG TAB PO PRN ×3 (04:48→18:08)
[2021-07-22] MEDS: METOPROLOL TART 50 MG TAB PO SCH ×3 (06:04→22:56)
[2021-07-22 06:05] LABS: BLOOD UREA NITROGEN 16 MG/DL (7-18); CALCIUM LEVEL 8.5 MG/DL (8.5-10.1); CARBON DIOXIDE LEVEL 26 MEQ/L (21-32); CHLORIDE LEVEL 108 MEQ/L (98-107); CREATININE FOR GFR 0.67 MG/DL (0.55-1.30); GLOMERULAR FILTRATION RATE > 60.0 (>60); GLUCOSE, FASTING 96 MG/DL (70-100); POTASSIUM SERUM 3.8 MEQ/L (3.5-5.1); SODIUM LEVEL 139 MEQ/L (136-145)
[2021-07-22 06:16] LABS: BASO % 0.6 % (0.0-1.0); EOS # 0.1 10^3/uL (0.0-0.5); EOS % 1.7 % (0.0-3.0); HEMATOCRIT 33.7 % (36.0-47.0); HEMOGLOBIN 11.1 g/dl (12.0-15.5); LYMPH # 1.6 10^3/uL (1.5-5.0); LYMPH % 46.8 % (24.0-44.0); MEAN CORPUSCULAR HEMOGLOBIN 33.3 pg (27.0-33.0); MEAN CORPUSCULAR HGB CONC 32.9 g/dl (32.0-36.5); MEAN CORPUSCULAR VOLUME 101.2 fl (80.0-96.0); MONO # 0.5 10^3/uL (0.0-0.8); MONO % 15.6 % (2.0-8.0); NEUTROPHILS # 1.2 10^3/uL (1.5-8.5); PLATELET COUNT, AUTOMATED 393 10^3/uL (150-450); RED BLOOD COUNT 3.33 10^6/uL (4.00-5.40); WHITE BLOOD COUNT 3.5 10^3/uL (4.0-10.0)
[2021-07-22 07:39] VITALS: BP 130/89
[2021-07-22] MEDS: FOLIC ACID 1 MG TAB PO SCH (08:30)
[2021-07-22] MEDS: ASPIRIN 81MG ENTERIC TABLET PO SCH (08:30)
[2021-07-22] MEDS: MULTIVITAMINS/MINERALS THERAP 1 TAB PO SCH (08:30)
[2021-07-22] MEDS: GABAPENTIN 300 MG CAP PO SCH ×3 (08:30→22:54)
[2021-07-22] MEDS: OMEPRAZOLE 20 MG CAP PO SCH ×2 (08:30→22:54)
[2021-07-22] MEDS: ENOXAPARIN 40MG/0.4ML SYRINGE (J1650 PER 10MG) SC SCH (08:31)
[2021-07-22 16:00] VITALS: BP 132/91
--- NOTE | 2021-07-22 18:11 | REP ---
INDICATION: right ankle pain. COMPARISON: Right ankle, 10/18/2020 TECHNIQUE: Four views of the right ankle were obtained. FINDINGS: There is a partially healed oblique fracture of the lateral malleolus. There was an acute lateral malleolar fracture on the prior exam. IMPRESSION: Partially healed fracture of the lateral malleolus. Acute component not excluded. <Electronically signed by Micky Rae > 07/22/21 0590
--- NOTE | 2021-07-22 18:50 | IPNPDOC ---
Text Note Date of Service The patient was seen on 07/22/21. NOTE Subjective: 30-year-old female presented with complaints of lower extremity weakness, paresthesias, and decreased sensation in her lower extremity as well as her abdominal wall. She was admitted for treatment of possible Guillain-Cary syndrome. Today, she continues to complain of lower extremity weakness and paresthesias as well as decreased sensation over her abdominal wall. She denied chest pain, shortness of breath, dysphagia, abdominal pain, nausea, vomiting, problems with urination and bowel movements. Review of systems: 10 point review of system was negative except for what is noted in the HPI Physical exam: General: Lying in bed, no acute distress Head/Neck/Throat: Trachea midline, mucous membranes moist Eyes: Sclera anicteric, no erythema or discharge appreciated bilaterally Thorax: Normal respiratory effort on room air, lungs clear to auscultation bila terally, no wheezes/rales/rhonchi Cardiovascular: Normal rate, regular rhythm, normal S1, S2; no S3, S4, rubs/gallops/murmurs Abdomen: Bowel sounds present, soft/nontender/nondistended Genitourinary: No CVA tenderness, no Zaldivar in place Musculoskeletal: Moving all extremities, no edema Skin: Warm, dry Neurologic: Cranial nerves II to XII intact. She is able to follow commands and move all extremities. Labs: See below Imaging: Please see imaging section Assessment/plan: 30-year-old female with past medical history of hypertension, history of alcohol abuse, TIA, status post gastric sleeve surgery presented to the emergency room department with complaints of bilateral lower extremity weakness/paresthesias as well as decreased sensation over the abdominal wall. Today she reports no upper extremity symptoms. 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 #Guillain-Cary syndrome -Reached out to Dr. Sosa about patient's concern of ongoing symptoms. She is status post IV immunoglobulin; plan to continue with gabapentin 300 mg 3 times daily. Her amitriptyline will be increased from 10 to 20 mg. She was also encouraged to continue working with PT/OT. She was explained that the resolution of her symptoms will take time and there was a possibility of long-term deficits #Sinus tachycardia -CT is negative for pulmonary embolism, and lower extremity Doppler ultrasound negative for DVT. This is improved. #Chest tightness -This is resolved. EKG showed no signs of acute ST/T wave changes. Troponin trend was negative #Hypertension -Continue with lisinopril 20 mg daily. Metoprolol 50 mg every 8 hours #Alcohol abuse -Continue with [facility]WA protocol #Status post gastric sleeve surgery -Encouraged to maintain regular follow-up with her bariatric surgeon. Continue with multivitamins as well as iron. #Status post right ankle fracture -She had a boot on the time of admission. Repeat x-ray shows healing fracture. #TIA -Continue with aspirin 81 mg daily #GERD -Continue with omeprazole 40 mg daily #Depression/anxiety -Was not on any mood stabilizers #DVT prophylaxis -Continue with Lovenox Disposition: ARU screen in place, pending insurance review. VS,Fishbone, I+O VS, Fishbone, I+O Laboratory Tests 07/22/21 05:24 Vital Signs Date Time Temp Pulse Resp B/P (MAP) Pulse Ox O2 Delivery O2 Flow Rate FiO2 07/22/21 18:08 16 98 Room Air 07/22/21 16:00 98.5 90 132/91 (105) I&O- Last 24 Hours up to 6 AM 07/22/21 06:00 Intake Total 3400 ml Output Total 2725 ml Balance 675 ml TOPHER ROMAN M.D. Jul 22, 2021 18:49
[2021-07-22 20:00] VITALS: BP 139/85
[2021-07-22] MEDS: AMITRIPTYLINE 10MG TABLET PO SCH (22:54)
[2021-07-22] MEDS: RAMELTEON 8 MG TAB (ROZEREM) PO PRN (23:03)
[2021-07-23] MEDS: PERCOCET 5MG/325MG TAB PO PRN ×4 (03:05→22:40)
[2021-07-23 04:00] VITALS: BP 135/81
[2021-07-23 05:10] LABS: BASO % 0.8 % (0.0-1.0); EOS # 0.1 10^3/uL (0.0-0.5); EOS % 1.4 % (0.0-3.0); HEMATOCRIT 36.2 % (36.0-47.0); HEMOGLOBIN 11.8 g/dl (12.0-15.5); LYMPH # 1.8 10^3/uL (1.5-5.0); LYMPH % 50.4 % (24.0-44.0); MEAN CORPUSCULAR HEMOGLOBIN 32.8 pg (27.0-33.0); MEAN CORPUSCULAR HGB CONC 32.6 g/dl (32.0-36.5); MEAN CORPUSCULAR VOLUME 100.6 fl (80.0-96.0); MONO # 0.4 10^3/uL (0.0-0.8); MONO % 11.6 % (2.0-8.0); NEUTROPHILS # 1.3 10^3/uL (1.5-8.5); NEUTROPHILS % 35.5 % (36.0-66.0); PLATELET COUNT, AUTOMATED 417 10^3/uL (150-450); WHITE BLOOD COUNT 3.6 10^3/uL (4.0-10.0)
[2021-07-23 05:22] LABS: BLOOD UREA NITROGEN 12 MG/DL (7-18); CALCIUM LEVEL 8.7 MG/DL (8.5-10.1); CARBON DIOXIDE LEVEL 27 MEQ/L (21-32); CHLORIDE LEVEL 106 MEQ/L (98-107); CREATININE FOR GFR 0.64 MG/DL (0.55-1.30); GLOMERULAR FILTRATION RATE > 60.0 (>60); GLUCOSE, FASTING 93 MG/DL (70-100); POTASSIUM SERUM 4.1 MEQ/L (3.5-5.1); SODIUM LEVEL 136 MEQ/L (136-145)
[2021-07-23] MEDS: traMADol 50 MG TAB PO PRN ×3 (06:40→20:24)
[2021-07-23] MEDS: METOPROLOL TART 50 MG TAB PO SCH ×3 (06:40→22:41)
[2021-07-23] MEDS: ASPIRIN 81MG ENTERIC TABLET PO SCH (08:36)
[2021-07-23] MEDS: OMEPRAZOLE 20 MG CAP PO SCH ×2 (08:37→20:24)
[2021-07-23] MEDS: GABAPENTIN 300 MG CAP PO SCH ×2 (08:40→16:04)
[2021-07-23] MEDS: FOLIC ACID 1 MG TAB PO SCH (08:40)
[2021-07-23] MEDS: MULTIVITAMINS/MINERALS THERAP 1 TAB PO SCH (08:40)
[2021-07-23] MEDS: ENOXAPARIN 40MG/0.4ML SYRINGE (J1650 PER 10MG) SC SCH (08:41)
[2021-07-23 08:42] VITALS: BP 141/93
[2021-07-23 12:22] VITALS: BP 127/60
[2021-07-23 14:37] VITALS: BP 119/71
[2021-07-23 17:09] VITALS: BP 138/81
--- NOTE | 2021-07-23 17:41 | IPNPDOC ---
Text Note Date of Service The patient was seen on 07/23/21. NOTE Subjective: 30-year-old female presented with complaints of lower extremity weakness, paresthesias, and decreased sensation in her lower extremity as well as her abdominal wall. She was admitted for treatment of possible Guillain-Cary syndrome. Today, continues to complain of lower extremity paresthesias. She was explained that after talking to the neurologist there may be residual deficits. Otherwise, she had no new complaints. Review of systems: 10 point review of system was negative except for what is noted in the HPI Physical exam: General: Lying in bed, no acute distress Head/Neck/Throat: Trachea midline, mucous membranes moist Eyes: Sclera anicteric, no erythema or discharge appreciated bilaterally Thorax: Normal respiratory effort on room air, lungs clear to auscultation bilaterally, no wheezes/rales/rhonchi Cardiovascular: Normal rate, regular rhythm, normal S1, S2; no S3, S4, rubs/gallops/murmurs Abdomen: Bowel sounds present, soft/nontender/nondistended Genitourinary: No CVA tenderness, no Zaldivar in place Musculoskeletal: Moving all extremities, no edema Skin: Warm, dry Neurologic: Cranial nerves II to XII intact. She is able to follow commands and move all extremities. Labs: See below Imaging: Please see imaging section Assessment/plan: 30-year-old female with past medical history of hypertension, history of alcohol abuse, TIA, status post gastric sleeve surgery presented to the emergency room department with complaints of bilateral lower extremity weakness/paresthesias as well as decreased sensation over the abdominal wall. Today she reports no upper extremity symptoms. 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 #Guillain-Cary syndrome -Status post IV immunoglobulin; increase gabapentin 400 mg 3 times daily. Continue with amitriptyline 20 mg daily She was also encouraged to continue working with PT/OT. She was explained that the resolution of her symptoms will take time and there was a possibility of long-term deficits #Sinus tachycardia -CT is negative for pulmonary embolism, and lower extremity Doppler ultrasound negative for DVT. This is improved. #Chest tightness -This is resolved. EKG showed no signs of acute ST/T wave changes. Troponin trend was negative #Hypertension -Continue with lisinopril 20 mg daily. Metoprolol 50 mg every 8 hours #Alcohol abuse -Continue with CIWA protocol #Status post gastric sleeve surgery -Encouraged to maintain regular follow-up with her bariatric surgeon. Continue with multivitamins as well as iron. #Status post right ankle fracture -She had a boot on the time of admission. Repeat x-ray shows healing fracture. Continue with recommended weightbearing status as per her primary orthopedic. #TIA -Continue with aspirin 81 mg daily #GERD -Continue with omeprazole 40 mg daily #Depression/anxiety -Was not on any mood stabilizers #DVT prophylaxis -Continue with Lovenox Disposition: ARU screen in place, pending insurance review. VS,Fishbone, I+O VS, Fishbone, I+O Laboratory Tests 07/23/21 04:34 Vital Signs Date Time Temp Pulse Resp B/P (MAP) Pulse Ox O2 Delivery O2 Flow Rate FiO2 07/23/21 16:05 20 Room Air 07/23/21 14:41 104 119/71 07/23/21 14:37 98.1 98 I&O- Last 24 Hours up to 6 AM 07/23/21 06:00 Intake Total 2190 ml Output Total 2150 ml Balance 40 ml TOPHER ROMAN M.D. Jul 23, 2021 17:41
[2021-07-23] MEDS: GABAPENTIN 400MG CAP PO SCH (20:23)
[2021-07-23] MEDS: AMITRIPTYLINE 10MG TABLET PO SCH (20:24)
[2021-07-23 22:00] VITALS: BP 136/86
[2021-07-23] MEDS: RAMELTEON 8 MG TAB (ROZEREM) PO PRN (22:40)
[2021-07-24] MEDS: traMADol 50 MG TAB PO PRN ×3 (03:55→22:22)
[2021-07-24] MEDS: PERCOCET 5MG/325MG TAB PO PRN ×3 (05:33→18:32)
[2021-07-24] MEDS: METOPROLOL TART 50 MG TAB PO SCH ×3 (05:34→21:55)
[2021-07-24 08:07] VITALS: BP 123/64
[2021-07-24 08:28] LABS: BASO # 0.1 10^3/uL (0.0-0.2); BASO % 1.1 % (0.0-1.0); EOS # 0.1 10^3/uL (0.0-0.5); EOS % 1.1 % (0.0-3.0); HEMATOCRIT 36.5 % (36.0-47.0); HEMOGLOBIN 11.8 g/dl (12.0-15.5); LYMPH # 2.3 10^3/uL (1.5-5.0); LYMPH % 53.6 % (24.0-44.0); MEAN CORPUSCULAR HGB CONC 32.3 g/dl (32.0-36.5); MONO # 0.4 10^3/uL (0.0-0.8); MONO % 8.5 % (2.0-8.0); NEUTROPHILS # 1.5 10^3/uL (1.5-8.5); NEUTROPHILS % 35.5 % (36.0-66.0); PLATELET COUNT, AUTOMATED 465 10^3/uL (150-450); RED BLOOD COUNT 3.58 10^6/uL (4.00-5.40); WHITE BLOOD COUNT 4.4 10^3/uL (4.0-10.0)
[2021-07-24] MEDS: MULTIVITAMINS/MINERALS THERAP 1 TAB PO SCH (08:54)
[2021-07-24] MEDS: GABAPENTIN 400MG CAP PO SCH ×3 (08:54→21:55)
[2021-07-24] MEDS: ASPIRIN 81MG ENTERIC TABLET PO SCH (08:54)
[2021-07-24] MEDS: FOLIC ACID 1 MG TAB PO SCH (08:54)
[2021-07-24] MEDS: OMEPRAZOLE 20 MG CAP PO SCH ×2 (08:54→21:55)
[2021-07-24] MEDS: ENOXAPARIN 40MG/0.4ML SYRINGE (J1650 PER 10MG) SC SCH (08:54)
[2021-07-24 08:57] LABS: BLOOD UREA NITROGEN 14 MG/DL (7-18); CALCIUM LEVEL 8.9 MG/DL (8.5-10.1); CARBON DIOXIDE LEVEL 27 MEQ/L (21-32); CHLORIDE LEVEL 103 MEQ/L (98-107); CREATININE FOR GFR 0.71 MG/DL (0.55-1.30); GLOMERULAR FILTRATION RATE > 60.0 (>60); GLUCOSE, FASTING 114 MG/DL (70-100); POTASSIUM SERUM 4.1 MEQ/L (3.5-5.1); SODIUM LEVEL 136 MEQ/L (136-145)
[2021-07-24 14:00] VITALS: BP 136/90
--- NOTE | 2021-07-24 16:04 | IPNPDOC ---
Text Note Date of Service The patient was seen on 07/24/21. NOTE 30-year-old female with past medical history of hypertension, history of alcohol abuse, TIA, status post gastric sleeve surgery presented to the emergency room department with complaints of bilateral lower extremity weakness/paresthesias as well as decreased sensation over the abdominal wall. Today she reports no upper extremity symptoms. 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 #Guillain-Cary syndrome -Status post IV immunoglobulin; c/w gabapentin 400 mg 3 times daily. Continue with amitriptyline 20 mg daily She was also encouraged to continue working with PT/OT. She was explained that the resolution of her symptoms will take time and there was a possibility of long-term deficits #Sinus tachycardia -CT is negative for pulmonary embolism, and lower extremity Doppler ultrasound negative for DVT. This is improved. #Chest tightness -This is resolved. EKG showed no signs of acute ST/T wave changes. Troponin trend was negative #Hypertension -Continue with lisinopril 20 mg daily. Metoprolol 50 mg every 8 hours #Alcohol abuse -Continue with [facility]WA protocol #Status post gastric sleeve surgery -Encouraged to maintain regular follow-up with her bariatric surgeon. Continue with multivitamins as well as iron. #Status post right ankle fracture -She had a boot on the time of admission. Repeat x-ray shows healing fracture. Continue with recommended weightbearing status as per her primary orthopedic. #TIA -Continue with aspirin 81 mg daily #GERD -Continue with omeprazole 40 mg daily #Depression/anxiety -Was not on any mood stabilizers #DVT prophylaxis -Continue with Lovenox Disposition: ARU screen in place, pending insurance review VS,Leyla, I+O VS, Fishbone, I+O Laboratory Tests 07/24/21 07:43 Vital Signs Date Time Temp Pulse Resp B/P (MAP) Pulse Ox O2 Delivery O2 Flow Rate FiO2 07/24/21 14:00 97.9 18 99 136/90 (105) Room Air 07/24/21 08:07 100 I&O- Last 24 Hours up to 6 AM 07/24/21 06:00 Intake Total 1560 ml Output Total 550 ml Balance 1010 ml TOPHER ROMAN M.D. Jul 24, 2021 16:04
[2021-07-24] MEDS: AMITRIPTYLINE 10MG TABLET PO SCH (21:55)
[2021-07-24] MEDS: RAMELTEON 8 MG TAB (ROZEREM) PO PRN (21:55)
[2021-07-24 22:00] VITALS: BP 127/66
[2021-07-25] MEDS: PERCOCET 5MG/325MG TAB PO PRN ×4 (02:56→22:18)
[2021-07-25 06:00] VITALS: BP 132/88
[2021-07-25] MEDS: METOPROLOL TART 50 MG TAB PO SCH ×3 (06:01→22:17)
[2021-07-25] MEDS: traMADol 50 MG TAB PO PRN ×3 (06:02→18:04)
[2021-07-25 08:20] LABS: HEMATOCRIT 34.4 % (36.0-47.0); HEMOGLOBIN 11.4 g/dl (12.0-15.5); MEAN CORPUSCULAR HEMOGLOBIN 33.4 pg (27.0-33.0); MEAN CORPUSCULAR HGB CONC 33.1 g/dl (32.0-36.5); MEAN CORPUSCULAR VOLUME 100.9 fl (80.0-96.0); PLATELET COUNT, AUTOMATED 417 10^3/uL (150-450); RED BLOOD COUNT 3.41 10^6/uL (4.00-5.40); WHITE BLOOD COUNT 4.1 10^3/uL (4.0-10.0)
[2021-07-25 08:44] LABS: BLOOD UREA NITROGEN 15 MG/DL (7-18); CALCIUM LEVEL 8.8 MG/DL (8.5-10.1); CARBON DIOXIDE LEVEL 30 MEQ/L (21-32); CHLORIDE LEVEL 105 MEQ/L (98-107); GLOMERULAR FILTRATION RATE > 60.0 (>60); GLUCOSE, FASTING 107 MG/DL (70-100); POTASSIUM SERUM 3.9 MEQ/L (3.5-5.1); SODIUM LEVEL 138 MEQ/L (136-145)
[2021-07-25 08:56] LABS: ANISOCYTOSIS 1+; ATYPICAL LYMPH 5 % (0-5); BASOPHILS 1 % (0-1); EOSINOPHILS 1 % (0-3); LYMPHOCYTES 60 % (16-44); MONOCYTES 6 % (0-5); NEUTROPHILS 27 % (28-66); PLATELET ESTIMATE INCREASED (NORMAL)
[2021-07-25] MEDS: FOLIC ACID 1 MG TAB PO SCH (09:10)
[2021-07-25] MEDS: MULTIVITAMINS/MINERALS THERAP 1 TAB PO SCH (09:11)
[2021-07-25] MEDS: ASPIRIN 81MG ENTERIC TABLET PO SCH (09:11)
[2021-07-25] MEDS: OMEPRAZOLE 20 MG CAP PO SCH ×2 (09:11→20:04)
[2021-07-25] MEDS: GABAPENTIN 400MG CAP PO SCH ×3 (09:11→20:04)
[2021-07-25] MEDS: GABAPENTIN 100 MG CAP PO SCH ×3 (09:11→20:04)
[2021-07-25] MEDS: ENOXAPARIN 40MG/0.4ML SYRINGE (J1650 PER 10MG) SC SCH (09:12)
[2021-07-25 14:00] VITALS: BP 147/79
[2021-07-25] MEDS: AMITRIPTYLINE 10MG TABLET PO SCH (20:04)
--- NOTE | 2021-07-25 20:12 | IPNPDOC ---
Text Note Date of Service The patient was seen on 07/25/21. NOTE Subjective: 30-year-old female presented with complaints of lower extremity weakness, paresthesias, and decreased sensation in her lower extremity as well as her abdominal wall. She was admitted for treatment of possible Guillain-Cary syndrome. She continues to have persistent paresthesias in her lower extremities. Otherwise had no new complaints. Review of systems: 10 point review of system was negative except for what is noted in the HPI Physical exam: General: Lying in bed, no acute distress Head/Neck/Throat: Trachea midline, mucous membranes moist Eyes: Sclera anicteric, no erythema or discharge appreciated bilaterally Thorax: Normal respiratory effort on room air, lungs clear to auscultation bilaterally, no wheezes/rales/rhonchi Cardiovascular: Normal rate, regular rhythm, normal S1, S2; no S3, S4, rubs/gallops/murmurs Abdomen: Bowel sounds present, soft/nontender/nondistended Genitourinary: No CVA tenderness, no Zaldivar in place Musculoskeletal: Moving all extremities, no edema Skin: Warm, dry Neurologic: Cranial nerves II to XII intact. She is able to follow commands and move all extremities. 30-year-old female with past medical history of hypertension, history of alcohol abuse, TIA, status post gastric sleeve surgery presented to the emergency room department with complaints of bilateral lower extremity weakness/paresthesias as well as decreased sensation over the abdominal wall. Today she reports no upper extremity symptoms. 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 #Guillain-Cary syndrome -Status post IV immunoglobulin; c/w gabapentin 400 mg 3 times daily. Spoke to neurology regarding pt's ongoing symptoms today, and recommendations to increase amitriptyline 50 mg daily were made. She was also encouraged to continue working with PT/OT. She was explained that the resolution of her symptoms will take time and there was a possibility of long-term deficits #Sinus tachycardia -CT is negative for pulmonary embolism, and lower extremity Doppler ultrasound negative for DVT. This is improved. #Chest tightness -This is resolved. EKG showed no signs of acute ST/T wave changes. Troponin trend was negative #Hypertension -Continue with lisinopril 20 mg daily. Metoprolol 50 mg every 8 hours #Alcohol abuse -Continue with [facility] protocol #Status post gastric sleeve surgery -Encouraged to maintain regular follow-up with her bariatric surgeon. Continue with multivitamins as well as iron. #Status post right ankle fracture -She had a boot on the time of admission. Repeat x-ray shows healing fracture. Continue with recommended weightbearing status as per her primary orthopedic. #TIA -Continue with aspirin 81 mg daily #GERD -Continue with omeprazole 40 mg daily #Depression/anxiety -Was not on any mood stabilizers #DVT prophylaxis -Continue with Lovenox Disposition: ARU screen in place, pending insurance review VS,[place]bone, I+O VS, Fishbone, I+O Laboratory Tests 07/25/21 07:44 Vital Signs Date Time Temp Pulse Resp B/P (MAP) Pulse Ox O2 Delivery O2 Flow Rate FiO2 07/25/21 18:34 16 Room Air 07/25/21 15:10 95 139/91 07/25/21 14:00 97.5 100 I&O- Last 24 Hours up to 6 AM 07/25/21 06:00 Intake Total 960 ml Balance 960 ml TOPHER ROMAN M.D. Jul 25, 2021 20:12
[2021-07-25] MEDS ORDERED: AMITRIPTYLINE 10MG TABLET PO ONE (21:00)
[2021-07-25 21:43] VITALS: BP 129/72
[2021-07-26] MEDS: traMADol 50 MG TAB PO PRN ×3 (02:20→18:53)
[2021-07-26] MEDS: PERCOCET 5MG/325MG TAB PO PRN ×3 (04:23→16:10)
[2021-07-26 06:00] VITALS: BP 127/79
[2021-07-26] MEDS: METOPROLOL TART 50 MG TAB PO SCH ×3 (06:18→21:36)
[2021-07-26] MEDS: ENOXAPARIN 40MG/0.4ML SYRINGE (J1650 PER 10MG) SC SCH (09:40)
[2021-07-26] MEDS: ASPIRIN 81MG ENTERIC TABLET PO SCH (09:40)
[2021-07-26] MEDS: GABAPENTIN 400MG CAP PO SCH ×3 (09:41→21:35)
[2021-07-26] MEDS: OMEPRAZOLE 20 MG CAP PO SCH ×2 (09:41→21:35)
[2021-07-26] MEDS: FOLIC ACID 1 MG TAB PO SCH (09:41)
[2021-07-26] MEDS: GABAPENTIN 100 MG CAP PO SCH ×3 (09:41→21:35)
[2021-07-26] MEDS: MULTIVITAMINS/MINERALS THERAP 1 TAB PO SCH (09:41)
--- NOTE | 2021-07-26 12:27 | IPNPDOC ---
Text Note Date of Service The patient was seen on 07/26/21. NOTE Subjective: 30-year-old female presented with complaints of lower extremity weakness, paresthesias, and decreased sensation in her lower extremity as well as her abdominal wall. She was admitted for treatment of possible Guillain-Cary syndrome. She continues to complain of paresthesias in her lower extremities. Review of systems: 10 point review of system was negative except for what is noted in the HPI Physical exam: General: Lying in bed, no acute distress Head/Neck/Throat: Trachea midline, mucous membranes moist Eyes: Sclera anicteric, no erythema or discharge appreciated bilaterally Thorax: Normal respiratory effort on room air, lungs clear to auscultation bilaterally, no wheezes/rales/rhonchi Cardiovascular: Normal rate, regular rhythm, normal S1, S2; no S3, S4, rubs/gallops/murmurs Abdomen: Bowel sounds present, soft/nontender/nondistended Genitourinary: No CVA tenderness, no Zaldivar in place Musculoskeletal: Moving all extremities, no edema Skin: Warm, dry Neurologic: Cranial nerves II to XII intact. She is able to follow commands and move all extremities. 30-year-old female with past medical history of hypertension, history of alcohol abuse, TIA, status post gastric sleeve surgery presented to the emergency room department with complaints of bilateral lower extremity weakness/paresthesias as well as decreased sensation over the abdominal wall. Today she reports no upper extremity symptoms. 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 #Guillain-Cary syndrome -Status post IV immunoglobulin; c/w gabapentin 400 mg 3 times daily. Spoke to neurology regarding pt's ongoing symptoms on 07/25, and recommendations to increase amitriptyline 50 mg daily were made. She was also encouraged to continue working with PT/OT. She was explained that the resolution of her symptoms will take time and there was a possibility of long-term deficits #Sinus tachycardia -CT is negative for pulmonary embolism, and lower extremity Doppler ultrasound negative for DVT. This is improved. #Chest tightness -This is resolved. EKG showed no signs of acute ST/T wave changes. Troponin trend was negative #Hypertension -Continue with amlodipine, lisinopril 20 mg daily. Metoprolol 50 mg every 8 hours #Alcohol abuse -Continue with [facility] protocol #Status post gastric sleeve surgery -Encouraged to maintain regular follow-up with her bariatric surgeon. Continue with multivitamins as well as iron. #Status post right ankle fracture -She had a boot on the time of admission. Repeat x-ray shows healing fracture. Continue with recommended weightbearing status as per her primary orthopedic. #TIA -Continue with aspirin 81 mg daily #GERD -Continue with omeprazole 40 mg daily #Depression/anxiety -Was not on any mood stabilizers #DVT prophylaxis -Continue with Lovenox Disposition: ARU screen in place, pending beds VS,Fishbone, I+O VS, Fishbone, I+O Vital Signs Date Time Temp Pulse Resp B/P (MAP) Pulse Ox O2 Delivery O2 Flow Rate FiO2 07/26/21 11:20 14 07/26/21 09:41 105 134/94 07/26/21 06:00 97.5 100 Room Air I&O- Last 24 Hours up to 6 AM 07/26/21 06:00 Intake Total 1180 ml Output Total 0 ml Balance 1180 ml TOPHER ROMAN M.D. Jul 26, 2021 12:27
[2021-07-26 14:00] VITALS: BP 116/72
[2021-07-26] MEDS ORDERED: AMITRIPTYLINE 50 MG TAB PO SCH (21:00)
[2021-07-26] MEDS: RAMELTEON 8 MG TAB (ROZEREM) PO PRN (21:47)
[2021-07-26 22:00] VITALS: BP 129/89
[2021-07-27 02:30] VITALS: BP 135/89
[2021-07-27] MEDS: PERCOCET 5MG/325MG TAB PO PRN ×4 (03:00→23:03)
[2021-07-27] MEDS: traMADol 50 MG TAB PO PRN ×2 (05:57→21:21)
[2021-07-27] MEDS: METOPROLOL TART 50 MG TAB PO SCH ×3 (05:58→21:20)
[2021-07-27 06:00] VITALS: BP 136/88
[2021-07-27] MEDS: ENOXAPARIN 40MG/0.4ML SYRINGE (J1650 PER 10MG) SC SCH (09:39)
[2021-07-27] MEDS: GABAPENTIN 100 MG CAP PO SCH (09:40)
[2021-07-27] MEDS: OMEPRAZOLE 20 MG CAP PO SCH ×2 (09:40→21:19)
[2021-07-27] MEDS: GABAPENTIN 400MG CAP PO SCH ×3 (09:40→21:19)
[2021-07-27] MEDS: MULTIVITAMINS/MINERALS THERAP 1 TAB PO SCH (09:40)
[2021-07-27] MEDS: FOLIC ACID 1 MG TAB PO SCH (09:40)
[2021-07-27] MEDS: ASPIRIN 81MG ENTERIC TABLET PO SCH (09:42)
--- NOTE | 2021-07-27 09:50 | IPNPDOC ---
Text Note Date of Service The patient was seen on 07/27/21. NOTE Subjective: 30-year-old female presented with complaints of lower extremity weakness, paresthesias, and decreased sensation in her lower extremity as well as her abdominal wall. She was admitted for treatment of possible Guillain-Cary syndrome. She continues to complain of paresthesias as well as numbness in her lower extremities. She was explained again that there is a chance that this may be permanent. She is encouraged to continue working with physical therapy. Review of systems: 10 point review of system was negative except for what is noted in the HPI Physical exam: General: Lying in bed, no acute distress Head/Neck/Throat: Trachea midline, mucous membranes moist Eyes: Sclera anicteric, no erythema or discharge appreciated bilaterally Thorax: Normal respiratory effort on room air, lungs clear to auscultation bilaterally, no wheezes/rales/rhonchi Cardiovascular: Normal rate, regular rhythm, normal S1, S2; no S3, S4, rubs/gallops/murmurs Abdomen: Bowel sounds present, soft/nontender/nondistended Genitourinary: No CVA tenderness, no Zaldivar in place Musculoskeletal: Moving all extremities, no edema Skin: Warm, dry Neurologic: Cranial nerves II to XII intact. She is able to follow commands and move all extremities. 30-year-old female with past medical history of hypertension, history of alcohol abuse, TIA, status post gastric sleeve surgery presented to the emergency room department with complaints of bilateral lower extremity weakness/paresthesias as well as decreased sensation over the abdominal wall. Today she reports no upper extremity symptoms. 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 #Guillain-Cary syndrome -Status post IV immunoglobulin; c/w gabapentin 400 mg 3 times daily. Spoke to neurology regarding pt's ongoing symptoms on 07/25, and recommendations to increase amitriptyline 50 mg daily were made. She was also encouraged to continue working with PT/OT. She was explained that the resolution of her symptoms will take time and there was a possibility of l ana-term deficits #Sinus tachycardia -CT is negative for pulmonary embolism, and lower extremity Doppler ultrasound negative for DVT. This is improved. #Chest tightness -This has resolved. EKG showed no signs of acute ST/T wave changes. Troponin trend was negative #Hypertension -Continue with amlodipine, lisinopril 20 mg daily. Metoprolol 50 mg every 8 hours #Alcohol abuse -Continue with [facility] protocol #Status post gastric sleeve surgery -Encouraged to maintain regular follow-up with her bariatric surgeon. Continue with multivitamins as well as iron. #Status post right ankle fracture -She had a boot on the time of admission. Repeat x-ray shows healing fracture. Continue with recommended weightbearing status as per her primary orthopedic. #TIA -Continue with aspirin 81 mg daily #GERD -Continue with omeprazole 40 mg daily #Depression/anxiety -Was not on any mood stabilizers #DVT prophylaxis -Continue with Lovenox Disposition: ARU screen in place, pending beds VS,Fishbone, I+O VS, Fishbone, I+O Vital Signs Date Time Temp Pulse Resp B/P (MAP) Pulse Ox O2 Delivery O2 Flow Rate FiO2 07/27/21 09:42 18 Room Air 07/27/21 09:40 137/88 07/27/21 09:40 112 07/27/21 06:00 97.3 100 I&O- Last 24 Hours up to 6 AM 07/27/21 06:00 Intake Total 1520 ml Output Total 0 ml Balance 1520 ml TOPHER ROMAN M.D. Jul 27, 2021 09:50
[2021-07-27] MEDS ORDERED: LISI20TA33 PO (12:38)
[2021-07-27] MEDS ORDERED: LOPR1TAB6 PO (12:38)
[2021-07-27] MEDS ORDERED: AMIT50TA PO (12:38)
[2021-07-27] MEDS ORDERED: GABA-283 PO (12:38)
[2021-07-27] MEDS ORDERED: FOLI1TAB11 PO (12:38)
[2021-07-27] MEDS ORDERED: THIA100T7 PO (12:54)
[2021-07-27 14:20] VITALS: BP 131/88
[2021-07-27] MEDS: KETOROLAC 30 MG/ML 1ML VIAL IV PRN ×2 (14:22→23:02)
[2021-07-27] MEDS ORDERED: AMITRIPTYLINE 50 MG TAB PO SCH (21:00)
[2021-07-27] MEDS: RAMELTEON 8 MG TAB (ROZEREM) PO PRN (21:20)
[2021-07-27 22:00] VITALS: BP 128/86
[2021-07-28] MEDS: PERCOCET 5MG/325MG TAB PO PRN ×2 (05:56→15:00)
[2021-07-28] MEDS: METOPROLOL TART 50 MG TAB PO SCH ×2 (05:57→15:01)
[2021-07-28 06:00] VITALS: BP 130/84
[2021-07-28 06:24] LABS: HEMATOCRIT 34.3 % (36.0-47.0); HEMOGLOBIN 11.2 g/dl (12.0-15.5); MEAN CORPUSCULAR HEMOGLOBIN 33.2 pg (27.0-33.0); MEAN CORPUSCULAR HGB CONC 32.7 g/dl (32.0-36.5); MEAN CORPUSCULAR VOLUME 101.8 fl (80.0-96.0); PLATELET COUNT, AUTOMATED 365 10^3/uL (150-450); RED BLOOD COUNT 3.37 10^6/uL (4.00-5.40); WHITE BLOOD COUNT 3.4 10^3/uL (4.0-10.0)
[2021-07-28 06:48] LABS: ALBUMIN 2.8 GM/DL (3.2-5.2); ALT/SGPT 33 U/L (12-78); BILIRUBIN,TOTAL 0.2 MG/DL (0.2-1.0); BLOOD UREA NITROGEN 18 MG/DL (7-18); CALCIUM LEVEL 9.1 MG/DL (8.5-10.1); CARBON DIOXIDE LEVEL 32 MEQ/L (21-32); CHLORIDE LEVEL 105 MEQ/L (98-107); CREATININE FOR GFR 0.76 MG/DL (0.55-1.30); GLOMERULAR FILTRATION RATE > 60.0 (>60); GLUCOSE, FASTING 87 MG/DL (70-100); MAGNESIUM LEVEL 2.1 MG/DL (1.8-2.4); PHOSPHORUS LEVEL 5.6 MG/DL (2.5-4.9); POTASSIUM SERUM 4.6 MEQ/L (3.5-5.1); SODIUM LEVEL 140 MEQ/L (136-145); TOTAL PROTEIN 7.8 GM/DL (6.4-8.2)
[2021-07-28] MEDS: ENOXAPARIN 40MG/0.4ML SYRINGE (J1650 PER 10MG) SC SCH (09:27)
[2021-07-28] MEDS: ASPIRIN 81MG ENTERIC TABLET PO SCH (09:30)
[2021-07-28] MEDS: FOLIC ACID 1 MG TAB PO SCH (09:30)
[2021-07-28] MEDS: traMADol 50 MG TAB PO PRN ×2 (09:31→17:02)
[2021-07-28] MEDS: MULTIVITAMINS/MINERALS THERAP 1 TAB PO SCH (09:31)
[2021-07-28] MEDS: GABAPENTIN 400MG CAP PO SCH ×2 (09:31→15:01)
[2021-07-28] MEDS: OMEPRAZOLE 20 MG CAP PO SCH (09:32)
[2021-07-28] MEDS ORDERED: AMIT100TA PO (11:30)
--- NOTE | 2021-07-28 11:34 | DS.PDOC ---
Discharge Summary General Date of Admission Jul 18, 2021 at 21:19 Date of Discharge 07/28/21 Discharge Summary DISCHARGE DIAGNOSES: 1. Guillain-Cary syndrome 2. Hypertension COMPLICATIONS/CHIEF COMPLAINT: Guillain-[place] Syndrome,Intractable Pain. HOSPITAL COURSE: Ms. Jain, is a 30-year-old female with a past medical history of hypertension, fatty liver disease, asthma, alcohol abuse, TIA, depre ssion/anxiety, GERD, and DVT presented to the emergency department with worsening bilateral lower extremity weakness. Patient began to experience his symptoms approximately 1 month ago. There was concerns for Guillain-Cary syndrome and transverse myelitis on outpatient basis therefore neurology wanted further evaluation. As per neurology her EMG nerve conduction studies revealed sensory and motor peripheral neuropathy with denervation in the lumbar and sacral myotomes. MRI of the cervical, thoracic, lumbar spine showed mild degenerative disc disease without spinal cord lesions. MRI of the brain and CT scan of the head were unremarkable. Due to concerns of Chiari syndrome, she received IV immunoglobulin. During hospitalization reported having paresthesias in her hands that had resolved following immunoglobulins. However, numbness as well as paresthesias persisted in the lower extremities. She was explained this may be not completely resolved for some time, and may also lead to permanent symptoms. She worked with physical and occupational therapy, and is now being transferred to acute rehab unit. She is being discharged on Neurontin 400 mg 3 times daily amitriptyline 100 mg nightly for insomnia and neuropathic pain at night. She will need to follow-up with me in 2 weeks of discharge for labs before she came to [facility]. Her antihypertensive medications were adjusted. In addition to her amlodipine she will need to take metoprolol as well as lisinopril. Of note, she had a right ankle fracture prior to admission. She will need to maintain her orthopedic appointments. She can ambulate with Rolling Walker and R Boot for all OOB activity. DISCHARGE MEDICATIONS: Please see below. ALLERGIES: Please see below. PHYSICAL EXAMINATION ON DISCHARGE: VITAL SIGNS: Please see below. General: Lying in bed, no acute distress Head/Neck/Throat: Trachea midline, mucous membranes moist Eyes: Sclera anicteric, no erythema or discharge appreciated bilaterally Thorax: Normal respiratory effort on room air, lungs clear to auscultation bilaterally, no wheezes/rales/rhonchi Cardiovascular: Normal rate, regular rhythm, normal S1, S2; no S3, S4, pedal pulses palpable Abdomen: Bowel sounds present, soft/nontender/nondistended Genitourinary: No CVA tenderness, no Zaldivar in place Musculoskeletal: Moving all extremities, no edema Skin: Warm, dry Neurologic: Cranial nerves II to XII intact. She is able to follow commands and move all extremities. LABORATORY DATA: Please see below. IMAGING: CT Head without contrast FINDINGS: Brain: No CT evidence of acute intracranial hemorrhage or acute territorial infarction. No significant mass effect or midline shift. Basal cisterns patent. Cerebral ventricles: Normal in size and configuration. Paranasal sinuses: Unremarkable. No fluid levels. Mastoid air cells: Grossly unremarkable. Bones/joints: No acute osseous abnormality. Soft tissues: Grossly unremarkable. IMPRESSION: No CT evidence of acute intracranial pathology MRI-Brain W/O FOLL BY WITH FINDINGS: Examination is motion limited. Major vascular flow voids at the skull base are preserved. No extra-axial fluid collection. No hydrocephalus. No midline shift or intracranial mass effect. No cerebral edema pathologic white-matter signal. No diffusion restriction. No pathologic intracranial enhancement. Visualized paranasal sinuses and mastoid air cells are clear. IMPRESSION: No acute intracranial abnormality. Duplex, Ext LOWER veins, bilat FINDINGS: Right deep veins: Unremarkable. The common femoral, femoral, popliteal, posterior tibial and peroneal veins are patent without thrombus. Normal Doppler waveforms. Normal compressibility and/or augmentation response. Right superficial veins: Saphenofemoral junction is patent without thrombus. Left deep veins: Unremarkable. The common femoral, femoral, popliteal, posterior tibial and peroneal veins are patent without thrombus. Normal Doppler waveforms. Normal compressibility and/or augmentation response. Left superficial veins: Saphenofemoral junction is patent without thrombus. Soft tissues: Unremarkable. IMPRESSION: No sonographic evidence of deep vein thrombosis. CT ANGIO CHEST FINDINGS: There is good opacification in the pulmonary arterial tree. There is no evidence of vessel cut off or filling defect to suggest pulmonary embolus. Homogeneous opacity is seen in the thoracic aorta. There is no evidence of aneurysm or dissection. There is no evidence of pleural or pericardial effusion. No hilar or mediastinal mass or adenopathy is observed. Lung window settings demonstrate no evidence of infiltrate, atelectasis, or significant pulmonary nodule. Lung ortega are clear. In the upper abdomen, postoperative changes consistent with gastric sleeve the procedure. There is moderate generalized fatty infiltration of the liver. The previously noted low-density area in the left lobe of the liver is again seen unchanged and again felt to be consistent with fatty infiltration. No adrenal lesion is seen on either side. The visualized upper abdominal structures are otherwise unremarkable. On bone window settings, there is no significant bony abnormality. IMPRESSION: No CT evidence of pulmonary embolus. Moderate diffuse fatty infiltration of the liver again noted. Otherwise negative. Ankle, complete RIGHT FINDINGS: There is a partially healed oblique fracture of the lateral malleolus. There was an acute lateral malleolar fracture on the prior exam. IMPRESSION: Partially healed fracture of the lateral malleolus. Acute component not excluded. PROGNOSIS: Fair ACTIVITY: As tolerated DIET: Regular DISPOSITION: ARU DISCHARGE INSTRUCTIONS: 1. Follow-up with neurology upon discharge in 10 to 14 days DISCHARGE CONDITION: stable TIME SPENT ON DISCHARGE: 30 minutes. Vital Signs/I&Os Vital Signs Date Time Temp Pulse Resp B/P (MAP) Pulse Ox O2 Delivery O2 Flow Rate FiO2 07/28/21 09:31 18 Room Air 07/28/21 09:00 97/64 07/28/21 09:00 100 07/28/21 06:00 97.2 100 I&O- Last 24 Hours up to 6 AM 07/28/21 06:00 Intake Total 960 ml Output Total 0 ml Balance 960 ml Laboratory Data Labs 24H Laboratory Tests 2 07/28/21 06:05: Nucleated Red Blood Cells % (auto) 0.0, Anion Gap 3L, Glomerular Filtration Rate > 60.0, Calcium Level 9.1, Phosphorus Level 5.6H, Magnesium Level 2.1, Total Bilirubin 0.2, Aspartate Amino Transf (AST/SGOT) 23, Alanine Aminotransferase (ALT/SGPT) 33, Alkaline Phosphatase 45, Total Protein 7.8, Albumin 2.8L, Albumin/Globulin Ratio 0.6L CBC/BMP Laboratory Tests 07/28/21 06:05 Discharge Medications Scheduled Amitriptyline HCl (Amitriptyline HCl) 100 Mg Tablet, 100 MG PO QPM Amlodipine Besylate (Amlodipine Besylate) 10 Mg Tablet, 10 MG PO DAILY, (Reported) Aspirin (Aspirin EC) 81 Mg Tablet.dr, 81 MG PO DAILY, (Reported) Folic Acid (Folic Acid) 1 Mg Tablet, 1 MG PO DAILY Gabapentin (Gabapentin) 400 Mg Capsule, 400 MG PO TID Lisinopril (Lisinopril) 20 Mg Tablet, 20 MG PO DAILY Metoprolol Tartrate (Lopressor) 50 Mg Tablet, 50 MG PO Q8H Omeprazole (Omeprazole) 40 Mg Capsule.dr, 40 MG PO BID, (Reported) Thiamine HCl (Thiamine HCl) 100 Mg Tablet, 1 TAB PO DAILY Allergies Coded Allergies: No Known Allergies (Unverified , 01/25/21) TOPHER ROMAN M.D. Jul 28, 2021 11:34
[2021-07-28 14:00] VITALS: BP 126/78
[2021-07-28 15:01] VITALS: BP 126/78
[2021-07-29 15:09] LABS: HOMOCYST(E)INE SERUM 9.8 umol/L (0.0-14.5); VITAMIN B1 LEVEL WHOLE BLOOD 62.2 nmol/L (66.5-200.0)
== END 2021-07-28 17:15 | DRG 49 ==
LOC: M ED 16:01 → M ED INP 21:19 → M MSPAV 23:34 → M PCU 07-19 16:05 → M MSPAV 07-23 18:34 → M MS5PR 07-27 02:20
PROVIDERS: ADMIT Family Medicine; ATTEND Internal Medicine
DX: G61.0 Guillain-Barre syndrome (principal); I10 Essential (primary) hypertension; K76.0 Fatty (change of) liver, not elsewhere classified; J45.909 Unspecified asthma, uncomplicated; F10.10 Alcohol abuse, uncomplicated; Z86.73 Personal history of transient ischemic attack (TIA), and cerebral infarction without residual deficits; F41.9 Anxiety disorder, unspecified; F32.A Depression, unspecified; K21.9 Gastro-esophageal reflux disease without esophagitis; Z86.718 Personal history of other venous thrombosis and embolism; Z98.84 Bariatric surgery status; F17.210 Nicotine dependence, cigarettes, uncomplicated; R00.0 Tachycardia, unspecified; Z20.822 Contact with and (suspected) exposure to COVID-19; Z79.899 Other long term (current) drug therapy; R07.89 Other chest pain; S82.64XA Nondisplaced fracture of lateral malleolus of right fibula, initial encounter for closed fracture; X58.XXXA Exposure to other specified factors, initial encounter; Y92.9 Unspecified place or not applicable

== ENCOUNTER 2021-07-28 10:41 | Inpatient (IN) | payer OTHER ==
[~2021-07-28] VITALS: Ht 185.4 cm; Wt 99.4 kg
[~2021-07-28 10:41] MED LIST changes: +ALPR0.5T3; +AMIT50TA PO; +ASPI81TA26 PO; +FOLI1TAB11 PO; +GABA-283 PO; +LISI20TA33 PO; +LOPR1TAB6 PO; +OMEP-221 PO; +PROM12.56; +THIA100T7 PO
[2021-07-28] MEDS ORDERED: RAMELTEON 8 MG TAB (ROZEREM) PO PRN (11:00)
[2021-07-28] MEDS ORDERED: AMIT100TA PO (11:30)
--- NOTE | 2021-07-28 14:01 | HPEPDOC ---
Willow Machine Operator Note DATE OF ADMISSION: 07-28-21 DATE OF SERVICE: 07-28-21 TIME OF ADMISSION: Please refer to physician's admission order. 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 There was a concern for possible PE given her tachycardia and hx of DVT, but Dopplers were negative for DVT and CTA negative for PE. SHe continued to have episodes of chest tightness with tachycardia and was started on a beta-reed. She has difficulty with neuropathic pain in her feet and legs and was started on Elavil. She had mobility and ADL impairments below her baseline and deemed medically appropriate REVIEW OF SYSTEMS: The following is a completed review of systems and has been reviewed. Review of systems otherwise unremarkable. PAIN: Patient self reports burning feet pain EYES: No recent vision changes EARS, NOSE, & THROAT: No throat pain, or dysphagia, or rhinorrhea CARDIOVASCULAR: intermittent chest pressure PULMONARY: Denies shortness of breath GASTROINTESTINAL: Denies constipation/diarrhea GENITOURINARY: denies dysuria MUSCULOSKELETAL: LE weakness NEUROLOGICAL:+GBS with LE weakness and paresthesia HEMATOLOGICAL:denies easy bruising SKIN:denies rash PSYCHIATRIC: Unremarkable All other review of systems found to be negative. PAST MEDICAL HISTORY: as per HPI PAST SURGICAL HISTORY: Gastric sleeve surgery, x2 ALLERGIES: Please see below. MEDICATIONS: Please see below. FAMILY HISTORY: Cardiac SOCIAL HISTORY: Daily smoker, former ETOH, denies illicit drugs DIET: low sodium PHYSICAL EXAMINATION: VITAL SIGNS: Please see below. GENERAL: Pleasant and cooperative. No acute distress. HEENT: PERRL. Extraocular movements intact. Clear conjunctiva CARDIOVASCULAR: mild tachycardia, regular rhythm. No murmurs, rubs, or gallops LUNGS: Clear to auscultation bilaterally. No wheezes. No rhonchi ABDOMEN: Soft, nontender, nondistended. Positive bowel sounds. Normal active bowel sounds NEUROLOGICAL: Alert and oriented times three. Cranial nerves II through XII grossly intact. Sensation diminished to light touch bilat LE up to mid-thighs, palms of hand 0+ reflex bilat patella negative babinksi/clonus EXTREMITIES: 5-\5 strength bilateral upper extremities. Bilat LE 3+/5 LABORATORY DATA: Please see below. IMAGING:Imaging documentation personally reviewed by record FUNCTIONAL STATUS: Premorbid: Independent with all activities of daily life as well as mobility On Admission:Contact guard for functional transfers, ambulation, dressing, min assist for bathing GOALS: Mod-I for functional transfers, bed mobility, ambulation community distances, dressing, toileting, bathing ASSESSMENT:30-year-old F with past medical history of TIA, HTN, DVT who presents status post Guillain-[place] Syndrome with difficulty walking PLAN: 1. Rehab- PT/OT advance mobility and ADLs, strengthen/stretch/maintain ROM all 4 limbs 2. Neuro- recent dx of Guillain-[place] Syndrome s/p IVG cont therapy for strengthening -neuropathic pain- cont gabapentin and elavil - hx of TIA cont ASA -ETOH use disroder- cont thiamine and folic acid, f/u on B1, B12 and MMA levels 3. CArdiac- hx of HTN cont BP meds -sinus tachycardia cont beta-reed -intermittent chest pressure- cardiac and PE work-up on inpatient negative -medicine consulted to assist in overall management 4. Resp- monitor for infection, patient has hx of asthma 5. DVT ppx- cont lovenox, hx of DVT, recent dopplers negative for DVT 6. Pain- oxycodone, tylenol, neuro-pain meds as above 7. Ortho-recent right ankle fracture WBAT with CAM boot f/u [facility] orthopedics 8. Dispo- TBD POST ADMISSION PHYSICIAN EVALUATION: Medical and functional status: Description of medical status, medical assessment: As above. Rehabilitation diagnosis and current and prior cold morbid medical conditions as above. Risk of complications and plans to mitigate them as above. Description of functional status current status is as above. Prior status as above. Status compared to preadmission: There are no clinically significant differences between the patient's current status and the information described on the preadmission screening document. Treatment plan anticipated: Treatment plan is as described above. Required disciplines including physical therapy, occupational therapy, others as noted above. Intensity of services: 3 hours a day, 6 days a week. Special considerations: There are no specific special or safety considerations that would likely preclude immediate implementation of an intensive rehabilitation program or subsequently influence the plan of care ATTESTATION: Considering all the information above, it is my best judgment that this patient requires intensive rehabilitation therapy as described above and an inpatient hospital environment due to the complexity of nursing, medical, and rehabilitation needs required by the patient. Furthermore, this patient can reasonably be expected to participate in an benefit from an inpatient rehabilitation stay with an interdisciplinary team approach to the delivery of rehabilitation care under the direction and supervision of rehabilitation physician. PROGNOSIS: good ESTIMATED LENGTH OF STAY:12-14 days. PROJECTED DISCHARGE DESTINATION: Home with family support and any durable medical equipment required to increase functional safety and mobility. TIME SPENT COUNSELING AND COORDINATING INITIAL CARE: Greater than 70 minutes. Vital Signs Vital Signs Date Time Temp Pulse Resp B/P (MAP) Pulse Ox O2 Delivery O2 Flow Rate FiO2 07/28/21 17:25 97.3 111 18 123/66 (85) 98 Room Air Home Medications Scheduled Amitriptyline HCl (Amitriptyline HCl) 100 Mg Tablet, 100 MG PO QPM Amlodipine Besylate (Amlodipine Besylate) 10 Mg Tablet, 10 MG PO DAILY, (Reported) Aspirin (Aspirin EC) 81 Mg Tablet.dr, 81 MG PO DAILY, (Reported) Folic Acid (Folic Acid) 1 Mg Tablet, 1 MG PO DAILY Gabapentin (Gabapentin) 400 Mg Capsule, 400 MG PO TID Lisinopril (Lisinopril) 20 Mg Tablet, 20 MG PO DAILY Metoprolol Tartrate (Lopressor) 50 Mg Tablet, 50 MG PO Q8H Omeprazole (Omeprazole) 40 Mg Capsule.dr, 40 MG PO BID, (Reported) Thiamine HCl (Thiamine HCl) 100 Mg Tablet, 1 TAB PO DAILY Allergies Coded Allergies: No Known Allergies (Unverified , 01/25/21) A-FIB/CHADSVASC A-FIB History Current/History of A-Fib/PAF?: No Current PO Anticoag Therapy: No BATSHEVA WOOD MD Jul 28, 2021 14:01
[2021-07-28 17:25] VITALS: BP 123/66
--- OUTSIDE RECORDS SUMMARY | 2021-07-28 17:59 | CCD | Continuity of Care Document ---
Author Radha Cabezas M.D. Organization Unknown Address [address] [place] [id number] Phone [phone] Care Team Providers Care Durable Medical Equipment Repairer Name Role Phone Vivien Peacock AUTM [phone] Problems Active Problems Provider Date Malaise and fatigue Gladys Sosa M.D. Onset: 07/14/2021 Skin sensation disturbance Gladys Sosa M.D. Onset: 2020 Abnormal gait Gladys Sosa M.D. Onset: 07/14/2021 Idiopathic progressive polyneuropathy Gladys Sosa M.D. On set: 07/14/2021 Acute transverse myelitis Gladys Sosa M.D. Onset: Acute infective polyneuritis Gladys Sosa M.D. Onset: 07/07 Social History Type Date Description Comments Sex [...] lb BMI (Body Mass Index) 29.0 kg/m2 [place] Body Weight 184 lb Results Test Acquired Date Facility Test Result H/L Range Note Laboratory test finding 07/14/2021 [facility] Vitamin B12 Level 1421 pg/mL High 247-911 1 Folate > 24.0 NG/ML Normal >5.4 2 Total 25(Oh) Vitamin D 20.2 NG/ML Low 30.0-100.0 Rheumatoid Factor Quant < 10.0 IU/mL Normal <15.0 Erythrocyte Sedimentation Rate 48 mm/hr High 0-20 1 VITAMIN B12 NORMAL RANGE NORMAL 247 - 911 PG/ML INDETERMINATE 211 - 246 PG/ML DEFICIENT LESS THAN 211 PG/ML 2 FOLATE NORMAL RANGE NORMAL GREATER THAN 5.4 NG/ML INDETERMINATE 3.4-5.4 NG/ML DEFICIENT LESS THAN 3.4 NG/ML Procedures Date Code Description Status 07/18/2021 38852 Office/Outpatient Established Hi MDM 40-54 Min Completed 07/17/2021 37294 MRI Spine Thoracic W/O Contrast, Followed By Contrast Completed 07/17/2021 55008 MRI Spine Cervical W/O Contrast, Followed By Contrast Completed 07/16/2021 93798 MRI Spine Lumbar W/O Contrast Co mpleted 07/14/2021 38908 Office/Outpatient New High MDM 6 0-74 Minutes Completed 07/14/2021 78204 Nerve Conduction 11-12 Studies C ompleted 07/14/2021 58450 Needle Electromyography Complete , Five Or More Muscles Studied Completed 07/14/2021 99551 Needle Electromyography Complete , Five Or More Muscles Studied Completed Medical Devices Description No Information Available Encounters Type Date Location Provider Dx Diagnosis Office Visit 07/18/2021 2:30p Main office - [place] Miguel Franco G61.0 Guillain-[place] syndrome G60.3 Idiopathic progressive neuro clara R26.81 Unsteadiness on feet R53.1 Weakness R20.0 Anesthesia of skin Office Visit 07/14/2021 12:10p [place] Mensah R53.1 Weakness R20.0 Anesthesia of skin R26.81 Unsteadiness on feet G60.3 Idiopathic progressive neuro clara G37.3 Acute transverse myelitis in demyelinating disease of 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 07/18/2021 G60.3 Idiopathic progressive neuropath y Gladys Sosa M.D. 07/18/2021 R26.81 Unsteadiness on feet Gladys Sosa M.D. 07/18/2021 R53.1 Weakness Gladys Sosa M.D. 07/18/2021 R20.0 Anesthesia of skin Celia Franco 07/17/2021 R53.1 Weakness MRI 07/17/2021 R20.0 Anesthesia of skin MRI 07/17/2021 G37.3 Acute transverse mye litis in demyelinating disease of central nervous system MRI 07/16/2021 R53.1 Weakness MRI 07/16/2021 R20.0 Anesthesia of skin MRI 07/16/2021 R26.81 Unsteadiness on feet MRI 07/14/2021 R20.2 Paresthesia of skin Gladys Sosa [...] 3:45 pm - Gladys Sosa M.D. at Main office - [place] Functional Status Description No Information Available Mental Status Description No Information Available Referrals Description No Information Available
--- OUTSIDE RECORDS SUMMARY | 2021-07-28 17:59 | CCD | Continuity of Care Document ---
Author Author Radha CHRISTENSEN Organization Unknown Address [address] [place] [address] Phone [phone] Care Team Providers Care Studio Model Name Role Phone Vivien Peacock AUTM [phone] Problems Active Problems Provider Date Malaise and [...] lb BMI (Body Mass Index) 29.0 kg/m2 [place] Body Weight 184 lb Results Test Acquired Date Facility Test Result H/L Range Note Laboratory test finding 07/14/2021 [facility] Vitamin B12 Level 1421 pg/mL High 247-911 [...] NG/ML Procedures Date Code Description Status 07/18/2021 79755 Office/Outpatient Established [facility] MDM 40-54 Min Completed 07/17/2021 64470 MRI Spine Thoracic W/O Contrast, Followed By Contrast Completed 07/17/2021 70270 MRI Spine Thoracic W/O Contrast, Followed By Contrast Completed 07/17/2021 49535 MRI Spine Cervical W/O Contrast, Followed By Contrast Completed 07/17/2021 01268 MRI Spine Cervical W/O Contrast, Followed By Contrast Completed 07/16/2021 43851 MRI Spine Lumbar W/O Contrast Co mpleted 07/14/2021 78252 Office/Outpatient New High MDM 6 0-74 Minutes Completed 07/14/2021 24614 Nerve Conduction 11-12 Studies C ompleted 07/14/2021 90702 Needle Electromyography Complete , Five Or More Muscles Studied Completed 07/14/2021 49139 Needle Electromyography Complete , Five Or More Muscles Studied Completed Medical Devices Description No Information Available Encounters Type Date Location Provider Dx Diagnosis Office Visit 07/18/2021 2:30p [place] Mensah G61.0 Guillain-[place] syndrome G60.3 Idiopathic progressive neuro clara R26.81 Unsteadiness on feet R53.1 Weakness R20.0 Anesthesia of skin Office Visit 07/14/2021 12:10p [place] Mensah R53.1 Weakness R20.0 Anesthesia of skin R26.81 Unsteadiness on feet G60.3 Idiopathic progressive neuro clara G37.3 Acute transverse myelitis in demyelinating disease of 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 07/18/2021 G60.3 Idiopathic progressive neuropath y Gladys Sosa M.D. 07/18/2021 R26.81 Unsteadiness on feet Gladys Sosa M.D. 07/18/2021 R53.1 Weakness Gladys Sosa M.D. 07/18/2021 R20.0 Anesthesia of skin Celia Franco 07/17/2021 R53.1 Weakness Lila Bah 07/17/2021 R53.1 Weakness MRI 07/17/2021 R20.0 Anesthesia of skin Vivian Sinclair M.D. 07/17/2021 R20.0 Anesthesia of skin MRI 07/17/2021 G37.3 Acute transverse mye litis in demyelinating disease of central nervous system Vivian Sinclair M.D. 07/17/2021 G37.3 Acute transverse mye litis in [...] 07/14/2021 G60.3 Idiopathic progressive neuropath y Gladys Soas M.D. 07/14/2021 G37.3 Acute transverse mye litis in demyelinating disease of central nervous system Gladys Sosa M.D. Plan of Treatment Future Appointment(s):* 07/30/2021 3:45 pm - Gladys Sosa M.D. at Main office - [place] Functional Status Description No Information Available Mental Status Description No Information Available Referrals Refer to Dr Reason for Referral Status Appt Date Gladys Sosa M.D. Created [facility] [address] [place] [phone]
--- OUTSIDE RECORDS SUMMARY | 2021-07-28 17:59 | CCD | Continuity of Care Document ---
Author Author Radha CHRISTENSEN Organization Unknown Address [address] [place] [address] Phone [phone] Care Team Providers Care Test Bore Helper Name Role Phone Vivien Peacock AUTM [phone] Problems Active Problems Provider Date Malaise and [...] lb BMI (Body Mass Index) 29.0 kg/m2 [place] Body Weight 184 lb Results Test Acquired [...] NG/ML Procedures Date Code Description Status 07/18/2021 26033 Office/Outpatient Established [facility] MDM 40-54 Min Completed 07/17/2021 75100 MRI Spine Thoracic W/O Contrast, Followed By Contrast Completed 07/17/2021 26951 MRI Spine Thoracic W/O Contrast, Followed By Contrast Completed 07/17/2021 34022 MRI Spine Cervical W/O Contrast, Followed By Contrast Completed 07/17/2021 08486 MRI Spine Cervical W/O Contrast, Followed By Contrast Completed 07/16/2021 31589 MRI Spine Lumbar W/O Contrast Co mpleted 07/16/2021 76973 MRI Spine Lumbar W/O Contrast Co mpleted 07/14/2021 70020 Office/Outpatient New High MDM 6 0-74 Minutes Completed 07/14/2021 59823 Nerve Conduction 11-12 Studies C ompleted 07/14/2021 71000 Needle Electromyography Complete , Five Or More Muscles Studied Completed 07/14/2021 59205 Needle Electromyography Complete , Five Or More Muscles Studied Completed Medical Devices Description No Information Available Encounters Type Date Location Provider Dx Diagnosis Office Visit 07/18/2021 2:30p Main office - Miguel Bryant G61.0 Guillain-[place] syndrome G60.3 Idiopathic progressive neuro clara R26.81 Unsteadiness on feet R53.1 Weakness R20.0 Anesthesia of skin Office Visit 07/14/2021 12:10p Main office - Miguel Bryant R53.1 Weakness R20.0 Anesthesia of skin R26.81 Unsteadiness on feet G60.3 Idiopathic progressive neuro clara G37.3 Acute transverse myelitis in demyelinating disease of 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 07/18/2021 G60.3 Idiopathic progressive neuropath y Gladys Sosa M.D. 07/18/2021 R26.81 Unsteadiness on feet Gladys Sosa M.D. 07/18/2021 R53.1 Weakness Gladys Sosa M.D. 07/18/2021 R20.0 Anesthesia of skin Celia Franco 07/17/2021 R53.1 Weakness Vivian Dottie, M.D Virgin[place] 07/17/2021 R53.1 Weakness MRI 07/17/2021 R20.0 Anesthesia of skin Vivian Dottie, [place] 07/17/2021 R20.0 Anesthesia of skin MRI 07/17/2021 G37.3 Acute transverse mye litis in demyelinating disease of central nervous system Vivian DottieFranklin 07/17/2021 G37.3 Acute transverse mye litis in demyelinating disease of central nervous system MRI 07/16/2021 R53.1 Weakness Vivian Dottie, Celia.D Virginie 07/16/2021 R53.1 Weakness MRI 07/16/2021 R20.0 Anesthesia of skin Vivian Dottie, [place] 07/16/2021 R20.0 Anesthesia of skin MRI 07/16/2021 R26.81 Unsteadiness on feet Vivian Dottie , [place] 07/16/2021 R26.81 Unsteadiness on feet MRI 07/14/2021 [...] Gladys Sosa M.D. at Main office - [place] Functional Status Description No Information Available Mental Status Description No Information Available Referrals Refer to Reason for Referral Status Appt Date Gladys Sosa M.D. Created [facility] [address] [place] [address] [phone] Gladys Sosa M.D. Created [facility] [address] [place] [address] [phone]
--- OUTSIDE RECORDS SUMMARY | 2021-07-28 17:59 | CCD | Continuity of Care Document ---
Author Radha Cabezas M.D. Organization Unknown Address [address] [place] [address] Phone [phone] Care Team Providers Care Hoop Punch And Coiler Operator Name Role Phone Vivien Peacock AUTM [phone] Problems Active Problems Provider Date Malaise and [...] lb BMI (Body Mass Index) 29.0 kg/m2 [place] Body Weight 184 lb Results Test Acquired Date Facility Test Result H/L Range Note Laboratory test finding 07/14/2021 [facility] Vitamin B12 Level 1421 pg/mL High 247-911 [...] NG/ML Procedures Date Code Description Status 07/18/2021 38774 Office/Outpatient Established [facility] MDM 40-54 Min Completed 07/17/2021 03217 MRI Spine Thoracic W/O Contrast, Followed By Contrast Completed 07/17/2021 00665 MRI Spine Thoracic W/O Contrast, Followed By Contrast Completed 07/17/2021 41637 MRI Spine Cervical W/O Contrast, Followed By Contrast Completed 07/17/2021 77067 MRI Spine Cervical W/O Contrast, Followed By Contrast Completed 07/16/2021 03705 MRI Spine Lumbar W/O Contrast Co mpleted 07/16/2021 45440 MRI Spine Lumbar W/O Contrast Co mpleted 07/14/2021 32184 Office/Outpatient New High MDM 6 0-74 Minutes Completed 07/14/2021 81073 Nerve Conduction - Studies C ompleted 07/14/2021 33733 Needle Electromyography Complete , Five Or More Muscles Studied Completed 07/14/2021 99590 Needle Electromyography Complete , Five Or More Muscles Studied Completed Medical Devices Description No Information Available Encounters Type Date Location Provider Dx Diagnosis Office Visit 07/18/2021 2:30p [place] G61.0 Guillain-[place] syndrome G60.3 Idiopathic progressive neuro clara R26.81 Unsteadiness on feet R53.1 Weakness R20.0 Anesthesia of skin Office Visit 07/14/2021 12:10p [place] office - [place] R53.1 Weakness R20.0 Anesthesia of skin R26.81 Unsteadiness on feet G60.3 Idiopathic progressive neuro clara G37.3 Acute transverse myelitis in demyelinating disease of 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 07/18/2021 G60.3 Idiopathic progressive neuropath y Gladys Sosa M.D. 07/18/2021 R26.81 Unsteadiness on feet Gladys Sosa M.D. 07/18/2021 R53.1 Weakness Gladys Sosa M.D. 07/18/2021 R20.0 Anesthesia of skin Celia Franco 07/17/2021 R53.1 Weakness Vivian Dottie, Lila Rachel 07/17/2021 R53.1 Weakness MRI 07/17/2021 R20.0 Anesthesia of skin Vivian Dottie, [place] 07/17/2021 R20.0 Anesthesia of skin MRI 07/17/2021 G37.3 Acute transverse mye litis in demyelinating disease of central nervous system Vivian DottieFranklin 07/17/2021 G37.3 Acute transverse mye litis in demyelinating disease of central nervous system MRI 07/16/2021 R53.1 Weakness Vivian Dottie, Lila Rachel 07/16/2021 R53.1 Weakness MRI 07/16/2021 R20.0 Anesthesia [...] Gladys Sosa M.D. at Main office - [place] Functional Status Description No Information Available Mental Status Description No Information Available Referrals Refer to Dr Reason for Referral Status Appt Date Gladys Sosa M.D. Created [facility] [address] [place] [address] [phone] Gladys Sosa M.D. Created [facility] [address] [place] [address] [phone]
--- OUTSIDE RECORDS SUMMARY | 2021-07-28 17:59 | CCD | Continuity of Care Document ---
Author Author Radha FREED Organization Unknown Address [address] [facility] [address] [place] [address] Phone [phone] Care Team Providers Care Splicer Apprentice Name Role Phone Gladys Sosa M.D. AUTM [phone] MITUL FREED AUTM [phone] Problems Active Problems Provider Date Essential hypertension [...] 06/26/2021 Vital Signs Date Vital Result Comment 07/07/2021 12:57pm Height 73 inches 6'1" BP Systolic 138 mmHg BP Diastolic 80 mmHg Heart Rate 100 /min O2 % BldC Oximetry 94 % 06/30/2021 11:16am Height 73 inches 6'1" Weight 207.00 lb BMI (Body Mass Index) 27.3 kg/m2 Body Temperature 97.0 F BP Systolic 132 mmHg BP Diastolic 98 mmHg Heart Rate 90 /min O2 % BldC Oximetry 139 % Respiratory Rate 20 /min Results Test Acquired Date Facility Test Result H/L Range Note Laboratory test finding 07/18/2021 [facility] [address] [place], [place] [id number] [phone] iSTAT B-hCG < 5.0 Normal 1 1 QUANTITATIVE RESULT QUALITATIVE INTERPRETATION <5.0 IU/L NEGATIVE 5.0 - 25.0 IU/L INDETER MINATE >25.0 IU/L POSITIVE Procedures Date Code Description Status 07/07/2021 20965 Office/Outpatient Established [place] MDM 30-39 Min Completed 06/30/2021 72708 Office/Outpatient Established Mo d MDM 30-39 Min Completed 06/26/2021 15086 Office/Outpatient Established Mo d MDM 30-39 Min Completed 06/26/2021 25125 Office/Outpatient New Moderate M DM 45-59 Minutes Completed Encounters Type Date Location Provider Dx Diagnosis Office Visit 07/07/2021 11:30a [facility] JASMIN Kapadia M25.571 Pain in right ankle and joints of right foot E86.0 Dehydration K21.9 Gastro-esophageal reflux dis ease without esophagitis Z98.84 Bariatric surgery status Office Visit 06/30/2021 10:00a [facility] JASMIN Kapadia E86.0 Dehydration K21.9 Gastro-esophageal reflux dis ease without esophagitis Z98.84 Bariatric surgery status Office Visit 06/26/2021 9:30a [facility] JASMIN Kapadia I10 Essential (primary) hypertension K21.9 Gastro-esophageal reflux dis ease without esophagitis Z86.73 Prsnl hx of TIA (TIA), and c ereb infrc w/o resid deficits Z98.84 Bariatric surgery status F17.293 Nicotine dependence, other t obacco product, with withdrawal R11.2 Nausea with vomiting, unspec ified K76.0 Fatty (change of) liver, not elsewhere classified Assessments Date Code Description Provider 07/07/2021 M25.571 Pain in right ankle and joints o f right foot JASMIN Cooper 07/07/2021 E86.0 Dehydration JASMIN Cooper 07/07/2021 K21.9 Gastro-esophageal reflux disease without esophagitis JASMIN Cooper 07/07/2021 Z98.84 Gastric bypass status for obesit y JASMIN Cooper 06/30/2021 E86.0 Dehydration JASMIN Cooper 06/30/2021 K21.9 [...] JASMIN Cooper 06/26/2021 Z98.84 Bariatric surgery status Rhona mya Blane JASMIN Wetzel 06/26/2021 Z98.84 Gastric bypass status for obesit y JASMIN Cooper 06/26/2021 F17.293 Nicotine dependence, other tobac co product, with withdrawal JASMIN Cooper 06/26/2021 R11.2 Nausea with vomiting, unspecifie d JASMIN Cooper 06/26/2021 K76.0 Fatty (change of) liver, not els ewhere classified JASMIN Cooper Plan of Treatment 07/07/2021 - JASMIN Cooper* M25.571 Pain in right ankle and joints of right foot* Comments:* Ankle was assessed in the clinic. At this time there is diffuse edema specifically around the lateral aspect of right ankle. Unable to bear weight to walk. Arrived by wheel chair. Has not done anything to improve pain other than rest. Pain is severe when putting weight on ankle. History of ankle fracture on right side in the past. I reviewed options for treatment including me having her get XRAYS now and a referral to ortho in the near future or go be evaluated in ED/Urgent care. Benefit of immediate evaluation and treatment with supplies that we do not have here reviewed with patient. She decided to have further evaluation at ED/urgent care. This clinic does not have splints available, we did give her crutches to assist her ambulation. I showed patient how to use crutches. * E86.0 Dehydration* Comments:* Patient urination is regular now. Dehydration with BELLAMY has improved at this time. Still complains of b/l lower leg weakness. Continues to have loss of sensation and weakness of lower extremities despite replenishment of electrolytes through oral hydration. At this time will refer to neurology for further evaluation of lower leg. * Referral:* Gladys Sosa M.D., Neurology * K21.9 Gastro-esophageal reflux disease without esophagitis* Comments:* Reviewed the anatomy of upper GI tract and pathology of disease.Goal is to reduce PPI and use PRN medication.Reviewed the anatomy of upper GI tract and pathology of disease. Continue current PPI * Z98.84 Gastric bypass status for obesity* Comments:* S/P gastric sleeve in 2017. Reviewed that she CANNOT take NSAIDs since this surgery. Recommended multivitamin due to surgery. Recommended that due to surgery she take two multi vitamins per day with at least 18 mg Fe in each tab, 500-600 mg calcium citrate BID, and 500 mcg Vit B12.Will need to check routine labs including Fe studies, B12, CMP, and CBC, 25 OH vit D next visit. * All * Comments:* Will need to check routine labs including Fe studies, B12, CMP, and CBC, 25 OH vit D next visit. Referrals Refer to Reason for Referral Status Appt Gladys Moyer M.D. paresthesia and weakness of B/L lower extremit ies [facility] [place] [address] [phone]
--- OUTSIDE RECORDS SUMMARY | 2021-07-28 17:59 | CCD | Continuity of Care Document ---
Author Radha Cabezas M.D. Organization Unknown Address [address] [place] [address] Phone [phone] Care Team Providers Care Recoater Name Role Phone Vivien Peacock AUTM [phone] Problems Active Problems Provider Date Malaise and [...] lb BMI (Body Mass Index) 29.0 kg/m2 [place] Body Weight 184 lb Results Test Acquired Date Facility Test Result H/L Range Note Laboratory test finding 07/14/2021 [facility] Vitamin B12 Level 1421 pg/mL High 247-911 [...] NG/ML Procedures Date Code Description Status 07/18/2021 15088 Office/Outpatient Established [facility] MDM 40-54 Min Completed 07/17/2021 12516 MRI Spine Thoracic W/O Contrast, Followed By Contrast Completed 07/17/2021 56319 MRI Spine Thoracic W/O Contrast, Followed By Contrast Completed 07/17/2021 79794 MRI Spine Cervical W/O Contrast, Followed By Contrast Completed 07/17/2021 36090 MRI Spine Cervical W/O Contrast, Followed By Contrast Completed 07/16/2021 19219 MRI Spine Lumbar W/O Contrast Co mpleted 07/16/2021 17359 MRI Spine Lumbar W/O Contrast Co mpleted 07/14/2021 16232 Office/Outpatient New High MDM 6 0-74 Minutes Completed 07/14/2021 98352 Nerve Conduction - Studies C ompleted 07/14/2021 23633 Needle Electromyography Complete , Five Or More Muscles Studied Completed 07/14/2021 04909 Needle Electromyography Complete , Five Or More Muscles Studied Completed Medical Devices Description No Information Available Encounters Type Date Location Provider Dx Diagnosis Office Visit 07/18/2021 2:30p [place] 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 07/18/2021 G60.3 Idiopathic [...] Weakness MRI 07/16/2021 R20.0 Anesthesia of skin Vviian Dottie, [place] 07/16/2021 R20.0 Anesthesia of skin [...] Gladys Sosa M.D. at Main office - [place] Functional Status Description No Information Available Mental Status Description No Information Available Referrals Refer to Dr Reason for Referral Status Appt Date Gladys Sosa M.D. Created [facility] [address] [place] [address] [phone] Gladys Sosa M.D. Created [facility] [address] [place] [address] [phone]
--- OUTSIDE RECORDS SUMMARY | 2021-07-28 18:00 | CCD ---
Author Author [facility] Organization [facility] Address Unknown Phone Unavailable Care Team Providers Care Circle Beveler Name Role Phone NO, PCP Unavailable Unavailable [...] I LAMBERT PA Unavailable Unavailable DRAZEK, I LAMEBRT PA Unavailable Unavailable DRAZEK, I LAMBERT PA [...] is protected by Article 27-F of the [place] State Public Health law. If you continue you may have access to information: Regarding HIV / AIDS; Provided by facilities licensed or operated by the [facility] Office of Mental Health; or Provided by the [facility] Office for People With Developmental Disabilities. If such information is present, then the following [facility] mandated warning applies: This information has [...] law may result in a fine or mcc sentence or both. A general authorization for the release of medical or other information is NOT sufficient authorization for further disc losure. Encounters Encounter Providers Location Date Indications Data Source(s ) Outpatient Attender: Gladys Sosa MD Main office [facility] 07/18/2021 01:30:00 PM EST [facility] ([facility], ) Outpatient Attender: Gladys Sosa MD Main office [facility] 07/14/2021 11:10:00 AM EST [facility] ([facility], ) Outpatient Attender: LAMBERT CASTELLANOS Physical Therapy 07/09/2021 0 1:00:00 PM EDT [facility] ([facility] ) Emergency Attender: EDGARDO Torres: PCP NO 07/07/2021 01:22:00 PM EDT - 07/07/2021 05:15:00 PM EDT [facility] Patient discharged. Outpatient Attender: Vivien Peacock [facility] 11:30:00 AM EDT [facility] ([facility]) Outpatient Attender: Vivien CASTELLANOS [facility] 10:00:00 AM EDT [facility] ([facility]) Outpatient Attender: Vivien CASTELLANOS [facility] 09:30:00 AM EDT [facility] ([facility]) Emergency Attender: EDGARDO Mccormackant: PCP NO 06/10/2021 02:25:00 AM EDT - 06/10/2021 07:11:00 AM EDT [facility] Patient discharged. Outpatient Attender: Bob CASTELLANOS Physical Therapy 12:00:00 PM EST [facility] ([facility]) Outpatient Attender: Lesia zavalay 10/18/2020 12:10:00 PM EST [facility] ([facility]) Medications Medication Brand Name Start Date Product Form Dose Route Admi nistrative Instructions Pharmacy Instructions Status Indications Reaction Description Data Source(s) Alprazolam 0.5 MG Oral Tablet ALPRAZOLAM 07/15/2021 12:00:00 AM EST ta blet 2 TAKE 1 TABLET BY MOUTH 1/2 HOUR BEFORE MRI SCAN MAY REPEAT ONCE IF NEEDED MAXIMUM DAILY DOSE = 2 TABLETS TAKE 1 TABLET BY MOUTH 1/2 HOUR BEFORE M RI SCAN MAY REPEAT ONCE IF NEEDED MAXIMUM DAILY DOSE = 2 TABLETS SOLD: 07/16/2021 [facility] Alprazolam 0.5 MG Oral Tablet Alprazolam 07/14/2021 12:00:00 AM EST ORAL active [facility] ([facility], ) 50 mg 07/09/2021 12:00:00 [...] BEFORE BREAKFAST AND AT BEDTIME SOLD: 06/26/2021 [facility] tramadol hydrochloride 50 MG Oral Tablet [...] DAILY DOSE = 4 TABLETS SOLD: 06/19/2021 [facility] 81 mg 06/19/2021 12:00:00 AM EDT [...] DA Y NEEDED FOR PAIN SOLD: 06/10/2021 [facility] 4 mg 06/10/2021 12:00:00 AM EDT tablet 16 TAKE ONE TABLET BY MOUTH FOUR TIMES A DAY NEEDED TAKE ONE TABLET BY MOUTH FOUR TIMES A DAY NEEDED SO LD: 06/10/2021 [facility] 5-325 mg 02/24/2021 12:00:00 AM EDT tablet 15 TAKE ONE TABLET BY MOUTH EVERY 8 HOURS NEEDED FOR PAIN MAXIMUM DAILY DOSE = 3 TAKE ONE TABLET BY MOUTH EVERY 8 HOURS NEEDED FOR PAIN MAXIMUM DAILY DOSE = 3 SOLD: 02/24/2021 [facility] 750 mg 02/24/2021 12:00:00 AM EDT tablet 10 TAKE ONE TABLET BY MOUTH EVERY DAY TAKE ONE TABLET BY MOUTH EVERY DAY SOLD: 02/24/2021 [facility] Ondansetron 4 MG Disintegrating Oral Tablet ONDANSETRON 01/26/2021 12:00:00 AM EDT tablet,disintegrating 8 PLACE ONE TABLET BY MOUTH EVERY 6 TO 8 HOURS NEEDED FOR NAUSEA AND VOMITING PLACE ONE TABLET BY MOUTH EVERY 6 TO 8 H OURS NEEDED FOR NAUSEA AND VOMITING SOLD: 02/04/2021 [facility] Trazodone Hydrochloride 100 MG Oral Tablet TRAZODONE [...] BEDTIME NEEDED FOR INSOMNIA SOLD: 11/25/2020 [facility] Citalopram 20 MG Oral Tablet CITALOPRAM HYDROBROMIDE [...] DAILY DOSE = THREE TABLETS SOLD: 10/21/2020 [facility] tramadol hydrochloride 50 MG Oral Tablet Tramadol HCL 10/21/2020 12:00:00 AM EST active [facility] ([facility]) 25 mg 10/18/2020 12:00:00 AM EST tablet extended release 24 hr 30 TAKE ONE TABLET BY MOUTH EVERY DAY TAKE ONE TABLET BY MOUTH EVERY DAY SOLD: 10/18/2020 [facility] 24 HR metoprolol succinate 25 MG Extended Release Oral Tablet Metoprolol Succinate ER 10/18/2020 12:00:00 AM EST ORAL active [facility] ([facility]) No Active Medications 10/18/2020 12:00:00 AM EST completed [facility] ([facility]) Insurance Providers Payer name Policy type / Coverage type Policy ID Covered constitution party ID Covered constitution party's relationship to pineda Policy Pineda Plan Information [facility] [id number] SP [id number] [facility] ADV - OP [id number] [facility] MCR ADV - OP UNAVAILABLE U NAVAILABLE MEDICAID -O/P EMERGENCY ROOM [id number] [facility] O [id number] S [id number] [facility] [id number] SP [id number] [place] [id number] SP [id number] SELF PAY ONLY [id number] SP [id number] [facility] UNINSURED FUND SP Problems, Conditions, and Diagnoses Code Display Name Description Problem Type Effective Dates Data Source(s) U11294 [address] in unspeci fied non-institutional (private) residence as the place of occurrence of the external cause Unspecified place in unspecified non-institutional (private) residence as the place of occurrence of the external cause Diagnosis 07/07/2021 01:22:00 PM EDT [facility] [id number] Overexertion from prolonged static or awkward postures, initial encounter Overexertion from prolonged static or aw kward postures, initial encounter Diagnosis 07/07/2021 01:22:00 PM EDT [facility] [id number] Nondisplaced fracture of lat eral malleolus of right fibula, initial encounter for closed fracture Nondisplaced fracture of lateral malleol us of right fibula, initial encounter for closed fracture Diagnosis 01:22:00 PM EDT [facility] [id number] Unspecified injury of right ankle, initi al encounter Unspecified injury of right ankle, initial encounter Diagnosis 07/07/2021 01:22:00 PM EDT [facility] Z8673 Personal history of transien t ischemic attack (TIA), and cerebral infarction without residual deficits Personal history of transient ischemic attack (TIA), and cerebral infarction without residual deficits Diagnosis 06/10/2021 02:25:00 AM EDT [facility] G10340 Nicotine dependence, cigarettes, uncompl icated Nicotine dependence, cigarettes, uncomplicated Diagnosis 06/10/2021 02:25:00 AM EDT [facility] I10 Essential (primary) hypertension Essential (primary) h ypertension Diagnosis 06/10/2021 02:25:00 AM EDT [facility] R160 Hepatomegaly, not elsewhere classified H epatomegaly, not elsewhere classified Diagnosis 06/10/2021 02:25:00 AM EDT [facility] K760 Fatty (change of) liver, not elsewhere c lassified Fatty (change of) liver, not elsewhere classified Diagnosis 06/10/2021 02:25:00 AM EDT [facility] N10 Acute pyelonephritis Acute pyelonephritis Diagnosis 06/10/2021 02:25:00 AM EDT [facility] A0811 Acute gastroenteropathy due to [place] a gent Acute gastroenteropathy due to [place] agent Diagnosis 06/10/2021 02:25:00 AM EDT [facility] R197 Diarrhea, unspecified Diarrhea, unspecified Diagnosis 06/10/2021 02:25:00 AM EDT [facility] G61.0 Acute infective polyneuritis Acute infective polyneuri tis Problem 07/18/2021 12:00:00 AM EST [facility] ([facility], ) G37.3 Acute transverse myelitis Acute transverse myelitis Pr oblem 07/14/2021 12:00:00 AM EST [facility] ([facility], ) 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 Id iopathic progressive polyneuropathy Problem 07/14/2021 12:00:00 AM EST [facility] ([facility], ) R26.81 Abnormal gait Abnormal gait Problem 07/14/2021 12:00:00 AM EST [facility] ([facility], ) R20.0 Skin sensation disturbance Skin sensation disturbance Problem 07/14/2021 12:00:00 AM EST [facility] ([facility] ) R53.1 Malaise and fatigue Malaise and fatigue Problem 1 09/13/2020 12:00:00 AM EST [facility] ([facility] ) [id number] Chronic urinary tract infection Chronic urinary tract infection Problem 06/26/2021 12:00:00 AM EDT [facility] ([facility]) [id number] Chronic liver disease Chronic liver disease Problem 06/26/2021 12:00:00 AM EDT [facility] ([facility]) [id number] Transient cerebral ischemia Transient cerebral ischemi a Problem 06/26/2021 12:00:00 AM EDT [facility] ([facility]) [id number] Abdominal pain Abdominal pain Problem 06/26/2021 12:00: 00 AM EDT [facility] ([facility]) [id number] Essential hypertension Essential hypertension Problem 06/26/2021 12:00:00 AM EDT [facility] ([facility]) Surgeries/Procedures Procedure Description Date Indications Data Source(s) OFFICE OUTPATIENT VISIT 40 MINUTES 07/18/2021 12:00:00 AM EST [facility] ([facility], ) MRI Spine Cervical W/O Contrast, Followed By Contrast 07/17/2021 12:00:00 AM EST [facility] ([facility], ) MRI Spine Cervical W/O Contrast, Followed By Contrast 07/17/2021 12:00:00 AM EST [facility] ([facility], ) MRI Spine Thoracic W/O Contrast, Followed By Contrast 07/17/2021 12:00:00 AM EST [facility] ([facility], ) MRI Spine Thoracic W/O Contrast, Followed By Contrast 07/17/2021 12:00:00 AM EST [facility] ([facility] ) MRI SPINAL CANAL LUMBAR W/O CONTRAST MATERIAL 07/16/20 12:00:00 AM EST [facility] ([facility], ) MRI SPINAL CANAL LUMBAR W/O CONTRAST MATERIAL 07/16/20 12:00:00 AM EST [facility] ([facility], ) Needle electromyography, each extremity, with related paraspinal areas, when performed, done with nerve conduction, amplitude and latency/velocity study; complete, five or more muscles studied, innervated by three or more nerves or four or more spinal levels (list separately in addition to the code for primary procedure). 07/14/2021 12:00:00 AM EST MEDEN T ([facility], ) Needle electromyography, each extremity, with related paraspinal areas, when performed, done with nerve conduction, amplitude and latency/velocity study; complete, five or more muscles studied, innervated by three or more nerves or four or more spinal levels (list separately in addition to the code for primary procedure). 07/14/2021 12:00:00 AM EST [facility] T ([facility], ) Nerve Conduction 11-12 Studies 07/14/2021 12:00:00 AM EST [facility] ([facility], ) OFFICE OUTPATIENT NEW 60 MINUTES 07/14/2021 12:00:00 A M EST [facility] ([facility], ) OFFICE OUTPATIENT NEW 45 MINUTES 07/09/2021 12:00:00 A M EDT [facility] ([facility] ) OFFICE OUTPATIENT VISIT 25 MINUTES 07/07/2021 12:00:00 AM EDT [facility] ([facility]) OFFICE OUTPATIENT VISIT 25 MINUTES 06/30/2021 12:00:00 AM EDT [facility] ([facility]) OFFICE OUTPATIENT NEW 45 MINUTES 06/26/2021 12:00:00 A M EDT [facility] ([facility]) OFFICE OUTPATIENT VISIT 25 MINUTES 06/26/2021 12:00:00 AM EDT [facility] ([facility]) FX Lateral Malleolus (Distal Fibula) W/O Manipulation 10/21/2020 12:00:00 AM EST [facility] ([facility] ) RADEX ANKLE COMPLETE MINIMUM 3 VIEWS 10/21/2020 12:00: 00 AM EST [facility] ([facility]) Results ID Date Data Source [id number] 07/18/2021 06:29:00 PM EST [facility] ([facility]) Name Value Range Interpretation Code Description Data [facility] rce(s) Supporting Document(s) Choriogonadotropin.beta subunit [Moles/volume] in Seru m or Plasma Laboratory test result Normal (applies to non-numeric results) [facility] (Jim Hartman MD) <content>QUANTITATIVE RESULT QU ALITATIVE INTERPRETATION</content>
<content> </content>
<content><5.0 IU/L NEGATIVE</content>
<content>5.0 - 25.0 IU/L INDETERMINATE</content>
<content>>25.0 IU/L POSITIVE</content>
<content></content> ID Date Data Source [id number] 07/18/2021 06:03:00 PM EST [facility] Name Value Range Interpretation Code Description Data [facility] rce(s) Supporting Document(s) SARS coronavirus 2 RNA [Presence] in Res piratory specimen by NORA with probe detection NEGATIVE [facility] This lab was ordered by [facility] a nd reported by [facility]. ID Date Data Source [id number] 07/14/2021 02:54:00 PM EST [facility] ([facility]) Name Value Range Interpretation Code Description Data Juju rce(s) Supporting Document(s) Folate [Mass/volume] in Serum or Plasma Laboratory test result [facility] ([facility]) FOLATE NORMAL RANGE NORMAL GREATER THAN 5.4 NG/ML INDETERMINATE 3.4-5.4 NG/ML DEFICIENT LESS THAN 3.4 NG/ML Cobalamin (Vitamin B12) [Mass/volume] in Serum or Plasma 1421 pg/mL 2 47-911 [facility] ([facility]) VITAMIN B12 NORMAL RANGE NORMAL 247 - 911 PG/ML INDETERMINATE 211 - 246 PG/ML DEFICIENT LESS THAN 211 PG/ML Calcidiol [Mass/volume] in Serum or Plasma 20.2 ng/mL 30.0-100.0 [facility] ([facility], ) Rheumatoid factor [Units/volume] in Serum or Plasma Laboratory test result [facility] ) Erythrocyte sedimentation rate by 2H Westergren method 48 mm/hr 0-2 0 [facility] ) ID Date Data Source [id number] 07/07/2021 01:22:00 PM EDT [facility] 1 OrderSheet [facility] Emergency Department [address] [place] [address] Phone #: ext- [phone] 07/07/2021 13:20 Patient: SHAWNEE MONTALVO Sex: F : 1990 Age: 30yWEIGHT:86.1 [...] Right Cris Lynch Jennifer Putnam, Jennifer Jennifer RVirginieN.(Oxygen?(No)) R.N.; Verbal order R.N. per; David CASTELLANOS Reason for Study: Foot/Heel InjuryMEDICATION/IV/DRIP/FLUID ORDERSOrder Description Priority Entered Acknowledged InitialedGENERAL ORDERSOrder Description Priority Entered Acknowledged InitialedCrutches 16:54 07/07/2021 17:11 Racheal Anguiano R.N.;Splint (LE) (Right) 16:54 07/07/2021 17:11 Racheal Anguiano(ORTHO BOOT) David CASTELLANOS;[Electronically signed by Racheal Anguiano R.N. (17:15 07/07/2021)][Electronically signed by David Dubois (20:31 07/08/2021)][Electronically locked by Racheal Anguiano R.N. (17:15 07/07/2021)] 2 OrderSheet [facility] Emergency Department [address] [place] [address] Phone #: ext- [phone] 07/07/2021 13:20 Patient: SHAWNEE MONTALVO Sex: F : 1990 Age: 30y Name Value Range Interpretation Code Description Data Juju rce(s) Supporting Document(s) ID Date Data Source [id number] 07/07/2021 01:22:00 PM EDT [facility] 1 Medication Reconciliation Report [facility] Emergency Department [address] [place] [address] Phone #: ext- [phone] 07/07/2021 13:20 Patient: SHAWNEE MONTALVO Sex: F : 1990 Age: 30yWeight: [...] Dispense 45tablet. Refills: 0. Substitution permitted.Pharmacy - [facility], [place] [phone]. . -- JASMIN Ventura Name Value Range Interpretation Code Description Data [facility](s) Supporting Document(s) ID Date Data Source [id number] 07/07/2021 01:22:00 PM EDT [place] [address] Medication Administration Record [facility] Emergency Department [address] [place] [address] Phone #: ext- [phone] 07/07/2021 13:20 Patient: SHAWNEE MONTALVO Sex: F : 1990 Age: 30yWeight: 86.1 kgHeight/Length: 73 inBMI: 25ALLERGIES: No Known Drug AllergyDate/Time Medication Administered Medication Ordered Name Value Range Interpretation Code Description Data Juju rce(s) Supporting Document(s) ID Date Data Source [id number] 07/07/2021 01:22:00 PM EDT [facility] 1 General Instructions [facility] Emergency Department [address] [place] [address] Phone #: ext- [phone] 07/07/2021 13:20 Patient: SHAWNEE MONTALVO Sex: F : 1990 Age: 30yClosed [...] Dispense 45tablet. Refills: 0. Substitution permitted.Pharmacy - [facility] - [address] [place] [phone]. .Understanding of the discharge instructions verbalized by patient.Follow-up with: [facility], , , [address] [place] [address], ,[place], [address] Follow up tomorrow. Call for an appointment. Reason for referral: evaluation and treatment. Summary ofcare provided to patient. ADDITIONAL INFORMATIONAnkle Fracture, Distal Fibula 2 General Instructions [facility] Emergency Department [address] [place] [address] Phone #: ext- [phone] 07/07/2021 13:20 Patient: SHAWNEE MONTALVO Sex: F : 1990 Age: 30yYou [...] gets wet, dry it with a hair blender on a cool setting. Place an ice pack over the injured area for no more than 15 to 20 minutes. Do this every 3 to 6 hours for the first 24 to 48 hours. Continue this 3 to 4 times a day as needed. To make an ice 3 General Instructions [facility] Emergency Department [address] [place] [address] Phone #: ext- [phone] 07/07/2021 13:20 Patient: SHAWNEE MONTALVO Sex: F : 1990 Age: 30y [...] splint doesn't get wet. You may use [id number] pain medicine to control pain, unless another [...] cast or splint develops cracks or breaks 0214-0312 [employer]. [address] [place] [address]. All rights reserved. This information is not intended as asubstitute for professional medical care. Always follow your healthcare professional's instructions.Crutch WalkingCrutch adjustment 4 General Instructions [facility] Emergency Department [address] [place] [address] Phone #: ext- [phone] 07/07/2021 13:20 Patient: SHAWNEE MONTALVO Sex: F : 1990 Age: 30y Make sure the crutches you use are adjusted to fit you. When you stand,there should be room to fit 2 to 3 fingers between the top of the crutch and your armpit. Your elbowshould be slightly bent when holding the hand redye hand. When your arms hang down, the crutch handleshould be at the top of your hip.Crutch walkingPlace the crutches forward about 1 foot in front of you. The crutches should be a little farther apartthan your body. Lean your weight forward as you push down on the hand redye hand. Make sure yourweight is on your hands and your strong leg, not your armpits. Let your body swing forward, landingon the strong leg. Move the crutches forward again. The crutch and your injured leg should movetogether.Going up steps with no handrails(Up with the good leg) With both crutches (under each armpit) on the same step as your feet, push down on the hand redye hand. 5 General Instructions [facility] Emergency Department [address] [place] [address] Phone #: ext- [phone] 07/07/2021 13:20 Patient: SHAWNEE MONTALVO Sex: F : 1990 Age: 30y [...] your feet, push down on the hand redye hand. Keep your weight evenly balanced on the [...] opposite side. Push down on the hand redye hand. Balancing with very light pressure on the [...] crutches under your armpit on 6 General [facility] Emergency Department [address] [place] [address] Phone #: ext- [phone] 07/07/2021 13:20 Patient: SHAWNEE MONTALVO Sex: F : 1990 Age: 30y the opposite side. Push down on the hand redye hand. Balance your weight evenly on the crutches, [...] try sitting when going up or down stairsinstead. Sit on the bottom step and keep your injured leg out in front of you. Hold your crutches flatagainst the stairs. Then slide up to the next step on your bottom. Use your free hand and good leg forsupport. Face the same way when going down stairs. 6401-3043 [employer]. [address] [place] [address], [place] [address]. All rights reserved. This information is not intended as asubstitute for professional medical care. Always follow your healthcare professional's instructions.[employer] Sp-Walker Boot 7 General Instructions [facility] Emergency Department [address] [place] [address] Phone #: ext- [phone] 07/07/2021 13:20 Patient: SHAWNEE MONTALVO Sex: F : 1990 Age: 30yTraditional splints and casts for the foot and ankle protect the injury by preventing movement at thejoints. However, many injuries heal better and faster if the injured joint can be moved, but beprotected at the same time. This is the reason for using an Aircast Walker boot.This is a short boot that [...] are still weak.When treating a sprain, the Aircast Walker boot should be worn whenever walking for at least 4weeks, or as long as you continue to have ankle pain.Talk to your healthcare provider for specific advice about the treatment of your condition.Air-Stirrup and SP-Walker are trademarks of [employer]. 8 General Instructions [facility] Emergency Department [address] [place] [address] Phone #: [phone] 07/07/2021 13:20 --- Patient: SHAWNEE MONTALVO Sex: F : 1990 Age: 30yFor more information about their products, see www.[employer]. [employer]. [address] [place] [address]. All rights reserved. This information is not [...] rce(s) Supporting Document(s) ID Date Data Source [id number] 07/07/2021 01:22:00 PM EDT [facility] 1 Clinical Report - Nurses [facility] Emergency Department [address] [place] [address] Phone #: ext- [phone] 07/07/2021 13:20 Patient: SHAWNEE MONTALVO Sex: F : 1990 Age: 30yTRIAGEArrived by private vehicle. Historian: patient. Accompanied by (Dropped off by friend).Triage time: late entry - 14:00 07/07/2021. Acuity: LEVEL 4.Chief Complaint: FALL.Alert.Location of injuries: right ankle. Occurred at home. Occurred late entry - 17:00 07/06/2021. ( Pt hasbeen seeing a neurologist in [place] for numbness to BLE; Pt is still going through testing but hasfrequent falls due to the numbness. Pt broke right ankle a few months ago and has had trouble eversince; Pt states yesterday she was putting laundry in the dryer and her leg gave out and twisted her rightankle.). ( Pt was recently admitted to [facility] for UTI with dehydration).Treatment CABLE REELER:(Tylenol last dose yesterday).SEPSIS SCREEN: SIRS SCREEN NEGATIVE: [...] Lynch R.N. 2 Clinical Report - Nurses [facility] Emergency Department [address] [place] [address] Phone #: ext- [phone] 07/07/2021 13:20 Patient: SHAWNEE MONTALVO Sex: F : 1990 Age: 30 [...] R.N.PHYSICAL ASSESSMENT 3 Clinical Report - Nurses [facility] Emergency Department [address] [place] [address] Phone #: ext- [phone] 07/07/2021 13:20 Patient: SHAWNEE MONTALVO Sex: F : 1990 Age: 30y [...] to radiology by wheelchair with mask and special procedures technologist.--15:13 07/07/21 Lady Lynch R.N. Patient returned from radiology by wheelchair with mask and special procedures technologist. --15:14 07/07/21 Lady Lynch R.N. Reassessment acuity: [...] RR: 18. O2 saturation: 100%. --16:31 07/07/21 [facility] applied by nurse; (ankle). Patient fit with new crutches. Crutch training performed. --17:12 07/07/21 Racheal Anguiano R.N.DISPOSITION / DISCHARGE 16:56 07/07/21. BP: 137/102. HR: 125. RR: 17. O2 saturation: 100%. Temp: 98.2 F. Pain level now 810. --16:57 07/07/21 [facility] Condition at departure: improved. No learning barriers present. Discharge instructions provided and reviewed with the patient. Reviewed crutch walking, splint care and rest, ice, compression and elevation instructions. Reviewed referral to an orthopedic surgeon. Patient verbalized understanding. Written instructions provided in Colombian. The patient was discharged home and accompanied by family. She left in a wheelchair on crutches and via private vehicle. Patient driving. --17:14 07/07/21 Racheal Anguiano R.N. Departure time: 17:14 07/07/2021. --17:14 07/07/21 Racheal Anguiano R.N. 4 Clinical Report - Nurses [facility] Emergency Department [address] [place] [address] Phone #: ext- [phone] 07/07/2021 13:20 Patient: SHAWNEE MONTALVO Sex: F : 1990 Age: 30yLocked/Released at 07/07/2021 17:15 by Racheal Anguiano R.N. Name Value Range Interpretation Code Description Data Juju rce(s) Supporting Document(s) ID Date Data Source [id number] 07/07/2021 01:22:00 PM EDT [facility] 1 Clinical Report - Physicians/Mid Levels [facility] Emergency Department [address] [place] [address] Phone #: ext- [phone] 07/07/2021 13:20 Patient: SHAWNEE MONTALVO Sex: F : 1990 Age: 30y Time Seen: 15:51 07/07/2021. Arrived- By private vehicle. Historian- patient.HISTORY OF PRESENT ILLNESS Chief Complaint: Injury to the right foot and right ankle. The injury happened yesterday. Occurred at home. ( Pt has been seeing a neurologist in [place] for numbness to BLE; Pt is still going through testing but has frequent falls due to the numbness. Pt broke right ankle a few months ago and has had trouble ever since; Pt states yesterday she was putting laundry in the dryer and her leg gave out and twisted her right ankle.). ( Pt was recently admitted to [facility] for UTI with dehydration).). The patient sustained [...] room air.Temp: 97.6 F. Pain level now: 8/10. Have been reviewed as abnormal. Hypertensive. Oxygensaturation [...] gait. 2 Clinical Report - Physicians/Mid Levels [facility] Emergency Department [address] [place] [address] Phone #: ext- [phone] 07/07/2021 13:20 [id number] Sex[facility] F : 1990 Age: 30y Neuro: [...] tablet. Refills: 0. Substitution permitted. [facility]acy - [facility] - [address] [place] [address] [phone]. FaxNumber: [phone]. 3 Clinical Report - Physicians/Mid Levels [facility] Emergency Department [address] [place] [address] Phone #: ext- [phone] 07/07/2021 13:20 Patient: SHAWNEE MONTALVO Sex: F : 1990 Age: 30y Understanding of the discharge instructions verbalized by patient. Follow-up with: [facility], , , [address] [place] [address], [place], [address] Follow up tomorrow. Call for an appointment. Reason for referral: evaluation and treatment. Summary of care provided to patient.(Electronically signed by JASMIN Ventura 07/08/2021 20:31) Name Value Range Interpretation Code Description Data Juju rce(s) Supporting Document(s) ID Date Data Source [id number] 07/08/2021 12:11:00 AM EDT [facility] [address] [place] [address] PHONE: [phone] FAX: [phone] Name .................. : KATIA MALLORY Acct Number.................. : [id number] ROOM. ................. : VT-26 MR Number ................... : [id number] Stay type ............. : E/R Discharge Date......... ... : 07/07/21 Admit Date ....... .. : 07/07/21 Admit Phys .................... : ROSALBA ANDERSON Date of ....... : 1990 Family Phys ................... : NO PCP Phone .................. : [phone] Age ................................ : 30 Film# .................. .:[id number] Sex ................................. : F Unsigned transcriptions are preliminary reports and do not represent a medical or legal document FOOT COMPLETE-[address] [place] [id number] COMPLETE:07/07/21 14:21 [id number] Reason(s): Foot/Heel Injury RADIOGRAPHS OF THE RIGHT [...] rce(s) Supporting Document(s) ID Date Data Source [id number] 07/08/2021 12:11:00 [place] [address] PHONE: [phone] FAX: [phone] Name .................. : KATIA MALLORY Acct Number.................. : [id number] ROOM. ................. : VT-26 Number ................... : [id number] Stay type ............. : E/R Discharge Date......... ... : 07/07/21 Admit Date ... ...... : 07/07/21 Admit Phys .................... : ROSALBA ANDERSON Date of ....... : 1990 Family Phys ................... : NO PCP Phone .................. : [phone] Age ................................ : 30 Film# .................. .:[id number] Sex ................................. : F Unsigned transcriptions are preliminary reports and do not represent a medical or legal document ANKLE COMPLETE RT [id number] COMPLETE:07/07/21 14:21 [id number] Reason(s): Trauma/Injury RADIOGRAPHS OF THE RIGHT ANKLE [...] Transcribe Initials: SHANNON , Transcribe Date: 07/07/21 18:05, Dictation Date: Copy for: JATIN GODWIN via fax Copy for: EMERGENCY DEPT via modem Copy for: 710 MED REC DISCHARGED Page 1 of 1 Name Value Range Interpretation Code Description Data Juju rce(s) Supporting Document(s) ID Date Data Source [id number] 06/18/2021 05:23:00 AM EDT [facility] Name Value Range Interpretation Code Description Data Juju rce(s) Supporting Document(s) SARS coronavirus 2 RNA [Presence] in Res piratory specimen by NORA with probe detection NEGATIVE [facility] This lab was ordered by [facility] a nd reported by [facility]. ID Date Data Source [id number] 06/12/2021 11:06:00 AM EDT [facility] [address] [place] [address] PHONE: [phone] FAX: [phone] Name .................. : KATIA MALLORY Acct Number.................. : [id number] ROOM. ................. : [address] Number ................... : [id number] Stay type ............. : E/R Discharge Date......... ... : 06/10/21 Admit Date ......... : 06/10/21 Admit Phys .................... : ROSALBA ANDERSON Date of ....... : 1990 Family Phys ................... : NO PCP Phone .................. : [phone] Age ................................ : 30 Film# .................. .:[id number] Sex ................................. : F Unsigned transcriptions are preliminary reports and do not represent a medical or legal document CT ABD & PELV W/O ORAL W/O IV [id number] COMPLETE:06/10/21 04:19 53973 Reason(s): left flank pain, UA abnormal c/w [...] No free air. Page 1 of 2 [facility] [address] [place] [address] PHONE: [phone] FAX: [phone] Name .................. : KATIA MALLORY Acct Number.................. : [id number] ROOM. ................. : TR-06 MR Number ................... : [id number] Stay type ............. : E/R Discharge Date......... ... : 06/10/21 Admit Date ......... : 06/10/21 Admit Phys .................... : ROSALBA ANDERSON Date of ....... : 1990 Family Phys ................... : NO PCP Phone .................. : [phone] Age ................................ : 30 Film# .................. .:[id number] Sex ................................. : F Unsigned transcriptions are preliminary reports and do not represent a medical or legal document CT ABD & PELV W/O ORAL W/O IV [id number] COMPLETE:06/10/21 04:19 57740 Reason(s): left flank pain, UA abnormal c/w [...] Dictation Date: Copy for: EMERGENCY DEPT via mode Copy for: 710 MED REC DISCHARGED Page 2 of 2 Name Value Range Interpretation Code Description Data Juju rce(s) Supporting Document(s) ID Date Data Source [id number] 06/10/2021 02:25:00 AM EDT [facility] 1 OrderSheet [facility] Emergency Department [address] [place] [address] Phone #: ext- [phone] 06/10/2021 02:22 [id number] Sex: F : 1990 Age: 30yWEIGHT:97.0 kg (M) HEIGHT:73 inches (S) BMI:28.2ALLERGIES: No Known Drug AllergyCHIEF COMPLAINT: vomiting, diarrheaDIAGNOSIS: Pyelonephritis, GastroenteritisLAB ORDERSOrder Description Priority Entered Acknowledged InitialedCBC w Diff STAT 02:48 06/10/2021 03:08 Torchia, Turrin, Edgardo Juhi R.N. M.D.;CMP STAT 02:48 06/10/2021 03:08 Torchia, Turrin, Edgardo Jhui R.N. M.D.;Lipase STAT 02:48 06/10/2021 03:08 Torchia, Turrin, Edgardo Juhi R.N. M.D.;UA Reflex to UA 02:48 06/10/2021 Ack'd: 03:08 03:59 Torchia,Culture Turrin, Edgardo Torchia, Juhi R.N. Juhi R.N. M.D.;Lactic Acid STAT 02:48 06/10/2021 03:08 Torchia, Turrin, Edgardo Juhi R.N. M.D.;HCG Serum Qual STAT 02:48 06/10/2021 03:08 Torchia, Turrin, Edgardo Juhi R.N. M.D.;Culture, Urine STAT 02:48 06/10/2021 Ack'd: 03:08 03:59 Torchia,(Urine, Clean Turrin, Edgardo Torchia, Juhi R.N. Juhi R.N.Catch) [place];DIAGNOSTIC STUDY ORDERSOrder Description Priority Entered Acknowledged InitialedCT ABD PEL W/O STAT 04:19 06/10/2021 04:20 Natalya,Oral W/O IV NazariorinEdgardo M.D.;(Oxygen?(No))(IV?(Yes)) Reason for Study: left flank pain, UA abnormal c/w UTI 2 OrderSheet [facility] Emergency Department [address] [place] [address] Phone #: ext- [phone] 06/10/2021 02:22 Patient: SHAWNEE MONTALVO Sex: F : 1990 Age: 30yMEDICATION/IV/DRIP/FLUID [...] alerts: Clinical consideration given -- 04:18 06/10/2021 Turrin, Edgardo M.D.levoFLOXacin PO 04:18 06/10/2021 04:26 Torchia,500 mg Turrin, Edgardo Juhi R.N. M.D.; Reason for ordering with alerts: Clinical consideration given -- 04:18 06/10/2021 Turrin, Edgardo M.D.Toradol 15 mg IVP 05:53 06/10/2021 06:04 Torchia,X1 dose: 15 mg Turrin, Edgardo Juhi R.N.(NOW x1) M.D.;Ofirmev IV 1000 mg 05:53 06/10/2021 Ack'd: 06:05 06:20 Natalya(NOW x1, Infuse Edgardo Flores Laura R.N. Katelynover 15 minutes) [place];Pyridium PO 200 06:25 06/10/2021 Ack'd: 06:26 06:30 Natalya,mg Edgardo Flores Katelyn Katelyn M.D.;GENERAL ORDERSOrder Description Priority Entered Acknowledged InitialedNPO 02:48 06/10/2021 03:08 Rosalba Shay Riccardo Laura R.N. M.D.;Saline Lock 02:48 06/10/2021 03:08 Rosalba Shay Riccardo Laura R.N. 3 OrderSheet [facility] Emergency Department [address] [place] [address] Phone #: ext- [phone] 06/10/2021 02:22 Patient: SHAWNEE MONTALVO Sex: F : 1990 Age: 30y M.D.;[Electronically signed by Juhi Shay R.N. (07:11 06/10/2021)][Electronically signed by Edgardo Flores M.D. (09:12 06/11/2021)][Electronically locked by Juhi Shay R.N. (07:11 06/10/2021)] Name Value Range Interpretation Code Description Data Juju rce(s) Supporting Document(s) ID Date Data Source [id number] 06/10/2021 02:25:00 AM EDT [facility] 1 Medication Reconciliation Report [facility] Emergency Department [address] [place] [address] Phone #: ext- [phone] 06/10/2021 02:22 Patient: SHAWNEE MONTALVO Sex: F : 1990 Age: 30yWeight: 97.0 kgHeight/Length: 73 in.BMI: 28.2ALLERGIES: No Known Drug AllergyThe patient's Home Medications are listed below:CONTINUE TAKING THE FOLLOWING MEDICATIONS: Vitamins/Minerals OralThe source(s) of the original Home Medication information:Not obtained.The following Medications were given to the patient in the Emergency Department:Zofran [IVP] IVP 4 mg, administered: 03:08 06/10/2021ROTONIX [IVP] IVP 40 mg, administered: 03:09 06/10/2021odium Chloride [IV] IV Fluids bolus 0, then 1000 mL/hr, administered: 03:09 06/10/2021evofloxacin [PO] PO 500 mg, administered: 04:26 06/10/2021EFTRIAXONE (1GM/50ML) [IVPB] IVPB bolus 0, then 1 gm 100 mL/hr, administered: 04:26 06/10/2021Toradol [IVP] IVP 15 mg, administered: 06:04 06/10/2021Ofirmev IVPB bolus 0, then 1 gm, administered: 06:20 06/10/2021yridium [PO] PO 200 mg, administered: 06:30 06/10/2021The following Medications were prescribed to the patient:ibuprofen 600 mg tablet Take 1 tablet four times a day as needed for pain for 7 days -- Dispense 28tablet. Refills: 0. Substitution permitted.[facility]armacy - [facility] - [address] [facility] ; [place] [address]. . 2 Medication Reconciliation Report [facility] Emergency Department [address] [place] [address] Phone #: ext- [phone] 06/10/2021 02:22 Patient: SHAWNEE MONTALVO Sex: Jeaneth : 1990 Age: 30yCipro 500 mg tablet Take 1 tablet twice a day for 10 days -- Dispense 20 tablet. Refills: 0. Substitutionpermitted.[facility] - [address] [place] [address]. .Pyridium 100 mg tablet Take 1 tablet three times a day for 5 days -- Dispense 15 tablet. Refills: 0.Substitution permitted.[facility] [address] - [address] [facility] ; [place] [address]. FaxNumber: .Zofran 4 mg tablet Take 1 tablet four times a day as needed for 4 days -- Dispense 16 tablet. Refills: 0.Substitution permitted.[facility] [address] - [address] [place] [address]. . -- Edgardo Flores M.D. Name Value Range Interpretation Code Description Data Juju rce(s) Supporting Document(s) ID Date Data Source [id number] 06/10/2021 02:25:00 AM EDT [facility] 1 Medication Administration Record [facility] Emergency Department [address] [place] [address] Phone #: ext- [phone] 06/10/2021 02:22 Patient: SHAWNEE MONTALVO Sex: F : 1990 Age: 30yWeight: 97.0 kgHeight/Length: 73 inBMI: 28.2ALLERGIES: No Known Drug Allergy Date/Time Medication Administered Medication OrderedStart SODIUM CHLORIDE [IV] NS IV 1000 mL Bolus: : Bolus 164667:09 06/10/2021 Dose: IV Fluids mL, then 150 mL/hr (X1)Juhi Shay, R.N. Rate: 1000 mL/hr over 1 hour(s)---- Dispensed: 1000 mL bagStop Site: #1 right AC07:02 06/10/2021Juhi Shay, R.N.Given ZOFRAN [IVP] (ONDANSETRON HCL) Zofran 4 mg IVP X 1 dose: 4 mg03:08 06/10/2021 Dose: 4 mg IVP (NOW x1)Juhi Shay, R.N. Site: #1 right ACGiven PROTONIX [IVP] (PANTOPRAZOLE Protonix IV Push 40 mg (in 10 mL03:09 06/10/2021 SODIUM) NS, administer over at least 2Juhi Shay, R.N. Dose: 40 mg IVP minutes, NOW x1) Site: #1 right ACStart CEFTRIAXONE (1GM/50ML) [IVPB] cefTRIAXone (1gm/50ml) IVPB04:26 06/10/2021 Dose: 1 gm IVPB 1000 mg with Dextrose 50 ml spikeJuhi Shay, R.N. Rate: 100 mL/hr over 30 minute(s) bag (D5W)---- Dispensed: 50 mL bagStop Site: #1 right AC05:00 06/10/2021Anh fowler,Given LEVOFLOXACIN [PO] levoFLOXacin PO 500 mg04:26 06/10/2021 Dose: 500 mg POTorJuhi dahl, R.N.Given TORADOL [IVP] (KETOROLAC Toradol 15 mg IVP X1 dose: 15 mg06:04 06/10/2021 TROMETHAMINE) (NOW x1)Juhi Shay, R.N. Dose: 15 mg IVP Site: #1 right ACStart Ofirmev * Ofirmev IV 1000 mg (NOW x1,06:20 06/10/2021 Dose: 1 gm * IVPB Infuse over 15 minutes)Anh Hoang,----Stop06:47 06/10/2021eyAnh bentley,Given PYRIDIUM [PO] (PHENAZOPYRIDINE Pyridium PO 200 mg06:30 06/10/2021 HCL)Anh Hoang, Dose: 200 mg PO Name Value Range Interpretation Code Description Data Juju rce(s) Supporting Document(s) ID Date Data Source [id number] 06/10/2021 02:25:00 AM EDT [facility] 1 General Instructions [facility] Emergency Department [address] [place] [address] Phone #: ext- [phone] 06/10/2021 02:22 Patient: SHAWNEE MONTALVO Sex: F : 1990 Age: 30y [...] Dispense 28 tablet. Refills: 0. Substitution permitted. [facility] [address] - [address] [facility] ; [place] [address]. . Cipro 500 mg tablet Take 1 tablet twice a day for 10 days -- Dispense 20 tablet. Refills: 0. Substitution permitted. [facility] [address] - [address] [facility] ; [place] [address]. . Pyridium 100 mg tablet Take 1 tablet three times a day for 5 days -- Dispense 15 tablet. Refills: 0. Substitution permitted. [facility] [address] - [address] [facility] ; [place] [address]. Phone: [phone] General Instructions [facility] Emergency Department [address] [place] [address] Phone #: ext- [phone] 06/10/2021 02:22 ------ Patient: SHAWNEE MONTALVO Sex: F : 1990 Age: [id number] .Zofran 4 mg tablet Take 1 tablet four times a day as needed for 4 days -- Dispense 16 tablet. Refills: 0.Substitution permitted.[facility] [address] - [address] [facility] ; [place] [address]. .Follow-up:Return to the emergency department as needed. [...] of care.Follow-up with: [facility], , , [address] [place], [address] Follow up in three days even if well. Call for an appointment. Reason for referral: evaluation andtreatment. Summary of care provided to patient via paper. ADDITIONAL INFORMATIONViral Gastroenteritis (Adult) 3 General Instructions [facility] Emergency Department [address] [place] [address] Phone #: ext- [phone] 06/10/2021 02:22 Patient: SHAWNEE MONTALVO Sex: F : 1990 Age: 30yGastroenteritis [...] bowel control HeadacheHome care 4 General Instructions [facility] Emergency Department [address] [place] [address] Phone #: [phone] mml- [phone] 06/10/2021 02:22 [id number] Sex: F : 1990 Age: 30yGastroenteritis is [...] soap and water or use alcohol- based threat monitoring analyst to prevent the spread of infection. Wash your hands after touching anyone who is sick. Wash your hands or use alcohol-based threat monitoring analyst after using the toilet and before meals. [...] Keep uncooked meats away from cooked and nmufk-sg-qcg foods.MedicineYou may use acetaminophen or NSAID medicines [...] can make diarrhea worse. 5 General Instructions [facility] Emergency Department [address] [place] [address] Phone #: ext- [phone] 06/10/2021 02:22 Patient: SHAWNEE MONTALVO Sex: F : 1990 Age: 30y [...] your provider if you don't get better [id number] hours or if diarrhea lasts more than a week. Also follow up if you are unable to keep down liquidsand get dehydrated. If a stool (diarrhea) sample was taken, call as directed for the results.Call [phone] if any of these occur: 6 General Instructions [facility] Emergency Department [address] [place] [address] Phone #: dyj- [phone] 06/10/2021 02:22 Patient: SHAWNEE MONTALVO Sex: F : 1990 Age: 30y [...] directed by your healthcare provider Raza renae [employer]. [address] [place] [address]. All rights reserved. This information is not intended as asubstitute for professional medical care. Always follow your healthcare professional's instructions.Kidney Infection (Adult Female) 7 General Instructions [facility] Emergency Department [address] [place] [address] Phone #: ext- [phone] 06/10/2021 02:22 Patient: SHAWNEE MONTALVO Sex: F : 1990 Age: 30yAn [...] bladder infection. Symptoms include: 8 General Instructions [facility] Emergency Department [address] [place] [address] Phone #: ext- [phone] 06/10/2021 02:22 Patient: SHAWNEE MONTALVO Sex: F : 1990 Age: 30y [...] another medicine was prescribed, you can use hpng-cws-yqtvlzl medicines for pain, fever, or discomfort. If [...] your symptoms are gone. 9 General Instructions [facility] Emergency Department [address] [place] [address] Phone #: ext- [phone] 06/10/2021 02:22 Patient: SHAWNEE MONTALVO Sex: F : 1990 Age: 30y [...] any new findings thatmay affect your care.Call [phone] if any of the following occur: Trouble breathing Fainting or loss of consciousness 10 General Instructions [facility] Emergency Department [address] [place] [address] Phone #: ext- [phone] 06/10/2021 02:22 Patient: SHAWNEE MONTALVO Sex: F : 1990 Age: 30y [...] crying, confusion, sunken eyes, or dry mouth [employer]. [address] [place] [address], [place] [address]. All rights reserved. This information is not [...] estrada maxwell, or lemonade. 11 General Instructions [facility] Emergency Department [address] [place] [address] Phone #: ext- [phone] 06/10/2021 02:22 Patient: SHAWNEE MONTALVO Sex: F : 1990 Age: 30yFever [...] work in all cases 12 General Instructions [facility] Emergency Department [address] [place] [address] Phone #: ext- [phone] 06/10/2021 02:22 Patient: SHAWNEE MONTALVO Sex: F : 1990 Age: 30y [...] place where infectious diseases arecommon. Many people cotton picker a cold or other virus while traveling. [...] you travelled and where you stayed (hotel, pauma house, tent) What you ate and drank If you were bitten by insects or other bugs 13 General Instructions [facility] Emergency Department [address] [place] [address] Phone #: ext- [phone] 06/10/2021 02:22 Patient: SHAWNEE MONTALVO Sex: F : 1990 Age: 30y If you swam in freshwater If you had sex or got a tattoo or piercing while you were thereCheck the [facility] to get more information about specific infectious diseases in the areas you havetraveled. [id number] [employer]. [address] [place] [address]. All rights reserved. This information is not intended as asubstitute for professional medical care. Always follow your healthcare professional's instructions. You have been given the following additional information: Gastroenteritis, Viral (Adult) Pyelonephritis, Female (Adult) Fever Control (Adult)(Electronically signed by Edgardo Flores M.D. 06/11/2021 09:12) Name Value Range Interpretation Code Description Data Juju rce(s) Supporting Document(s) ID Date Data Source [id number] 06/10/2021 02:25:00 AM EDT [facility] 1 Clinical Report - Nurses [facility] Emergency Department [address] [place] [address] Phone #: ext- [phone] 06/10/2021 02:22 Patient: SHAWNEE MONTALVO Sex: F : 1990 Age: 30yTRIAGEArrived [...] vomiting yesterday and 1 episode of diarrhea.).Treatment CABLE REELER:None. --02:06/10/21 Juhi Shay R.N.02:23 06/10/21. BP: 137/109. MAP: 118. HR: 91. RR: 17. O2 saturation: 100% on room air. Temp: 98 F(temporal). Pain level now: 02/13. --02:06/10/21 Juhi Shay R.N.Weight: 97 kg measured. Height/Length: 73 inches Per Patient. BMI: 28.2. --02:23 06/10/21 Juhi Shay R.N.MedicationsVitamins/Minerals Oral. --02:06/10/21 Juhi Shay R.N.AllergiesNo Known Drug Allergy. --02:06/10/21 Juhi Shay R.N.PROBLEMS:Hypertension. --06/10/21 Juhi Shay R.N.ADDITIONAL SURGERIES:.Dilatation Curettage.Gastric sleeve. --06/10/21 Juhi Shay R.N.HistoryPAST MEDICAL HX: Immunizations: up-to-date. Last normal menstrual period- May 21 2021.SOCIAL HX: Current every day light tobacco smoker (cigarette)- less than 1/2 a pack per day. Occasionalalcohol use. No drug use. She has not traveled outside the [place] 2 Clinical Report - Nurses [facility] Emergency Department [address] [place] [address] Phone #: ext- [phone] 06/10/2021 02:22 Patient: SHAWNEE MONTALVO Sex: F : 1990 Age: 30y [...] is warm and dry. Normal skin turgor. --06/10/21 Juhi Shay R.N.NURSING PROGRESS NOTES 3 Clinical Report - Nurses [facility] Emergency Department [address] [place] [address] Phone #: ext- [phone] 06/10/2021 02:22 Patient: SHAWNEE MONTALVO Sex: F : 1990 Age: 30yPatient [...] by RN. Information reviewed with patient. Verbalizesunderstanding. --03:08 06/10/21 Juhi Shay R.N.03:09 06/10/2021 PROTONIX (Pantoprazole Sodium) IVP 40 mg given over 2 minute(s) via site #1.Allergies verified and confirmed 5 rights. IV patency established. IV site checked: no pain, redness, orswelling. IV flushed thoroughly pre- and post-medication administration. IVP given by RN. Informationreviewed with patient. Verbalizes understanding. --03:09 06/10/21 Juhi Shay R.N.03:09 06/10/2021 Started bag #1 1000 mL IV Fluids Sodium Chloride; at 1000 mL/hr over 1 hour(s) via site#1 via IV pump. Allergies verified and confirmed 5 rights. IV patency established. IV site checked: no pain,redness, or swelling. IV flushed thoroughly pre- and post-medication administration. Information reviewedwith patient. Verbalizes understanding. --03:10 06/10/21 Juhi Shay R.N.04:26 06/10/2021 Levofloxacin PO 500 mg given. Allergies verified and confirmed 5 rights. Informationreviewed with patient. Verbalizes understanding. --04:06/10/21 Juhi Shay R.N.04:26 06/10/2021 Started 1 gm [...] IV flushed 4 Clinical Report - Nurses [facility] Emergency Department [address] [place] [address] Phone #: ext- [phone] 06/10/2021 02:22 Patient: SHAWNEE MONTALVO Sex: F : 1990 Age: 30y [...] referral to 5 Clinical Report - Nurses [facility] Emergency Department [address] [place] [address] Phone #: ext- [phone] 06/10/2021 02:22 Patient: SHAWNEE MONTALVO Sex: F : 1990 Age: 30y a primary care physician for followup. Patient verbalized understanding. Written instructions provided in [place]. The patient was discharged by the physician. She was discharged home and accompanied by atm technician. She left ambulatory and via private vehicle. Industrial Psychology Teacher driving. --07:10 06/10/21 Juhi Shay R.N.Locked/Released at 06/10/2021 07:11 by Juhi Shay R.N. Name Value Range Interpretation Code Description Data Juju rce(s) Supporting Document(s) ID Date Data Source [id number] 06/10/2021 02:25:00 AM EDT [facility] 1 Clinical Report - Physicians/Mid Levels [facility] Emergency Department [address] [place] [address] Phone #: ext- [phone] 06/10/2021 02:22 Patient: SHAWNEE MONTALVO Sex: F : 1990 Age: 30y [...] 3 weeks ago and was admitted at [facility], then took AB's; pt reports subjective fever once during the day; pt waited 5 hrs at [facility] WR then went home then came here). [...] nsion. Additional Surgeries: 2 Clinical Report - Physicians/[facility] Emergency Department [address] [place] [address] Phone #: ext- [phone] 06/10/2021 02:22 Patient: SHAWNEE MONTALVO Sex: F : 1990 Age: 30y [...] BLOOD COUNT 3 Clinical Report - Physicians/Mid [facility] Emergency Department [address] [place] [address] Phone #: ext- [phone] 06/10/2021 02:22 Patient: SHAWNEE MONTALVO Sex: F : 1990 Age: 30y [...] Male GFR Interprentation 20-49 yrs >60 mL/min Lwxxad27-17 yrs >56 mL/min Normal 60-69 yrs >49 mL/min Normal 70-79yrs>42 mL/min Normal 80 and above >35 mL/min Normal Female GFRInterpretation 20-39 yrs >60 mL/min Normal 40-49 yrs >58 mL/minNormal 50-59 yrs >51 mL/min Normal 60-69 yrs >45 mL/min Xlclky48-96 yrs >39 mL/min Normal 80 and above >32 mL/min Normal 4 Clinical Report - Physicians/Mid Levels [facility] Emergency Department [address] [place] [address] Phone #: ext- [phone] 06/10/2021 02:22 Patient: SHAWNEE MONTALVO Sex: F : 1990 Age: 30y [...] NONE Lactic Acid: (LILO: 06/10/2021 03:04) ( [facility] 06/10/2021 03:15) Final results Test Result Flag Units (Reference) LACTIC ACID 1.6 MMOL/L (0.2 - 2.2) Beta-HCG, Qual Serum: (LILO: 06/10/2021 03:04) ( [facility] 06/10/2021 03:24) Final results Test Result Flag Units (Reference) HCG SERUM QUAL NEGATIVE (NORMAL: NEGAT HCG SERUM QL REENTER NEGATIVE (NORMAL: NEGAT { KIT LOT # [id number] ){ KIT EXP DATE 09.05.22 ){ PROCEDURAL [...] agrees. 5 Clinical Report - Physicians/Mid Levels [facility] Emergency Department [address] [place] [address] Phone #: ext- [phone] 06/10/2021 02:22 Patient: SHAWNEE MONTALVO Sex: F : 1990 Age: 30y [...] Dispense 28 tablet. Refills: 0. Substitution permitted. [facility]54 - [address] ; [place] [address]. . 6 Clinical Report - Physicians/Mid Levels [facility] Emergency Department [address] [place] [address] Phone #: ext- [phone] 06/10/2021 02:22 Patient: SHAWNEE MONTALVO Sex: F : 1990 Age: 30y Cipro 500 mg tablet Take 1 tablet twice a day for 10 days -- Dispense 20 tablet. Refills: 0. Substitution permitted. [facility]32 - [address] ; [place] [address]. . Pyridium 100 mg tablet Take 1 tablet three times a day for 5 days -- Dispense 15 tablet. Refills: 0. Substitution permitted. [facility]17 - [address] ; [place] [address]. . Zofran 4 mg tablet Take 1 tablet four times a day as needed for 4 days -- Dispense 16 tablet. Refills: 0. Substitution permitted. [facility] [address] - [address] ; [place] [address]. . Follow-up: Return to the emergency department [...] care. Follow-up with: [facility], , , [address] [place] [address], [place], [address] Follow up in three days even if well. Call for an appointment. Reason for referral: evaluation and treatment. Summary of care provided to patient via paper.(Electronically signed by Edgardo Flores M.D. 06/11/2021 09:12) Name Value Range Interpretation Code Description Data Juju rce(s) Supporting Document(s) ID Date Data Source [id number] 06/14/2021 07:15:00 PM EDT [facility] Name Value Range Interpretation Code Description Data Juju rce(s) Supporting Document(s) CULTURE URINE [facility] spital _CULTURE URINE_$$[id number]$$[id number]$$[id number]$$[id number]$$[id number]$$[id number]$$120532$$780348$$[id number]$$ [id number]$$425380$$056069$$911398$$901315$$049771$$730747$$691717$$789707$$350124$$ 626140$$874649$$440235$$293843$$[id number]$$[id number]$$[id number]$$[id number] -- Continued on next page --Patient: KATIA REYESANNA Order: [id number] Page 2Culture: CULTURE URINE Status: Final ==== -- Continued on next page --Patient: KATIA MALLORY Order: [id number] Page 2Culture: CULTURE URINE Status: Prelim =====$$[id number] DATE/TIME: 06/14/2021 11:06Culture: CULTURE URINE Status: FinalUrine Culture,Comprehensive: P1No growth in 36 - 48 hours. Previous result entered on 06/12/2021 12:41 ET No growth after 18-24 hours.P1 [facility]: [id number] [address] [place] [id number] [place] [address]Medical Director : Rene Choi MD NPI #:Lab Di maria luz : 06/12/21.1321.XMT.SENT REF 06/14/21.1915.XMT.SENT REF ID Date Data Source [id number] 06/10/2021 04:13:00 AM EDT [facility] Name Value Range Interpretation Code Description Data Juju rce(s) Supporting Document(s) UA REFLEX TO UA CULTURE [facility] URINALYSIS SOURCE R [facility] COLOR Dk Yellow NORMAL: Yellow [facility] CLARITY hazy NORMAL: Clear [facility] Specific gravity of Urine by Test strip 1.015 1.001 - 1.030 [facility] 6.5 5 - [facility] Glucose [Mass/volume] in Urine by Test strip NORM NORMAL: Negat kylah [facility] Bilirubin.total [Presence] in Urine by Test strip 3 NORMAL: Negative [facility] Ketones [Presence] in Urine by Test strip 150 NORMAL: Negative A [facility] Protein [Mass/volume] in Urine by Test strip 30 NORMAL: Negat kylah [facility] Nitrite [Presence] in Urine by Test strip NEG NORMAL: Negative [facility] BLOOD 25 NORMAL: Negative A [facility] Leukocyte esterase [Presence] in Urine by Test strip 25 KERRI L: Negative [facility] Urobilinogen [Mass/volume] in Urine by Test strip 8 less nnamdi n 1.0 mg/dL [facility] MICROSCOPIC See Below [facility] WBC 3 - [address]: [address] [facility] Erythrocytes [#/volume] in Urine by Test strip 3 - 5 NORMAL: NON E SEEN [facility] EPITHELIAL MODERATE NORMAL: NONE SEEN A [facility] Bacteria [Presence] in Urine sediment by Light microscopy 1+ SMALL NORMAL: NONE SEEN [facility] Mucus [Presence] in Urine sediment by Light microscopy 2+ NOR MAL: NONE SEEN A [facility] ID Date Data Source [id number] 06/10/2021 03:35:00 AM EDT [facility] Name Value Range Interpretation Code Description Data Juju rce(s) Supporting Document(s) Lipase [Enzymatic activity/volume] in Serum or Plasma 22 U/L 13 - 60 [facility] ID Date Data Source [id number] 06/10/2021 03:35:00 AM EDT [facility] Name Value Range Interpretation Code Description Data Juju rce(s) Supporting Document(s) COMPREHENSIVE METABOLIC PANEL [facility] COMPREHENSIVE METABOLIC PANEL Sodium [Moles/volume] in Serum or Plasma 138 mEq/L 134 - 153 [facility] Potassium [Moles/volume] in Serum or Plasma 4.6 mEq/L 3.6 - 5.0 [facility] Chloride [Moles/volume] in Serum or Plasma 97 mEq/L 98 - 107 L [facility] Carbon dioxide, total [Moles/volume] in Serum or Plasma 21 MEQ/L 22 - 30 L [facility] Glucose [Mass/volume] in Serum or Plasma 87 MG/DL 70 - 99 [facility] BUN 7 MG/DL 7 - 21 [facility] Creatinine [Mass/volume] in Serum or Plasma 0.6 MG/DL 0.7 - 1.5 L [facility] BUN/CREAT 12 8 - 27 [facility] al Protein [Mass/volume] in Serum or Plasma 8.0 G/DL 6.3 - 8.2 [facility] Albumin [Mass/volume] in Serum or Plasma 4.7 G/DL 3.9 - 5.0 [facility] Globulin [Mass/volume] in Serum by calculation 3.3 GM/DL 2.4 - 3.2 H [facility] A/G RATIO 1.4 0.8 - 2.0 [facility] Calcium [Mass/volume] in Serum or Plasma 9.4 MG/DL 8.4 - 10.2 [facility] Bilirubin.total [Mass/volume] in Serum or Plasma 1.0 MG/DL 0.2 - 1.3 [facility] Alkaline phosphatase [Enzymatic activity/volume] in Serum or Plasma 66 U/L 38 - 126 [facility] Aspartate aminotransferase [Enzymatic activity/volume] in Serum or Plasma 107 U/L 5 - 40 H [facility] Alanine aminotransferase [Enzymatic activity/volume] in Seru m or Plasma 67 U/L 7 - 56 H [facility] Anion gap 3 in Serum or Plasma 20.0 mmol/L 8.0 - 16.0 H [facility] AGE 30 yrs [facility] al NON-AA GFR >60 mL/min [facility] AFR AMER GFR >60 mL/min [facility] [...] >32 mL/min Normal ID Date Data Source [id number] 06/10/2021 03:23:00 AM EDT [facility] Name Value Range Interpretation Code Description Data Juju rce(s) Supporting Document(s) HCG SERUM QUAL NEGATIVE NORMAL: NEGATIVE [facility] HCG SERUM QL REENTER NEGATIVE NORMAL: NEGATIVE [facility] { KIT LOT # [id number] ){ KIT EXP DATE 09.05.22 ){ PROCEDURAL CONTROL VALID ) ID Date Data Source [id number] 06/10/2021 03:15:00 AM EDT [facility] Name Value Range Interpretation Code Description Data Juju rce(s) Supporting Document(s) CBC W/AUTOMATED DIFF [facility] COMPLETE BLOOD COUNT Leukocytes [#/volume] in Blood by Automated count 3.7 10^3/uL 4.2 - 1 1.0 L [facility] Erythrocytes [#/volume] in Blood by Automated count 3.66 10^6/uL 4. 20 - 5.40 L [facility] Hemoglobin [Mass/volume] in Blood 13.0 g/dL 12.0 - 16.0 [facility] Hematocrit [Volume Fraction] of Blood by Automated count 37.9 % 3 7.0 - 47.0 [facility] Erythrocyte mean corpuscular volume [Entitic volume] b y Automated count 103.6 fL 81.0 - 101 H [facility] Erythrocyte mean corpuscular hemoglobin [Entitic mass] by Automated count 35.5 pg 27.0 - 34.0 H [facility] Erythrocyte mean corpuscular hemoglobin concentration [Mass/volume] by Automated count 34.3 g/dL 31.0 - 36.0 [facility] Erythrocyte distribution width [Ratio] by Automated count 15.7 % 11.5 - 14.5 H [facility] Platelets [#/volume] in Blood by Automated count 258 10^3/uL 150 - 45 0 [facility] Platelet mean volume [Entitic volume] in Blood by Automated count 10.2 fL 7.4 - 10.4 [facility] Neutrophils/100 leukocytes in Blood by Automated count 52.5 % 37. 0 - 80.0 [facility] Lymphocytes/100 leukocytes in Blood by Manual count 32.8 % 25.0 - 40.0 [facility] Monocytes/100 leukocytes in Blood by Automated count 9.1 % 3.0 - 8.0 H [facility] Eosinophils/100 leukocytes in Blood by Automated count 4.0 % 0.0 - 7.0 [facility] Basophils/100 leukocytes in Blood by Automated count 1.3 % 0.0 - 2.5 [facility] %IG 0.3 % 0.0 - 0.0 [facility] %NRBC 0.0 % 0.0 - 0.0 [facility] al Neutrophils [#/volume] in Blood by Automated count 1.95 10^3/uL 2.00 - 6.90 L [facility] Lymphocytes [#/volume] in Blood by Automated count 1.22 10^3/uL 0.60 - 3.40 [facility] Monocytes [#/volume] in Blood by Automated count 0.34 10^3/uL 0.00 - 0.90 [facility] Eosinophils [#/volume] in Blood by Automated count 0.15 10^3/uL 0.00 - 0.70 [facility] Basophils [#/volume] in Blood by Automated count 0.05 10^3/uL 0.00 - 0.20 [facility] #IG 0.01 10^3/uL 0.00 - 0.10 [facility] #NRBC 0.00 10^3/uL 0.00 - 0.00 [facility] MANUAL DIFF NOT INDICATED [facility] RBC MORPH NOT INDICATED [facility] ID Date Data Source [id number] 06/10/2021 03:15:00 AM EDT [facility] Name Value Range Interpretation Code Description Data Juju rce(s) Supporting Document(s) Lactate [Moles/volume] in Serum or Plasma 1.6 MMOL/L 0.2 - 2.2 [facility] ID Date Data Source [id number] 02/22/2021 05:22:00 AM EDT [facility] Name Value Range Interpretation Code Description Data Juju rce(s) Supporting Document(s) SARS coronavirus 2 RNA [Presence] in Res piratory specimen by NORA with probe detection NEGATIVE [facility] This lab was ordered by [facility] a nd reported by [facility]. ID Date Data Source [id number] 01/25/2021 08:46:00 PM EDT [facility] Name Value Range Interpretation Code Description Data Juju rce(s) Supporting Document(s) SARS-CoV-2 (COVID 19) NEGATIVE - SARS-CoV-2 (COVID19) [facility] This lab was ordered by [facility] a nd reported by [facility]. Procedure Social History No Information Vital Signs ID Date Data Source UNK Name Value Range Interpretation Code Description Data Source(s) Systolic blood pressure 140 mm[Hg] 140 mm[Hg] M EDENT ([facility], ) Diastolic blood pressure 100 mm[Hg] 100 mm[Hg] [facility] ([facility], ) Respiratory rate 14 /min 14 /min [facility] ( [facility], ) Body height 73 [in_i] 73 [in_i] [facility] ([facility], ) 6'1" Body weight 220.00 [lb_av] 220.00 [lb_av] MEDEN T ([facility], ) Body mass index (BMI) [Ratio] 29.0 kg/m2 29.0 k g/m2 [facility] ([facility]) [place] body weight 184 [lb_av] 184 [lb_av] MEDEN T ([facility], ) Heart rate 110 /min 110 /min [facility] ([facility], ) Body temperature 96.8 [degF] 96.8 [degF] [facility] ([facility] ) Body height 73 [in_i] 73 [in_i] [facility] ([facility] ) 6'1" Body weight 190.00 [lb_av] 190.00 [lb_av] MEDEN T ([facility] ) Body mass index (BMI) [Ratio] 25.1 kg/m2 25.1 k g/m2 [facility] ([facility] ) Body height 73 [in_i] 73 [in_i] MEDENT ([facility]) 6'1" Systolic blood pressure 138 mm[Hg] 138 mm[Hg] M EDENT (Jim Hartman [facility]) Diastolic blood pressure 80 mm[Hg] 80 mm[Hg] [facility] (Jim Hartman [facility]) Heart rate 100 /min 100 /min [facility] (Jim Hartman MD) Oxygen saturation in Arterial blood by Pulse oximetry 94 % 94 % [facility] (Jim Hartman MD) Body height [...] 20 /min [facility] ( Jim Hartman MD) Heart rate 90 /min 90 [...] /min 110 /min [facility] (Jim Hartman MD) Oxygen saturation in Arterial blood by Pulse oximetry 92 % 92 % [facility] (Jim Hartman MD) Respiratory rate 18 /min 18 /min [facility] ( Jim Hartman MD) Body height 73 [in_i] 73 [in_i] MEDENT ([facility]) 6'1" Body weight 230.00 [lb_av] 230.00 [lb_av] MEDEN T ([facility]) Body mass index (BMI) [Ratio] 30.3 kg/m2 30.3 k g/m2 [facility] ([facility]) Systolic blood pressure 150 mm[Hg] 150 mm[Hg] EDENT ([facility], [facility]) Diastolic blood pressure 109 mm[Hg] 109 mm[Hg] [facility] ([facility], [facility]) Heart rate 110 /min 110 /min [facility] ([facility], [facility]) Respiratory rate 16 /min 16 /min [facility] ( [facility]) Oxygen saturation in Arterial blood by Pulse oximetry 98 % 98 % [facility] ([facility], [facility]) Body temperature 97.8 [degF] 97.8 [degF] [facility] ([facility], [facility]) Body weight 215.00 [lb_av] 215.00 [lb_av] [facility]) Body height 73 [in_i] 73 [in_i] [facility] ([facility]) 6'1" Body mass index (BMI) [Ratio] 28.4 kg/m2 28.4 k g/m2 [facility] ([facility])
[2021-07-28] MEDS: oxyCODONE 5MG TAB PO PRN ×2 (19:28→23:24)
[2021-07-28 20:00] VITALS: BP 128/60
[2021-07-28] MEDS ORDERED: AMITRIPTYLINE 50 MG TAB PO SCH (21:00)
[2021-07-28] MEDS: REMEDY PHYTOPLEX Z-GUARD PASTE 113GM TUBE (FROM STOREROOM PRODUCT) TOP SCH (21:00)
[2021-07-28] MEDS: DOCUSATE SODIUM 100MG CAPSULE PO SCH (21:00)
[2021-07-28] MEDS: SENNA 8.6 MG TAB (SENOKOT) PO SCH (21:00)
[2021-07-28] MEDS: GABAPENTIN 400MG CAP PO SCH (21:04)
[2021-07-28] MEDS: OMEPRAZOLE 20 MG CAP PO SCH (21:04)
[2021-07-28] MEDS: ACETAMINOPHEN TAB 650MG DOSE (2X325MG) PO SCH (21:05)
[2021-07-28] MEDS: METOPROLOL TART 50 MG TAB PO SCH (21:06)
[2021-07-28] MEDS ORDERED: AMITRIPTYLINE 50 MG TAB PO ONE (23:00)
[2021-07-29] MEDS ORDERED: oxyCODONE 5MG TAB PO ONE ×2 (01:10→23:35)
[2021-07-29] MEDS: oxyCODONE 5MG TAB PO PRN ×3 (05:03→21:17)
[2021-07-29] MEDS: METOPROLOL TART 50 MG TAB PO SCH ×3 (05:05→21:18)
[2021-07-29 06:00] VITALS: BP 134/86
[2021-07-29 08:08] LABS: BASO % 0.6 % (0.0-1.0); EOS % 0.8 % (0.0-3.0); HEMATOCRIT 35.8 % (36.0-47.0); HEMOGLOBIN 11.6 g/dl (12.0-15.5); LYMPH # 2.6 10^3/uL (1.5-5.0); LYMPH % 53.8 % (24.0-44.0); MEAN CORPUSCULAR HEMOGLOBIN 32.9 pg (27.0-33.0); MEAN CORPUSCULAR HGB CONC 32.4 g/dl (32.0-36.5); MEAN CORPUSCULAR VOLUME 101.4 fl (80.0-96.0); MONO # 0.4 10^3/uL (0.0-0.8); MONO % 8.5 % (2.0-8.0); NEUTROPHILS # 1.8 10^3/uL (1.5-8.5); NEUTROPHILS % 36.1 % (36.0-66.0); PLATELET COUNT, AUTOMATED 380 10^3/uL (150-450); RED BLOOD COUNT 3.53 10^6/uL (4.00-5.40); WHITE BLOOD COUNT 4.9 10^3/uL (4.0-10.0)
[2021-07-29 08:28] LABS: ALBUMIN 3.1 GM/DL (3.2-5.2); ALT/SGPT 35 U/L (12-78); BILIRUBIN,TOTAL 0.2 MG/DL (0.2-1.0); BLOOD UREA NITROGEN 17 MG/DL (7-18); CALCIUM LEVEL 9.1 MG/DL (8.5-10.1); CARBON DIOXIDE LEVEL 31 MEQ/L (21-32); CHLORIDE LEVEL 103 MEQ/L (98-107); CREATININE FOR GFR 0.75 MG/DL (0.55-1.30); GLOMERULAR FILTRATION RATE > 60.0 (>60); GLUCOSE, FASTING 96 MG/DL (70-100); POTASSIUM SERUM 3.9 MEQ/L (3.5-5.1); SODIUM LEVEL 137 MEQ/L (136-145)
[2021-07-29] MEDS: GABAPENTIN 400MG CAP PO SCH ×3 (08:43→21:17)
[2021-07-29] MEDS: OMEPRAZOLE 20 MG CAP PO SCH ×2 (08:43→21:17)
[2021-07-29] MEDS: DOCUSATE SODIUM 100MG CAPSULE PO SCH ×2 (08:43→21:00)
[2021-07-29] MEDS: ACETAMINOPHEN TAB 650MG DOSE (2X325MG) PO SCH ×3 (08:44→21:16)
[2021-07-29] MEDS: ENOXAPARIN 40MG/0.4ML SYRINGE (J1650 PER 10MG) SC SCH ×2 (08:45→09:00)
[2021-07-29 08:49] VITALS: BP 134/91
[2021-07-29] MEDS ORDERED: FOLIC ACID 1 MG TAB PO SCH (09:00)
[2021-07-29] MEDS ORDERED: THIAMINE 100 MG TAB PO SCH (09:00)
[2021-07-29] MEDS ORDERED: ASPIRIN 81MG ENTERIC TABLET PO SCH (09:00)
[2021-07-29] MEDS: REMEDY PHYTOPLEX Z-GUARD PASTE 113GM TUBE (FROM STOREROOM PRODUCT) TOP SCH ×3 (09:00→21:00)
[2021-07-29] MEDS ORDERED: MULTIVITAMINS/MINERALS THERAP 1 TAB PO SCH (09:00)
[2021-07-29] MEDS ORDERED: GABAPENTIN 400MG CAP PO ONE (09:45)
--- NOTE | 2021-07-29 09:48 | IPNPDOC ---
PM&R Progress Note DATE OF SERVICE: Jul 29, 2021 Enrolled Nurse Progress Note Subjective: Patient stating her feet are still burning and she is having trouble sleeping. She is complaining of a chest tightness that she has had since her hospital a dmission. REVIEW OF SYSTEMS: The following is a completed review of systems and has been reviewed. Review of systems otherwise unremarkable. PAIN: Patient self reports burning feet pain EYES: No recent vision changes EARS, NOSE, & THROAT: No throat pain, or dysphagia, or rhinorrhea CARDIOVASCULAR: intermittent chest pressure PULMONARY: Denies shortness of breath GASTROINTESTINAL: Denies constipation/diarrhea GENITOURINARY: denies dysuria MUSCULOSKELETAL: LE weakness NEUROLOGICAL:+GBS with LE weakness and paresthesia HEMATOLOGICAL:denies easy bruising SKIN:denies rash PSYCHIATRIC: Unremarkable All other review of systems found to be negative. PHYSICAL EXAMINATION: VITAL SIGNS: Please see below. GENERAL: Pleasant and cooperative. No acute distress. HEENT: PERRL. Extraocular movements intact. Clear conjunctiva CARDIOVASCULAR: mild tachycardia, regular rhythm. No murmurs, rubs, or gallops LUNGS: Clear to auscultation bilaterally. No wheezes. No rhonchi ABDOMEN: Soft, nontender, nondistended. Positive bowel sounds. Normal active bowel sounds NEUROLOGICAL: Alert and oriented times three. Cranial nerves II through XII grossly intact. Sensation diminished to light touch bilat LE up to mid-thighs, palms of hand 0+ reflex bilat patella negative babinksi/clonus EXTREMITIES: 5-\5 strength bilateral upper extremities. 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 Rehab- PT/OT advance mobility and ADLs, strengthen/stretch/maintain ROM all 4 limbs 2. Neuro- recent dx of Guillain-Novinger Syndrome s/p IVIG cont therapy for strengthening -neuropathic pain- increase gabapentin to 800mg TID, cont elavil - hx of TIA cont ASA -ETOH use disorder- cont thiamine and folic acid, f/u on B1, B12 and MMA levels 3. CArdiac- hx of HTN cont BP meds -sinus tachycardia cont beta-reed -intermittent chest pressure- cardiac and PE work-up on inpatient negative -medicine consulted to assist in overall management 4. Resp- monitor for infection, patient has hx of asthma 5. DVT ppx- cont lovenox, hx of DVT, recent dopplers negative for DVT 6. Pain- oxycodone, tylenol, neuro-pain meds as above, will add capsacin cream to feet 7. Ortho-recent right ankle fracture WBAT with CAM boot f/u [facility] 8. Psych- insomnia- will start trazodone 9. Dispo- TBD Allergies Coded Allergies: No Known Allergies (Unverified , 01/25/21) Vital Signs Vital Signs Date Time Temp Pulse Resp B/P (MAP) Pulse Ox O2 Delivery O2 Flow Rate FiO2 07/29/21 08:49 108 134/91 (105) 07/29/21 06:00 97.2 21 98 Room Air Laboratory Data CBC/BMP Laboratory Tests 07/29/21 07:44 Labs 24H Laboratory Tests 2 07/29/21 07:44: Immature Granulocyte % (Auto) 0.2, Neutrophils (%) (Auto) 36.1, Lymphocytes (%) (Auto) 53.8H, Monocytes (%) (Auto) 8.5H, Eosinophils (%) (Auto) 0.8, Basophils (%) (Auto) 0.6, Neutrophils # (Auto) 1.8, Lymphocytes # (Auto) 2.6, Monocytes # (Auto) 0.4, Eosinophils # (Auto) 0.0, Basophils # (Auto) 0.0, Nucleated Red Blood Cells % (auto) 0.0, Anion Gap 3L, Glomerular Filtration Rate > 60.0, Calcium Level 9.1, Total Bilirubin 0.2, Aspartate Amino Transf (AST/SGOT) 29, Alanine Aminotransferase (ALT/SGPT) 35, Alkaline Phosphatase 55, Total Protein 9.0H, Albumin 3.1L, Albumin/Globulin Ratio 0.5L Current Medications Current Medications Current Medications Medications (Trade) Dose Ordered Sig/Valery Route PRN Reason Start Time Stop Time Status Last Admin Dose Admin Acetaminophen (Tylenol Tab) 650 mg TID PO 07/28/21 21:00 07/29/21 08:44 Amitriptyline HCl (Elavil) 50 mg QHS PO 07/28/21 21:00 07/29/21 01:11 DC 07/28/21 21:05 Amitriptyline HCl (Elavil) 100 mg QHS PO 07/29/21 21:00 Amlodipine Besylate (Norvasc) 10 mg DAILY PO 07/29/21 09:00 07/29/21 08:43 Aspirin (Ecotrin) 81 mg DAILY PO 07/29/21 09:00 07/29/21 08:43 Docusate Sodium (Colace) 100 mg BID PO 07/28/21 21:00 07/29/21 08:43 Enoxaparin Sodium (Lovenox) 40 mg DAILY SC 07/29/21 09:00 Folic Acid (Folic Acid) 1 mg DAILY PO 07/29/21 09:00 07/29/21 08:43 Gabapentin (Neurontin) 400 mg TID PO 07/28/21 21:00 07/29/21 09:47 DC 07/29/21 08:43 Gabapentin (Neurontin) 800 mg TID PO 07/29/21 16:00 UNV Lisinopril (Prinivil) 20 mg DAILY PO 07/29/21 09:00 07/29/21 09:01 Metoprolol Tartrate (Lopressor) 50 mg Q8H PO 07/28/21 22:00 07/29/21 05:05 Multivitamins (Theragram-M) 1 tab DAILY PO 07/29/21 09:00 07/29/21 08:44 Omeprazole (PriLOSEC) 40 mg BID PO 07/28/21 21:00 07/29/21 08:43 Oxycodone HCl (Roxicodone, Oxyir) 5 mg Q4HP PRN PO MODERATE PAIN (PS 5-7) 07/28/21 11:00 07/29/21 05:03 Ramelteon (Rozerem) 8 mg QHS PRN PO INSOMNIA 07/28/21 11:00 07/28/21 23:24 Senna (Senokot) 1 tab QHS PO 07/28/21 21:00 Thiamine HCl (Thiamine HCl) 100 mg DAILY PO 07/29/21 09:00 07/29/21 08:44 BATSHEVA WOOD MD Jul 29, 2021 09:48
[2021-07-29] MEDS ORDERED: traZODone 25MG PER 1/2 TABLET PO PRN (10:40)
[2021-07-29 12:57] LABS: CK-MB VALUE MASS 1.7 NG/ML (<3.6); MB/CK RELATIVE INDEX 2.05 (< OR =4)
[2021-07-29 14:00] VITALS: BP 140/83
--- NOTE | 2021-07-29 16:51 | IPNPDOC ---
Text Note Date of Service The patient was seen on 07/29/21. NOTE Subjective: 30-year-old female presented with complaints of lower extremity weakness, paresthesias, and decreased sensation in her lower extremity as well as her abdominal wall. She was admitted for treatment of possible Guillain-Cary syndrome. She continues to complain of paresthesias as well as numbness in her lower extremities. In the afternoon patient began to complain of chest tightness that was reproducible with palpation of the chest wall. She also reported having palpitations. She denied nausea, vomiting, and diaphoresis. There is no radiation of the symptoms. She denied abdominal pain, problems with urination and bowel movements. Review of systems: 10 point review of system was negative except for what is noted in the HPI Physical exam: General: Lying in bed, no acute distress Head/Neck/Throat: Trachea midline, mucous membranes moist Eyes: Sclera anicteric, no erythema or discharge appreciated bilaterally Thorax: Normal respiratory effort on room air, lungs clear to auscultation bilaterally. Palpation of the chest wall elicits tenderness. Cardiovascular: Normal rate, regular rhythm, normal S1, S2; no S3, S4, rubs/gallops/murmurs Abdomen: Bowel sounds present, soft/nontender/nondistended Genitourinary: No CVA tenderness, no Zaldivar in place Musculoskeletal: Moving all extremities, no edema Skin: Warm, dry Neurologic: Cranial nerves II to XII intact. She is able to follow commands and move all extremities. 30-year-old female with past medical history of hypertension, history of alcohol abuse, TIA, status post gastric sleeve surgery presented to the emergency room department with complaints of bilateral lower extremity weakness/paresthesias as well as decreased sensation over the abdominal wall. Today she reports no upper extremity symptoms. 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 #Guillain-Cary syndrome -Status post IV immunoglobulin; c/w gabapentin 400 mg 3 times daily and yonatan riptyline 100 mg daily. -Continue with rehab. #Sinus tachycardia -Repeat CT scan to rule out pulmonary embolism ordered by rehab unit. #Chest tightness/Elevated troponin -Atypical chest pain that is reproducible with palpation of the chest wall. -Repeat EKG today showed no signs of acute ST/T wave changes. -high-sensitivity troponin is elevated. Discussed with cardiology, low suspicion for acs with present symptoms and findings; possible myocarditis. Will trend troponin, and cardio to evaluate pt in am. -f/u on echocardiogram #Hypertension -Continue with amlodipine, lisinopril 20 mg daily. Metoprolol 50 mg every 8 hours #Alcohol abuse -Continue with CIWA protocol #Status post gastric sleeve surgery -Encouraged to maintain regular follow-up with her bariatric surgeon. Continue with multivitamins as well as iron. #Status post right ankle fracture -She had a boot on the time of admission. Repeat x-ray shows healing fracture. Continue with recommended weightbearing status as per her primary orthopedic. #TIA -Continue with aspirin 81 mg daily #GERD -Continue with omeprazole 40 mg daily #Depression/anxiety -Was not on any mood stabilizers #DVT prophylaxis -Continue with Lovenox VS,Fishbone, I+O VS, Fishbone, I+O Laboratory Tests 07/29/21 07:44 Vital Signs Date Time Temp Pulse Resp B/P (MAP) Pulse Ox O2 Delivery O2 Flow Rate FiO2 07/29/21 15:19 18 Room Air 07/29/21 14:46 140/83 07/29/21 14:00 97.5 125 99 I&O- Last 24 Hours up to 6 AM 07/29/21 06:00 Intake Total 720 ml Balance 720 ml TOPHER ROMAN M.D. Jul 29, 2021 16:51
[2021-07-29] MEDS ORDERED: IBUPROFEN 800 MG TAB PO ONE (16:55)
[2021-07-29] MEDS ORDERED: ISOVUE-370 76% 100ML VIAL As Ordered ONE (17:29)
[2021-07-29] MEDS: CAPSAICIN 0.025% CR 60 GM TOP SCH ×2 (17:53→21:20)
--- NOTE | 2021-07-29 17:58 | REP ---
INDICATION: r/ DVT COMPARISON: 07/18/2021. TECHNIQUE: Real time compression and duplex Doppler interrogation of the bilateral lower extremity deep venous system is performed. Compression ultrasound is performed of the bilateral peroneal and posterior tibial veins. FINDINGS: Bilaterally, the common femoral, superficial femoral and popliteal veins are fully compressible with transducer pressure and demonstrate normal spontaneous and phasic flow, without evidence of deep venous thrombosis. No thrombus is seen in the bilateral visualized portions of the peroneal and posterior tibial veins. IMPRESSION: No evidence of deep venous thrombosis of the bilateral lower extremity femoral popliteal venous system. <Electronically signed by Kervin Bonilla > 07/29/21 [id number]
--- NOTE | 2021-07-29 17:59 | REP ---
INDICATION: r/ DVT COMPARISON: None. TECHNIQUE: Real time compression and duplex Doppler evaluation of the Bilateral upper extremity deep venous systems is performed. FINDINGS: The Bilateral subclavian, jugular, axillary, brachial, basilic and cephalic veins are fully compressible where accessible with transducer pressure, and demonstrate no intraluminal thrombus and normal venous waveforms. The left cephalic vein is not visualized. There is no evidence of deep venous thrombosis. IMPRESSION: No evidence of deep venous thrombosis of the Bilateral upper extremity deep vein systems. <Electronically signed by Kervin Bonilla > 07/29/21 [id number]
--- NOTE | 2021-07-29 18:07 | REPVR ---
PROCEDURE INFORMATION: Exam: CTA Chest With Contrast Exam date and time: 07/29/2021 5:32 PM Age: 30 years old Clinical indication: Pain; Chest pressure; Additional info: R/O pe TECHNIQUE: Imaging protocol: Computed tomographic angiography of the chest with contrast. 3D rendering (Not supervised by radiologist): MIP and/or 3D reconstructed images were created by the technologist. Radiation optimization: All CT scans at this facility use at least one of these dose optimization techniques: automated exposure control; mA and/or kV adjustment per patient size (includes targeted exams where dose is matched to clinical indication); or iterative reconstruction. Contrast material: ISOVUE 370; Contrast volume: 75 ml; Contrast route: INTRAVENOUS (IV); COMPARISON: CT ANGIO CHEST 07/19/2021 3:58 PM FINDINGS: Pulmonary arteries: No focal pulmonary artery filling defect to suggest acute pulmonary embolus. Pulmonary vascular/interstitial pattern does not suggest active pulmonary edema. Aorta: No thoracic aortic aneurysm or dissection. Lungs: No suspicious lung mass or air space process. No central endobronchial lesion. Pleural spaces: No pleural effusion or pneumothorax. Heart: No overt cardiac enlargement or abnormal volume of pericardial fluid. Mediastinal space: Residual thymic tissue is present in the anterior mediastinum. Lymph nodes: No enlarged mediastinal lymph nodes. Liver: Liver is enlarged and decreased in density suggesting hepatic steatosis. Bones/joints: Bony structures show no acute fracture or destructive process. Soft tissues: No asymmetric abnormality of the extrathoracic soft tissues. IMPRESSION: 1. No evidence of acute pulmonary embolus. 2. No other acute or concerning focal intrathoracic abnormality. Electronically signed by: Teo Upton On 07/29/2021 18:07:03 PM
[2021-07-29] MEDS ORDERED: COMBIVENT RESPIMAT 100-20MCG INHALER 4GM INH SCH (20:00)
[2021-07-29 21:00] VITALS: BP 123/61
[2021-07-29] MEDS ORDERED: AMITRIPTYLINE 50 MG TAB PO SCH (21:00)
[2021-07-29] MEDS ORDERED: traZODone 25MG PER 1/2 TABLET PO SCH (21:00)
[2021-07-29] MEDS: SENNA 8.6 MG TAB (SENOKOT) PO SCH (21:00)
[2021-07-29 21:18] VITALS: BP 123/61
--- NOTE | 2021-07-29 22:10 | ECGEPIP ---
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 Electronically Signed on 07-29-2021 22:10:34 EST by Mal Godwin
[2021-07-29] MEDS ORDERED: NS 1,000 ML IV SCH (22:40)
[2021-07-29] MEDS ORDERED: LEVALBUTEROL 1.25 MG/0.5 ML CONCENTRATE NEB INH PRN (23:35)
[2021-07-30] VITALS: BP 122/74
[2021-07-30] MEDS ORDERED: VITAMIN D 1,000 INTERNATIONAL UNITS TABLET PO SCH (09:00)
--- NOTE | 2021-07-31 20:40 | ECGEPIP ---
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
--- NOTE | 2021-08-11 15:22 | PMRDS ---
NAME: SHAWNEE MONTALVO [facility] WT ID#: [id number] : 1990 JOB: [id number] SANDRA: 07/30/2021 ACCT: [id number] DOCTOR: BATSHEVA WOOD MD PMR DISCHARGE SUMMARY DATE OF ADMISSION: 07/28/2021 DATE OF DISCHARGE: 07/30/2021 CHIEF COMPLAINT/DISCHARGE DIAGNOSIS: Guillain-Shelbiana syndrome and elevated troponins. 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 There was a concern for possible PE given her tachycardia and her history of DVT, but Dopplers were negative for DVT and CTA negative for PE. She continued to have episodes of chest tightness with tachycardia and was started on a beta-reed. She had difficulty with neuropathic pain in her feet and legs and was started on Elavil. She had mobility and ADL impairments below her baseline and deemed medically appropriate for discharge to ARU. PAST MEDICAL HISTORY: As per HPI. HOSPITAL COURSE: Patient was admitted and enrolled in a comprehensive PT/OT program. She received 24 hour nursing supervision, and weekly team meetings were held to discuss her progress. Patient's hospital course was interrupted unfortunately by persistent and ongoing chest tightness with tachycardia. Repeat ultrasounds of her bilateral lower extremity venous structures were ordered, and she did not have any new diagnosis of DVT. CT angio was also ordered which did not show any PE. She was noted to have elevated troponins and was eventually discharged off the unit for telemetry monitoring and to determine whether or not she was presenting with ACS versus some other diagnosis. DISCHARGE MEDICATIONS: As per instructions. FUNCTIONAL HISTORY: On discharge, patient was independent for functional transfers and standby assist for ADLs. Thank you for this referral.
== END 2021-07-30 00:34 | disposition short-term general hospital (02) | DRG 49 ==
LOC: M PM&R 17:25 → UNDODISIN 07-30 00:34
PROVIDERS: ADMIT Physical Medicine & Rehabilitation; ATTEND Physical Medicine & Rehabilitation
DX: G61.0 Guillain-Barre syndrome (principal); I10 Essential (primary) hypertension; K76.0 Fatty (change of) liver, not elsewhere classified; F10.10 Alcohol abuse, uncomplicated; R77.8 Other specified abnormalities of plasma proteins; F32.A Depression, unspecified; F41.9 Anxiety disorder, unspecified; J45.909 Unspecified asthma, uncomplicated; R00.0 Tachycardia, unspecified; M79.2 Neuralgia and neuritis, unspecified; R07.89 Other chest pain; F17.200 Nicotine dependence, unspecified, uncomplicated; K21.9 Gastro-esophageal reflux disease without esophagitis; Z74.09 Other reduced mobility; Z74.1 Need for assistance with personal care; Z86.718 Personal history of other venous thrombosis and embolism; Z79.82 Long term (current) use of aspirin; Z79.899 Other long term (current) drug therapy

== ENCOUNTER 2021-07-30 00:05 | Observation (INO) | payer OTHER ==
[2021-07-30] VITALS (8 sets, daily range): BP systolic 105–136; BP diastolic 62–77; PULSE 101–115
[~2021-07-30] VITALS: Ht 185.4 cm; Wt 102.3 kg
[~2021-07-30 00:05] MED LIST changes: +AMIT100TA PO; -OMEP-221 PO; +OMEP40CA5 PO
[2021-07-30] MEDS ORDERED: NS 1,000 ML IV SCH (00:10)
[2021-07-30] MEDS ORDERED: LEVALBUTEROL 1.25 MG/0.5 ML CONCENTRATE NEB INH PRN (00:10)
[2021-07-30] MEDS ORDERED: SENNA 8.6 MG TAB (SENOKOT) PO PRN (00:35)
[2021-07-30] MEDS ORDERED: HOME MED LIST COMPLETE! XX SCH (01:40)
[2021-07-30] MEDS: METOPROLOL TART 50 MG TAB PO SCH ×3 (06:00→21:27)
[2021-07-30] MEDS: oxyCODONE 5MG TAB PO PRN ×3 (06:22→23:39)
[2021-07-30 06:36] LABS: ALBUMIN 2.7 GM/DL (3.2-5.2); ALT/SGPT 31 U/L (12-78); BILIRUBIN,TOTAL 0.3 MG/DL (0.2-1.0); BLOOD UREA NITROGEN 13 MG/DL (7-18); CALCIUM LEVEL 8.8 MG/DL (8.5-10.1); CARBON DIOXIDE LEVEL 30 MEQ/L (21-32); CHLORIDE LEVEL 107 MEQ/L (98-107); CREATININE FOR GFR 0.68 MG/DL (0.55-1.30); GLOMERULAR FILTRATION RATE > 60.0 (>60); GLUCOSE, FASTING 97 MG/DL (70-100); MAGNESIUM LEVEL 2.1 MG/DL (1.8-2.4); POTASSIUM SERUM 4.4 MEQ/L (3.5-5.1); SODIUM LEVEL 141 MEQ/L (136-145); TOTAL PROTEIN 7.4 GM/DL (6.4-8.2)
[2021-07-30] MEDS: THIAMINE 100 MG TAB PO SCH (08:18)
[2021-07-30] MEDS: DOCUSATE SODIUM 100MG CAPSULE PO SCH ×2 (08:19→21:24)
[2021-07-30] MEDS: MULTIVITAMINS/MINERALS THERAP 1 TAB PO SCH (08:19)
[2021-07-30] MEDS: FOLIC ACID 1 MG TAB PO SCH (08:19)
[2021-07-30] MEDS: ASPIRIN 81MG ENTERIC TABLET PO SCH (08:19)
[2021-07-30] MEDS: GABAPENTIN 400MG CAP PO SCH ×3 (08:19→21:25)
[2021-07-30] MEDS: OMEPRAZOLE 20MG CAP PO SCH ×2 (08:20→21:24)
[2021-07-30] MEDS: VITAMIN D 1,000 INTERNATIONAL UNITS TABLET PO SCH (08:20)
[2021-07-30] MEDS: CAPSAICIN 0.025% CR 60 GM TOP SCH ×4 (08:21→21:26)
[2021-07-30] MEDS: ENOXAPARIN 40MG/0.4ML SYRINGE (J1650 PER 10MG) SC SCH (08:22)
[2021-07-30] MEDS: ACETAMINOPHEN TAB 650MG DOSE (2X325MG) PO PRN (09:53)
[2021-07-30] MEDS: IBUPROFEN 400MG TAB PO SCH ×2 (12:42→17:06)
[2021-07-30] MEDS ORDERED: PANTOPRAZOLE 40MG TAB (PROTONIX) PO SCH (14:30)
[2021-07-30] MEDS ORDERED: PILL CUTTER 1 EACH XX PRN (20:20)
[2021-07-30] MEDS: AMITRIPTYLINE 50 MG TAB PO SCH (21:24)
[2021-07-30] MEDS: traZODone 50 MG TAB PO SCH (21:25)
[2021-07-31] VITALS (7 sets, daily range): BP systolic 84–123; BP diastolic 54–75; PULSE 120
[2021-07-31] MEDS: IBUPROFEN 400MG TAB PO SCH ×5 (00:45→22:19)
[2021-07-31 06:08] LABS: HEMOGLOBIN 10.5 g/dl (12.0-15.5); MEAN CORPUSCULAR HEMOGLOBIN 32.6 pg (27.0-33.0); MEAN CORPUSCULAR HGB CONC 31.8 g/dl (32.0-36.5); MEAN CORPUSCULAR VOLUME 102.5 fl (80.0-96.0); PLATELET COUNT, AUTOMATED 339 10^3/uL (150-450); RED BLOOD COUNT 3.22 10^6/uL (4.00-5.40)
[2021-07-31 06:28] LABS: BLOOD UREA NITROGEN 12 MG/DL (7-18); CALCIUM LEVEL 8.6 MG/DL (8.5-10.1); CARBON DIOXIDE LEVEL 29 MEQ/L (21-32); CHLORIDE LEVEL 105 MEQ/L (98-107); CREATININE FOR GFR 0.58 MG/DL (0.55-1.30); GLOMERULAR FILTRATION RATE > 60.0 (>60); GLUCOSE, FASTING 97 MG/DL (70-100); MAGNESIUM LEVEL 1.9 MG/DL (1.8-2.4); POTASSIUM SERUM 4.1 MEQ/L (3.5-5.1); SODIUM LEVEL 139 MEQ/L (136-145)
[2021-07-31] MEDS: METOPROLOL TART 50 MG TAB PO SCH ×3 (06:34→22:20)
[2021-07-31] MEDS: VITAMIN D 1,000 INTERNATIONAL UNITS TABLET PO SCH (08:21)
[2021-07-31] MEDS: ENOXAPARIN 40MG/0.4ML SYRINGE (J1650 PER 10MG) SC SCH (08:21)
[2021-07-31] MEDS: THIAMINE 100 MG TAB PO SCH (08:21)
[2021-07-31] MEDS: OMEPRAZOLE 20MG CAP PO SCH ×2 (08:21→22:19)
[2021-07-31] MEDS: ASPIRIN 81MG ENTERIC TABLET PO SCH (08:22)
[2021-07-31] MEDS: MULTIVITAMINS/MINERALS THERAP 1 TAB PO SCH (08:22)
[2021-07-31] MEDS: FOLIC ACID 1 MG TAB PO SCH (08:22)
[2021-07-31] MEDS: GABAPENTIN 400MG CAP PO SCH ×3 (08:22→22:18)
[2021-07-31] MEDS: DOCUSATE SODIUM 100MG CAPSULE PO SCH ×2 (08:22→22:19)
[2021-07-31] MEDS: oxyCODONE 5MG TAB PO PRN ×2 (08:23→18:27)
[2021-07-31] MEDS: CAPSAICIN 0.025% CR 60 GM TOP SCH ×4 (08:23→21:00)
[2021-07-31] MEDS: ACETAMINOPHEN TAB 650MG DOSE (2X325MG) PO PRN (10:24)
[2021-07-31] MEDS ORDERED: NS 1,000 ML IV ONE (16:05)
[2021-07-31] MEDS: traZODone 50 MG TAB PO SCH (22:19)
[2021-07-31] MEDS: AMITRIPTYLINE 50 MG TAB PO SCH (22:19)
[2021-08-01] VITALS: BP 115/71
[2021-08-01 04:00] VITALS: BP 121/79
[2021-08-01] MEDS: oxyCODONE 5MG TAB PO PRN ×3 (04:12→20:41)
[2021-08-01 05:48] LABS: HEMATOCRIT 33.5 % (36.0-47.0); MEAN CORPUSCULAR HEMOGLOBIN 33.3 pg (27.0-33.0); MEAN CORPUSCULAR HGB CONC 32.8 g/dl (32.0-36.5); MEAN CORPUSCULAR VOLUME 101.5 fl (80.0-96.0); PLATELET COUNT, AUTOMATED 349 10^3/uL (150-450); WHITE BLOOD COUNT 4.4 10^3/uL (4.0-10.0)
[2021-08-01 06:12] LABS: BLOOD UREA NITROGEN 11 MG/DL (7-18); CALCIUM LEVEL 8.5 MG/DL (8.5-10.1); CARBON DIOXIDE LEVEL 28 MEQ/L (21-32); CHLORIDE LEVEL 106 MEQ/L (98-107); GLOMERULAR FILTRATION RATE > 60.0 (>60); GLUCOSE, FASTING 110 MG/DL (70-100); MAGNESIUM LEVEL 1.8 MG/DL (1.8-2.4); PHOSPHORUS LEVEL 5.1 MG/DL (2.5-4.9); POTASSIUM SERUM 4.3 MEQ/L (3.5-5.1); SODIUM LEVEL 140 MEQ/L (136-145)
[2021-08-01] MEDS: IBUPROFEN 400MG TAB PO SCH (06:45)
[2021-08-01] MEDS: METOPROLOL TART 50 MG TAB PO SCH (06:45)
[2021-08-01 08:15] LABS: ERYTHROCYTE SEDIMENTATION RATE 60 mm/hr (0-20)
[2021-08-01 08:17] VITALS: BP 128/80
[2021-08-01] MEDS: VITAMIN D 1,000 INTERNATIONAL UNITS TABLET PO SCH (09:50)
[2021-08-01] MEDS: ENOXAPARIN 40MG/0.4ML SYRINGE (J1650 PER 10MG) SC SCH (09:50)
[2021-08-01] MEDS: ASPIRIN 81MG ENTERIC TABLET PO SCH (09:50)
[2021-08-01] MEDS: THIAMINE 100 MG TAB PO SCH (09:50)
[2021-08-01] MEDS: OMEPRAZOLE 20MG CAP PO SCH ×2 (09:50→20:44)
[2021-08-01] MEDS: MULTIVITAMINS/MINERALS THERAP 1 TAB PO SCH (09:50)
[2021-08-01] MEDS: DOCUSATE SODIUM 100MG CAPSULE PO SCH ×2 (09:51→20:45)
[2021-08-01] MEDS: FOLIC ACID 1 MG TAB PO SCH (09:51)
[2021-08-01] MEDS: GABAPENTIN 400MG CAP PO SCH ×3 (09:51→20:43)
[2021-08-01] MEDS: CAPSAICIN 0.025% CR 60 GM TOP SCH ×4 (09:52→21:29)
[2021-08-01 11:34] LABS: BASO % 0.5 % (0.0-1.0); EOS % 0.5 % (0.0-3.0); HEMATOCRIT 35.5 % (36.0-47.0); HEMOGLOBIN 11.6 g/dl (12.0-15.5); LYMPH # 2.4 10^3/uL (1.5-5.0); LYMPH % 54.7 % (24.0-44.0); MEAN CORPUSCULAR HEMOGLOBIN 33.1 pg (27.0-33.0); MEAN CORPUSCULAR HGB CONC 32.7 g/dl (32.0-36.5); MEAN CORPUSCULAR VOLUME 101.4 fl (80.0-96.0); MONO # 0.3 10^3/uL (0.0-0.8); NEUTROPHILS # 1.7 10^3/uL (1.5-8.5); NEUTROPHILS % 38.3 % (36.0-66.0); PLATELET COUNT, AUTOMATED 377 10^3/uL (150-450); WHITE BLOOD COUNT 4.3 10^3/uL (4.0-10.0)
[2021-08-01 12:25] VITALS: BP 128/68
[2021-08-01] MEDS: METOPROLOL TART 25 MG TABLET PO SCH ×2 (15:27→21:30)
[2021-08-01 16:00] VITALS: BP 119/57
[2021-08-01] MEDS: ACETAMINOPHEN TAB 650MG DOSE (2X325MG) PO PRN (18:20)
[2021-08-01 20:00] VITALS: BP 137/98
[2021-08-01] MEDS: AMITRIPTYLINE 50 MG TAB PO SCH (20:44)
[2021-08-01] MEDS: traZODone 50 MG TAB PO SCH (20:44)
[2021-08-02] VITALS: BP 116/73
[2021-08-02] MEDS: ACETAMINOPHEN TAB 650MG DOSE (2X325MG) PO PRN ×4 (01:07→23:42)
[2021-08-02] MEDS: oxyCODONE 5MG TAB PO PRN ×4 (03:27→23:42)
[2021-08-02 04:00] VITALS: BP 138/73
[2021-08-02] MEDS: CAPSAICIN 0.025% CR 60 GM TOP SCH ×4 (05:33→20:09)
[2021-08-02] MEDS: METOPROLOL TART 25 MG TABLET PO SCH ×3 (05:48→20:08)
[2021-08-02 06:25] LABS: BLOOD UREA NITROGEN 11 MG/DL (7-18); CALCIUM LEVEL 9.1 MG/DL (8.5-10.1); CARBON DIOXIDE LEVEL 31 MEQ/L (21-32); CHLORIDE LEVEL 104 MEQ/L (98-107); CREATININE FOR GFR 0.72 MG/DL (0.55-1.30); GLOMERULAR FILTRATION RATE > 60.0 (>60); GLUCOSE, FASTING 90 MG/DL (70-100); MAGNESIUM LEVEL 1.8 MG/DL (1.8-2.4); PHOSPHORUS LEVEL 5.2 MG/DL (2.5-4.9); POTASSIUM SERUM 4.2 MEQ/L (3.5-5.1); SODIUM LEVEL 140 MEQ/L (136-145)
[2021-08-02 08:32] VITALS: BP 123/84
[2021-08-02] MEDS: DOCUSATE SODIUM 100MG CAPSULE PO SCH ×2 (09:00→20:07)
[2021-08-02] MEDS: VITAMIN D 1,000 INTERNATIONAL UNITS TABLET PO SCH (09:41)
[2021-08-02] MEDS: ASPIRIN 81MG ENTERIC TABLET PO SCH (09:41)
[2021-08-02] MEDS: GABAPENTIN 400MG CAP PO SCH ×3 (09:41→20:07)
[2021-08-02] MEDS: ENOXAPARIN 40MG/0.4ML SYRINGE (J1650 PER 10MG) SC SCH (09:42)
[2021-08-02] MEDS: FOLIC ACID 1 MG TAB PO SCH (09:42)
[2021-08-02] MEDS: THIAMINE 100 MG TAB PO SCH (09:42)
[2021-08-02] MEDS: OMEPRAZOLE 20MG CAP PO SCH ×2 (09:42→20:07)
[2021-08-02 14:44] VITALS: BP 111/76
[2021-08-02 15:20] VITALS: BP 133/89
[2021-08-02 16:07] LABS: Lyme Disease IgG/IgM Antibodie <0.91 ISR (0.00-0.90); Lyme Disease IgM Ab Quantitati <0.80 index (0.00-0.79)
[2021-08-02] MEDS: AMITRIPTYLINE 50 MG TAB PO SCH (20:07)
[2021-08-02] MEDS: traZODone 50 MG TAB PO SCH (20:07)
[2021-08-02 22:00] VITALS: BP 131/88
[2021-08-03 06:00] VITALS: BP 104/62
[2021-08-03] MEDS ORDERED: METOPROLOL SUCC (TopROL XL) 100MG *XL* TAB PO SCH (09:00)
[2021-08-03] MEDS: THIAMINE 100 MG TAB PO SCH (09:53)
[2021-08-03] MEDS: DOCUSATE SODIUM 100MG CAPSULE PO SCH ×2 (09:53→20:22)
[2021-08-03] MEDS: ENOXAPARIN 40MG/0.4ML SYRINGE (J1650 PER 10MG) SC SCH (09:53)
[2021-08-03] MEDS: ASPIRIN 81MG ENTERIC TABLET PO SCH (09:53)
[2021-08-03] MEDS: GABAPENTIN 400MG CAP PO SCH ×3 (09:53→20:27)
[2021-08-03] MEDS: FOLIC ACID 1 MG TAB PO SCH (09:53)
[2021-08-03] MEDS: CAPSAICIN 0.025% CR 60 GM TOP SCH ×4 (09:54→20:23)
[2021-08-03] MEDS: VITAMIN D 1,000 INTERNATIONAL UNITS TABLET PO SCH (09:54)
[2021-08-03] MEDS: OMEPRAZOLE 20MG CAP PO SCH ×2 (09:54→20:22)
[2021-08-03] MEDS: oxyCODONE 5MG TAB PO PRN ×2 (15:27→21:30)
[2021-08-03 16:11] VITALS: BP 102/59
[2021-08-03] MEDS: ACETAMINOPHEN TAB 650MG DOSE (2X325MG) PO PRN (18:46)
[2021-08-03] MEDS: traZODone 50 MG TAB PO SCH (20:22)
[2021-08-03] MEDS: AMITRIPTYLINE 50 MG TAB PO SCH (20:22)
[2021-08-03] MEDS: METOPROLOL SUCC (TopROL XL) 100MG *XL* TAB PO SCH (21:00)
[2021-08-03 22:00] VITALS: BP 104/67
[2021-08-04] MEDS: oxyCODONE 5MG TAB PO PRN ×3 (04:10→15:02)
[2021-08-04 06:09] LABS: HEMATOCRIT 36.4 % (36.0-47.0); HEMOGLOBIN 11.7 g/dl (12.0-15.5); MEAN CORPUSCULAR HEMOGLOBIN 32.4 pg (27.0-33.0); MEAN CORPUSCULAR HGB CONC 32.1 g/dl (32.0-36.5); MEAN CORPUSCULAR VOLUME 100.8 fl (80.0-96.0); PLATELET COUNT, AUTOMATED 380 10^3/uL (150-450); RED BLOOD COUNT 3.61 10^6/uL (4.00-5.40); WHITE BLOOD COUNT 4.7 10^3/uL (4.0-10.0)
[2021-08-04 06:41] LABS: ERYTHROCYTE SEDIMENTATION RATE 56 mm/hr (0-20)
[2021-08-04 06:42] LABS: ALBUMIN 3.2 GM/DL (3.2-5.2); ALT/SGPT 28 U/L (12-78); BILIRUBIN,TOTAL 0.3 MG/DL (0.2-1.0); BLOOD UREA NITROGEN 13 MG/DL (7-18); CARBON DIOXIDE LEVEL 31 MEQ/L (21-32); CHLORIDE LEVEL 101 MEQ/L (98-107); CREATININE FOR GFR 0.69 MG/DL (0.55-1.30); GLOMERULAR FILTRATION RATE > 60.0 (>60); GLUCOSE, FASTING 101 MG/DL (70-100); MAGNESIUM LEVEL 1.7 MG/DL (1.8-2.4); PHOSPHORUS LEVEL 5.4 MG/DL (2.5-4.9); POTASSIUM SERUM 4.1 MEQ/L (3.5-5.1); SODIUM LEVEL 139 MEQ/L (136-145); TOTAL PROTEIN 8.2 GM/DL (6.4-8.2)
[2021-08-04 06:43] VITALS: BP 148/98
[2021-08-04] MEDS: FOLIC ACID 1 MG TAB PO SCH (08:54)
[2021-08-04] MEDS: ASPIRIN 81MG ENTERIC TABLET PO SCH (08:54)
[2021-08-04] MEDS: DOCUSATE SODIUM 100MG CAPSULE PO SCH (08:54)
[2021-08-04 08:55] VITALS: BP 148/98
[2021-08-04] MEDS: OMEPRAZOLE 20MG CAP PO SCH (08:55)
[2021-08-04] MEDS: ENOXAPARIN 40MG/0.4ML SYRINGE (J1650 PER 10MG) SC SCH (08:55)
[2021-08-04] MEDS: VITAMIN D 1,000 INTERNATIONAL UNITS TABLET PO SCH (08:55)
[2021-08-04] MEDS: GABAPENTIN 400MG CAP PO SCH ×2 (08:55→15:02)
[2021-08-04] MEDS: THIAMINE 100 MG TAB PO SCH (08:55)
[2021-08-04] MEDS: METOPROLOL SUCC (TopROL XL) 100MG *XL* TAB PO SCH (08:55)
[2021-08-04] MEDS: CAPSAICIN 0.025% CR 60 GM TOP SCH ×3 (08:56→17:00)
[2021-08-04] MEDS: ACETAMINOPHEN TAB 650MG DOSE (2X325MG) PO PRN ×2 (10:38→16:15)
[2021-08-04 14:00] VITALS: BP 126/80
[2021-08-04] MEDS ORDERED: OXYC-517 PO ×2 (14:20→14:28)
[2021-08-04] MEDS ORDERED: VITAD1000T PO (14:20)
[2021-08-04] MEDS ORDERED: METO1TAB33 PO (14:20)
[2021-08-04] MEDS ORDERED: ASPI81TA26 PO (14:20)
[2021-08-04] MEDS ORDERED: GABA800T4 PO (14:20)
[2021-08-04] MEDS ORDERED: AMIT50TA PO (14:20)
[2021-08-04] MEDS ORDERED: FOLI1TAB11 PO (14:20)
[2021-08-04] MEDS ORDERED: THIA100T7 PO (14:20)
[2021-08-06 21:16] LABS: COXSACKIE TYPE B1 1:32 (Neg:<1:8); COXSACKIE TYPE B2 1:16 (Neg:<1:8); COXSACKIE TYPE B3 1:16 (Neg:<1:8); COXSACKIE TYPE B4 1:16 (Neg:<1:8); COXSACKIE TYPE B5 1:32 (Neg:<1:8); COXSACKIE TYPE B6 1:32 (Neg:<1:8)
== END 2021-08-04 17:39 | disposition home health service (06) ==
LOC: M PCU 00:05 → M MSPAV 08-02 15:12
PROVIDERS: ADMIT Internal Medicine; ATTEND Internal Medicine
DX: G61.0 Guillain-Barre syndrome (principal); I10 Essential (primary) hypertension; I51.4 Myocarditis, unspecified; D64.9 Anemia, unspecified; K76.0 Fatty (change of) liver, not elsewhere classified; J45.909 Unspecified asthma, uncomplicated; F10.10 Alcohol abuse, uncomplicated; Z86.73 Personal history of transient ischemic attack (TIA), and cerebral infarction without residual deficits; R53.1 Weakness; G47.00 Insomnia, unspecified; F32.9 Major depressive disorder, single episode, unspecified; F41.9 Anxiety disorder, unspecified; Z79.82 Long term (current) use of aspirin; Z79.899 Other long term (current) drug therapy; Z98.84 Bariatric surgery status; F17.218 Nicotine dependence, cigarettes, with other nicotine-induced disorders
CPT/HCPCS: 36415; 80048; 80053; 83735; 83880; 84100; 85025; 85027; 85652; 86140; 86617; 86658; 93005; 93306; 96360; 96361; 96372; 97110; 97116; 97161; 97530; J1650